=== PATIENT | male | born 1945 | race Caucasian/White ===

== ENCOUNTER → 2017-10-28 08:41 | Outpatient (CLI) | payer MEDICARE, SELFPAY ==
--- NOTE | 2017-10-28 08:45 | AAVD_ITS ---
Reason For Study: Pre ECP therapy Aorta Measurements Aorta Doppler Measurements Proximal aorta measures1.6 x 1.5cm. in cross- Peak systolic flow velocities within the proximal sectional axis. aorta measure 85.7 cm/sec. Proximal aorta measures1.6cm. in longitudinal Peak systolic flow velocities within the mid axis. aorta measure 77.5 cm/sec. Mid aorta measures1.6 x 1.5cm. in cross-sectionalPeak systolic flow velocities within the distal axis. aorta measure 85.7 cm/sec. Mid aorta measures1.5cm. in longitudinal axis. Distal aorta measures1.4 x 1.4cm. in cross- sectional axis. Distal aorta measures1.4cm. in longitudinal axis. Left Iliac Artery Left iliac artery measures .91 cm. in the longitudinal axis. Left iliac artery measures .93 x .89 cm. in the cross-sectional axis. Peak systolic velocity in the left iliac artery measures 102.0 cm/sec. Right Iliac Artery Right iliac artery measures .88 cm. in the longitudinal axis. Right iliac artery measures .86 x .85 cm. in the cross-sectional axis. Peak systolic velocity in the right iliac artery measures 102.0 cm/sec. Procedure Aorta IVC Iliac vasculature or bypass grafts 23956. Exam performed in department. Interpretation Summary No evidence for aortic aneurysm with maximal diameter of 1.6 x 1.5cm and normal flow. Normal iliac dimensions as noted. Ordering Physician: Marybeth Garcia Referring Physician: Kandi Obrien M.D. Performed By: Verenice Amador RVT
== END ==
PROVIDERS: Family Provider Internal Medicine; PCP Internal Medicine; Visit Provider Physician Assistant Medical
DX: I10 Essential (primary) hypertension (principal)
CPT/HCPCS: 93978

== ENCOUNTER → 2017-10-31 10:48 | Outpatient (CLI) | payer MEDICARE, SELFPAY | PROVIDERS: Family Provider Internal Medicine; PCP Internal Medicine; Visit Provider Internal Medicine Cardiovascular Disease | DX: I25.728 Atherosclerosis of autologous artery coronary artery bypass graft(s) with other forms of angina pectoris (principal) ==

== ENCOUNTER 2017-11-29 11:00 | Outpatient (RCR) | payer MEDICARE, SELFPAY | END 2017-11-30 23:59 | LOC: CR 11:00 | PROVIDERS: Family Provider Internal Medicine; PCP Internal Medicine; Visit Provider Internal Medicine Cardiovascular Disease | DX: I25.728 Atherosclerosis of autologous artery coronary artery bypass graft(s) with other forms of angina pectoris (principal) | CPT/HCPCS: 92971; G0166 ==

== ENCOUNTER 2017-12-23 11:00 | Outpatient (RCR) | payer MEDICARE, SELFPAY | END 2017-12-24 11:15 | disposition home or self-care (01) | LOC: CR 11:00 | PROVIDERS: Family Provider Internal Medicine; PCP Internal Medicine; Visit Provider Internal Medicine Cardiovascular Disease | DX: I25.728 Atherosclerosis of autologous artery coronary artery bypass graft(s) with other forms of angina pectoris (principal) | CPT/HCPCS: 92971; G0166 ==

== ENCOUNTER → 2018-03-10 12:12 | Outpatient (CLI) | payer MEDICARE, SELFPAY ==
--- NOTE | 2018-03-10 12:16 | RAD_ITS ---
STUDY: X-RAY - RIGHT KNEE REASON FOR EXAM: Male, 72 years old. Knee pain TECHNIQUE: 3 view(s) of the knee. COMPARISON: None. FINDINGS: The femur, tibia, fibula and patella are intact. There are linear bony densities adjacent to the medial femoral condyle which could be old injury related to medial collateral ligament. There is NO soft tissue swelling or joint effusion. There are vascular calcifications. RAD/Knee 3 Views IMPRESSION: There is NO acute bony or soft tissue abnormality. There is possible evidence of old medial collateral ligament injury. Electronically Signed: Faraz Paula MD at 6:59 EDT , Service support ,
== END ==
PROVIDERS: Family Provider Internal Medicine; PCP Internal Medicine; Visit Provider Internal Medicine
DX: M25.561 Pain in right knee (principal)
CPT/HCPCS: 73562; 73564

== ENCOUNTER 2018-12-05 18:09 | Inpatient (IN) | payer MEDICARE, SELFPAY ==
[2018-10-22 09:30] VITALS: BMI 31.4
[2018-12-05] VITALS (8 sets, daily range): BP systolic 125–161; BP diastolic 65–76; PULSE 73–89; RESP 18; TEMP 36.6–36.8; O2SAT 97–99; BMI 29.3; BMI 28.9
--- NOTE | 2018-12-05 18:10 | RAD_ITS ---
STUDY: X-RAY CHEST REASON FOR EXAM: Male, 73 years old. Chest pain TECHNIQUE: Frontal view of the chest COMPARISON: 10/24/2016 FINDINGS: The lungs are clear. There are no pleural effusions. There is no pneumothorax. The heart is stable in size. Again noted are sternotomy wires. The visualized osseous structures are within normal limits. RAD/Chest 1 View (Portable) IMPRESSION: No acute thoracic pathology. Electronically Signed: Remberto Garza, at 18:39 EDT Tel , Service support ,
--- NOTE | 2018-12-05 18:10 | EKG12_ITS ---
Test Reason : CP Blood Pressure : / mmHG Vent. Rate : 086 BPM Atrial Rate : 086 BPM P-R Int : 188 ms QRS Dur : 116 ms QT Int : 388 ms P-R-T Axes : 024 -85 096 degrees QTc Int : 464 ms Normal sinus rhythm Left axis deviation Marked ST abnormality, possible lateral subendocardial injury Abnormal ECG Confirmed by VICKIE DOLL, SABRA ([id number]), editor dictionary DENISSE FRANK ([id number]) on 12/08/2018 10:56:10 AM Referred By: DEEPALI Confirmed By:SABRA JOHNSTON MD
--- NOTE | 2018-12-05 18:14 | ED.DCSUM_ITS ---
- ER Visit Summary Date of Service: 12/05/18 Chief Complaint: Chest pain History of Present Illness: The patient is a 73 M presents to the emergency department chest pain. The patient has a history of 5 vessel bypass in 2002. He follows with Dr. Jacobs. He did have cardiac catheterization in 2017 that showed multiple small vessel disease areas. It has not been amenable to stenting or angioplasty. He was placed on maximal medical therapy. Patient states he has been doing well. He states he will have some anginal symptoms only twice a year. He states is normally resolved with the nitro. 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 He states he got a substernal left-sided chest heaviness with mild shortness of breath. He did take 2 nitro which improved the pain, but it never fully went away. He states up until today, he is been in his normal state of health. He is been compliant with all of his medications. Physical Examination: Vital signs reviewed General: Well-nourished, well-developed Head: Normocephalic, atraumatic Eyes: Pupils equal and reactive, extraocular muscles intact Neck, supple, no lymphadenopathy Heart: Regular rate and rhythm Respiratory: No distress, clear bilaterally Abdomen: Soft, nontender, nondistended, no peritoneal signs Back: Nontender Extremities: Nontender, no edema, no cords Skin: Normal color no rash Neuro: Alert and oriented, no focal or lateralizing deficits Test Results: [] Emergency Department Course and Treatment: The patient presents with classic anginal symptoms. He does have significant history of coronary vascular disease . Initial EKG on arrival shows ST depression in the anterior leads. Patient was given 2 nitro. His pain had totally resolved. His EKG was repeated and his ST segments have almost totally normalized. His initial cardiac enzymes were negative. However, given his significant history of coronary vascular disease, classic chest pain, and dynamic EKG changes I do feel the patient is going to require admission. I discussed the patient with Dr. Peña, on-call for Dr. Jacobs. He did recommend Lovenox. This was ordered. Patient was discussed with the hospitalist and will be admitted. Treatment Plan: [] Disposition: Admission Impression: 1. Chest pain-angina 2. EKG changes This note was generated with [employer] Interactive[employer] software. It may contain incorrect words, spelling, and punctuation that were not noted in review of the chart prior to signing ED Disposition - Plan for ED Patient: Referrals: Kandi Obrien DO [Primary Care Provider] -
[2018-12-05] MEDS: Aspirin 81 MG TAB.CHEW 324 MG PO (18:22)
[2018-12-05 18:31] LABS: Absolute Lymphocyte Count 1.61 X10^3/ul (0.83-4.51); Absolute Neutrophil Count 4.7 X10^3/uL (2.0-7.7); Basophil# 0.04 X10^3/uL; Basophil% 0.5 % (0-1); Eosinophil# 0.38 X10^3/uL; Eosinophils% 5.2 % (0-5); Hematocrit 34.2 % (40-54); Hemoglobin 11.1 g/dl (13.0-16.5); Lymphocyte # 1.61 X10^3/ul (4.0); Lymphocyte % 21.8 % (19-41); Mean Corp Hgb Conc 32.5 g/gl (32-36); Mean Corpuscular Hgb 31.4 pg (27.0-32.0); Mean Corpuscular Volume 96.9 fL (80-94); Mean Platelet Vol. 10.5 fl (6.2-12.0); Monocyte# 0.64 X10^3/uL; Monocyte% 8.7 % (0-10); Neutrophil # 4.69 X10^3/uL (2.7-7.7); Neutrophil % 63.7 % (47-70); Platelet Count 252 K/mm3 (150-450); RBC Distribution Width CV 13.6 % (11.6-14.6); RBC Distribution Width SD 47.5 fl (35.1-43.9); Red Blood Count 3.53 M/mm3 (4.6-6.2); White Blood Count 7.4 K/mm3 (4.4-11.0)
[2018-12-05 18:32] LABS: POSITIVE COUNT NO; POSITIVE DIFFERENTIAL NO; POSITIVE MORPHOLOGY NO
--- NOTE | 2018-12-05 18:33 | EKG12_ITS ---
Test Reason : REPEAT Blood Pressure : / mmHG Vent. Rate : 083 BPM Atrial Rate : 083 BPM P-R Int : 156 ms QRS Dur : 098 ms QT Int : 400 ms P-R-T Axes : 020 -72 092 degrees QTc Int : 470 ms Normal sinus rhythm Left anterior fascicular block Nonspecific ST and T wave abnormality Abnormal ECG Confirmed by VICKIE DOLL, SABRA ([id number]), editor at large DENISSE FRANK ([id number]) on 12/08/2018 10:56:30 AM Referred By: DEEPALI Confirmed By:SABRA JOHNSTON MD
--- NOTE | 2018-12-05 18:36 | ED.RN ---
CALLED FOR REPEAT EKG PER DR GARZA
[2018-12-05 18:45] LABS: Anion Gap 6 (5-15); BUN 36 mg/dL (7-18); BUN/Creat Ratio 16.6 RATIO (10-20); Calcium,Total 8.4 mg/dL (8.5-10.1); Chloride 111 mmol/L (98-107); Creatinine, Serum 2.17 mg/dL (0.70-1.30); EST Glomerular Filtration Rate 32 mL/min (>60); Est Glom Filt Rate - Afr Amer 38 mL/min (>60); Estimated Creatinine Clearance 26.95 ml/min; Glucose 168 mg/dL (74-106); Potassium 5.4 mmol/L (3.5-5.1); Sodium Level 139 mmol/L (136-145)
--- NOTE | 2018-12-05 19:14 | PCM.HP.STD ---
Problem List (1) NSTEMI (non-ST elevated myocardial infarction) Status: Acute History of Present Illness Date of Admission: 12/06/18 Chief Complaint: CHEST PAIN The patient is a 73 year old M with a significant history of CAD status post CABG and coronary stent; diabetes mellitus who presented to the emergency department with persistent substernal chest pain that started on the same day of presentation while working on his car. He describes chest pain as 'tightness and noticeable. He denies any aggravating or ameliorating factor. He denies any nausea, vomiting, diaphoresis or shortness of breath. At the emergency department EKG showed ST depression in anterior leads that was not present in EKG in 2006. With repeat EKG while at the emergency department his ST segment depression improved. While at home he took some nitroglycerin that did not really help his pain at the ED his pain was relieved with nitro SL. Emergency department doctor reported discussing the case with cardiology who recommended therapeutic dose of Lovenox x1 and will follow patient in a.m. While patient was admitted to the [facility] nurse reported that patient troponin juliana to the critical range. 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) I11.9 Atherosclerotic heart disease of [place] coronary artery without angina pectoris (Chronic) I25.10 Abnormal electrocardiogram (Chronic) R94.31 Diabetes (Chronic) E11.9 W/OTH manifests type II/Uns type Uncontrolled Shortness of breath (Chronic) R06.02 Carotid bruit (Chronic) R09.89 Other care home (current) drug therapy (Chronic) Z79.899 Abnormal nuclear stress test (Chronic) R94.39 Angina pectoris (Chronic) I20.9 Allergies Iodinated Contrast- Oral and IV Dye [Iodinated Contrast Media - Oral and] Allergy (Verified 12/05/18 18:15) Unknown Home Medications: Ambulatory Orders Medication Instructions Recorded Ascorbic Acid [Vitamin C] 500 mg PO DAILY@0800 11/06/16 Aspirin 325 mg PO DAILY@0800 11/06/16 Cholecalciferol (Vitamin D3) 1,000 unit PO DAILY 11/06/16 [Vitamin D3] Ferrous Sulfate 325 mg PO DAILY@0800 11/06/16 Garlic 400 mg PO DAILY 11/06/16 Metformin HCl [Glucophage] 850 mg PO TIDCM 11/06/16 Multivitamins,Therapeutic 1 tab PO DAILY 11/06/16 [Multivitamin] glimepiride 4 mg tablet 4 mg PO BIDCM tab 10/14/17 lisinopril 5 mg tablet 5 mg PO DAILY #30 tab 05/12/18 nitroglycerin 0.4 mg sublingual 0.4 mg SUBLINGUAL Q5M PRN #25 tab 10/22/18 tablet clopidogrel 75 mg tablet 75 mg PO DAILY #30 tab 11/13/18 Atorvastatin Calcium [Lipitor] 40 mg PO QDAY 12/05/18 Isosorbide Mononitrate [Imdur] 30 mg PO DAILY 12/05/18 Liraglutide [Victoza] 1.8 mg SQ DAILY 12/05/18 Metoprolol Succinate [Toprol Xl] 50 mg PO DAILY 12/05/18 Ranolazine [Ranexa] 1,000 mg PO Q12H 12/05/18 Surgical History: Surgical History (Last Reviewed 12/06/18 @ 00:32 by Asher Jones MD) Aortocoronary bypass status (Chronic) Z95.1 CABG X 5 with BUCKNER in sequence to DX & LAD, & sequential graft using SVSG to CX X 2, as well as individual SVG to CX 08/31/[address] Mendez History of percutaneous transluminal coronary angioplasty (Chronic) Z98.61 PTCA & Stenting of SVG to RCA, PTCA & stenting of SVG to 3rd OM 02/07/11, Restenting of mid SVG of RCA 08/13 Lives: Alone Smoking Status: Never smoker - *Family History Maternal Family History: Family History (Last Reviewed 12/06/18 @ 00:35 by Asher Jones MD) Father Diabetes Cancer Sister Diabetes History Items: Heart Disease - FATHER Review of Systems Constitutional: Denies: Chills, Fever, Weight Change HEENT: Denies: Head Aches, Sinus Congestion, Sinus Drainage Cardiovascular: Denies: Chest Pain, Palpitations Respiratory: Denies: Cough, Shortness of breath at rest, Sputum production Gastrointestinal: Denies: Abdominal Pain, Nausea, Vomiting Genitourinary: Denies: Dysuria Musculoskeletal: Denies: Joint Pain, Joint Tenderness Skin: Denies: Rash, Wounds Neurological: Denies: Numbness, Tingling, Focal weakness Psychiatric: Denies: Anxiety, Depression, Homicidal Ideations, Suicidal Ideations Hematologic/ Lymphatic: Denies: Easy Bruising, Easy Bleeding VTE Information - Inpt Only VTE Present on Admission: No VTE Mechan Device Prophylaxis: None VTE Pharm Prophylaxis ordered?: No Reason prophylaxis not ordered:: Treatment Not Indicated - Not indicated since patient received therapeutic dose of Lovenox for non-ST elevation MO Patient Problems: Active and Suspected Problems (Last Reviewed 12/06/18 @ 03:51 by Asher Jones MD) NSTEMI (non-ST elevated myocardial infarction) (Acute) - Physical Exam General: Alert, Oriented x3, Cooperative HEENT: Atraumatic, PERRLA, EOMI, Normocephalic Neck: Supple, No JVD, Negative Carotid Bruits Lungs: Clear to auscultation, Normal air movement Cardiovascular: Regular rate, No murmurs Abdomen: Bowel Sounds Present, Soft, Non Tender Extremities: No edema, Capillary Refill Less than 3 Seconds Skin: No rashes, No breakdown Musculoskeletal: No Tenderness to Palpation of Joints or Extremities Neurological: Cranial nerves II-XII grossly intact Psych/Mental Status: Normal Affect, Appropriate Vital Signs Temp Pulse Resp BP Pulse Ox 98 F 79 18 125/76 H 99 04/05/19 18:11 12/05/18 19:10 12/05/18 19:10 12/05/18 19:10 12/05/18 19:10 Oxygen Flow Rate (L/min) 2 Oxygen Delivery Method Nasal Cannula Weight: 82.4 kg Body Mass Index (BMI) 29.3 Laboratory Tests Past 24 Hrs 12/05/18 12/05/18 12/05/18 18:16 18:16 18:16 WBC 7.4 RBC 3.53 L Hgb 11.1 L Hct 34.2 L MCV 96.9 H MCH 31.4 MCHC 32.5 RDW 13.6 RDW Differential 47.5 H Plt Count 252 MPV 10.5 Immature Gran % (Auto) 0.100 Neut % (Auto) 63.7 Lymph % (Auto) 21.8 [place] % (Auto) 8.7 Eos % (Auto) 5.2 H Baso % (Auto) 0.5 Absolute Neuts (auto) 4.7 Absolute Lymphs (auto) 1.61 Total Counted Not Reportable Sodium 139 Potassium 5.4 H Chloride 111 H Carbon Dioxide 22.0 Anion Gap 6 BUN 36 H Creatinine 2.17 H Estim Creat Clear Calc 26.95 Est GFR (MDRD) Af Amer 38 L Est GFR (MDRD) Non-Af 32 L BUN/Creatinine Ratio 16.6 Glucose 168 H Calcium 8.4 L Troponin I < 0.015 B-Natriuretic Peptide Pending Assessment/Plan All Active Problems (Last Reviewed 12/06/18 @ 03:51 by Asher Jones MD) NSTEMI (non-ST elevated myocardial infarction) (Acute) The patient is a 73 year old M with a significant history of CAD status post CABG and coronary stent; diabetes mellitus who presented to the emergency department with persistent substernal chest pain that started on the same day of presentation while working on his car; and had an ST depression in anterior leads which improved on subsequent EKG but noticed to have an increase in his troponin consistent with non-ST elevation MO. Non-ST elevation MO Admit to a monitored bed on PCU CXR independently reviewed confirms no acute cardiopulmonary process. EKG independently reviewed confirms ST depression in anterior leads which improved with repeat EKG. Old records reviewed showed EKG that did not have ST depressions. Therapeutic dose of Lovenox was given at the emergency department. Received aspirin 325 mg at emergency department. Home aspirin 81 mg daily continued. Plavix continued. Imdur continued. Lisinopril continued SL NTG 0.4 mg prn as needed for chest pain We will check lipid panel. High intensity statin continued Serial cardiac enzymes Stat EKG as needed for chest pain We will keep patient n.p.o Ranolazine continued. PT/INR ordered. Metoprolol continued Cardiology consulted. ABUNDIO on CKD On presentation his creatinine was 2.17. Review of old records shows that his creatinine on 12/18/2016 was 1.45. His baseline creatinine is approximately 1.60 BUN over creatinine is 16.6. Gentle IV hydration for prerenal etiology. Can not rule out intrinsic renal as BUN/creatinine is 16.6. Avoid nephrotoxic's. Hold lisinopril Trend BMP Diabetes mellitus On presentation his blood glucose low, and below hospital goal. His blood glucose actually decreased from 92 to 52 for which reason patient received hypoglycemic protocol with orange juice. Discussed with nurse to give patient crackers and peanut butter cream; and keep patient n.p.o. after that.. Will start patient on D5W with half-normal saline at 100 mL's per hour especially as patient will be n.p.o. for test. Home metformin, Victoza and glyburide held. Hyperkalemia: His potassium was 5.4 on admission. Likely secondary to AK I on CKD IV hydration Trend BMP. Hypertension On presentation his blood pressure was slightly outside goal in regards to his age. Metoprolol and Imdur continued Trend blood pressure and adjust blood pressure medication. DVTprophylaxis Not indicated since patient was given therapeutic dose of Lovenox for non-ST elevation MO. Code Visit Inpatient E&M: 26691 Init Hosp L3
[2018-12-05] MEDS: Enoxaparin 80 MG/0.8 ML Syringe SC (19:38)
--- NOTE | 2018-12-05 20:09 | EKG12_ITS ---
Test Reason : Blood Pressure : / mmHG Vent. Rate : 066 BPM Atrial Rate : 066 BPM P-R Int : 144 ms QRS Dur : 096 ms QT Int : 440 ms P-R-T Axes : 017 -62 093 degrees QTc Int : 461 ms Normal sinus rhythm with sinus arrhythmia Left anterior fascicular block ST & T wave abnormality, consider anterior ischemia Prolonged QT Abnormal ECG When compared with ECG of 07-DEC-2018 08:46, MANUAL COMPARISON REQUIRED, DATA IS UNCONFIRMED Confirmed by VICKIE DOLL, SABRA ([id number]), make up editor DENISSE FRANK ([id number]) on 12/09/2018 8:05:51 AM Referred By: Confirmed By:SABRA JOHNSTON MD
[2018-12-05 20:10] LABS: BNP,B-Type NATRIURETIC PEPTIDE 123.3 pg/mL (0-100)
[2018-12-05] MEDS: Atorvastatin Calcium 40 MG Tablet PO (22:08)
[2018-12-05] MEDS: Ranolazine 500 MG Tablet 1000 MG PO (22:08)
[2018-12-05 22:15] LABS: Bedside Glucose 92 mg/dL (70-110)
[2018-12-06] VITALS (13 sets, daily range): BP systolic 117–146; BP diastolic 51–64; PULSE 58–71; RESP 18; TEMP 36.6–36.9; O2SAT 96–99
[2018-12-06 00:26] LABS: Bedside Glucose 52 mg/dL (70-110)
[2018-12-06] MEDS: Dext 5%-0.45% NS 1,000 ML 100 ML IV (00:56)
[2018-12-06] MEDS: 0.9% NaCl Peripheral Flush Adult/Peds IV (00:58)
[2018-12-06 01:31] LABS: Magnesium 1.9 mg/dL (1.6-2.6)
[2018-12-06 01:56] LABS: Bedside Glucose 64 mg/dL (70-110)
[2018-12-06 01:56] LABS: Bedside Glucose 121 mg/dL (70-110)
[2018-12-06 02:45] LABS: Bacteria 0 SEEN /hpf (None Seen); Mucous, Urine 0 SEEN /hpf (<or=2+); Red Blood Cells-Urine 0 SEEN /hpf (0-5); White Blood Cells 0 SEEN /hpf (0-5)
[2018-12-06 02:47] LABS: Color, Urine Yellow (Yellow); Glucose, Dipstick Normal (Normal); Ketone-Dipstick Negative (Negative); Leukocyte Esterase-Dipstick Negative /ul (Negative); Nitrite-Dipstick Negative (Negative); Occult Blood-Urine Negative /ul (Negative); Protein-Dipstick Negative (Negative); Specific Gravity, Urine 1.015 (1.002-1.030); Urine Bilirubin Dipstick Negative (Negative); Urine Clarity Sl. Cloudy (Clear); Urine Urobilinogen Normal (Normal)
[2018-12-06 04:14] LABS: Squamous Epithelial Cells - UA 0-5 SEEN /hpf (0-5)
[2018-12-06 04:21] LABS: Bedside Glucose 170 mg/dL (70-110)
--- NOTE | 2018-12-06 05:55 | EKG12_ITS ---
Test Reason : AM EKG Blood Pressure : / mmHG Vent. Rate : 065 BPM Atrial Rate : 065 BPM P-R Int : 154 ms QRS Dur : 106 ms QT Int : 420 ms P-R-T Axes : 003 -56 140 degrees QTc Int : 436 ms Sinus rhythm with Premature atrial complexes Left anterior fascicular block ST & T wave abnormality, consider anterolateral ischemia Abnormal ECG When compared with ECG of 05-DEC-2018 23:06, MANUAL COMPARISON REQUIRED, DATA IS UNCONFIRMED Confirmed by VICKIE DOLL, SABRA ([id number]), online editor DENISSE FRANK ([id number]) on 12/09/2018 8:10:30 AM Referred By: DR JHAVERI Confirmed By:SABRA JOHNSTON MD
[2018-12-06 06:46] LABS: Prothrombin Time (Protime)PT. 13.1 SECONDS (11.7-14.9)
[2018-12-06 06:47] LABS: Partial Thromboplast Time 32.8 Seconds (24.1-36.2)
[2018-12-06 07:01] LABS: Absolute Neutrophil Count 3.3 X10^3/uL (2.0-7.7); Basophil# 0.03 X10^3/uL; Basophil% 0.5 % (0-1); Eosinophil# 0.37 X10^3/uL; Eosinophils% 6.4 % (0-5); Hematocrit 32.8 % (40-54); Hemoglobin 10.4 g/dl (13.0-16.5); Mean Corp Hgb Conc 31.7 g/gl (32-36); Mean Corpuscular Hgb 30.7 pg (27.0-32.0); Mean Corpuscular Volume 96.8 fL (80-94); Mean Platelet Vol. 10.4 fl (6.2-12.0); Monocyte# 0.57 X10^3/uL; Monocyte% 9.9 % (0-10); Neutrophil # 3.29 X10^3/uL (2.7-7.7); Neutrophil % 56.9 % (47-70); Platelet Count 219 K/mm3 (150-450); RBC Distribution Width CV 13.3 % (11.6-14.6); RBC Distribution Width SD 46.2 fl (35.1-43.9); Red Blood Count 3.39 M/mm3 (4.6-6.2); White Blood Count 5.8 K/mm3 (4.4-11.0)
[2018-12-06 07:05] LABS: Anion Gap 6 (5-15); BUN 30 mg/dL (7-18); Chloride 112 mmol/L (98-107); Cholesterol 114 mg/dL (200); Creatinine, Serum 1.58 mg/dL (0.70-1.30); EST Glomerular Filtration Rate 46 mL/min (>60); Est Glom Filt Rate - Afr Amer 55 mL/min (>60); Estimated Creatinine Clearance 37.01 ml/min; Glucose 166 mg/dL (74-106); High Density Lipoprotein 34 mg/dL; Potassium 4.7 mmol/L (3.5-5.1); Sodium Level 141 mmol/L (136-145); Triglycerides 272 mg/dL; Very Low Density Lipoprotein 54 mg/dL (5-40)
[2018-12-06 07:09] LABS: POSITIVE COUNT NO; POSITIVE DIFFERENTIAL NO; POSITIVE MORPHOLOGY NO
[2018-12-06] MEDS: Clopidogrel Bisulfate 75 MG Tablet PO (08:08)
[2018-12-06] MEDS: Aspirin 325 MG Tablet PO (08:08)
[2018-12-06] MEDS: Multivitamins,Therapeutic Tablet 1 TABLET PO (08:08)
--- NOTE | 2018-12-06 09:12 | ECHOCS_ITS ---
Reason For Study: CHEST PAIN Procedure This was a 2D Doppler, Color Flow transthoracic echocardiogram. Contrast injection was performed. Exam performed portable in patient room. Left Ventricle Normal LV size. Left ventricular systolic function is normal. The estimated ejection fraction is 65 %. Stage 1 diastolic dysfunction. No regional wall motion abnormalities noted. Right Ventricle Normal RV size. Normal systolic function. Atria Normal left atrium. Normal right atrium. Mitral Valve Normal mitral valve. Mild (1+) eccentric mitral valve insufficiency. Tricuspid Valve Normal tricuspid valve. Mild to moderate (1-2+) tricuspid valve insufficiency. Pulmonary artery systolic pressure is 52 mmHg. Mild pulmonary hypertension. Aortic Valve Trisinus/trileaflet aortic valve. Mild focal aortic valve calcification. Mild (1+) aortic valve insufficiency. Pulmonic Valve Normal pulmonic valve. Great Vessels Normal aortic root. The pulmonary artery is normal size. Normal inferior vena cava. Pericardium/Pleural No pericardial effusion. Medication Diluted definity 2ml given slow IV push to enhance endocardial definition. MMode/2D Measurements & Calculations LVIDd: 5.1 cm IVSd: 1.0 cm Ao root diam: 3.6 cm LVIDs: 3.6 cm LVPWd: 1.0 cm RVDd: 3.6 cm FS: 28.9 % LAV(MOD-bp): 66.6 ml LA A4 area: 22.1 cm2 LA dimension(2D): 5.4 cm LAV(MOD-bp) Indexed: 35.2 ml/m2 LAV(MOD-sp2): 69.9 ml LAV(MOD-sp4): 61.4 ml RA A4 area: 16.4 cm2 Time Measurements MV dec time: 0.19 sec Doppler Measurements & Calculations MV E max jeff: 101.5 cm/sec Lat Peak E' Jeff: 8.5 cm/sec Med Peak E' Jeff: 8.0 cm/sec MV A max jeff: 106.6 cm/sec E/E' lat: 12.0 E/E' med: 12.7 MV E/A: 0.95 Ao V2 max: 201.5 cm/sec AI max jeff: 431.6 cm/sec LV V1 max: 114.6 cm/sec Ao max P.3 mmHg AI max P.6 mmHg LV V1 max P.3 mmHg Ao V2 mean: 131.5 cm/sec AI dec slope: 297.3 cm/sec2 LV V1 mean P.9 mmHg Ao mean P.7 mmHg AI P1/2t: 425.2 msec LV V1 mean: 81.5 cm/sec Ao V2 VTI: 43.6 cm LV V1 VTI: 28.3 cm PA V2 max: 112.0 cm/sec TR max jeff: 341.5 cm/sec TR max P.7 mmHg Interpretation Summary Normal LV size. Left ventricular systolic function is normal. The estimated ejection fraction is 65 %. Stage 1 diastolic dysfunction. Mild (1+) eccentric mitral valve insufficiency. Pulmonary artery systolic pressure is 52 mmHg. Mild pulmonary hypertension. Contrast injection was performed. Ordering Physician: Boris Peña Referring Physician: KRISTAL NOYOLA Performed By: Melida Campos, WANDA, RVT
[2018-12-06 09:50] LABS: Bedside Glucose 164 mg/dL (70-110)
--- NOTE | 2018-12-06 10:08 | PCM.CONS.C ---
Reason for Consult Date of Consultation: 12/06/18 Reason for Consultation: Chest pain History of Present Illness: The patient is a 73 year old M who presented to the hospital yesterday because of chest discomfort which he described as a heaviness. He apparently has been having some of this chest discomfort over the last 2 weeks or so. 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 He was seen in the emergency room and an EKG was done which had some concerning changes. He was given further sublingual nitroglycerin with some improvement in his symptoms. He was admitted to the telemetry care unit with mildly abnormal cardiac enzymes. He also appeared to have had significant renal dysfunction which appears to be improving with hydration. He has a history of coronary artery disease with bypass surgery in 2002. He had a BUCKNER to the LAD / DX (sequential graft), SVG to the LCX x 2 (sequential graft), and SVG to RCA . He had a drug-eluting stent in 2010 to SVG to LCX and the SVG to the RCA and then SVG to the RCA PCI in 2011. He does also have a history of hypertension and hyperlipidemia. He underwent a cardiac catheterization in 2017 and it demonstrated residual small vessel disease not amenable to angioplasty. Currently he is doing well without any chest discomfort. Past Medical History Allergies/Adverse Reactions: Allergies Iodinated Contrast- Oral and IV Dye [Iodinated Contrast Media - Oral and] Allergy (Verified 12/05/18 19:40) made me hot and they never used it again Home Medications: Ambulatory Orders Medication Instructions Recorded Ascorbic Acid [Vitamin C] 500 mg PO DAILY@0811/06/16 Aspirin 325 mg PO DAILY@79911/06/16 Cholecalciferol (Vitamin D3) 1,000 unit PO DAILY 11/06/16 [Vitamin D3] Ferrous Sulfate 325 mg PO DAILY@79911/06/16 Garlic 400 mg PO DAILY 11/06/16 Metformin HCl [Glucophage] 850 mg PO TIDCM 11/06/16 Multivitamins,Therapeutic 1 tab PO DAILY 11/06/16 [Multivitamin] glimepiride 4 mg tablet 4 mg PO BIDCM tab 10/14/17 lisinopril 5 mg tablet 5 mg PO DAILY #30 tab 05/12/18 nitroglycerin 0.4 mg sublingual 0.4 mg SUBLINGUAL Q5M PRN #25 tab 10/22/18 tablet clopidogrel 75 mg tablet 75 mg PO DAILY #30 tab 11/13/18 Atorvastatin Calcium [Lipitor] 40 mg PO QDAY 12/05/18 Isosorbide Mononitrate [Imdur] 30 mg PO DAILY 12/05/18 Liraglutide [Victoza] 1.8 mg SQ DAILY 12/05/18 Metoprolol Succinate [Toprol Xl] 50 mg PO DAILY 12/05/18 Ranolazine [Ranexa] 1,000 mg PO Q12H 12/05/18 Past Medical History (Chronic Problems): Chronic Problems (Last Reviewed 12/06/18 @ 03:51 by Asher Jones MD) Hyperlipidemia (Chronic) Hypertension (Chronic) 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 Denies: Orthopnea, PND, Peripheral Edema, Palpitations, Lightheadedness, Dizziness, Near Syncope, Syncope Respiratory: Denies: Cough, Sputum Production, Hemoptysis Gastrointestinal: Denies: Hematemesis, Hematochezia, Melena Genitourinary: Denies: Dysuria, Hematuria Skin: Denies: Rash Neurological: Denies: Dizziness Psychiatric: Denies: Anxiety Endocrine: Denies: Unexplained Weight Loss Hematologic/ Lymphatic: Denies: Anemia Subjectve: Pleasant gentleman in no apparent distress Objective: Vital Signs Temp Pulse Resp BP Pulse Ox 98.2 F 64 18 132/64 H 98 12/06/18 08:05 12/06/18 09:04 12/06/18 08:05 12/06/18 08:05 12/06/18 08:05 Oxygen Flow Rate (L/min) 2 Oxygen Delivery Method Room Air Weight: 179 lb 14.355 oz Body Mass Index (BMI) 28.9 Intake and Output for Last 24 Hours 12/04/18 12/05/18 12/06/18 23:59 23:59 23:59 Intake Total 800 / 800 Output Total 300 / 300 Balance 500 / 500 General: Awake, Alert, Oriented x 3 HEENT: PERRL, EOMI, Sclera Non Icteric Neck: Supple, Good ROM, No Lymph Node Enlargement Lungs: Clear to auscultation Cardiovascular: Regular Rhythm, Normal S1, Normal S2, No Murmurs, No Rubs, No Gallops Vascular: No Carotid Bruits, Normal Femoral Pulses, Normal Radial Pulses, Normal Dorsalis Pedal Pulse, Normal Posterior Tibial Pulses Abdomen: Bowel Sounds Present, Soft, Non Tender, No HSM, No Organomegaly Extremities: No Cyanosis, No Clubbing, No edema Musculoskeletal: No Erythema Skin: No Rashes Lymphatic: No Lymph Node Enlargement Neurological: No Focal Motor or Sensory Deficit Psych/Mental Status: Appropriate 12/05/18 18:16: WBC 7.4, RBC 3.53 L, Hgb 11.1 L, Hct 34.2 L, MCV 96.9 H, MCH 31.4, MCHC 32.5, RDW 13.6, RDW Differential 47.5 H, Plt Count 252, MPV 10.5, Immature Gran % (Auto) 0.100, Neut % (Auto) 63.7, Lymph % (Auto) 21.8, [place] % (Auto) 8.7, Eos % (Auto) 5.2 H, Baso % (Auto) 0.5, Absolute Neuts (auto) 4.7, Total Counted Not Reportable 12/05/18 18:16: Sodium 139, Potassium 5.4 H, Chloride 111 H, Carbon Dioxide 22.0, Anion Gap 6, BUN 36 H, Creatinine 2.17 H, Est GFR (MDRD) Af Amer 38 L, Est GFR (MDRD) Non-Af 32 L, BUN/Creatinine Ratio 16.6, Glucose 168 H, Calcium 8.4 L, Troponin I < 0.015 12/05/18 18:16: B-Natriuretic Peptide 123.3 H 12/05/18 21:45: Troponin I 0.747 H* 12/06/18 00:27: Troponin I 2.020 H* 12/06/18 00:27: Magnesium 1.9 12/06/18 02:32: Urine Color Yellow, Urine Clarity Sl. Cloudy, Urine pH 6.0, Ur Specific [place] 1.015, Urine Protein Negative, Urine Glucose (UA) Normal, Urine Ketones Negative, Urine Occult Blood Negative, Urine Nitrite Negative, Urine Bilirubin Negative, Urine Urobilinogen Normal, Ur Leukocyte Esterase Negative, Urine RBC 0 SEEN, Urine WBC 0 SEEN 12/06/18 06:10: PT 13.1, INR 1.0, APTT 32.8 12/06/18 06:10: Sodium 141, Potassium 4.7, Chloride 112 H, Carbon Dioxide 23.0, Anion Gap 6, BUN 30 H, Creatinine 1.58 H, Est GFR (MDRD) Af Amer 55 L, Est GFR (MDRD) Non-Af 46 L, BUN/Creatinine Ratio 19.0, Glucose 166 H, Calcium 8.0 L, Triglycerides 272 H, Cholesterol 114, LDL Cholesterol 26, VLDL Cholesterol 54 H, HDL Cholesterol 34 L 12/06/18 06:10: WBC 5.8, RBC 3.39 L, Hgb 10.4 L, Hct 32.8 L, MCV 96.8 H, MCH 30.7, MCHC 31.7 L, RDW 13.3, RDW Differential 46.2 H, Plt Count 219, MPV 10.4, Immature Gran % (Auto) 0.300, Neut % (Auto) 56.9, Lymph % (Auto) 26.0, [place] % (Auto) 9.9, Eos % (Auto) 6.4 H, Baso % (Auto) 0.5, Absolute Neuts (auto) 3.3, Total Counted Not Reportable Rhythm: EKG: Normal sinus rhythm with lateral ST depression noted with a rate of 65 bpm 1. Elevated left ventricular end-diastolic pressure 2. Left ventricle: A. Not performed 3. Left main coronary artery: A. Severe calcification B. Distal 95% eccentric appearing stenosis 4. Left anterior descending coronary artery: A. Proximal severe calcification. B. Following the septal inweaver system the LAD appears to be occluded C. The remainder of the LAD fills from the BUCKNER graft with no angiographically significant disease distal to the graft attachment 5. Diagonal branch 1: A. Fills from the BUCKNER graft sequencing to the LAD B. The diagonal branch appears to be patent with no angiographically significant appearing disease distal to the graft attachment 6. Left circumflex coronary artery: A. Moderate calcification B. Proximal 85% hazy eccentric appearing stenosis followed by minimal luminal irregularities followed by an obtuse marginal branch which appears to demonstrate a bifurcating branch with 1 of the bifurcating branches appearing to be occluded C. The OM vessel appears to fill from an SVG graft and demonstrates severe diffuse disease throughout its segment pre-graft attachment and post graft attachment. 7. Right coronary artery: A. Large dominant vessel B. Proximal 100% occlusion C. The RV marginal branch and the right PDA appear to fill from the SVG graft with demonstration of no angiographically significant appearing disease distal to the graft attachment 8. BUCKNER to the LAD: Sequencing to the LAD and diagonal branch: A. No angiographically significant appearing disease 9. SVG to the OM system: A. Proximal to mid stent with 10-25% eccentric in-stent appearing stenosis 10. SVG to the RCA system: Sequencing to the RV marginal branch in the right PDA: A. Proximal stent: Patent with minimal luminal irregularities Assessment/Plan 1. Non-ST elevation myocardial infarction Patient appears to have sustained a non-ST elevation myocardial infarction. His cardiac catheterization films from 2017 demonstrated that he was adequately revascularized. Based on his current presentation my recommendation will be to continue his aspirin and beta-arlene and statins and schedule him for repeat cardiac catheterization to see whether there is been any change in his coronary anatomy. The risk benefits and alternatives have been explained and he understands and agrees to proceed. 2. Hypertension Good control continue current medical therapy 3. Risk factor modification We will continue aggressive risk factor modification. Thank you for allowing me to participate in the care of your patient. Please don't hesitate to call if any issues arise
--- NOTE | 2018-12-06 10:12 | NURSING ---
Student nurse charting reviewed.
--- NOTE | 2018-12-06 10:13 | CON.PCM_ITS ---
Reason for Consult Date of Consultation: 12/06/18 Reason for Consultation: Chest pain History of Present Illness: The patient is a 73 year old M who presented to the hospital yesterday because of chest discomfort which he described as a heaviness. He apparently has been having some of this chest discomfort over the last 2 weeks or so. 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 He was seen in the emergency room and an EKG was done which had some concerning changes. He was given further sublingual nitroglycerin with some improvement in his symptoms. He was admitted to the telemetry care unit with mildly abnormal cardiac enzymes. He also appeared to have had significant renal dysfunction which appears to be improving with hydration. He has a history of coronary artery disease with bypass surgery in 2002. He had a BUCKNER to the LAD / DX (sequential graft), SVG to the LCX x 2 (sequential graft), and SVG to RCA . He had a drug-eluting stent in 2010 to SVG to LCX and the SVG to the RCA and then SVG to the RCA PCI in 2011. He does also have a history of hypertension and hyperlipidemia. He underwent a cardiac catheterization in 2017 and it demonstrated residual small vessel disease not amenable to angioplasty. Currently he is doing well without any chest discomfort. Past Medical History Allergies/Adverse Reactions: Allergies Iodinated Contrast- Oral and IV Dye [Iodinated Contrast Media - Oral and] Allergy (Verified 12/05/18 19:40) made me hot and they never used it again Home Medications: Ambulatory Orders Medication Instructions Recorded Ascorbic Acid [Vitamin C] 500 mg PO DAILY@0811/06/16 Aspirin 325 mg PO DAILY@79911/06/16 Cholecalciferol (Vitamin D3) 1,000 unit PO DAILY 11/06/16 [Vitamin D3] Ferrous Sulfate 325 mg PO DAILY@79911/06/16 Garlic 400 mg PO DAILY 11/06/16 Metformin HCl [Glucophage] 850 mg PO TIDCM 11/06/16 Multivitamins,Therapeutic 1 tab PO DAILY 11/06/16 [Multivitamin] glimepiride 4 mg tablet 4 mg PO BIDCM tab 10/14/17 lisinopril 5 mg tablet 5 mg PO DAILY #30 tab 05/12/18 nitroglycerin 0.4 mg sublingual 0.4 mg SUBLINGUAL Q5M PRN #25 tab 10/22/18 tablet clopidogrel 75 mg tablet 75 mg PO DAILY #30 tab 11/13/18 Atorvastatin Calcium [Lipitor] 40 mg PO QDAY 12/05/18 Isosorbide Mononitrate [Imdur] 30 mg PO DAILY 12/05/18 Liraglutide [Victoza] 1.8 mg SQ DAILY 12/05/18 Metoprolol Succinate [Toprol Xl] 50 mg PO DAILY 12/05/18 Ranolazine [Ranexa] 1,000 mg PO Q12H 12/05/18 Past Medical History (Chronic Problems): Chronic Problems (Last Reviewed 12/06/18 @ 03:51 by Asher Jones MD) Hyperlipidemia (Chronic) Hypertension (Chronic) 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 Denies: Orthopnea, PND, Periph eral Edema, Palpitations, Lightheadedness, Dizziness, Near Syncope, Syncope Respiratory: Denies: Cough, Sputum Production, Hemoptysis Gastrointestinal: Denies: Hematemesis, Hematochezia, Melena Genitourinary: Denies: Dysuria, Hematuria Skin: Denies: Rash Neurological: Denies: Dizziness Psychiatric: Denies: Anxiety Endocrine: Denies: Unexplained Weight Loss Hematologic/ Lymphatic: Denies: Anemia Subjectve: Pleasant gentleman in no apparent distress Objective: Vital Signs Temp Pulse Resp BP Pulse Ox 98.2 F 64 18 132/64 H 98 12/06/18 08:05 12/06/18 09:04 12/06/18 08:05 12/06/18 08:05 12/06/18 08:05 Oxygen Flow Rate (L/min) 2 Oxygen Delivery Method Room Air Weight: 179 lb 14.355 oz Body Mass Index (BMI) 28.9 Intake and Output for Last 24 Hours 12/04/18 12/05/18 12/06/18 23:59 23:59 23:59 Intake Total 800 / 800 Output Total 300 / 300 Balance 500 / 500 General: Awake, Alert, Oriented x 3 HEENT: PERRL, EOMI, Sclera Non Icteric Neck: Supple, Good ROM, No Lymph Node Enlargement Lungs: Clear to auscultation Cardiovascular: Regular Rhythm, Normal S1, Normal S2, No Murmurs, No Rubs, No Gallops Vascular: No Carotid Bruits, Normal Femoral Pulses, Normal Radial Pulses, Normal Dorsalis Pedal Pulse, Normal Posterior Tibial Pulses Abdomen: Bowel Sounds Present, Soft, Non Tender, No HSM, No Organomegaly Extremities: No Cyanosis, No Clubbing, No edema Musculoskeletal: No Erythema Skin: No Rashes Lymphatic: No Lymph Node Enlargement Neurological: No Focal Motor or Sensory Deficit Psych/Mental Status: Appropriate 12/05/18 18:16: WBC 7.4, RBC 3.53 L, Hgb 11.1 L, Hct 34.2 L, MCV 96.9 H, MCH 31.4, MCHC 32.5, RDW 13.6, RDW Differential 47.5 H, Plt Count 252, MPV 10.5, Immature Gran % (Auto) 0.100, Neut % (Auto) 63.7, Lymph % (Auto) 21.8, [place] % (Auto) 8.7, Eos % (Auto) 5.2 H, Baso % (Auto) 0.5, Absolute Neuts (auto) 4.7, Total Counted Not Reportable 12/05/18 18:16: Sodium 139, Potassium 5.4 H, Chloride 111 H, Carbon Dioxide 22.0, Anion Gap 6, BUN 36 H, Creatinine 2.17 H, Est GFR (MDRD) Af Amer 38 L, Est GFR (MDRD) Non-Af 32 L, BUN/Creatinine Ratio 16.6, Glucose 168 H, Calcium 8.4 L , Troponin I < 0.015 12/05/18 18:16: B-Natriuretic Peptide 123.3 H 12/05/18 21:45: Troponin I 0.747 H* 12/06/18 00:27: Troponin I 2.020 H* 12/06/18 00:27: Magnesium 1.9 12/06/18 02:32: Urine Color Yellow, Urine Clarity Sl. Cloudy, Urine pH 6.0, Ur Specific [place] 1.015, Urine Protein Negative, Urine Glucose (UA) Normal, Urine Ketones Negative, Urine Occult Blood Negative, Urine Nitrite Negative, Urine Bilirubin Negative, Urine Urobilinogen Normal, Ur Leukocyte Esterase Negative, Urine RBC 0 SEEN, Urine WBC 0 SEEN 12/06/18 06:10: PT 13.1, INR 1.0, APTT 32.8 12/06/18 06:10: Sodium 141, Potassium 4.7, Chloride 112 H, Carbon Dioxide 23.0, Anion Gap 6, BUN 30 H, Creatinine 1.58 H, Est GFR (MDRD) Af Amer 55 L, Est GFR (MDRD) Non-Af 46 L, BUN/Creatinine Ratio 19.0, Glucose 166 H, Calcium 8.0 L, Triglycerides 272 H, Cholesterol 114, LDL Cholesterol 26, VLDL Cholesterol 54 H, HDL Cholesterol 34 L 12/06/18 06:10: WBC 5.8, RBC 3.39 L, Hgb 10.4 L, Hct 32.8 L, MCV 96.8 H, MCH 30.7, MCHC 31.7 L, RDW 13.3, RDW Differential 46.2 H, Plt Count 219, MPV 10.4, Immature Gran % (Auto) 0.300, Neut % (Auto) 56.9, Lymph % (Auto) 26.0, [place] % (Auto) 9.9, Eos % (Auto) 6.4 H, Baso % (Auto) 0.5, Absolute Neuts (auto) 3.3, Total Counted Not Reportable Rhythm: EKG: Normal sinus rhythm with lateral ST depression noted with a rate of 65 bpm 1. Elevated left ventricular end-diastolic pressure 2. Left ventricle: A. Not performed 3. Left main coronary artery: A. Severe calcification B. Distal 95% eccentric appearing stenosis 4. Left anterior descending coronary artery: A. Proximal severe calcification. B. Following the septal senior account clerk system the LAD appears to be occluded C. The remainder of the LAD fills from the BUCKNER graft with no angiographically significant disease distal to the graft attachment 5. Diagonal branch 1: A. Fills from the BUCKNER graft sequencing to the LAD B. The diagonal branch appears to be patent with no angiographically significant appearing disease distal to the graft attachment 6. Left circumflex coronary artery: A. Moderate calcification B. Proximal 85% hazy eccentric appearing stenosis followed by minimal luminal irregularities followed by an obtuse marginal branch which appears to demonstrate a bifurcating branch with 1 of the bifurcating branches appearing to be occluded C. The OM vessel appears to fill from an SVG graft and demonstrates severe diffuse disease throughout its segment pre-graft attachment and post graft attachment. 7. Right coronary artery: A. Large dominant vessel B. Proximal 100% occlusion C. The RV marginal branch and the right PDA appear to fill from the SVG graft with demonstration of no angiographically significant appearing disease distal to the graft attachment 8. BUCKNER to the LAD: Sequencing to the LAD and diagonal branch: A. No angiographically significant appearing disease 9. SVG to the OM system: A. Proximal to mid stent with 10-25% eccentric in-stent appearing stenosis 10. SVG to the RCA system: Sequencing to the RV marginal branch in the right PDA: A. Proximal stent: Patent with minimal luminal irregularities Assessment/Plan 1. Non-ST elevation myocardial infarction * Patient appears to have sustained a non-ST elevation myocardial infarction. H is cardiac catheterization films from 2017 demonstrated that he was adequately revascularized. Based on his current presentation my recommendation will be to continue his aspirin and beta-arlene and statins and schedule him for repeat cardiac catheterization to see whether there is been any change in his coronary anatomy. The risk benefits and alternatives have been explained and he understands and agrees to proceed. * 2. Hypertension * Good control continue current medical therapy * 3. Risk factor modification * We will continue aggressive risk factor modification. * * Thank you for allowing me to participate in the care of your patient. Please don't hesitate to call if any issues arise
[2018-12-06] MEDS: Ferrous Sulfate 325 MG Tablet PO (10:14)
[2018-12-06] MEDS: Ranolazine 500 MG Tablet 1000 MG PO ×2 (10:14→21:06)
[2018-12-06] MEDS: Ascorbic Acid 500 MG Tablet PO (10:15)
[2018-12-06] MEDS: Metoprolol(XL)Succ 50 MG Tablet PO (10:15)
[2018-12-06] MEDS: Isosorbide Mononitrate 30 MG Tablet PO (10:15)
[2018-12-06 11:51] LABS: Bedside Glucose 149 mg/dL (70-110)
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
[2018-12-06] MEDS: Insulin Lispro 100 UNIT/ML INSULN.PEN SC ×2 (16:15→21:06)
[2018-12-06] MEDS: Enoxaparin 80 MG/0.8 ML Syringe SC (18:48)
[2018-12-06 21:06] LABS: Bedside Glucose 184 mg/dL (70-110)
[2018-12-06] MEDS: Atorvastatin Calcium 40 MG Tablet PO (21:06)
[2018-12-06 21:40] LABS: Bedside Glucose 164 mg/dL (70-110)
[2018-12-07] VITALS (11 sets, daily range): BP systolic 120–144; BP diastolic 44–67; PULSE 59–73; RESP 18; TEMP 36.4–37.1; O2SAT 96–99
[2018-12-07] MEDS: 0.9% NaCl Peripheral Flush Adult/Peds IV ×2 (06:17→10:05)
[2018-12-07 07:01] LABS: Bedside Glucose 158 mg/dL (70-110)
[2018-12-07] MEDS: Insulin Lispro 100 UNIT/ML INSULN.PEN SC ×3 (07:31→16:57)
[2018-12-07] MEDS: Aspirin 325 MG Tablet PO (07:32)
[2018-12-07] MEDS: Ascorbic Acid 500 MG Tablet PO (07:32)
[2018-12-07] MEDS: Ferrous Sulfate 325 MG Tablet PO (07:32)
[2018-12-07] MEDS: Multivitamins,Therapeutic Tablet 1 TABLET PO (07:32)
--- NOTE | 2018-12-07 08:33 | EKG12_ITS ---
Test Reason : CP Blood Pressure : / mmHG Vent. Rate : 060 BPM Atrial Rate : 060 BPM P-R Int : 150 ms QRS Dur : 102 ms QT Int : 432 ms P-R-T Axes : 035 -59 109 degrees QTc Int : 432 ms Normal sinus rhythm Left anterior fascicular block ST & T wave abnormality, consider anterolateral ischemia Abnormal ECG When compared with ECG of 06-DEC-2018 05:51, MANUAL COMPARISON REQUIRED, DATA IS UNCONFIRMED Confirmed by VICKIE DOLL, SABRA ([id number]), purchasing expeditor DENISSE FRANK ([id number]) on 12/09/2018 8:08:44 AM Referred By: NIELS Confirmed By:SABRA JOHNSTON MD
[2018-12-07] MEDS: Isosorbide Mononitrate 30 MG Tablet PO (08:38)
[2018-12-07] MEDS: Metoprolol(XL)Succ 50 MG Tablet PO (08:38)
[2018-12-07] MEDS: Ranolazine 500 MG Tablet 1000 MG PO ×2 (08:38→21:19)
[2018-12-07] MEDS: Clopidogrel Bisulfate 75 MG Tablet PO (08:39)
--- NOTE | 2018-12-07 09:09 | PN.CARD_ITS ---
Subjectve: Patient seen and evaluated. Appears to be doing well. No further chest pain. Objective: Vital Signs Temp Pulse Resp BP Pulse Ox 97.9 F 64 18 144/57 H 98 12/07/18 08:34 12/07/18 08:38 12/07/18 08:34 12/07/18 08:38 12/07/18 08:34 Oxygen Flow Rate (L/min) 2 Oxygen Delivery Method Room Air Weight: 179 lb 14.355 oz Body Mass Index (BMI) 28.9 Intake and Output for Last 24 Hours 12/05/18 12/06/18 12/07/18 23:59 23:59 23:59 Intake Total 2365 / 2365 Output Total 300 / 300 Balance 2064 / 2064 General: Awake, Alert, Oriented x 3 HEENT: PERRL, EOMI, Sclera Non Icteric Neck: Supple, Good ROM, No Lymph Node Enlargement Lungs: Clear to auscultation Cardiovascular: Regular Rhythm, Normal S1, Normal S2, No Murmurs, No Rubs, No Gallops Vascular: No Carotid Bruits, Normal Femoral Pulses, Normal Radial Pulses, Normal Dorsalis Pedal Pulse, Normal Posterior Tibial Pulses Abdomen: Bowel Sounds Present, Soft, Non Tender, No HSM, No Organomegaly Extremities: No Cyanosis, No Clubbing, No edema Musculoskeletal: No Erythema Skin: No Rashes Lymphatic: No Lymph Node Enlargement Neurological: No Focal Motor or Sensory Deficit Rhythm: EKG: ECHO: Stress Test: Cardiac Cath: PCI: CT Surgery: Holter monitor: EPS: PPM: CXR: Chest CT Scan: Medical Necessity - Tobacco Use Smoking Status: Never smoker Assessment/Plan 1. Non-ST elevation myocardial infarction * Patient appears to have sustained a non-ST elevation myocardial infarction. His cardiac catheterization films from 2017 demonstrated that he was adequately revascularized. We will continue with cautious IV hydration. Demonstrated normal sinus rhythm with T wave inversions noted in V2 through V4. Based on his current presentation my recommendation will be to continue his aspirin and beta-arlene and statins and schedule him for repeat cardiac catheterization to see whether there is been any change in his coronary anatomy. The risk benefits and alternatives have been explained and he understands and agrees to proceed. * 2. Hypertension * Good control continue current medical therapy * 3. Risk factor modification * We will continue aggressive risk factor modification. * * Thank you for allowing me to participate in the care of your patient. Please don't hesitate to call if any issues arise
[2018-12-07] MEDS: Enoxaparin 80 MG/0.8 ML Syringe SC (09:57)
[2018-12-07] MEDS: 0.9% Normal Saline 1,000 ML 60 ML IV ×2 (10:05→21:29)
[2018-12-07 11:30] LABS: Bedside Glucose 178 mg/dL (70-110)
--- NOTE | 2018-12-07 12:16 | PN_ITS ---
<Genaro Shultz - Last Filed: 12/07/18 12:12> Patient Problems: Active and Suspected Problems (Last Reviewed 12/06/18 @ 03:51 by Asher Jones MD) NSTEMI (non-ST elevated myocardial infarction) (Acute) Subjective: No CP, tightness, heaviness, pressure, SOB, palp. States that he has had no symptoms since about an hour after arriving in the ED. He is agreeable to cath. - Physical Exam General: Alert, Oriented x3, Cooperative HEENT: Atraumatic, PERRLA, EOMI, Normocephalic Neck: Supple, No JVD, Negative Carotid Bruits Lungs: Clear to auscultation, Normal air movement Cardiovascular: Regular rate, No murmurs Abdomen: Bowel Sounds Present, Soft, Non Tender Extremities: No edema, Capillary Refill Less than 3 Seconds Skin: No rashes, No breakdown Musculoskeletal: No Tenderness to Palpation of Joints or Extremities Neurological: Cranial nerves II-XII grossly intact Psych/Mental Status: Normal Affect, Appropriate, Alert and oriented to time, place, person, mood and affect Vital Signs Temp Pulse Resp BP Pulse Ox 97.9 F 64 18 144/57 H 98 12/07/18 08:34 12/07/18 08:38 12/07/18 08:34 12/07/18 08:38 12/07/18 08:34 Oxygen Flow Rate (L/min) 2 Oxygen Delivery Method Room Air Weight: 179 lb 14.355 oz Body Mass Index (BMI) 28.9 Intake and Output for Last 24 Hours 12/05/18 12/06/18 12/07/18 23:59 23:59 23:59 Intake Total 2365 / 2365 Output Total 300 / 300 Balance 2065 / 2065 POC Glucose 12/07/18 12/07/18 12/06/18 10:57 06:54 21:04 POC Glucose 178 H 158 H 164 H 12/06/18 16:12 POC Glucose 184 H Medical Necessity - Tobacco Use Smoking Status: Never smoker Assessment/Plan All Active Problems (Last Reviewed 12/06/18 @ 03:51 by Ashre Jones MD) NSTEMI (non-ST elevated myocardial infarction) (Acute) 1. NSTEMI - per cardiology. currently asymptomatic. Prior CABG/Stents. Cath in AM. -aspirin, imdur, ranexa, statin, plavix, toprol, ibrahima held for ABUNDIO -trop reached 2.020 2. ABUNDIO - improved, check BMP prior to cath in AM. 3. HLD - on statin. Triglycerides high (272) likely 2/2 diabetes. LDL 26, HDL 34. 4. HTN - stable 5. DMt2 - on victoza at home, glimepiride at home, SSI now. DVT ppx: SCD DC planning: Cath in AM This patient was seen by Genaro Shultz PA-C under the supervision of Dr. Rose <Israel Rose - Last Filed: 12/07/18 14:59> Subjective: Patient is chest pain-free. No shortness of breath. Waiting for cardiac cath tomorrow morning. - Physical Exam General: Alert, Oriented x3, Cooperative HEENT: Atraumatic, PERRLA, EOMI, Normocephalic Neck: Supple, No JVD, Negative Carotid Bruits Lungs: Clear to auscultation, Normal air movement Cardiovascular: Regular rate, Regular Rhythm, Normal S1, Normal S2, No murmurs Abdomen: Bowel Sounds Present, Soft, Non Tender, Non-Distended Extremities: No edema, Capillary Refill Less than 3 Seconds Skin: No rashes, No breakdown Musculoskeletal: No Tenderness to Palpation of Joints or Extremities, Arthritic Changes Neurological: Cranial nerves II-XII grossly intact, Deep Tendon Reflexes 2+/4 and Symmetrical, Neuro grossly intact, Motor Exam 5/5 strength throughout Psych/Mental Status: Normal Affect, Appropriate Vital Signs Temp Pulse Resp BP Pulse Ox 97.9 F 69 18 144/57 H 98 12/07/18 08:34 12/07/18 10:59 12/07/18 08:34 12/07/18 08:38 12/07/18 08:34 Oxygen Flow Rate (L/min) 2 Oxygen Delivery Method Room Air Weight: 179 lb 14.355 oz Body Mass Index (BMI) 28.9 Intake and Output for Last 24 Hours 12/05/18 12/06/18 12/07/18 23:59 23:59 23:59 Intake Total 2365 / 2365 325 / 325 Output Total 300 / 300 Balance 2065 / 2065 325 / 325 POC Glucose 12/07/18 12/07/18 12/06/18 10:57 06:54 21:04 POC Glucose 178 H 158 H 164 H 12/06/18 16:12 POC Glucose 184 H Assessment/Plan This patient was seen in conjunction with Genaro CORNEJO. I have independently interviewed and examined the patient and reviewed pertinent history, examination findings, laboratory and plan of management. I have reviewed the note and agree with the documented findings with the few additional points. In brief, patient is admitted for chest pain for prolonged duration, elevated troponin consistent with non-STEMI. Patient has history of CABG and stents in the past. Seen by [facility] former and currently on cardiac medications. Plan for cardiac cath on Saturday. Currently on medical management. I have discussed my assessment with Genaro CORNEJO and orders have been reviewed. Signout: Cardiac cath on Saturday
[2018-12-07 21:11] LABS: Bedside Glucose 165 mg/dL (70-110)
[2018-12-07] MEDS: Atorvastatin Calcium 40 MG Tablet PO (21:19)
[2018-12-07 21:55] LABS: Bedside Glucose 147 mg/dL (70-110)
[2018-12-08] VITALS (14 sets, daily range): BP systolic 131–158; BP diastolic 56–69; PULSE 59–75; RESP 16–18; TEMP 36.6–36.8; O2SAT 96–98
[2018-12-08 03:57] LABS: Absolute Neutrophil Count 3.7 X10^3/uL (2.0-7.7); Basophil# 0.03 X10^3/uL; Basophil% 0.5 % (0-1); Eosinophil# 0.46 X10^3/uL; Hematocrit 34.5 % (40-54); Hemoglobin 11.3 g/dl (13.0-16.5); Lymphocyte % 25.9 % (19-41); Mean Corp Hgb Conc 32.8 g/gl (32-36); Mean Corpuscular Volume 94.8 fL (80-94); Mean Platelet Vol. 10.4 fl (6.2-12.0); Monocyte# 0.64 X10^3/uL; Monocyte% 9.7 % (0-10); Neutrophil # 3.72 X10^3/uL (2.7-7.7); Neutrophil % 56.6 % (47-70); Platelet Count 221 K/mm3 (150-450); RBC Distribution Width CV 12.8 % (11.6-14.6); RBC Distribution Width SD 43.1 fl (35.1-43.9); Red Blood Count 3.64 M/mm3 (4.6-6.2); White Blood Count 6.6 K/mm3 (4.4-11.0)
[2018-12-08 03:59] LABS: Prothrombin Time (Protime)PT. 13.3 SECONDS (11.7-14.9)
[2018-12-08 04:00] LABS: POSITIVE COUNT NO; POSITIVE DIFFERENTIAL NO; POSITIVE MORPHOLOGY NO; Partial Thromboplast Time 29.7 Seconds (24.1-36.2)
--- NOTE | 2018-12-08 04:00 | EKG12_ITS ---
Test Reason : CP ADMIT Blood Pressure : / mmHG Vent. Rate : 079 BPM Atrial Rate : 079 BPM P-R Int : 160 ms QRS Dur : 106 ms QT Int : 400 ms P-R-T Axes : 022 -61 105 degrees QTc Int : 458 ms Sinus rhythm with occasional Premature ventricular complexes Left anterior fascicular block ST & T wave abnormality, consider lateral ischemia Abnormal ECG When compared with ECG of 05-DEC-2018 18:07, MANUAL COMPARISON REQUIRED, DATA IS UNCONFIRMED Confirmed by VICKIE DOLL, SABRA ([id number]), material expeditor DENISSE FRANK ([id number]) on 12/09/2018 8:11:43 AM Referred By: DR JHAVERI Confirmed By:SABRA JOHNSTON MD
[2018-12-08 04:09] LABS: Anion Gap 6 (5-15); BUN 23 mg/dL (7-18); Calcium,Total 8.3 mg/dL (8.5-10.1); Chloride 114 mmol/L (98-107); Creatinine, Serum 1.44 mg/dL (0.70-1.30); EST Glomerular Filtration Rate 51 mL/min (>60); Est Glom Filt Rate - Afr Amer 62 mL/min (>60); Estimated Creatinine Clearance 40.61 ml/min; Glucose 147 mg/dL (74-106); Potassium 4.5 mmol/L (3.5-5.1); Sodium Level 143 mmol/L (136-145)
[2018-12-08] MEDS: Clopidogrel Bisulfate 75 MG Tablet PO (05:52)
[2018-12-08] MEDS: Ranolazine 500 MG Tablet 1000 MG PO (05:52)
[2018-12-08] MEDS: Metoprolol(XL)Succ 50 MG Tablet PO (05:52)
[2018-12-08] MEDS: Isosorbide Mononitrate 30 MG Tablet PO (05:52)
[2018-12-08] MEDS: Aspirin 325 MG Tablet PO (05:52)
[2018-12-08 06:06] LABS: Bedside Glucose 173 mg/dL (70-110)
--- NOTE | 2018-12-08 06:49 | NURSING ---
REPORT CALLED TO DEMOLITIONIST
--- NOTE | 2018-12-08 08:49 | CASEMGMT ---
According the [facility] website, the following are in-network tertiary facilities: [facility], [facility], [place], [facility], [facility], [place], [facility], and . Dae LYNCH CM
--- NOTE | 2018-12-08 08:53 | CL.D_ITS ---
Patient Name: PEGGY EASTON Study Date: 12/08/2018 Performing: Zeke Jacobs MD Ht: 66 inches 168 cm : 1945 Wt: 181 lbs 82 kg Age: 73 Gender: male BSA: 1.92 PROCEDURE(S) PERFORMED [id number] CLINICAL PROFILE AND INDICATIONS Indications: Worsening Angina Heart Failure: None Stress/Imaging Stress/Image Study Performed: No Angina Classification Anginal Classification w/in 2 Weeks: CCS III CAD Presentations: Non-STEMI. CONCLUSIONS Elevated Left Ventricular End Diastolic Pressure [place] Multivessel CAD BUCKNER to DX1 sequencing to the LAD: patent SVG to LCX/OM1: patent SVG to RPDA sequencing to RPL: patent RECOMMENDATIONS Risk factor modification Medical therapy DESCRIPTION OF PROCEDURE The patient arrived to the procedure lab. The risks and benefits of the procedure as well as a full d escription of our services here and current unavailability of surgical backup were fully explained to the patient and/or their significant other prior to the catheterization. The Timeout was completed, verifying the correct patient and procedure. The patient's procedural site was prepped and draped in the usual fashion. Local anesthetic was given subcutaneously to right groin region with Lidocaine 2%. Using a modified Seldinger technique, arterial access was obtained via the right femoral artery, a 4 Fr sheath was inserted Left Coronary Artery selective angiography was performed in multiple views us ing a 4 Fr. JL5 catheter. Right Coronary Artery selective angiography was then performed in multiple views using a 4 Fr. 3DRC catheter. Saphenous Vein graft to the Circumflex selective angiography was p erformed in multiple views using a 4 Fr. 3DRC catheter. Saphenous Vein graft to the RCA selective angiography was performed in multiple views using a 4 Fr. JR4 catheter. Left internal mamma ry artery graft to the LAD selective angiography was performed in multiple views using a 4 Fr. IM cat heter. LV to AO pullback pressures were then recorded.The arterial sheath was pulled and manual compr ession applied until hemostasis is achieved. CORONARY ANGIOGRAPHY DOMINANCE: Right Dominant LEFT HEART ASSESSMENT Left Ventricular Ejection Fraction: Not assessed Elevated Left Ventricular End Diastolic Pressure LVEDP: 27 mmHg LEFT MAIN: Severe calcification, Distal: 95 % Stenosis LEFT ANTERIOR DECENDING ARTERY: PROX LAD: Severe calcification MID LAD: is occluded, filling from the BUCKNER graft with no angiographically significant disease distal to the graft attachment DIAGONAL 1: Proximal - small caliber vessel filling from the BUCKNER graft CIRCUMFLEX ARTERY: Moderate calcification PROX CIRC: Eccentric: Hazy: 75 % Stenosis OM 1: Proximal - superior bifurcating branch occluded and subsequently filling from the SVG graft wit h the distal portion s/p the graft attachment appearing occluded RIGHT CORONARY ARTERY: PROX RCA: is occluded DISTAL RCA: with the RPDA and the RPL branch filling from the SVG graft with no angiographically sign ificant appearing disease distal to the graft attachment GRAFTS: BUCKNER graft to the 1st Diagonal is patent and subsequently sequencing to the LAD with no angiographic ally significant appearing disease distal to the graft attachments Saphenous Vein graft to the 1st OM previously placed stent is patent with eccentric 10 -25% in stent restenosis Saphenous Vein graft to the RPDA previously placed stent is patent with mild luminal irregularities w ith a sequencing appearing segment to the RPL being patent COMPLICATIONS No Complications PROCEDURE MEDICATIONS Versed 1 mg IV Oxygen: 2 L/min via nasal cannula Benadryl 50 mg IV @ 12/08/2018 07:32:07 Pepcid 20 mg IV 12/08/2018 07:34:18 Solu-medrol 125 mg IV 12/08/2018 07:31:51 SUMMARY OF HEMODYNAMIC DATA Time AIR REST ECG 07:28:38 AO 145/92 (119) SA 07:47:20 LV 165/2, 32 08:07:08 LV 154/2, 27 08:07:14 LVp 150/13, 33 08:07:26 AOp 165/70 (107) 08:07:31 Signed By Zeke Jacobs MD On 12/08/2018 08:52:43 Zeke Jacobs MD
[2018-12-08] MEDS: Insulin Lispro 100 UNIT/ML INSULN.PEN SC (09:32)
[2018-12-08] MEDS: Multivitamins,Therapeutic Tablet 1 TABLET PO (09:34)
[2018-12-08] MEDS: Ferrous Sulfate 325 MG Tablet PO (09:34)
[2018-12-08] MEDS: Ascorbic Acid 500 MG Tablet PO (09:34)
[2018-12-08] MEDS: Famotidine 20mg IV Push Syringe Q24 300 MG IV (09:34)
[2018-12-08] MEDS: Isosorbide Mononitrate 60 MG Tablet PO (09:35)
--- NOTE | 2018-12-08 09:44 | PCM.PN.CARD ---
Subjectve: The patient presented earlier this day for further evaluation and care of his chest discomfort and abnormal cardiac enzymes concerning for an acute non-ST segment elevation CO with diagnostic cardiac catheterization. He had no new acute complaints at the time of his procedure. Objective: Vital Signs Temp Pulse Resp BP Pulse Ox 98.3 F 62 18 132/59 H 97 12/08/18 08:30 12/08/18 09:15 12/08/18 09:15 12/08/18 09:15 12/08/18 09:15 Oxygen Flow Rate (L/min) 2 Oxygen Delivery Method Room Air Weight: 179 lb 14.355 oz Body Mass Index (BMI) 28.9 Intake and Output for Last 24 Hours 12/06/18 12/07/18 12/08/18 23:59 23:59 23:59 Intake Total 2365 / 2365 1181 / 1181 364 / 364 Output Total 300 / 300 Balance 2064 / 206 1181 / 1181 364 / 364 General: Awake, Alert, Oriented x 3, Cooperative, No Acute Distress HEENT: Atraumatic, Normocephalic, PERRL, EOMI, Sclera Non Icteric Oral: Moist Mucosa Neck: Supple, Good ROM, No JVD Lungs: Clear to auscultation Cardiovascular: Regular Rhythm, Normal S1, Normal S2 Vascular: No Carotid Bruits Abdomen: Bowel Sounds Present, Soft, Non Tender Extremities: No Cyanosis, No Clubbing, No edema Psych/Mental Status: Appropriate 12/08/18 03:46: Sodium 143, Potassium 4.5, Chloride 114 H, Carbon Dioxide 23.0, Anion Gap 6, BUN 23 H, Creatinine 1.44 H, Est GFR (MDRD) Af Amer 62, Est GFR (MDRD) Non-Af 51 L, BUN/Creatinine Ratio 16.0, Glucose 147 H, Calcium 8.3 L 12/08/18 03:46: WBC 6.6, RBC 3.64 L, Hgb 11.3 L, Hct 34.5 L, MCV 94.8 H, MCH 31.0, MCHC 32.8, RDW 12.8, RDW Differential 43.1, Plt Count 221, MPV 10.4, Immature Gran % (Auto) 0.300, Neut % (Auto) 56.6, Lymph % (Auto) 25.9, [place] % (Auto) 9.7, Eos % (Auto) 7.0 H, Baso % (Auto) 0.5, Absolute Neuts (auto) 3.7, Total Counted Not Reportable 12/08/18 03:46: PT 13.3, INR 1.0, APTT 29.7 Rhythm: Sinus rhythm Cardiac Cath: CONCLUSIONS Elevated Left Ventricular End Diastolic Pressure [place] Multivessel CAD BUCKNER to DX1 sequencing to the LAD: patent SVG to LCX/OM1: patent SVG to RPDA sequencing to RPL: patent RECOMMENDATIONS Risk factor modification Medical therapy CORONARY ANGIOGRAPHY DOMINANCE: Right Dominant LEFT HEART ASSESSMENT Left Ventricular Ejection Fraction: Not assessed Elevated Left Ventricular End Diastolic Pressure LVEDP: 27 mmHg LEFT MAIN: Severe calcification, Distal: 95 % Stenosis LEFT ANTERIOR DECENDING ARTERY: PROX LAD: Severe calcification MID LAD: is occluded, filling from the BUCKNER graft with no angiographically significant disease distal to the graft attachment DIAGONAL 1: Proximal - small caliber vessel filling from the BUCKNER graft CIRCUMFLEX ARTERY: Moderate calcification PROX CIRC: Eccentric: Hazy: 75 % Stenosis OM 1: Proximal - superior bifurcating branch occluded and subsequently filling from the SVG graft with the distal portion s/p the graft attachment appearing occluded RIGHT CORONARY ARTERY: PROX RCA: is occluded DISTAL RCA: with the RPDA and the RPL branch filling from the SVG graft with no angiographically significant appearing disease distal to the graft attachment GRAFTS: BUCKNER graft to the 1st Diagonal is patent and subsequently sequencing to the LAD with no angiographically significant appearing disease distal to the graft attachments Saphenous Vein graft to the 1st OM previously placed stent is patent with eccentric 10 -25% in stent restenosis Saphenous Vein graft to the RPDA previously placed stent is patent with mild luminal irregularities with a sequencing appearing segment to the RPL being patent Medical Necessity - Tobacco Use Smoking Status: Never smoker Assessment/Plan 1. CAD status post CABG and PCI: Remote The patient has a history of underlying CAD. He is undergone both CABG and PCI in the past. He presented back with concerning chest discomfort and abnormal cardiac enzymes concerning for an acute non-ST segment elevation CO. He has been treated medically. He is now status post diagnostic cardiac catheterization. He has angiography did not demonstrate findings amenable to additional catheter-based revascularization therapy. He will continue medical management. 2. Non-ST segment elevation CO Again the patient presented with findings compatible with a non-ST segment elevation CO. He will continue medical management. He was not found to have underlying [place] vessel or graft vessel disease requiring or amenable to additional catheter-based revascularization therapy. 3. Hyperlipidemia He will continue risk factor evaluation care. 4. Hypertension The patient's blood pressure will be followed. His medications will be adjusted as needed. Comment: The above was discussed and reviewed with the patient and his family members present. This note was generated using a voice recognition system and there may be incorrect words, spelling or punctuation that were not noted when reviewing the office note prior to saving.
--- NOTE | 2018-12-08 09:49 | PN.CARD_ITS ---
Subjectve: The patient presented earlier this day for further evaluation and care of his chest discomfort and abnormal cardiac enzymes concerning for an acute non-ST segment elevation SC with diagnostic cardiac catheterization. He had no new acute complaints at the time of his procedure. Objective: Vital Signs Temp Pulse Resp BP Pulse Ox 98.3 F 62 18 132/59 H 97 12/08/18 08:30 12/08/18 09:15 12/08/18 09:15 12/08/18 09:15 12/08/18 09:15 Oxygen Flow Rate (L/min) 2 Oxygen Delivery Method Room Air Weight: 179 lb 14.355 oz Body Mass Index (BMI) 28.9 Intake and Output for Last 24 Hours 12/06/18 12/07/18 12/08/18 23:59 23:59 23:59 Intake Total 2365 / 2365 1181 / 1181 364 / 364 Output Total 300 / 300 Balance 2064 / 206 1181 / 1181 364 / 364 General: Awake, Alert, Oriented x 3, Cooperative, No Acute Distress HEENT: Atraumatic, Normocephalic, PERRL, EOMI, Sclera Non Icteric Oral: Moist Mucosa Neck: Supple, Good ROM, No JVD Lungs: Clear to auscultation Cardiovascular: Regular Rhythm, Normal S1, Normal S2 Vascular: No Carotid Bruits Abdomen: Bowel Sounds Present, Soft, Non Tender Extremities: No Cyanosis, No Clubbing, No edema Psych/Mental Status: Appropriate 12/08/18 03:46: Sodium 143, Potassium 4.5, Chloride 114 H, Carbon Dioxide 23.0, Anion Gap 6, BUN 23 H, Creatinine 1.44 H, Est GFR (MDRD) Af Amer 62, Est GFR (MDRD) Non-Af 51 L, BUN/Creatinine Ratio 16.0, Glucose 147 H, Calcium 8.3 L 12/08/18 03:46: WBC 6.6, RBC 3.64 L, Hgb 11.3 L, Hct 34.5 L, MCV 94.8 H, MCH 31.0, MCHC 32.8, RDW 12.8, RDW Differential 43.1, Plt Count 221, MPV 10.4, Immature Gran % (Auto) 0.300, Neut % (Auto) 56.6, Lymph % (Auto) 25.9, [place] % (Auto) 9.7, Eos % (Auto) 7.0 H, Baso % (Auto) 0.5, Absolute Neuts (auto) 3.7, Total Counted Not Reportable 12/08/18 03:46: PT 13.3, INR 1.0, APTT 29.7 Rhythm: Sinus rhythm Cardiac Cath: CONCLUSIONS Elevated Left Ventricular End Diastolic Pressure [place] Multivessel CAD BUCKNER to DX1 sequencing to the LAD: patent SVG to LCX/OM1: patent SVG to RPDA sequencing to RPL: patent RECOMMENDATIONS Risk factor modification Medical therapy CORONARY ANGIOGRAPHY DOMINANCE: Right Dominant LEFT HEART ASSESSMENT Left Ventricular Ejection Fraction: Not assessed Elevated Left Ventricular End Diastolic Pressure LVEDP: 27 mmHg LEFT MAIN: Severe calcification, Distal: 95 % Stenosis LEFT ANTERIOR DECENDING ARTERY: PROX LAD: Severe calcification MID LAD: is occluded, filling from the BUCKNER graft with no angiographically significant disease distal to the graft attachment DIAGONAL 1: Proximal - small caliber vessel filling from the BUCKNER graft CIRCUMFLEX ARTERY: Moderate calcification PROX CIRC: Eccentric: Hazy: 75 % Stenosis OM 1: Proximal - superior bifurcating branch occluded and subsequently filling from the SVG graft with the distal portion s/p the graft attachment appearing occluded RIGHT CORONARY ARTERY: PROX RCA: is occluded DISTAL RCA: with the RPDA and the RPL branch filling from the SVG graft with no angiographically significant appearing disease distal to the graft attachment GRAFTS: BUCKNER graft to the 1st Diagonal is patent and subsequently sequencing to the LAD with no angiographically significant appearing disease distal to the graft attachments Saphenous Vein graft to the 1st OM previously placed stent is patent with eccentric 10 -25% in stent restenosis Saphenous Vein graft to the RPDA previously placed stent is patent with mild luminal irregularities with a sequencing appearing segment to the RPL being patent Medical Necessity - Tobacco Use Smoking Status: Never smoker Assessment/Plan 1. CAD status post CABG and PCI: Remote The patient has a history of underlying CAD. He is undergone both CABG and PCI in the past. He presented back with concerning chest discomfort and abnormal cardiac enzymes concerning for an acute non-ST segment elevation SC. He has been treated medically. He is now status post diagnostic cardiac catheterization. He has angiography did not demonstrate findings amenable to additional catheter-based revascularization therapy. He will continue medical management. 2. Non-ST segment elevation SC Again the patient presented with findings compatible with a non-ST segment elevation SC. He will continue medical management. He was not found to have underlying [place] vessel or graft vessel disease requiring or amenable to additional catheter-based revascularization therapy. 3. Hyperlipidemia He will continue risk factor evaluation care. 4. Hypertension The patient's blood pressure will be followed. His medications will be adjusted as needed. Comment: The above was discussed and reviewed with the patient and his family members present. This note was generated using a voice recognition system and there may be incorrect words, spelling or punctuation that were not noted when reviewing the office note prior to saving.
--- NOTE | 2018-12-08 10:37 | CASEMGMT ---
CRIS ROSALES assessment: Face to Face with patient for initial transition planning/care coordination assessment. CRIS ROSALES introduced self and role at [facility], pt voices understanding and consents to assessment at this time. Pt is sitting up in bed in no distress at this time. Pt is A/Ox4 at this time and answers all questions appropriately at this time. Pt has friends/family at bedside during assessment. Care providers, pharmacy, and demographics verified at this time. PCP: Camille Specialists: Arlene, cardio [facility] Insurance: [employer] [facility] Living Will/HPOA: Pt states has LW/HPOA and is aware that they are not on file at [facility] at this time. Pt is unsure of who his HPOA is at this time but states will try and find paperwork at home. Pt states 'My took care of all that and I don't know where anything is.' LNOK: Eliana Lomax, friend/neighbor Living Arrangements: Pt states lives alone in 2 story home with a flight of stairs to 2nd floor and states no concerns at home at this time. Pt states in independent with ADL's. Transportation: Pt states drives self and states no transportation concerns at this time. DME/HHC: Pt states has grab bars in shower and states no need for any further DME at this time. Pt states no hx of HHC or SNF in the past. Pt states no concerns with going home at time of discharge. Pt is retired. Pt states does not smoke or drink ETOH. Pt states no further concerns/needs at this time. CM to follow for any further discharge planning/needs. Advised pt to ask for CM if any further questions/concerns/needs arise, voices understanding. Pt Goal: Home Plan[place] CRIS ROSALES
--- NOTE | 2018-12-08 11:18 | DCINST_ITS ---
- Discharge Diagnoses Current Active Problems: Current Active and Chronic Problems (Last Reviewed 12/06/18 @ 03:51 by Asher Jones MD) NSTEMI (non-ST elevated myocardial infarction) (Acute) You will use the following diet at home:: Calorie/Carbohydrate Controlled (specify 1200, 1400, etc) - 1800 sage / day, Cardiac Your food should be the consistency of: Regular Your liquids should be the consistency of: Regular/Thin Discharge Activity: Return to Normal Activity, - - limitations as directed by cardiology Allergies/Adverse Reactions: Allergies Iodinated Contrast- Oral and IV Dye [Iodinated Contrast Media - Oral and] Allergy (Verified 12/05/18 19:40) made me hot and they never used it again Medications to take at Discharge Ascorbic Acid [Vitamin C] 500 mg PO DAILY@0800 11/06/16 Aspirin 325 mg PO DAILY@0800 11/06/16 Cholecalciferol (Vitamin D3) [Vitamin D3] 1,000 unit PO DAILY 11/06/16 Ferrous Sulfate 325 mg PO DAILY@0800 11/06/16 Garlic 400 mg PO DAILY 11/06/16 Multivitamins,Therapeutic [Multivitamin] 1 tab PO DAILY 11/06/16 glimepiride 4 mg tablet 4 mg PO BIDCM tab 10/14/17 lisinopril 5 mg tablet 5 mg PO DAILY #30 tab 05/12/18 nitroglycerin 0.4 mg sublingual tablet 0.4 mg SUBLINGUAL Q5M PRN #25 tab 10/22/18 clopidogrel 75 mg tablet 75 mg PO DAILY #30 tab 11/13/18 Atorvastatin Calcium [Lipitor] 40 mg PO QDAY 12/05/18 Liraglutide [Victoza] 1.8 mg SQ DAILY 12/05/18 Metoprolol Succinate [Toprol Xl] 50 mg PO DAILY 12/05/18 Ranolazine [Ranexa] 1,000 mg PO Q12H 12/05/18 Ranitidine [Zantac] 150 mg PO 12/06/18 Isosorbide Mononitrate [Imdur] 60 mg PO DAILY #30 tablet 12/08/18 Metformin HCl [Glucophage] 850 mg PO BID #0 12/08/18 The following prescriptions were given: Isosorbide Mononitrate [Imdur] 60 mg PO DAILY #30 tablet Primary Care Physician: Kandi Obrien DO [Primary Care Provider] - Please follow up with your Primary Care Physician in: 1-2 weeks Test Results: Test results from this visit will be discussed in further detail at your follow- up appointment, if applicable. Please Follow Up With: Zeke Jacobs MD When: as directed Proposed Discharge Date: 12/08/18
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
--- NOTE | 2018-12-08 12:30 | NURSING ---
ambulated pt in hallway following bedrest post heart cath. no complications noted. site remains soft. Dsg C/D/I
== END 2018-12-08 13:02 | disposition home or self-care (01) | DRG 281 ==
LOC: ED 18:40 → PCU 19:38
PROVIDERS: Internal Medicine; Physician Assistant; Admitting Provider Hospitalist; Emergency Provider Emergency Medicine; Family Provider Internal Medicine; PCP Internal Medicine; Visit Provider Student in an Organized Health Care Education/Training Program
DX: I21.4 Non-ST elevation (NSTEMI) myocardial infarction (principal); N17.9 Acute kidney failure, unspecified; N18.4 Chronic kidney disease, stage 4 (severe); E11.649 Type 2 diabetes mellitus with hypoglycemia without coma; E87.5 Hyperkalemia; I27.20 Pulmonary hypertension, unspecified; E78.5 Hyperlipidemia, unspecified; I12.9 Hypertensive chronic kidney disease with stage 1 through stage 4 chronic kidney disease, or unspecified chronic kidney disease; E11.22 Type 2 diabetes mellitus with diabetic chronic kidney disease; Z95.5 Presence of coronary angioplasty implant and graft; Z95.1 Presence of aortocoronary bypass graft; Z79.84 Long term (current) use of oral hypoglycemic drugs; I25.119 Atherosclerotic heart disease of native coronary artery with unspecified angina pectoris
CPT/HCPCS: 36415; 71045; 80048; 80061; 81001; 82962; 83735; 83880; 84484; 85025; 85610; 85730; 93005; 93306; 93455; 97802; 99152; 99153; 99283; J7030; Q9957; A4216; C1769; C1894; C8929; J3490; J7799; Q9967

== ENCOUNTER 2019-03-20 18:12 | Emergency (ER) | payer MEDICARE, SELFPAY ==
[2018-12-05 20:11] VITALS: BMI 28.9
[2019-03-20 18:13] VITALS: BP 159/59; PULSE 63; RESP 16; TEMP 36.6; O2SAT 99; BMI 29.0
[2019-03-20 18:26] LABS: Bedside Glucose 62 mg/dL (70-110)
[2019-03-20 19:02] LABS: Absolute Lymphocyte Count 1.33 X10^3/uL (0.83-4.51); Absolute Neutrophil Count 4.4 X10^3/uL (2.0-7.7); Basophil# 0.02 X10^3/uL; Basophil% 0.3 % (0-1); Eosinophil# 0.15 X10^3/uL; Eosinophils% 2.3 % (0-5); Hematocrit 32.8 % (40-54); Hemoglobin 10.6 g/dL (13.0-16.5); Lymphocyte # 1.33 X10^3/ul (4.0); Lymphocyte % 20.7 % (19-41); Mean Corp Hgb Conc 32.3 g/dL (32-36); Mean Corpuscular Hgb 31.8 pg (27.0-32.0); Mean Corpuscular Volume 98.5 fL (80-94); Mean Platelet Vol. 9.8 fl (6.2-12.0); Monocyte# 0.52 X10^3/uL; Monocyte% 8.1 % (0-10); NRBC Flagged by Analyzer 0 % (0-5); Neutrophil # 4.36 X10^3/uL (2.7-7.7); Neutrophil % 68.1 % (47-70); Platelet Count 209 K/mm3 (150-450); RBC Distribution Width CV 13.1 % (11.6-14.6); RBC Distribution Width SD 46.7 fl (35.1-43.9); Red Blood Count 3.33 M/mm3 (4.6-6.2); White Blood Count 6.4 K/mm3 (4.4-11.0)
[2019-03-20 19:19] LABS: Anion Gap 5 (5-15); BUN 28 mg/dL (7-18); BUN/Creat Ratio 16.2 RATIO (10-20); Calcium,Total 8.8 mg/dL (8.5-10.1); Chloride 111 mmol/L (98-107); Creatinine, Serum 1.73 mg/dL (0.70-1.30); EST Glomerular Filtration Rate 41 mL/min (>60); Est Glom Filt Rate - Afr Amer 50 mL/min (>60); Estimated Creatinine Clearance 33.81 ml/min; Glucose 64 mg/dL (74-106); Sodium Level 139 mmol/L (136-145)
[2019-03-20 20:06] LABS: Bedside Glucose 104 mg/dL (70-110)
[2019-03-20 20:45] VITALS: BP 151/51; PULSE 69; RESP 18; O2SAT 98
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
--- NOTE | 2019-03-20 21:00 | ED.DEP ---
ED Disposition - Plan for ED Patient: Instructions: HYPOGLYCEMIA, Oral Diabetic Medicine Referrals: Kandi Obrien DO [Primary Care Provider] -
[2019-03-20 21:13] VITALS: BP 164/67; PULSE 60; RESP 17; O2SAT 98
--- NOTE | 2019-03-20 21:13 | ED.RN ---
PT GIVEN WRITTEN AND VERBAL DISCHARGE INSTRUCTIONS. PT IS TO STOP GLIMEPIRIDE AND VICTOZA, AND TO CHECK HIS BLOOD GLUCOSE PRIOR TO TAKING METFORMIN. PT FAMILY EDUCATED WELL. IV D/C AND COVERED WITH 2X2 GAUZE AND PAPER TAPE. PT AMBULATES OUT OF DEPT WITH NEPHEW.
--- NOTE | 2019-03-20 21:28 | ED.RN ---
Addendum entered by Harriett Milner 03/20/19 21:28: PT ENCOURAGED TO FOLLOW UP WITH PCP SATURDAY Original Note: PER DR REESE, WHEN CHECKING BLOOD SUGAR MAKE SURE IT IS AT LEAST 100 BEFORE TAKING METFORMIN
== END 2019-03-20 21:15 | disposition home or self-care (01) ==
PROVIDERS: Emergency Provider Emergency Medicine; Family Provider Internal Medicine; PCP Internal Medicine
DX: E11.649 Type 2 diabetes mellitus with hypoglycemia without coma (principal); I25.10 Atherosclerotic heart disease of native coronary artery without angina pectoris; K21.9 Gastro-esophageal reflux disease without esophagitis; E78.00 Pure hypercholesterolemia, unspecified; Z79.84 Long term (current) use of oral hypoglycemic drugs; Z79.82 Long term (current) use of aspirin; Z79.899 Other long term (current) drug therapy
CPT/HCPCS: 80048; 82962; 85025; 99285

== ENCOUNTER → 2019-10-08 | Outpatient (CLI) | payer MEDICARE, SELFPAY ==
[2019-04-27 09:11] VITALS: BMI 28.5
[2019-10-08 10:46] LABS: Potassium 4.9 mmol/L (3.5-5.1)
== END | disposition home or self-care (01) ==
LOC: LAB 10:17
PROVIDERS: PCP Internal Medicine; Referring Provider Internal Medicine; Visit Provider Internal Medicine
DX: E87.5 Hyperkalemia (principal)
CPT/HCPCS: 36415; 84132

== ENCOUNTER → 2020-04-13 | Outpatient (CLI) | payer MEDICARE, SELFPAY ==
[2019-10-29 09:47] VITALS: BMI 29.5
== END | disposition home or self-care (01) ==
LOC: LAB 10:35
PROVIDERS: PCP Internal Medicine; Visit Provider Internal Medicine
DX: E87.5 Hyperkalemia (principal)
CPT/HCPCS: 36415; 84132

== ENCOUNTER 2020-11-17 11:37 | Inpatient (IN) | payer MEDICARE, SELFPAY ==
[2020-10-26 08:48] VITALS: BMI 28.2
[2020-11-17] VITALS (18 sets, daily range): BP systolic 104–132; BP diastolic 61–93; PULSE 62–133; RESP 18–27; TEMP 36.2–36.7; O2SAT 72–99; BMI 28.2
--- NOTE | 2020-11-17 11:52 | EKG12_ITS ---
Test Reason : REPEAT Blood Pressure : / mmHG Vent. Rate : 083 BPM Atrial Rate : 250 BPM P-R Int : 000 ms QRS Dur : 108 ms QT Int : 352 ms P-R-T Axes : 000 -64 138 degrees QTc Int : 413 ms Atrial flutter with variable A-V block Left anterior fascicular block ST & T wave abnormality, consider anterolateral ischemia Abnormal ECG Confirmed by VICKIE DOLL, SABRA ([id number]), editor city DENISSE FRANK ([id number]) on 11/21/2020 10:23:59 AM Referred By: MORRIS Confirmed By:SABRA JOHNSTON MD
--- NOTE | 2020-11-17 11:53 | ED.DCSUM_ITS ---
History of Present Illness Chief Complaint: Shortness of Breath Informant: Patient Narrative: 75-year-old male presenting with history of chest pain and now new onset shortness of breath. Patient states that a couple of weeks ago he was having intermittent chest pains and was taking nitroglycerin for this. Patient states he had to take up to 5 in 24 hours. He states he followed up with Dr. Jacobs. He saw nurse practitioner. He states that his medication was adjusted and his pains have not come back. Patient states that now he has dyspnea on exertion and he can only walk several feet. This is new for him. He states he does not have a history of heart failure only heart attack. He does admit to cardiac stent. He is not had fever or chills. No change in taste or smell. No viral symptoms. - Past Medical History (1) Essential (primary) hypertension Status: Chronic (2) NSTEMI (non-ST elevated myocardial infarction) Status: Chronic Comment: 12/06/18 (3) Pure hypercholesterolemia Status: Chronic Past Medical History - Allergies and Home Meds Allergies/Adverse Reactions: Allergies Iodinated Contrast Media [Iodinated Contrast Media - Oral and] Allergy (Verified 11/17/20 11:40) made me hot and they never used it again Primary Care Physician: Kandi Obrien DO [Primary Care Provider] - Past Medical History: - - Diabetes, hypertension, hyperlipidemia, CAD, [place], ca rdiac stent Surgical History: coronary bypass surgery Lives: Alone Smoking Status: Never smoker Alcohol: None Drugs: None - Family History Maternal Family History: Family History (Last Reviewed 10/26/20 @ 09:02 by Gladys Wadsworth) Father Diabetes Cancer Sister Diabetes Family History: Reports: Heart Disease - FATHER Review of Systems General: Denies: Chills, Fever, Sweats Eyes: Denies: Visual changes - bilaterally, Diplopia ENT: Denies: Rhinorrhea, Sore throat Cardiovascular: Reports: Chest pain, Heart racing Respiratory: Reports: Dyspnea, Dyspnea on exertion. Denies: Cough, Sputum Gastrointestinal: Denies: Abdominal pain, Nausea, Vomiting, Diarrhea, Melena, Hematochezia Genitourinary: Denies: Dysuria, Hematuria, Frequency Musculoskeletal: Denies: Back pain, Extremity Pain Skin: Denies: Rash, Wounds Neurological: Denies: Headache, Weakness, Numbness Psych: Denies: Depression, Anxiety, Suicidal thoughts, Suicidal ideations, -, - Endocrine: Denies: Polyuria, Polydipsia, Heat intolerance, Cold intolerance, -, - Physical Exam Vital Signs/Narrative: Vital Signs Temp Pulse Resp BP Pulse Ox 11/17/20 11:38 98.0 F 62 26 H 131/87 H 72 Inital Vital Signs reviewed: Yes General: Well nourished Head: Normocephalic, Atraumatic Eyes: Perrl, EOMI ENT: Moist mucous membranes, No rhinorrhea Cardiovascular: Irregular, Tachycardia Respiratory: No distress, CTA bilaterally Abdomen: Soft, Nontender, Nondistended Extremities: Nontender, No edema Skin: Normal color, No rash. Negative for: Cyanosis, Diaphoresis Neurological: Alert, Oriented x3, Cranial nerves II-XII grossly intact Psychological: Normal affect, Normal Mood Diagnostic/Tx/Re-eval - Medical Decision Making 75-year-old male with history of CAD and CABG presenting with previous chest pain which was resolved. Now he is having shortness of breath. EKG performed on arrival shows atrial fibrillation with RVR at 134 bpm as interpreted by myself. Patient states he has no history of this. Patient is not on anticoagulation. He is on Plavix. Patient given 20 of Cardizem and his heart rate is now in the 80s. He feels improved. Chest x-ray one-view portable as interpreted by myself shows mild CHF. Radiology does agree. Repeat EKG shows a flutter at 83 bpm with some lateral T wave inversions in V3 through V6 as well as 1 and aVL. CBC shows white blood cell count 6.6, hemoglobin 1.1, hematocrit 45.3, platelets 228. BMP shows sodium 142, potassium 5.8, BUN 26, creatinine 1.5, GFR 38, troponin is negative, BNP is 502. Patient has evidence of CHF. He states he has no history of this. He is given 40 of Lasix. He has ordered Kayexalate for his hyperkalemia. Patient hemodynamically stable at this time. He will be admitted for further treatment. Impression: 1. New onset CHF 2. New onset atrial fibrillation 3. Hyperkalemia ED Disposition - Plan for ED Patient: Referrals: Kandi Obrien DO [Primary Care Provider] -
[2020-11-17 12:28] LABS: Absolute Lymphocyte Count 1.23 X10^3/uL (0.83-4.51); Absolute Neutrophil Count 4.6 X10^3/uL (2.0-7.7); Basophil# 0.02 X10^3/uL; Basophil% 0.3 % (0-1); Eosinophil# 0.14 X10^3/uL; Eosinophils% 2.1 % (0-5); Hematocrit 35.3 % (40-54); Hemoglobin 11.1 g/dL (13.0-16.5); Lymphocyte # 1.23 X10^3/ul (4.0); Lymphocyte % 18.5 % (19-41); Mean Corp Hgb Conc 31.4 g/dL (32-36); Mean Corpuscular Volume 98.6 fL (80-94); Mean Platelet Vol. 9.8 fl (6.2-12.0); Monocyte# 0.62 X10^3/uL; Monocyte% 9.3 % (0-10); NRBC Flagged by Analyzer 0 % (0-5); Neutrophil # 4.61 X10^3/uL (2.7-7.7); Neutrophil % 69.5 % (47-70); Platelet Count 228 K/mm3 (150-450); RBC Distribution Width SD 46.3 fl (35.1-43.9); Red Blood Count 3.58 M/mm3 (4.6-6.2); White Blood Count 6.6 K/mm3 (4.4-11.0)
--- NOTE | 2020-11-17 12:30 | RAD_ITS ---
STUDY: X-RAY CHEST REASON FOR EXAM: Male, 75 years old. Chest pain TECHNIQUE: Single AP portable view of the chest. COMPARISON: Comparison is made with prior study dated 12/05/2018. FINDINGS: EKG electrodes are seen. Mild degree of vascular congestion and CHF. Increased markings at the lung bases suggestive of atelectasis. Blunting of the right costo phrenic angle. Sternal cerclage wires and vascular clips are present from a prior sternotomy and coronary artery bypass graft procedure (CABG). Mild cardiomegaly. Normal mediastinum and jose. Normal visualized pulmonary arteries. Normal visualized aortic arch and descending thoracic aorta. There are diffuse degenerative changes of the visualized thoracic spine. Normal visualized ribs, clavicles, and shoulders. There is no demonstrated abnormality of the visualized soft tissue structures of the upper abdomen. RAD/Chest 1 View (Portable) IMPRESSION: Mild degree of CHF with bibasilar atelectasis and blunting of the right costophrenic angle. Electronically Signed: Rajesh Lopez MD at 12:58 EDT , Service support ,
[2020-11-17 12:49] LABS: Anion Gap 6 (5-15); BUN 26 mg/dL (7-18); BUN/Creat Ratio 14.1 RATIO (10-20); Calcium,Total 9.3 mg/dL (8.5-10.1); Chloride 110 mmol/L (98-107); Creatinine, Serum 1.85 mg/dL (0.70-1.30); EST Glomerular Filtration Rate 38 mL/min (>60); Est Glom Filt Rate - Afr Amer 46 mL/min (>60); Estimated Creatinine Clearance 30.65 ml/min; Glucose 122 mg/dL (74-106); Potassium 5.8 mmol/L (3.5-5.1); Sodium Level 142 mmol/L (136-145)
[2020-11-17] MEDS: Aspirin 81 MG TAB.CHEW 324 MG PO (13:01)
[2020-11-17] MEDS: dilTIAZem 25 MG/5 ML Vial 20 MG IV BOLUS (13:03)
[2020-11-17 13:34] LABS: BNP,B-Type NATRIURETIC PEPTIDE 502.2 pg/mL (0-100)
--- NOTE | 2020-11-17 14:07 | PCM.HP.STD ---
Problem List (1) Atrial fibrillation with RVR Status: Acute (2) Type 2 diabetes mellitus Status: Chronic Qualifiers: Diabetes mellitus complication status: with other specified complication (3) Presence of stent in coronary artery Status: Chronic Comment: PTCA & Stenting of SVG to RCA, PTCA & stenting of SVG to 3rd OM 02/07/11, Restenting of mid SVG of RCA 08/13 (4) H/O coronary artery bypass surgery Status: Resolved Comment: CABG X 5 with BUCKNER in sequence to DX & LAD, & sequential graft using SVSG to CX X 2, as well as individual SVG to CX 08/31/[address] Mendez (5) Essential (primary) hypertension Status: Chronic History of Present Illness Date of Admission: 11/17/20 Chief Complaint: Shortness of breath - 3 days The patient is a 75 year old M with past medical history of CAD status post CABG, status post 3 stents, pretension, type II DM comes in with complaints of shortness of breath ongoing for about 3 days. Patient admits to shortness of breath with exertion at rest. Denied any chest pain or dizziness or palpitations. He denied any leg swelling. He denied any orthopnea but admits to PND. Denied any fever or any sick contacts or cough. And also in the ED was stable with temperature 98.2 F, heart rate 60, blood pressure 131/87, respiratory), SPO2 was 72% on room air, improved later on to 99% on room air. Admitting blood work showed a BC count of 6.6, hemoglobin 11.1, platelet count 228. Sodium is 142, potassium 5.8, chloride 110, bicarbonate 26, BUN 26, creatinine 1.85. Troponin is 0.025, BNPep 502.2. 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) Atherosclerotic heart disease of [place] coronary artery without angina pectoris (Chronic) Shortness of breath (Chronic) Carotid bruit (Chronic) Other half-way (current) drug therapy (Chronic) Angina pectoris (Chronic) Medical History: Medical History (Last Reviewed 10/26/20 @ 09:02 by Gladys Wadsworth) Type 2 diabetes mellitus (Chronic) E11.9 Pure hypercholesterolemia (Chronic) E78.00 Presence of stent in coronary artery (Chronic) Onset Date: ~08/20/12 Z95.5 PTCA & Stenting of SVG to RCA, PTCA & stenting of SVG to 3rd OM 02/07/11, Restenting of mid SVG of RCA 08/13 Secondary pulmonary arterial hypertension (Chronic) I27.21 Essential (primary) hypertension (Chronic) I10 NSTEMI (non-ST elevated myocardial infarction) (Chronic) Onset Date: ~12/06/18 I21.4 12/06/18 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) I11.9 Atherosclerotic heart disease of [place] coronary artery without angina pectoris (Chronic) I25.10 Shortness of breath (Chronic) R06.02 Carotid bruit (Chronic) R09.89 Other half-way (current) drug therapy (Chronic) Z79.899 Angina pectoris (Chronic) I20.9 Abnormal electrocardiogram (Inactive) R94.31 Abnormal nuclear stress test (Inactive) R94.39 Allergies Iodinated Contrast Media [Iodinated Contrast Media - Oral and] Allergy (Verified 11/17/20 11:40) made me hot and they never used it again Home Medications: Ambulatory Orders Medication Instructions Recorded Ascorbic Acid [Vitamin C] 500 mg PO DAILY@79911/06/16 Aspirin 325 mg PO DAILY@79911/06/16 Ferrous Sulfate 325 mg PO DAILY@79911/06/16 Multivitamins,Therapeutic 1 tab PO DAILY 11/06/16 [Multivitamin] nitroglycerin 0.4 mg sublingual 0.4 mg SUBLINGUAL Q5M PRN #25 tab 10/22/18 tablet Liraglutide [Victoza] 1.8 mg SQ DAILY 12/05/18 metFORMIN HCl [Glucophage] 850 mg PO BID #0 12/08/18 ranolazine 1,000 mg 1,000 mg PO BID tab 08/01/20 tablet,extended release,12 hr atorvastatin 40 mg tablet 40 mg PO QDAY #90 tab 08/18/20 ranitidine HCl 150 mg tablet 150 mg PO DAILY 10/26/20 clopidogrel 75 mg tablet 75 mg PO DAILY #30 tab 11/15/20 isosorbide mononitrate 60 mg 60 mg PO DAILY #90 tab 11/15/20 tablet,extended release 24 hr metoprolol succinate 50 mg 50 mg PO DAILY #30 tab 11/15/20 tablet,extended release 24 hr Cholecalciferol (Vitamin D3) 4,000 unit PO DAILY 11/17/20 [D3-2000] Lisinopril 5 mg PO DAILY 11/17/20 Surgical History: Surgical History (Last Reviewed 10/26/20 @ 09:02 by Gladys Wadsworth) H/O coronary artery bypass surgery (Resolved) Onset Date: ~08/31/03 Z95.1 CABG X 5 with BUCKNER in sequence to DX & LAD, & sequential graft using SVSG to CX X 2, as well as individual SVG to CX 08/31/[address] Mendez Presence of coronary angioplasty implant and graft Onset Date: ~08/20/12 Z95.5 PTCA & Stenting of SVG to RCA, PTCA & stenting of SVG to 3rd OM 02/07/11, Restenting of mid SVG of RCA 08/13 Status post left heart catheterization (LHC) Onset Date: ~12/08/18 Z98.890 BUCKNER to DX1 sequencing to LAd: patent; SVG to LCX/OM1: patent; SVG to RPDA sequencing to RPL: patent 12/08/18 Surgical History: coronary bypass surgery, - - Status post 3 stents Psychiatric History: No pertinent psych hx Lives: Alone Smoking Status: Never smoker Alcohol: None Drugs: None - *Family History Maternal Family History: Family History (Last Reviewed 10/26/20 @ 09:02 by Gladys Wadsworth) Father Diabetes Cancer Sister Diabetes History Items: Cancer, Heart Disease - FATHER Paternal Family History: Family History (Last Reviewed 10/26/20 @ 09:02 by Gladys Wadsworth) Father Diabetes Cancer Sister Diabetes History Items: Cancer, Diabetes Review of Systems Constitutional: Reports: Fatigue. Denies: Anorexia, Chills, Fever, Night Sweats, Malaise, Weakness, Weight Change Eyes: Denies: Blurred vision, Cataracts, Conjunctivae Inflammation, Pain, Redness, Vision Change HEENT: Denies: Difficulty Hearing, Difficulty Swallowing, Head Aches, Hearing Changes, Nasal bleeding, Sinus Congestion, Sinus Drainage Cardiovascular: Reports: Paroxysmal Noc. Dyspnea. Denies: Chest Pain, Claudication, Chest Pressure, Edema, Light Headedness, Orthopnea, Palpitations, Syncope Respiratory: Reports: Shortness of Breath, Shortness of breath at rest, Shortness of breath upon exertion. Denies: Cough, Hemoptysis, Sputum production, Wheezing Gastrointestinal: Denies: Abdominal Pain, Hematemesis, Hematochezia, Nausea, Vomiting Genitourinary: Denies: Dysuria, Frequency Musculoskeletal: Denies: Joint Pain, Joint stiffness, Joint swelling, Joint Tenderness Skin: Denies: Rash, Wounds Neurological: Denies: Difficulty swallowing, Focal weakness, Numbness, Tingling Psychiatric: Denies: Anxiety, Depression, Homicidal Ideations, Suicidal Ideations Hematologic/ Lymphatic: Denies: Easy Bruising, Easy Bleeding VTE Information - Inpt Only VTE Present on Admission: No VTE Pharm Prophylaxis ordered?: Yes - Physical Exam Vitals/I&O's: Vital Signs Temp Pulse Resp BP Pulse Ox 98.0 F 79 20 H 109/72 99 11/17/20 11:38 11/17/20 13:26 11/17/20 13:26 11/17/20 13:26 11/17/20 13:26 Oxygen Delivery Method Room Air Weight: 79.379 kg Body Mass Index (BMI) 28.2 Finger Stick Blood Glucose 104 General: Alert, Oriented x3, Cooperative, No apparent distress HEENT: Atraumatic, PERRLA, EOMI, Normocephalic Oral: Moist Mucosa Neck: Supple Lungs: Clear to auscultation, Diminished Cardiovascular: Regular rate, Regular Rhythm, Normal S1, Normal S2, No murmurs Abdomen: Bowel Sounds Present, Soft, Non Tender, Non-Distended, No Hepato-splenomegaly Extremities: No edema Skin: No rashes Musculoskeletal: No Tenderness to Palpation of Joints or Extremities Lymphatic: No Cervical, Supraclavicular, or Inguinal Adenopathy Neurological: Cranial nerves II-XII grossly intact, Neuro grossly intact Psych/Mental Status: Normal Affect, Appropriate Laboratory Results 11/17/20 12:20: WBC 6.6, RBC 3.58 L, Hgb 11.1 L, Hct 35.3 L, MCV 98.6 H, MCH 31.0, MCHC 31.4 L, RDW Std Deviation 46.3 H, RDW Coeff of Nicole 13.0, Plt Count 228, MPV 9.8, Immature Gran % (Auto) 0.300, Neut % (Auto) 69.5, Lymph % (Auto) 18.5 L, Early % (Auto) 9.3, Eos % (Auto) 2.1, Baso % (Auto) 0.3, Absolute Neuts (auto) 4.6, Absolute Lymphs (auto) 1.23, Nucleated RBC % 0 11/17/20 12:20: Sodium 142, Potassium 5.8 H, Chloride 110 H, Carbon Dioxide 26.0, Anion Gap 6, BUN 26 H, Creatinine 1.85 H, Estim Creat Clear Calc 30.65, Est GFR (MDRD) Af Amer 46 L, Est GFR (MDRD) Non-Af 38 L, BUN/Creatinine Ratio 14.1, Glucose 122 H, Calcium 9.3, Troponin I 0.019 11/17/20 12:20: B-Natriuretic Peptide 502.2 H Assessment/Plan All Active Problems (Last Reviewed 10/26/20 @ 09:02 by Gladys Wadsworth) Atrial fibrillation with RVR (Acute) H/O coronary artery bypass surgery (Resolved ~08/31/03) 1. Acute on chronic diastolic CHF, EF 65% Admitting BNPep is 502, chest x-ray shows CHF with bibasilar atelectasis and blunting of the right costophrenic angle. Admit to PCU, IV lasix, strict I & Os, daily weight, fluid restriction, EMIGDIO-wraps to legs Repeat 2D echo 2. A. fib/a flutter with RVR, newly diagnosed, [id number] score is 6. Tolerating metoprolol 50 mg p.o. twice daily, will increase metoprolol 200 mg p.o. twice daily, Start Lovenox therapeutic dose 3. CAD status post CABG, status post stents, Continue on aspirin, statin, Plavix, metoprolol 4. Type II DM, on Metformin and Victoza, will hold these, Continue with blood glucose checks, insulin sliding scale 5. Hypertension, controlled, continue on metoprolol and lisinopril 6. DVT PPx-Lovenox therapeutic dosing 7. CODE STATUS?DNR CCA I discussed and explained in details the various types of CODE STATUS-full code, DNR CCA, DNR CC. Patient chose DNR-CCA. He does not want to be resuscitated in the event of a cardiopulmonary arrest. He stated that he has a living will. Time spent discussing CODE STATUS 16 minutes Inpatient E&M: 86280 Init Hosp L3 Procedures: 05233 Advncd Care Plan 30 Min
[2020-11-17] MEDS: Sodium Polystyrene Sulfonate 15 GM/60 ML UDC 30 GM PO (14:20)
[2020-11-17] MEDS: Furosemide 40 MG/4 ML Vial IV ×2 (14:22→17:00)
--- NOTE | 2020-11-17 15:09 | ECHOCS_ITS ---
Version 2 Reason For Study: ARRHYTHMIA Procedure This was a 2D Doppler, Color Flow transthoracic echocardiogram. Contrast injection was performed. The study was technically difficult. Exam performed portable in patient room. Left Ventricle Normal LV size. The estimated ejection fraction is 45 %. Unable to assess diastolic dysfunction due to arrhythmia. There are regional wall motion abnormalities as specified. Mid-Posterior: Severely Hypokinetic. Mid-Inferior: Hypokinetic. Infero-Basal: Hypokinetic. Right Ventricle Normal RV size. Normal systolic function. Atria The left atrium is mildly enlarged. Normal right atrium. Mitral Valve Normal mitral valve. Tricuspid Valve Normal tricuspid valve. Moderate (2+) tricuspid valve insufficiency. Pulmonary artery systolic pressure is 64 mmHg. Moderate pulmonary hypertension. Aortic Valve The aortic valve is not well visualized. Mild (1+) eccentric aortic valve insufficiency. Pulmonic Valve The pulmonic valve is not well visualized. Great Vessels Normal aortic root. The pulmonary artery is normal size. The inferior vena cava is dilated. Pericardium/Pleural No pericardial effusion. Medication Diluted definity 3.5ml given slow IV push to enhance endocardial definition. MMode/2D Measurements & Calculations LVIDd: 4.7 cm IVSd: 1.1 cm Ao root diam: 3.7 cm LVIDs: 3.7 cm LVPWd: 1.1 cm RVDd: 3.3 cm FS: 20.1 % LAV(MOD-bp): 69.0 ml LA A4 area: 23.2 cm2 LA dimension(2D): 5.8 cm LAV(MOD-bp) Indexed: 36.5 ml/m2 LAV(MOD-sp2): 63.2 ml LAV(MOD-sp4): 71.0 ml RA A4 area: 15.8 cm2 Doppler Measurements & Calculations Ao V2 max: 149.5 cm/sec AI max liza: 440.9 cm/sec LV V1 max: 88.9 cm/sec Ao max P.9 mmHg AI max P.8 mmHg LV V1 max P.2 mmHg AI dec slope: 580.6 cm/sec2 AI P1/2t: 222.4 msec TR max liza: 381.7 cm/sec TR max P.3 mmHg Interpretation Summary Normal LV size. The estimated ejection fraction is 45 %. Unable to assess diastolic dysfunction due to arrhythmia. Pulmonary artery systolic pressure is 64 mmHg. Moderate pulmonary hypertension. Mild global hypokinesis present Contrast injection was performed. Compared to previous study, the left ventricular systolic function has worsened.. Ordering Physician: Saira Lam Referring Physician: KRISTAL NOYOLA Performed By: Melida Campos, WANDA, RVT
[2020-11-17] MEDS: Heparin Injection (Vial) 5,000 UNIT/ML VIAL 5000 UNIT SC (15:17)
[2020-11-17] MEDS: 0.9% Saline Lock 10 ML Syringe IV (17:00)
[2020-11-17] MEDS: Metoprolol Tartrate 25 MG Tablet PO (17:00)
[2020-11-17] MEDS: Metoprolol Tartrate 25 MG Tablet 75 MG PO (17:22)
[2020-11-17 18:05] LABS: Bedside Glucose 95 mg/dL (70-110)
[2020-11-17 18:29] LABS: AST(SGOT) 17 U/L (15-37); Alanine Aminotransfer ALT/SGPT 39 U/L (16-61); Albumin, Serum 3.7 g/dL (3.2-5.0); Alkaline Phosphatase 112 U/L (45-117); Anion Gap 7 (5-15); BUN 26 mg/dL (7-18); BUN/Creat Ratio 12.3 RATIO (10-20); Bilirubin, Direct 0.23 mg/dL (0.00-0.30); Calcium,Total 9.4 mg/dL (8.5-10.1); Chloride 110 mmol/L (98-107); Creatinine, Serum 2.12 mg/dL (0.70-1.30); EST Glomerular Filtration Rate 32 mL/min (>60); Est Glom Filt Rate - Afr Amer 39 mL/min (>60); Estimated Creatinine Clearance 26.75 ml/min; Globulin 3.8 g/dL (2.2-4.2); Glucose 140 mg/dL (74-106); Potassium 4.7 mmol/L (3.5-5.1); Protein, Total 7.5 g/dL (6.4-8.2); Sodium Level 142 mmol/L (136-145)
[2020-11-17 19:06] LABS: Absolute Lymphocyte Count 1.37 X10^3/uL (0.83-4.51); Absolute Neutrophil Count 4.6 X10^3/uL (2.0-7.7); Basophil# 0.02 X10^3/uL; Basophil% 0.3 % (0-1); Eosinophil# 0.15 X10^3/uL; Eosinophils% 2.2 % (0-5); Hematocrit 37.4 % (40-54); Hemoglobin 11.9 g/dL (13.0-16.5); Lymphocyte # 1.37 X10^3/ul (4.0); Lymphocyte % 20.3 % (19-41); Mean Corp Hgb Conc 31.8 g/dL (32-36); Mean Corpuscular Hgb 31.1 pg (27.0-32.0); Mean Corpuscular Volume 97.7 fL (80-94); Mean Platelet Vol. 10.5 fl (6.2-12.0); Monocyte# 0.62 X10^3/uL; Monocyte% 9.2 % (0-10); NRBC Flagged by Analyzer 0 % (0-5); Neutrophil # 4.55 X10^3/uL (2.7-7.7); Neutrophil % 67.6 % (47-70); Platelet Count 256 K/mm3 (150-450); RBC Distribution Width CV 13.1 % (11.6-14.6); RBC Distribution Width SD 46.1 fl (35.1-43.9); Red Blood Count 3.83 M/mm3 (4.6-6.2); White Blood Count 6.7 K/mm3 (4.4-11.0)
[2020-11-17 19:15] LABS: International Normalized Ratio 1.1; Prothrombin Time (Protime)PT. 13.3 SECONDS (11.7-14.9)
[2020-11-17] MEDS: Amiodarone 360 MG in Dextrose 5% Viaflo Bag 192.8 ML 33.3 MG CONT INF (20:32)
[2020-11-17] MEDS: HEPARIN/D5w 25,000 UNITS 25,000 UNITS/250 ML IV.SOLN. 11 UNITS IV (20:43)
[2020-11-17] MEDS: Heparin Injection (Vial) 5,000 UNIT/ML VIAL 5000 UNIT IV (20:47)
--- NOTE | 2020-11-17 21:00 | EKG12_ITS ---
Test Reason : SOB Blood Pressure : / mmHG Vent. Rate : 134 BPM Atrial Rate : 134 BPM P-R Int : 000 ms QRS Dur : 112 ms QT Int : 332 ms P-R-T Axes : 000 -70 114 degrees QTc Int : 495 ms Atrial fibrillation with rapid ventricular response Left axis deviation ST & T wave abnormality, consider lateral ischemia Abnormal ECG Confirmed by VICKIE DOLL, SABRA ([id number]), graphics editor DENISSE FRANK ([id number]) on 11/21/2020 10:23:44 AM Referred By: MORRIS Confirmed By:SABRA JOHNSTON MD
[2020-11-17] MEDS: Ranolazine 500 MG Tablet 1000 MG PO (21:28)
[2020-11-17] MEDS: Atorvastatin Calcium 40 MG Tablet PO (21:29)
[2020-11-17] MEDS: Insulin Lispro 100 UNIT/ML INSULN.PEN SC (21:29)
[2020-11-17 21:56] LABS: Bedside Glucose 162 mg/dL (70-110)
[2020-11-17] MEDS: Ondansetron 4 MG/2 ML Vial IV (22:00)
[2020-11-18] VITALS (28 sets, daily range): BP systolic 80–121; BP diastolic 43–94; PULSE 85–125; RESP 15–27; TEMP 36.4–37; O2SAT 93–99
[2020-11-18] MEDS: Amiodarone 360 MG in Dextrose 5% Viaflo Bag 192.8 ML 16.7 MG CONT INF ×2 (03:00→15:15)
[2020-11-18 03:05] LABS: Absolute Lymphocyte Count 1.42 X10^3/uL (0.83-4.51); Absolute Neutrophil Count 4.6 X10^3/uL (2.0-7.7); Basophil# 0.03 X10^3/uL; Basophil% 0.4 % (0-1); Eosinophil# 0.12 X10^3/uL; Eosinophils% 1.8 % (0-5); Hematocrit 36.1 % (40-54); Hemoglobin 11.7 g/dL (13.0-16.5); Lymphocyte # 1.42 X10^3/ul (4.0); Lymphocyte % 20.8 % (19-41); Mean Corp Hgb Conc 32.4 g/dL (32-36); Mean Corpuscular Hgb 31.2 pg (27.0-32.0); Mean Corpuscular Volume 96.3 fL (80-94); Mean Platelet Vol. 10.5 fl (6.2-12.0); Monocyte# 0.62 X10^3/uL; Monocyte% 9.1 % (0-10); NRBC Flagged by Analyzer 0 % (0-5); Neutrophil # 4.62 X10^3/uL (2.7-7.7); Neutrophil % 67.5 % (47-70); Platelet Count 233 K/mm3 (150-450); RBC Distribution Width CV 12.9 % (11.6-14.6); RBC Distribution Width SD 45.9 fl (35.1-43.9); Red Blood Count 3.75 M/mm3 (4.6-6.2); White Blood Count 6.8 K/mm3 (4.4-11.0)
[2020-11-18 03:27] LABS: ALB/GLOB Ratio 0.9 RATIO (0.9-2.4); AST(SGOT) 17 U/L (15-37); Alanine Aminotransfer ALT/SGPT 36 U/L (16-61); Albumin, Serum 3.3 g/dL (3.2-5.0); Alkaline Phosphatase 102 U/L (45-117); Anion Gap 9 (5-15); BUN 32 mg/dL (7-18); BUN/Creat Ratio 14.7 RATIO (10-20); Chloride 107 mmol/L (98-107); Creatinine, Serum 2.17 mg/dL (0.70-1.30); EST Glomerular Filtration Rate 32 mL/min (>60); Est Glom Filt Rate - Afr Amer 38 mL/min (>60); Estimated Creatinine Clearance 26.13 ml/min; Globulin 3.6 g/dL (2.2-4.2); Glucose 135 mg/dL (74-106); Potassium 4.7 mmol/L (3.5-5.1); Protein, Total 6.9 g/dL (6.4-8.2); Sodium Level 140 mmol/L (136-145)
[2020-11-18 03:35] LABS: Partial Thromboplast Time 111.2 Seconds (24.1-36.2)
[2020-11-18 06:35] LABS: Bedside Glucose 116 mg/dL (70-110)
--- NOTE | 2020-11-18 08:29 | PN_ITS ---
Patient Problems: Active and Suspected Problems (Last Reviewed 10/26/20 @ 09:02 by Gladys Wadsworth) Atrial fibrillation with RVR (Acute) Subjective: Chief complaint: Follow-up after admission for acute on chronic CHF, new onset A. fib with RVR. Patient seen and examined. No acute events overnight. This morning, he is feeling better, shortness of breath improved. He denied palpitation, dizziness or lightheadedness. He denied chest pain. He remained in A. fib with RVR, he is on IV amiodarone drip. He is afebrile, blood pressure maintained, pulse ox is 96% on room air. - Physical Exam Vitals/I&O's: Vital Signs Temp Pulse Resp BP Pulse Ox 98.6 F 122 H 20 H 111/90 H 96 11/18/20 06:00 11/18/20 07:00 11/18/20 07:00 11/18/20 07:00 11/18/20 07:00 Oxygen Delivery Method Room Air Weight: 167 lb 5.294 oz Body Mass Index (BMI) 28.2 Finger Stick Blood Glucose 104 Intake and Output for Last 24 Hours 11/16/20 11/17/20 11/18/20 23:59 23:59 23:59 Intake Total 765.15 / 798.45 260.55 / 260.55 Output Total 300 / 300 250 / 250 Balance 465.15 / 498.45 10.55 / 10.55 General: Alert, Oriented x3, Cooperative, No apparent distress HEENT: Atraumatic, PERRLA, EOMI, Normocephalic Oral: Moist Mucosa, No Gingival or Mucosal Lesions/ Ulcerations Neck: Supple, No JVD, Negative Carotid Bruits, Trachea Midline, Thyroid Normal Size and Texture Lungs: Clear to auscultation, No rhonchi, No wheeze, No rales, Diminished Cardiovascular: Normal S1, Normal S2, PMI Normal, Irregular Rate, Tachycardic Abdomen: Bowel Sounds Present, Soft, Non Tender, Non-Distended, No Hepato- splenomegaly Extremities: No clubbing, No cyanosis, No edema Skin: No rashes, No breakdown Lymphatic: No Cervical, Supraclavicular, or Inguinal Adenopathy Neurological: Cranial nerves II-XII grossly intact, Motor Exam 5/5 strength throughout Psych/Mental Status: Normal Affect, Appropriate, Alert and oriented to time, place, person, mood and affect Laboratory Results 11/17/20 12:20: WBC 6.6, RBC 3.58 L, Hgb 11.1 L, Hct 35.3 L, MCV 98.6 H, MCH 31.0, MCHC 31.4 L, RDW Std Deviation 46.3 H, RDW Coeff of Nicole 13.0, Plt Count 228, MPV 9.8, Immature Gran % (Auto) 0.300, Neut % (Auto) 69.5, Lymph % (Auto) 18.5 L, [place] % (Auto) 9.3, Eos % (Auto) 2.1, Baso % (Auto) 0.3, Absolute Neuts (auto) 4.6, Absolute Lymphs (auto) 1.23, Nucleated RBC % 0 11/17/20 12:20: Sodium 142, Potassium 5.8 H, Chloride 110 H, Carbon Dioxide 26.0, Anion Gap 6, BUN 26 H, Creatinine 1.85 H, Estim Creat Clear Calc 30.65, Est GFR (MDRD) Af Amer 46 L, Est GFR (MDRD) Non-Af 38 L, BUN/Creatinine Ratio 14.1, Glucose 122 H, Calcium 9.3, Troponin I 0.019 11/17/20 12:20: B-Natriuretic Peptide 502.2 H 11/17/20 15:24: Troponin I 0.025 11/17/20 17:02: POC Glucose 95 11/17/20 17:53: Sodium 142, Potassium 4.7, Chloride 110 H, Carbon Dioxide 25.0, Anion Gap 7, BUN 26 H, Creatinine 2.12 H, Estim Creat Clear Calc 26.75, Est GFR (MDRD) Af Amer 39 L, Est GFR (MDRD) Non-Af 32 L, BUN/Creatinine Ratio 12.3, Glucose 140 H, Calcium 9.4, Magnesium 2.0, Total Bilirubin 0.60, Direct Bilirubin 0.23, AST 17, ALT 39, Alkaline Phosphatase 112, Troponin I 0.031, Total Protein 7.5, Albumin 3.7, Globulin 3.8 11/17/20 18:53: PT 13.3, INR 1.1, APTT 30.0 11/17/20 18:53: WBC 6.7, RBC 3.83 L, Hgb 11.9 L, Hct 37.4 L, MCV 97.7 H, MCH 31.1, MCHC 31.8 L, RDW Std Deviation 46.1 H, RDW Coeff of Nicole 13.1, Plt Count 256, MPV 10.5, Immature Gran % (Auto) 0.400, Neut % (Auto) 67.6, Lymph % (Auto) 20.3, [place] % (Auto) 9.2, Eos % (Auto) 2.2, Baso % (Auto) 0.3, Absolute Neuts (auto) 4.6, Absolute Lymphs (auto) 1.37, Nucleated RBC % 0 11/17/20 21:23: POC Glucose 162 H 11/18/20 02:50: WBC 6.8, RBC 3.75 L, Hgb 11.7 L, Hct 36.1 L, MCV 96.3 H, MCH 31.2, MCHC 32.4, RDW Std Deviation 45.9 H, RDW Coeff of Nicole 12.9, Plt Count 233, MPV 10.5, Immature Gran % (Auto) 0.400, Neut % (Auto) 67.5, Lymph % (Auto) 20.8, [place] % (Auto) 9.1, Eos % (Auto) 1.8, Baso % (Auto) 0.4, Absolute Neuts (auto) 4.6, Absolute Lymphs (auto) 1.42, Nucleated RBC % 0 11/18/20 02:50: Sodium 140, Potassium 4.7, Chloride 107, Carbon Dioxide 24.0, Anion Gap 9, BUN 32 H, Creatinine 2.17 H, Estim Creat Clear Calc 26.13, Est GFR (MDRD) Af Amer 38 L, Est GFR (MDRD) Non-Af 32 L, BUN/Creatinine Ratio 14.7, Glucose 135 H, Calcium 9.0, Total Bilirubin 0.60, AST 17, ALT 36, Alkaline Phosphatase 102, Total Protein 6.9, Albumin 3.3, Globulin 3.6, Albumin/Globulin Ratio 0.9 11/18/20 02:50: APTT 111.2 H* 11/18/20 06:29: POC Glucose 116 H Clinical Impression(s) from Imaging Studies Chest X-Ray 11/17/20 12:30 IMPRESSION: Mild degree of CHF with bibasilar atelectasis and blunting of the right costophrenic angle. Electronically Signed: Rajesh Lopez MD at 12:58 EDT , Service support , Current Medications Acetaminophen (Acetaminophen 325 Mg Tablet) 650 mg PO Q6H PRN PRN PRN Reason: Pain Score 1-10/Temp > 100.7 F Al Hydroxide/Mg Hydroxide (Mag Hydrox/Al Hydrox/Simeth 30 Ml Udc) 30 ml PO Q6H PRN PRN PRN Reason: Gastric Burning Ascorbic Acid (Ascorbic Acid 500 Mg Tablet) 500 mg PO DAILY@0800 [facility] Atorvastatin Calcium (Atorvastatin Calcium 40 Mg Tablet) 40 mg PO QHS [facility] Last Admin: 11/17/20 21:29 Dose: 40 mg Documented by: Cholecalciferol (Cholecalciferol (Vit D3) 1,000 Unit (25mcg)) 4,000 unit PO DAILY [facility] Clopidogrel Bisulfate (Clopidogrel Bisulfate 75 Mg Tablet) 75 mg PO DAILY [facility] Dextrose (Dextrose 50%-Water 25 Gm/50 Ml Disp.Syrin) 0 gm IV X1 PRN; Protocol PRN Reason: Hypoglycemia Famotidine (Famotidine 20 Mg Tablet) 20 mg PO DAILY [facility] Ferrous Sulfate (Ferrous Sulfate 325 Mg Tablet) 325 mg PO DAILY@0800 [facility] Furosemide (Furosemide 40 Mg/4 Ml Vial) 40 mg IV BID@1000,1800 [facility] Last Admin: 11/17/20 17:00 Dose: 40 mg Documented by: Glucagon (Glucagon 1 Mg/Ml Syringe) 1 mg IM .X1 PRN PRN Reason: Hypoglycemia Heparin Sodium (Porcine) (Heparin Injection (Vial) 5,000 Unit/Ml Vial) 0 unit IV UD PRN; Protocol PRN Reason: dose adjustment Amiodarone HCl 360 mg/ (Dextrose) 200 mls @ 16.667 mls/hr CONT INF .Q12H [facility] Stop: 11/18/20 18:59 Last Infusion: 11/18/20 07:00 Dose: 0.5 mg/min, 16.7 mls/hr Documented by: Heparin Sodium/Dextrose () 25,000 units in 250 mls @ 11 mls/hr IV .[id number] [facility]; Protocol Last Titration: 11/18/20 05:37 Dose: 800 units/hr, 8 mls/hr Documented by: Insulin Human Lispro (Insulin Lispro 100 Unit/Ml Insuln.Pen) 0 unit SC [facility]; Protocol Last Admin: 11/18/20 06:32 Dose: Not Given Documented by: Isosorbide Mononitrate (Isosorbide Mononitrate 60 Mg Tablet) 60 mg PO DAILY [facility] Lisinopril (Lisinopril 5 Mg Tablet) 5 mg PO DAILY [facility] Metoprolol Tartrate (Metoprolol Tartrate 100 Mg Tablet) 100 mg PO BID [facility] Multivitamins ([facility]ivitamins,Therapeutic Tablet) [facility] Nitroglycerin (Nitroglycerin (Inpatient Use) 0.4 Mg Tab.Subl) 0.4 mg SL Q5M PRN PRN Reason: CARDIAC/CHEST PAIN Ondansetron HCl (Ondansetron 4 Mg/2 Ml Vial) 4 mg IV Q6H PRN PRN PRN Reason: NAUSEA/VOMITING Last Admin: 11/17/20 22:00 Dose: 4 mg Documented by: Ranolazine (Ranolazine 500 Mg Tablet) 1,000 mg PO BID [facility] Last Admin: 11/17/20 21:28 Dose: 1,000 mg Documented by: Senna/Docusate Sodium (Senna/Docusate Sodium 1 Tablet) 2 tablet PO BID PRN PRN PRN Reason: Constipation Sodium Chloride (0.9% Saline Lock 10 Ml Syringe) 10 - 40 ml IV UD PRN PRN Reason: SALINE FLUSH Last Admin: 11/17/20 17:00 Dose: 10 ml Documented by: Medical Necessity - Tobacco Use Smoking Status: Never smoker Tobacco Use: Non-smoker Assessment/Plan All Active Problems (Last Reviewed 10/26/20 @ 09:02 by Gladys Wadsworth) Atrial fibrillation with RVR (Acute) This is a 75 years old male patient presented to the emergency room because of shortness of breath, found to have new onset A. 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 #1 acute on chronic probably combined systolic and diastolic CHF: He is on IV Lasix, on lisinopril, metoprolol and isosorbide mononitrate. Breathing is improved today. He is on room air. 2D echocardiogram revealed ejection fraction of 45%, RVSP of 64, moderate pulmonary hypertension. He remained in A. fib with RVR, blood pressure stable, pulse ox is 96% on room air. Kidney function started to go up. Cardiology on the case. Plan: DC IV Lasix, start p.o. Lasix, continue beta-blockers and EMIGDIO inhibitor's, repeat CBC and BMP tomorrow morning. #2 new onset A. fib with RVR: He remained in A. fib with RVR. He is on IV amiodarone drip and p.o. metoprolol for rate control. IV heparin drip was continued, currently on p.o. Eliquis. 2D echocardiogram reviewed as above. Serum electrolytes including potassium, calcium and magnesium were normal. Plan to continue same treatment. #3 CAD status post CABG and stents: EKG reviewed, revealed A. fib with RVR, no acute ischemic changes. Troponin was negative. Continue statins, Eliquis, nitrates, lisinopril and metoprolol. #4 type 2 diabetes mellitus: Blood sugar stable, continue Accu-Cheks and sliding scale. Metformin and Victoza on hold. #5 hypertension: Blood pressure stable, continue nitrate, lisinopril and metoprolol. #6 stage IIIb chronic kidney disease: Baseline creatinine has been around 1.4 to 2 mg/dL. Today's creatinine is 2.17, close to baseline. IV Lasix discontinued, patient is on p.o. Lasix. #7 DVT prophylaxis: Currently, he is on Eliquis. This note was generated with [employer] dictation software. It may contain incorrect words, spelling, and punctuation that were not noted in checking the note before signing. Inpatient E&M: 48030 Subs Hosp L2
[2020-11-18] MEDS: Ferrous Sulfate 325 MG Tablet PO (09:24)
[2020-11-18] MEDS: Famotidine 20 MG Tablet PO (09:24)
[2020-11-18] MEDS: Ascorbic Acid 500 MG Tablet PO (09:24)
[2020-11-18] MEDS: Multivitamins,Therapeutic Tablet 1 TABLET PO (09:24)
--- NOTE | 2020-11-18 09:53 | EKG12_ITS ---
Test Reason : CONVERSION TO NS Blood Pressure : / mmHG Vent. Rate : 127 BPM Atrial Rate : 254 BPM P-R Int : 000 ms QRS Dur : 110 ms QT Int : 210 ms P-R-T Axes : -86 -70 129 degrees QTc Int : 305 ms Atrial flutter Left axis deviation Nonspecific ST and T wave abnormality Abnormal ECG When compared with ECG of 17-NOV-2020 13:17, MANUAL COMPARISON REQUIRED, DATA IS UNCONFIRMED Confirmed by VICKIE DOLL, SABRA ([id number]), business editor DENISSE FRANK ([id number]) on 11/21/2020 10:59:24 AM Referred By: JESSE Confirmed By:SABRA JOHNSTON MD
[2020-11-18] MEDS: APIXABAN 2.5 MG TABLET PO ×2 (10:16→21:01)
[2020-11-18] MEDS: Metoprolol Tartrate 50 MG Tablet PO ×2 (10:16→21:02)
[2020-11-18] MEDS: 0.9% Saline Lock 10 ML Syringe IV (10:16)
[2020-11-18] MEDS: Isosorbide Mononitrate 60 MG Tablet PO (10:17)
[2020-11-18] MEDS: Furosemide 40 MG Tablet PO ×2 (10:17→17:09)
[2020-11-18] MEDS: Ranolazine 500 MG Tablet 1000 MG PO ×2 (10:17→21:04)
[2020-11-18] MEDS: Lisinopril 5 MG Tablet PO (10:17)
[2020-11-18] MEDS: Clopidogrel Bisulfate 75 MG Tablet PO (10:17)
--- NOTE | 2020-11-18 10:25 | CON.PCM_ITS ---
Reason for Consult Date of Consultation: 11/18/20 History of Present Illness: The patient is a 75 year old M [] Past Medical History Allergies/Adverse Reactions: Allergies Iodinated Contrast Media [Iodinated Contrast Media - Oral and] Allergy (Verified 11/17/20 11:40) made me hot and they never used it again Home Medications: Ambulatory Orders Medication Instructions Recorded Ascorbic Acid [Vitamin C] 500 mg PO DAILY@79911/06/16 Aspirin 325 mg PO DAILY@79911/06/16 Ferrous Sulfate 325 mg PO DAILY@79911/06/16 Multivitamins,Therapeutic 1 tab PO DAILY 11/06/16 [Multivitamin] nitroglycerin 0.4 mg sublingual 0.4 mg SUBLINGUAL Q5M PRN #25 tab 10/22/18 tablet Liraglutide [Victoza] 1.8 mg SQ DAILY 12/05/18 metFORMIN HCl [Glucophage] 850 mg PO BID #0 12/08/18 ranolazine 1,000 mg 1,000 mg PO BID tab 08/01/20 tablet,extended release,12 hr atorvastatin 40 mg tablet 40 mg PO QDAY #90 tab 08/18/20 ranitidine HCl 150 mg tablet 150 mg PO DAILY 10/26/20 clopidogrel 75 mg tablet 75 mg PO DAILY #30 tab 11/15/20 isosorbide mononitrate 60 mg 60 mg PO DAILY #90 tab 11/15/20 tablet,extended release 24 hr metoprolol succinate 50 mg 50 mg PO DAILY #30 tab 11/15/20 tablet,extended release 24 hr Cholecalciferol (Vitamin D3) 4,000 unit PO DAILY 11/17/20 [D3-2000] Lisinopril 5 mg PO DAILY 11/17/20 Past Medical History (Chronic Problems): Chronic Problems (Last Updated 11/18/20 @ 10:[address] Rosa Hsieh MD) Type 2 diabetes mellitus (Chronic) Pure hypercholesterolemia (Chronic) Presence of stent in coronary artery (Chronic ~08/20/12) PTCA & Stenting of SVG to RCA, PTCA & stenting of SVG to 3rd OM 02/07/11, Restenting of mid SVG of RCA 08/13 H/O coronary artery bypass surgery (Chronic ~08/31/03) CABG X 5 with BUCKNER in sequence to DX & LAD, & sequential graft using SVSG to CX X 2, as well as individual SVG to CX 08/31/[address] 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) Angina pectoris (Chronic) Surgical History: coronary bypass surgery, - - Status post 3 stents Psychiatric History: No pertinent psych hx - *Family History Maternal Family History: Family History (Last Reviewed 10/26/20 @ 09:02 by Gladys Wadsworth) Father Diabetes Cancer Sister Diabetes History Items: Cancer, Heart Disease - FATHER Paternal Family History: Family History (Last Reviewed 10/26/20 @ 09:02 by Gladys Wadsworth) Father Diabetes Cancer Sister Diabetes History Items: Cancer, Diabetes Lives: Alone Smoking Status: Never smoker Tobacco Use: Non-smoker Alcohol: None Drugs: None Objective: Vital Signs Temp Pulse Resp BP Pulse Ox 98.6 F 122 H 20 H 110/89 H 96 11/18/20 06:00 11/18/20 10:16 11/18/20 07:00 11/18/20 10:16 11/18/20 07:00 Oxygen Delivery Method Room Air Weight: 167 lb 5.294 oz Body Mass Index (BMI) 28.2 Finger Stick Blood Glucose 104 Intake and Output for Last 24 Hours 11/16/20 11/17/20 11/18/20 23:59 23:59 23:59 Intake Total 765.15 / 798.45 260.55 / 260.55 Output Total 300 / 300 250 / 250 Balance 465.15 / 498.45 10.55 / 10.55 General: Awake, Alert, Oriented x 3 HEENT: PERRL, EOMI, Sclera Non Icteric Neck: Supple, Good ROM, No Lymph Node Enlargement Lungs: Clear to auscultation Cardiovascular: Regular Rhythm, Irregular Rhythm, Normal S1, Normal S2, No Murmurs, No Rubs, No Gallops Abdomen: Bowel Sounds Present, Soft, Non Tender, No HSM, No Organomegaly Extremities: No Cyanosis, No Clubbing, No edema Neurological: No Focal Motor or Sensory Deficit 11/17/20 12:20: WBC 6.6, RBC 3.58 L, Hgb 11.1 L, Hct 35.3 L, MCV 98.6 H, MCH 31.0, MCHC 31.4 L, Plt Count 228, MPV 9.8, Immature Gran % (Auto) 0.300, Neut % (Auto) 69.5, Lymph % (Auto) 18.5 L, [place] % (Auto) 9.3, Eos % (Auto) 2.1, Baso % (Auto) 0.3, Absolute Neuts (auto) 4.6, Nucleated RBC % 0 11/17/20 12:20: Sodium 142, Potassium 5.8 H, Chloride 110 H, Carbon Dioxide 26.0, Anion Gap 6, BUN 26 H, Creatinine 1.85 H, Est GFR (MDRD) Af Amer 46 L, Est GFR (MDRD) Non-Af 38 L, BUN/Creatinine Ratio 14.1, Glucose 122 H, Calcium 9.3, Troponin I 0.019 11/17/20 12:20: B-Natriuretic Peptide 502.2 H 11/17/20 15:24: Troponin I 0.025 11/17/20 17:53: Sodium 142, Potassium 4.7, Chloride 110 H, Carbon Dioxide 25.0, Anion Gap 7, BUN 26 H, Creatinine 2.12 H, Est GFR (MDRD) Af Amer 39 L, Est GFR (MDRD) Non-Af 32 L, BUN/Creatinine Ratio 12.3, Glucose 140 H, Calcium 9.4, Magnesium 2.0, Total Bilirubin 0.60, Direct Bilirubin 0.23, Troponin I 0.031 11/17/20 18:53: PT 13.3, INR 1.1, APTT 30.0 11/17/20 18:53: WBC 6.7, RBC 3.83 L, Hgb 11.9 L, Hct 37.4 L, MCV 97.7 H, MCH 31.1, MCHC 31.8 L, Plt Count 256, MPV 10.5, Immature Gran % (Auto) 0.400, Neut % (Auto) 67.6, Lymph % (Auto) 20.3, [place] % (Auto) 9.2, Eos % (Auto) 2.2, Baso % (Auto) 0.3, Absolute Neuts (auto) 4.6, Nucleated RBC % 0 11/18/20 02:50: WBC 6.8, RBC 3.75 L, Hgb 11.7 L, Hct 36.1 L, MCV 96.3 H, MCH 31.2, MCHC 32.4, Plt Count 233, MPV 10.5, Immature Gran % (Auto) 0.400, Neut % (Auto) 67.5, Lymph % (Auto) 20.8, [place] % (Auto) 9.1, Eos % (Auto) 1.8, Baso % (Auto) 0.4, Absolute Neuts (auto) 4.6, Nucleated RBC % 0 11/18/20 02:50: Sodium 140, Potassium 4.7, Chloride 107, Carbon Dioxide 24.0, Anion Gap 9, BUN 32 H, Creatinine 2.17 H, Est GFR (MDRD) Af Amer 38 L, Est GFR (MDRD) Non-Af 32 L, BUN/Creatinine Ratio 14.7, Glucose 135 H, Calcium 9.0, Total Bilirubin 0.60 11/18/20 02:50: APTT 111.2 H* Rhythm: Underlying rhythm is A. fib with RVR. EKG: A. fib with RVR poor R wave progression across the chest leads with nonspecific ST and T wave abnormality ECHO: EF 45%, pulmonary artery systolic pressure 64 mmHg consistent with moderate pulmonary hypertension Mild global hypokinesia. Assessment/Plan 75-year-old patient seen and evaluated today at bedside along with the nursing staff. Patient had extensive cardiac history prior myocardial infarction with history of CABG subsequently underwent PCI of the SVG graft to RCA and SVG graft to the OM 3 that was in 2010. By Patient regularly follows his primary moid middle school teacher Dr. Jacobs and actually seen recently in his office. This presentation with symptoms of shortness of breath he does not have any symptoms of chest pain, no palpitation no lower extremity edema no dizziness. Noted he had underlying atrial fibrillation on the EKG with rapid ventricular rate and also had a low ejection fraction on the echocardiogram ejection fraction around 45 Started on medical therapy with anticoagulation using Eliquis renal dose 2.5 mg twice daily and also started on IV amiodarone, reduce the dose of beta-arlene Patient has other multiple medical comorbidities Diabetes mellitus type 2, hypertension, hyperlipidemia, CAD as explained Assessment and plan;. 1. We will continue on IV amiodarone 2. We will continue on beta-arlene with amiodarone IV 3. We will discuss further plan based on his clinical progression Patient had CKD with elevated creatinine and the dosage of IV Lasix has been switched to p.o. Lasix and patient will continue to monitor on telemetry.
--- NOTE | 2020-11-18 10:29 | EKG12_ITS ---
Test Reason : Blood Pressure : / mmHG Vent. Rate : 124 BPM Atrial Rate : 124 BPM P-R Int : 144 ms QRS Dur : 108 ms QT Int : 366 ms P-R-T Axes : 000 -70 109 degrees QTc Int : 525 ms Sinus tachycardia Left axis deviation Nonspecific ST and T wave abnormality Abnormal ECG When compared with ECG of 17-NOV-2020 21:50, MANUAL COMPARISON REQUIRED, DATA IS UNCONFIRMED Confirmed by VICKIE DOLL, SABRA ([id number]), editor sound DENISSE FRANK ([id number]) on 11/22/2020 9:15:52 AM Referred By: JESSE Confirmed By:SABRA JOHNSTON MD
--- NOTE | 2020-11-18 10:50 | CASEMGMT ---
CRIS ROSALES assessment: Face to Face with patient for initial transition planning/care coordination assessment. CRIS ROSALES introduced self and role at [facility], pt voioces understanding and consents to assessment. Pt is sitting up in bed in no distres. Pt is A/Ox4 and answers all questions appropriately. Pt is currently on room air but is on amio and heparin gtt's at this time. Care providers, pharmacy, and demographics verified. Presentation: Pt came from Dr. Obrien's office for abn EKG, having SOB x3 days, denies CP-pt had 5vessel CABG in 2002 Admitting dx: Acute CHF, Afib RVR PCP: Camille Specialists: Arlene, cardio Preferred Pharmacy: [facility] Insurance: [facility] Prescription Benefit: [facility] Living Will/HPOA: Pt states has LW/HPOA and is aware that it's not on file at [facility]. Pt states, Patrice Christine-nephew, is HPOA. LNOK: Patrice Christine, nephew/HPOA; Eliana Lomax, friend/neighbor Living Arrangements: Pt states lives alone in 2 story home with bedroom on 2nd floor and states does get SOB while going upstairs but normally recovers quickly. Pt states independent with ADL's. Transportation: Pt states drives self and states no transportation concerns. DME/HHC: Pt states has grab bars and states no need for any further DME. Pt states no hx of HHC or SNF in the past. Pt states no concerns with going home at time of discharge. Pt is retired. Pt states does not smoke cigarettes or drink ETOH. Pt states no further concerns/needs. CM to follow for any further discharge planning/needs. Advised pt to ask for CM if any further questions/concerns/needs arise, voices understanding. Pt Goal: Home Plan[place] CRIS ROSALES
[2020-11-18] MEDS: Insulin Lispro 100 UNIT/ML INSULN.PEN SC ×3 (10:59→21:02)
[2020-11-18 11:10] LABS: Bedside Glucose 176 mg/dL (70-110)
[2020-11-18 16:26] LABS: Bedside Glucose 151 mg/dL (70-110)
[2020-11-18] MEDS: Atorvastatin Calcium 40 MG Tablet PO (21:02)
[2020-11-18 21:26] LABS: Bedside Glucose 175 mg/dL (70-110)
--- NOTE | 2020-11-18 23:45 | EKG12_ITS ---
Test Reason : Blood Pressure : / mmHG Vent. Rate : 103 BPM Atrial Rate : 103 BPM P-R Int : 194 ms QRS Dur : 122 ms QT Int : 222 ms P-R-T Axes : 000 -78 130 degrees QTc Int : 290 ms Sinus tachycardia Left axis deviation Nonspecific ST and T wave abnormality Abnormal ECG When compared with ECG of 19-NOV-2020 10:54, MANUAL COMPARISON REQUIRED, DATA IS UNCONFIRMED Confirmed by VICKIE DOLL, SABRA ([id number]), dictionary editor DENISSE FRANK ([id number]) on 11/22/2020 9:07:58 AM Referred By: VICKIE Confirmed By:SABRA JOHNSTON MD
[2020-11-19] VITALS (24 sets, daily range): BP systolic 71–110; BP diastolic 53–76; PULSE 103–119; RESP 14–23; TEMP 36.1–36.5; O2SAT 93–100
[2020-11-19] MEDS: Amiodarone 360 MG in Dextrose 5% Viaflo Bag 192.8 ML 16.7 MG CONT INF (03:17)
--- NOTE | 2020-11-19 05:00 | EKG12_ITS ---
Test Reason : RHYTHM Blood Pressure : / mmHG Vent. Rate : 107 BPM Atrial Rate : 214 BPM P-R Int : 000 ms QRS Dur : 114 ms QT Int : 400 ms P-R-T Axes : 260 -73 107 degrees QTc Int : 534 ms Atrial flutter with 2:1 block Left axis deviation ST depression, consider subendocardial injury Prolonged QT Abnormal ECG When compared with ECG of 19-NOV-2020 05:11, MANUAL COMPARISON REQUIRED, DATA IS UNCONFIRMED Confirmed by VICKIE DOLL, SABRA ([id number]), development editor DENISSE FRANK ([id number]) on 11/22/2020 9:10:39 AM Referred By: JOVANNI Confirmed By:SABRA JOHNSTON MD
[2020-11-19 06:35] LABS: Bedside Glucose 164 mg/dL (70-110)
[2020-11-19 07:22] LABS: Absolute Lymphocyte Count 1.06 X10^3/uL (0.83-4.51); Absolute Neutrophil Count 4.1 X10^3/uL (2.0-7.7); Basophil# 0.02 X10^3/uL; Basophil% 0.3 % (0-1); Eosinophil# 0.17 X10^3/uL; Eosinophils% 2.9 % (0-5); Hematocrit 35.8 % (40-54); Hemoglobin 11.4 g/dL (13.0-16.5); Lymphocyte # 1.06 X10^3/ul (4.0); Mean Corp Hgb Conc 31.8 g/dL (32-36); Mean Corpuscular Hgb 30.3 pg (27.0-32.0); Mean Corpuscular Volume 95.2 fL (80-94); Mean Platelet Vol. 10.8 fl (6.2-12.0); Monocyte# 0.56 X10^3/uL; Monocyte% 9.5 % (0-10); NRBC Flagged by Analyzer 0 % (0-5); Neutrophil # 4.06 X10^3/uL (2.7-7.7); Platelet Count 251 K/mm3 (150-450); RBC Distribution Width CV 12.8 % (11.6-14.6); RBC Distribution Width SD 44.7 fl (35.1-43.9); Red Blood Count 3.76 M/mm3 (4.6-6.2); White Blood Count 5.9 K/mm3 (4.4-11.0)
[2020-11-19 08:04] LABS: Anion Gap 8 (5-15); BUN 43 mg/dL (7-18); BUN/Creat Ratio 19.1 RATIO (10-20); Calcium,Total 8.8 mg/dL (8.5-10.1); Chloride 105 mmol/L (98-107); Creatinine, Serum 2.25 mg/dL (0.70-1.30); EST Glomerular Filtration Rate 30 mL/min (>60); Est Glom Filt Rate - Afr Amer 37 mL/min (>60); Glucose 165 mg/dL (74-106); Potassium 4.2 mmol/L (3.5-5.1); Sodium Level 137 mmol/L (136-145)
--- NOTE | 2020-11-19 08:16 | PN_ITS ---
Patient Problems: Active and Suspected Problems (Last Updated 11/18/20 @ 10:[address] Rosa Hsieh MD) Atrial fibrillation with RVR (Acute) Subjective: Chief complaint: Follow-up after admission for acute on chronic CHF, new onset A. fib with RVR. Patient seen and examined. No acute events overnight. He had no significant complaints apart from minimal shortness of breath upon ambulation. Denied chest pain, dizziness or lightheadedness. Denied palpitations. He remained in A. fib with RVR, remained on IV amiodarone drip. He is afebrile, heart rate has been around 115, blood pressure stable, pulse ox is 97% on room air. - Physical Exam Vitals/I&O's: Vital Signs Temp Pulse Resp BP Pulse Ox 97.7 F L 115 H 23 H 92/73 97 11/19/20 06:00 11/19/20 07:52 11/19/20 07:00 11/19/20 07:00 11/19/20 07:00 Oxygen Delivery Method Room Air Weight: 166 lb 10.711 oz Body Mass Index (BMI) 28.2 Finger Stick Blood Glucose 104 Intake and Output for Last 24 Hours 11/17/20 11/18/20 11/19/20 23:59 23:59 23:59 Intake Total 765.15 / 798.45 1878.25 / 1894.95 132.64 / 132.64 Output Total 300 / 300 1650 / 1650 Balance 465.15 / 498.45 228.25 / 244.95 132.64 / 132.64 General: Alert, Oriented x3, Cooperative, No apparent distress HEENT: Atraumatic, PERRLA, EOMI, Normocephalic Oral: Moist Mucosa, No Gingival or Mucosal Lesions/ Ulcerations Neck: Supple, No JVD, Negative Carotid Bruits, Trachea Midline, Thyroid Normal Size and Texture Lungs: Clear to auscultation, No rhonchi, No wheeze, No rales, Diminished Cardiovascular: Normal S1, Normal S2, PMI Normal, Irregular Rate, Tachycardic Abdomen: Bowel Sounds Present, Soft, Non Tender, Non-Distended, No Hepato-spl enomegaly Extremities: No clubbing, No cyanosis, No edema Skin: No rashes, No breakdown Lymphatic: No Cervical, Supraclavicular, or Inguinal Adenopathy Neurological: Cranial nerves II-XII grossly intact, Neuro grossly intact Psych/Mental Status: Normal Affect, Appropriate Laboratory Results 11/18/20 10:58: POC Glucose 176 H 11/18/20 16:11: POC Glucose 151 H 11/18/20 20:57: POC Glucose 175 H 11/19/20 06:15: Sodium 137, Potassium 4.2, Chloride 105, Carbon Dioxide 24.0, Anion Gap 8, BUN 43 H, Creatinine 2.25 H, Estim Creat Clear Calc 25.20, Est GFR (MDRD) Af Amer 37 L, Est GFR (MDRD) Non-Af 30 L, BUN/Creatinine Ratio 19.1, Glucose 165 H, Calcium 8.8 11/19/20 06:15: WBC 5.9, RBC 3.76 L, Hgb 11.4 L, Hct 35.8 L, MCV 95.2 H, MCH 30.3, MCHC 31.8 L, RDW Std Deviation 44.7 H, RDW Coeff of Nicole 12.8, Plt Count 251, MPV 10.8, Immature Gran % (Auto) 0.300, Neut % (Auto) 69.0, Lymph % (Auto) 18.0 L, [place] % (Auto) 9.5, Eos % (Auto) 2.9, Baso % (Auto) 0.3, Absolute Neuts (auto) 4.1, Absolute Lymphs (auto) 1.06, Nucleated RBC % 0 11/19/20 06:30: POC Glucose 164 H Current Medications Acetaminophen (Acetaminophen 325 Mg Tablet) 650 mg PO Q6H PRN PRN PRN Reason: Pain Score 1-10/Temp > 100.7 F Al Hydroxide/Mg Hydroxide (Mag Hydrox/Al Hydrox/Simeth 30 Ml Udc) 30 ml PO Q6H PRN PRN PRN Reason: Gastric Burning Apixaban (Apixaban 2.5 Mg Tablet) 2.5 mg PO BID [facility] Last Admin: 11/18/20 21:01 Dose: 2.5 mg Documented by: Ascorbic Acid (Ascorbic Acid 500 Mg Tablet) 500 mg PO DAILY@0800 [facility] Last Admin: 11/18/20 09:24 Dose: 500 mg Documented by: Atorvastatin Calcium (Atorvastatin Calcium 40 Mg Tablet) 40 mg PO QHS [facility] Last Admin: 11/18/20 21:02 Dose: 40 mg Documented by: Cholecalciferol (Cholecalciferol (Vit D3) 1,000 Unit (25mcg)) 4,000 unit PO DAILY [facility] Last Admin: 11/18/20 09:24 Dose: 4,000 unit Documented by: Clopidogrel Bisulfate (Clopidogrel Bisulfate 75 Mg Tablet) 75 mg PO DAILY [facility] Last Admin: 11/18/20 10:17 Dose: 75 mg Documented by: Dextrose (Dextrose 50%-Water 25 Gm/50 Ml Disp.Syrin) 0 gm IV X1 PRN; Protocol PRN Reason: Hypoglycemia Famotidine (Famotidine 20 Mg Tablet) 20 mg PO DAILY [facility] Last Admin: 11/18/20 09:24 Dose: 20 mg Documented by: Ferrous Sulfate (Ferrous Sulfate 325 Mg Tablet) 325 mg PO DAILY@0800 [facility] Last Admin: 11/18/20 09:24 Dose: 325 mg Documented by: Furosemide (Furosemide 40 Mg Tablet) 40 mg PO BID@1000,1800 [facility] Last Admin: 11/18/20 17:09 Dose: 40 mg Documented by: Glucagon (Glucagon 1 Mg/Ml Syringe) 1 mg IM .X1 PRN PRN Reason: Hypoglycemia Amiodarone HCl 360 mg/ (Dextrose) 200 mls @ 16.667 mls/hr CONT INF .Q12H [facility] Last Infusion: 11/19/20 07:00 Dose: 0.5 mg/min, 16.7 mls/hr Documented by: Insulin Human Lispro (Insulin Lispro 100 Unit/Ml Insuln.Pen) 0 unit SC ACHS [facility]; Protocol Last Admin: 11/19/20 07:03 Dose: Not Given Documented by: Isosorbide Mononitrate (Isosorbide Mononitrate 60 Mg Tablet) 60 mg PO DAILY [facility] Last Admin: 11/18/20 10:17 Dose: 60 mg Documented by: Lisinopril (Lisinopril 5 Mg Tablet) 5 mg PO DAILY [facility] Last Admin: 11/18/20 10:17 Dose: 5 mg Documented by: Metoprolol Tartrate (Metoprolol Tartrate 50 Mg Tablet) 50 mg PO BID [facility] Last Admin: 11/18/20 21:02 Dose: 50 mg Documented by: Multivitamins ([facility]it[facility],Therapeutic Tablet) [facility] Last Admin: 11/18/20 09:24 Dose: 1 tablet Documented by: Nitroglycerin (Nitroglycerin (Inpatient Use) 0.4 Mg Tab.Subl) 0.4 mg SL Q5M PRN PRN Reason: CARDIAC/CHEST PAIN Ondansetron HCl (Ondansetron 4 Mg/2 Ml Vial) 4 mg IV Q6H PRN PRN PRN Reason: NAUSEA/VOMITING Last Admin: 11/17/20 22:00 Dose: 4 mg Documented by: Ranolazine (Ranolazine 500 Mg Tablet) 1,000 mg PO BID [facility] Last Admin: 11/18/20 21:04 Dose: 1,000 mg Documented by: Senna/Docusate Sodium (Senna/Docusate Sodium 1 Tablet) 2 tablet PO BID PRN PRN PRN Reason: Constipation Sodium Chloride (0.9% Saline Lock 10 Ml Syringe) 10 - 40 ml IV UD PRN PRN Reason: SALINE FLUSH Last Admin: 11/18/20 10:16 Dose: 20 ml Documented by: Medical Necessity - Tobacco Use Smoking Status: Never smoker Tobacco Use: Non-smoker Assessment/Plan All Active Problems (Last Updated 11/18/20 @ 10:[address] Rosa Hsieh MD) Atrial fibrillation with RVR (Acute) This is a 75 years old male patient presented to the emergency room because of shortness of breath, found to have new onset A. 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 Lasix, lisinopril, metoprolol and isosorbide mononitrate. Denies any more shortness of breath except minimal upon activity. 2D echocardiogram revealed ejection fraction of 45%, RVSP of 64, moderate pulmonary hypertension. He remained in A. fib with RVR, blood pressure stable, pulse ox is 96% on room air. Cardiology on the case. Plan: Continue same treatment, repeat BMP tomorrow morning #2 new onset A. fib with RVR: Remained on IV amiodarone drip and p.o. metoprolol for rate control. He remained in A. fib with RVR, heart rate has been around 110. Currently, he is on p.o. Eliquis. 2D echocardiogram reviewed as above. Serum electrolytes including potassium, calcium and magnesium were normal. Cardiology on the case. Plan to continue same treatment. #3 CAD status post CABG and stents: EKG reviewed, revealed A. fib with RVR, no acute ischemic changes. Troponin was negative. Continue statins, Eliquis, nitrates, lisinopril and metoprolol. #4 type 2 diabetes mellitus: Blood sugar stable, continue Accu-Cheks and sliding scale. Metformin and Victoza on hold. #5 hypertension: Blood pressure stable, continue nitrate, lisinopril and metoprolol. #6 stage IIIb chronic kidney disease: Baseline creatinine has been around 1.4 to 2 mg/dL. Today's creatinine is 2.25, and has been trending up. Patient is of IV Lasix. Plan to repeat BMP tomorrow morning. #7 DVT prophylaxis: Currently, he is on Eliquis. This note was generated with Tile dictation software. It may contain incorrect words, spelling, and punctuation that were not noted in checking the note before signing. Inpatient E&M: 79139 Subs Hosp L2
[2020-11-19] MEDS: APIXABAN 2.5 MG TABLET PO ×2 (09:54→20:54)
[2020-11-19] MEDS: Clopidogrel Bisulfate 75 MG Tablet PO (09:54)
[2020-11-19] MEDS: Metoprolol Tartrate 50 MG Tablet PO ×2 (09:58→20:53)
--- NOTE | 2020-11-19 10:34 | EKG12_ITS ---
Test Reason : AM EKG Blood Pressure : / mmHG Vent. Rate : 112 BPM Atrial Rate : 224 BPM P-R Int : 000 ms QRS Dur : 112 ms QT Int : 400 ms P-R-T Axes : 000 -72 104 degrees QTc Int : 546 ms Atrial flutter with 2:1 block Left axis deviation Nonspecific ST and T wave abnormality Abnormal ECG When compared with ECG of 18-NOV-2020 23:53, MANUAL COMPARISON REQUIRED, DATA IS UNCONFIRMED Confirmed by VICKIE DOLL, SABRA ([id number]), website/blog editor DENISSE FRANK ([id number]) on 11/22/2020 9:11:35 AM Referred By: JESSE Confirmed By:SABRA JOHNSTON MD
[2020-11-19 11:46] LABS: Bedside Glucose 139 mg/dL (70-110)
[2020-11-19] MEDS: Amiodarone 200 MG Tablet 400 MG PO ×2 (12:46→20:54)
--- NOTE | 2020-11-19 13:20 | PCM.PN.CARD ---
Objective: Vital Signs Temp Pulse Resp BP Pulse Ox 97 F L 103 H 19 H 110/73 100 11/19/20 12:00 11/19/20 12:00 11/19/20 12:00 11/19/20 12:49 11/19/20 12:00 Oxygen Delivery Method Room Air Weight: 166 lb 10.711 oz Body Mass Index (BMI) 28.2 Finger Stick Blood Glucose 104 Intake and Output for Last 24 Hours 11/17/20 11/18/20 11/19/20 23:59 23:59 23:59 Intake Total 765.15 / 798.45 1878.25 / 1894.95 199.44 / 199.44 Output Total 300 / 300 1650 / 1650 Balance 465.15 / 498.45 228.25 / 244.95 199.44 / 199.44 General: Awake, Alert, Oriented x 3 HEENT: PERRL, EOMI, Sclera Non Icteric Neck: Supple, Good ROM, No Lymph Node Enlargement Lungs: Clear to auscultation Cardiovascular: Regular Rhythm, Irregular Rhythm, Normal S1, Normal S2, No Murmurs, No Rubs, No Gallops Abdomen: Bowel Sounds Present, Soft, Non Tender, No HSM, No Organomegaly Extremities: No Cyanosis, No Clubbing, No edema Neurological: No Focal Motor or Sensory Deficit Psych/Mental Status: Appropriate 11/19/20 06:15: Sodium 137, Potassium 4.2, Chloride 105, Carbon Dioxide 24.0, Anion Gap 8, BUN 43 H, Creatinine 2.25 H, Est GFR (MDRD) Af Amer 37 L, Est GFR (MDRD) Non-Af 30 L, BUN/Creatinine Ratio 19.1, Glucose 165 H, Calcium 8.8 11/19/20 06:15: WBC 5.9, RBC 3.76 L, Hgb 11.4 L, Hct 35.8 L, MCV 95.2 H, MCH 30.3, MCHC 31.8 L, Plt Count 251, MPV 10.8, Immature Gran % (Auto) 0.300, Neut % (Auto) 69.0, Lymph % (Auto) 18.0 L, [place] % (Auto) 9.5, Eos % (Auto) 2.9, Baso % (Auto) 0.3, Absolute Neuts (auto) 4.1, Nucleated RBC % 0 Rhythm: Patient had A. fib with RVR converted to normal sinus rhythm with sinus tachycardia. EKG: Medical Necessity - Tobacco Use Smoking Status: Never smoker Tobacco Use: Non-smoker Assessment/Plan 75-year-old patient seen and evaluated today at bedside Patient had new onset A. fib with RVR started on IV amiodarone and anticoagulation with Eliquis Converted to normal sinus and been remained stable clinically no any problems noted over the night Patient had mild shortness of breath on ambulation, denied any dizziness no palpitation no symptoms of chest pain reported today Assessment and plan;. 1. Patient with extensive cardiac history with history of CAD, CABG, prior PCI and stent 2. Had a new onset of A. fib with RVR converted to normal sinus rhythm on IV amiodarone 3. Added anticoagulation due to the risk of stroke with Eliquis renal dose 2.5 twice daily as he had a history of CKD with a baseline creatinine of 1.4. From cardiac standpoint he can follow-up with his primary development system efficiency manager Dr. Jacobs
[2020-11-19] MEDS: Ranolazine 500 MG Tablet 1000 MG PO ×2 (13:28→20:53)
[2020-11-19] MEDS: Ascorbic Acid 500 MG Tablet PO (13:29)
[2020-11-19] MEDS: Isosorbide Mononitrate 60 MG Tablet PO (13:29)
[2020-11-19] MEDS: Multivitamins,Therapeutic Tablet 1 TABLET PO (13:29)
[2020-11-19] MEDS: Furosemide 40 MG Tablet PO (13:29)
[2020-11-19] MEDS: Ferrous Sulfate 325 MG Tablet PO (13:29)
[2020-11-19] MEDS: Famotidine 20 MG Tablet PO (13:29)
[2020-11-19] MEDS: Insulin Lispro 100 UNIT/ML INSULN.PEN SC (16:23)
[2020-11-19 16:51] LABS: Bedside Glucose 161 mg/dL (70-110)
[2020-11-19] MEDS: Atorvastatin Calcium 40 MG Tablet PO (20:53)
[2020-11-19 21:56] LABS: Bedside Glucose 193 mg/dL (70-110)
[2020-11-20] VITALS (10 sets, daily range): BP systolic 91–115; BP diastolic 53–64; PULSE 65–118; RESP 16–18; TEMP 36.1–36.8; O2SAT 96–100
[2020-11-20] MEDS: Acetaminophen 325 MG Tablet 650 MG PO ×3 (00:16→14:36)
[2020-11-20] MEDS: Insulin Lispro 100 UNIT/ML INSULN.PEN SC ×2 (06:49→11:46)
[2020-11-20 06:59] LABS: Anion Gap 8 (5-15); BUN 50 mg/dL (7-18); BUN/Creat Ratio 20.9 RATIO (10-20); Calcium,Total 8.7 mg/dL (8.5-10.1); Chloride 104 mmol/L (98-107); Creatinine, Serum 2.39 mg/dL (0.70-1.30); EST Glomerular Filtration Rate 28 mL/min (>60); Est Glom Filt Rate - Afr Amer 34 mL/min (>60); Estimated Creatinine Clearance 23.73 ml/min; Glucose 212 mg/dL (74-106); Potassium 4.4 mmol/L (3.5-5.1); Sodium Level 136 mmol/L (136-145)
[2020-11-20 07:06] LABS: Bedside Glucose 214 mg/dL (70-110)
[2020-11-20] MEDS: Ascorbic Acid 500 MG Tablet PO (08:16)
[2020-11-20] MEDS: Multivitamins,Therapeutic Tablet 1 TABLET PO (08:16)
[2020-11-20] MEDS: Ferrous Sulfate 325 MG Tablet PO (08:16)
[2020-11-20] MEDS: Metoprolol Tartrate 50 MG Tablet PO ×2 (11:24→20:46)
[2020-11-20] MEDS: Ranolazine 500 MG Tablet 1000 MG PO ×2 (11:24→20:46)
[2020-11-20] MEDS: Amiodarone 200 MG Tablet 400 MG PO ×2 (11:24→20:45)
[2020-11-20] MEDS: Lisinopril 5 MG Tablet PO (11:24)
[2020-11-20] MEDS: Isosorbide Mononitrate 60 MG Tablet PO (11:24)
[2020-11-20] MEDS: Furosemide 40 MG Tablet PO (11:24)
[2020-11-20] MEDS: Clopidogrel Bisulfate 75 MG Tablet PO (11:24)
[2020-11-20] MEDS: APIXABAN 2.5 MG TABLET PO ×2 (11:25→20:46)
[2020-11-20] MEDS: Famotidine 20 MG Tablet PO (11:25)
--- NOTE | 2020-11-20 11:33 | PCM.PN.CARD ---
Objective: Vital Signs Temp Pulse Resp BP Pulse Ox 97.7 F L 112 H 17 115/64 97 11/20/20 08:50 11/20/20 11:24 11/20/20 08:50 11/20/20 11:24 11/20/20 08:50 Oxygen Delivery Method Room Air Weight: 164 lb 0.383 oz Body Mass Index (BMI) 28.2 Finger Stick Blood Glucose 104 Intake and Output for Last 24 Hours 11/18/20 11/19/20 11/20/20 23:59 23:59 23:59 Intake Total 1878.25 / 1894.95 699.80 / 699.80 220 / 220 Output Total 1650 / 1650 525 / 525 300 / 300 Balance 228.25 / 244.95 174.80 / 174.80 -80 / -80 General: Awake, Alert, Oriented x 3 Neck: Supple, Good ROM, No Lymph Node Enlargement Lungs: Clear to auscultation Cardiovascular: Regular Rhythm, Normal S1, Normal S2, No Murmurs, No Rubs, No Gallops Abdomen: Bowel Sounds Present Extremities: No Cyanosis, No Clubbing, No edema 11/20/20 05:15: Sodium 136, Potassium 4.4, Chloride 104, Carbon Dioxide 24.0, Anion Gap 8, BUN 50 H, Creatinine 2.39 H, Est GFR (MDRD) Af Amer 34 L, Est GFR (MDRD) Non-Af 28 L, BUN/Creatinine Ratio 20.9 H, Glucose 212 H, Calcium 8.7 Rhythm: EKG: ECHO: Stress Test: Cardiac Cath: PCI: CT Surgery: Holter monitor: EPS: PPM: CXR: Chest CT Scan: Medical Necessity - Tobacco Use Smoking Status: Never smoker Tobacco Use: Non-smoker Assessment/Plan 75-year-old patient seen and evaluated today at bedside Having symptoms of back pain This patient had history of CAD with CABG and history of PCI and stent at the admission with a new onset A. fib converted to normal sinus on amiodarone Assessment and plan;. 1. From cardiac standpoint we will recommend to continue the current treatment which include anticoagulation due to the risk of stroke 2. Patient will be discharged on amiodarone, metoprolol and apixaban Also to follow-up with his primary meter technician.
--- NOTE | 2020-11-20 11:50 | PCM.PROGNOTE ---
Patient Problems: Active and Suspected Problems (Last Updated 11/18/20 @ 10:[address] Rosa Hsieh MD) Atrial fibrillation with RVR (Acute) Subjective: Chief complaint: Follow-up after admission for acute on chronic CHF, new onset A. fib with RVR. Patient seen and examined. No acute events overnight. This morning, he complained of left buttock pain. It looks like muscle spasm, attributed to the uncomfortable bed. Patient was able to ambulate and he thinks the pain is getting better compared to last night. He denied chest pain or shortness of breath. Denied palpitation, dizziness or lightheadedness. He remained in sinus tachycardia, heart rate has been around 100-112, blood pressure stable. Pulse ox is 97% on room air. - Physical Exam Vitals/I&O's: Vital Signs Temp Pulse Resp BP Pulse Ox 97.7 F L 112 H 17 115/64 97 11/20/20 08:50 11/20/20 11:24 11/20/20 08:50 11/20/20 11:24 11/20/20 08:50 Oxygen Delivery Method Room Air Weight: 164 lb 0.383 oz Body Mass Index (BMI) 28.2 Finger Stick Blood Glucose 104 Intake and Output for Last 24 Hours 11/18/20 11/19/20 11/20/20 23:59 23:59 23:59 Intake Total 1878.25 / 1894.95 699.80 / 699.80 220 / 220 Output Total 1650 / 1650 525 / 525 300 / 300 Balance 228.25 / 244.95 174.80 / 174.80 -80 / -80 General: Alert, Oriented x3, Cooperative, No apparent distress HEENT: Atraumatic, PERRLA, EOMI, Normocephalic Oral: Moist Mucosa, No Gingival or Mucosal Lesions/ Ulcerations Neck: Supple, No JVD, Negative Carotid Bruits, Trachea Midline, Thyroid Normal Size and Texture Lungs: Clear to auscultation, No rhonchi, No wheeze, No rales, Diminished Cardiovascular: Regular rate, Regular Rhythm, Normal S1, Normal S2, PMI Normal, Tachycardic Abdomen: Bowel Sounds Present, Soft, Non Tender, Non-Distended, No Hepato-splenomegaly Extremities: No clubbing, No cyanosis, No edema Skin: No rashes, No breakdown Lymphatic: No Cervical, Supraclavicular, or Inguinal Adenopathy Neurological: Cranial nerves II-XII grossly intact, Neuro grossly intact Psych/Mental Status: Normal Affect, Appropriate, Alert and oriented to time, place, person, mood and affect Laboratory Results 11/19/20 16:22: POC Glucose 161 H 11/19/20 20:52: POC Glucose 193 H 11/20/20 05:15: Sodium 136, Potassium 4.4, Chloride 104, Carbon Dioxide 24.0, Anion Gap 8, BUN 50 H, Creatinine 2.39 H, Estim Creat Clear Calc 23.73, Est GFR (MDRD) Af Amer 34 L, Est GFR (MDRD) Non-Af 28 L, BUN/Creatinine Ratio 20.9 H, Glucose 212 H, Calcium 8.7 11/20/20 06:46: POC Glucose 214 H Current Medications Acetaminophen (Acetaminophen 325 Mg Tablet) 650 mg PO Q6H PRN PRN PRN Reason: Pain Score 1-10/Temp > 100.7 F Last Admin: 11/20/20 08:16 Dose: 650 mg Documented by: Al Hydroxide/Mg Hydroxide (Mag Hydrox/Al Hydrox/Simeth 30 Ml Udc) 30 ml PO Q6H PRN PRN PRN Reason: Gastric Burning Amiodarone HCl (Amiodarone 200 Mg Tablet) 400 mg PO BID [facility] Last Admin: 11/20/20 11:24 Dose: 400 mg Documented by: Apixaban (Apixaban 2.5 Mg Tablet) 2.5 mg PO BID [facility] Last Admin: 11/20/20 11:25 Dose: 2.5 mg Documented by: Ascorbic Acid (Ascorbic Acid 500 Mg Tablet) 500 mg PO DAILY@0800 [facility] Last Admin: 11/20/20 08:16 Dose: 500 mg Documented by: Atorvastatin Calcium (Atorvastatin Calcium 40 Mg Tablet) 40 mg PO QHS [facility] Last Admin: 11/19/20 20:53 Dose: 40 mg Documented by: Cholecalciferol (Cholecalciferol (Vit D3) 1,000 Unit (25mcg)) 4,000 unit PO DAILY [facility] Last Admin: 11/20/20 11:24 Dose: 4,000 unit Documented by: Clopidogrel Bisulfate (Clopidogrel Bisulfate 75 Mg Tablet) 75 mg PO DAILY [facility] Last Admin: 03/21/21 11:24 Dose: 75 mg Documented by: Dextrose (Dextrose 50%-Water 25 Gm/50 Ml Disp.Syrin) 0 gm IV X1 PRN; Protocol PRN Reason: Hypoglycemia Famotidine (Famotidine 20 Mg Tablet) 20 mg PO DAILY [facility] Last Admin: 11/20/20 11:25 Dose: 20 mg Documented by: Ferrous Sulfate (Ferrous Sulfate 325 Mg Tablet) 325 mg PO DAILY@0800 [facility] Last Admin: 11/20/20 08:16 Dose: 325 mg Documented by: Furosemide (Furosemide 40 Mg Tablet) 40 mg PO DAILY [facility] Last Admin: 11/20/20 11:24 Dose: 40 mg Documented by: Glucagon (Glucagon 1 Mg/Ml Syringe) 1 mg IM .X1 PRN PRN Reason: Hypoglycemia Insulin Human Lispro (Insulin Lispro 100 Unit/Ml Insuln.Pen) 0 unit SC ACHS [facility]; Protocol Last Admin: 11/20/20 11:46 Dose: 1 units Documented by: Isosorbide Mononitrate (Isosorbide Mononitrate 60 Mg Tablet) 60 mg PO DAILY [facility] Last Admin: 11/20/20 11:24 Dose: 60 mg Documented by: Lisinopril (Lisinopril 5 Mg Tablet) 5 mg PO DAILY [facility] Last Admin: 11/20/20 11:24 Dose: 5 mg Documented by: Metoprolol Tartrate (Metoprolol Tartrate 50 Mg Tablet) 50 mg PO BID [facility] Last Admin: 11/20/20 11:24 Dose: 50 mg Documented by: Multivitamins (Multivitamins,Therapeutic Tablet) [facility] Last Admin: 11/20/20 08:16 Dose: 1 tablet Documented by: Nitroglycerin (Nitroglycerin (Inpatient Use) 0.4 Mg Tab.Subl) 0.4 mg SL Q5M PRN PRN Reason: CARDIAC/CHEST PAIN Ondansetron HCl (Ondansetron 4 Mg/2 Ml Vial) 4 mg IV Q6H PRN PRN PRN Reason: NAUSEA/VOMITING Last Admin: 11/17/20 22:00 Dose: 4 mg Documented by: Ranolazine (Ranolazine 500 Mg Tablet) 1,000 mg PO BID [facility] Last Admin: 11/20/20 11:24 Dose: 1,000 mg Documented by: Senna/Docusate Sodium (Senna/Docusate Sodium 1 Tablet) 2 tablet PO BID PRN PRN PRN Reason: Constipation Sodium Chloride (0.9% Saline Lock 10 Ml Syringe) 10 - 40 ml IV UD PRN PRN Reason: SALINE FLUSH Last Admin: 11/18/20 10:16 Dose: 20 ml Documented by: Medical Necessity - Tobacco Use Smoking Status: Never smoker Tobacco Use: Non-smoker Assessment/Plan All Active Problems (Last Updated 11/18/20 @ 10:[address] Rosa Hsieh MD) Atrial fibrillation with RVR (Acute) This is a 75 years old male patient presented to the emergency room because of shortness of breath, found to have new onset A. 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 Lasix, lisinopril, metoprolol and isosorbide mononitrate. Denies any more shortness of breath except minimal upon activity. 2D echocardiogram revealed ejection fraction of 45%, RVSP of 64, moderate pulmonary hypertension. His creatinine kept going up. Lasix adjusted yesterday down to 40 mg p.o. daily. This morning, patient complained of back pain seemed to be due to muscle spasm. He denied trauma or mechanical fall. He thinks the pain is getting better compared to last night. He requested that he stay 1 more night because of this pain. Plan: PT OT, repeat BMP tomorrow morning, DC home tomorrow. #2 new onset A. fib with RVR: Converted back to sinus rhythm. He is on p.o. amiodarone and metoprolol as well as Eliquis. Heart rate has been around 100 210, blood pressure stable. He is asymptomatic. Eliquis. 2D echocardiogram reviewed as above. Serum electrolytes including potassium, calcium and magnesium were normal. Cardiology on the case. Plan to discharge patient tomorrow on amiodarone 400 mg p.o. twice daily for 1 week and then go down to 200 mg p.o. twice daily, metoprolol 50 mg p.o. twice daily and Eliquis 2.5 mg p.o. twice daily, follow-up with cardiology as outpatient. #3 CAD status post CABG and stents: EKG reviewed, revealed A. fib with RVR, no acute ischemic changes. Troponin was negative. Continue statins, Eliquis, nitrates, lisinopril and metoprolol. #4 type 2 diabetes mellitus: Blood sugar stable, continue Accu-Cheks and sliding scale. Metformin and Victoza on hold. #5 hypertension: Blood pressure stable, continue nitrate, lisinopril and metoprolol. #6 stage IIIb chronic kidney disease: Baseline creatinine has been around 1.4 to 2 mg/dL. Today's creatinine is 2.39, it keeps trending up slightly. Patient was on IV Lasix which was discontinued. Lasix was decreased down to 40 mg p.o. daily. Plan to repeat BMP tomorrow morning before discharge. #7 DVT prophylaxis: Currently, he is on Eliquis. This note was generated with [employer] dictation software. It may contain incorrect words, spelling, and punctuation that were not noted in checking the note before signing. Inpatient E&M: 37940 Subs Hosp L2
[2020-11-20 11:51] LABS: Bedside Glucose 184 mg/dL (70-110)
[2020-11-20 16:56] LABS: Bedside Glucose 159 mg/dL (70-110)
[2020-11-20] MEDS: Atorvastatin Calcium 40 MG Tablet PO (20:45)
[2020-11-20 22:06] LABS: Bedside Glucose 165 mg/dL (70-110)
[2020-11-21 02:50] VITALS: BP 93/50; PULSE 105; RESP 18; TEMP 36.6; O2SAT 98
[2020-11-21 02:57] VITALS: PULSE 106
[2020-11-21 06:40] LABS: Bedside Glucose 187 mg/dL (70-110)
[2020-11-21 07:00] VITALS: PULSE 105
[2020-11-21 07:11] LABS: Anion Gap 7 (5-15); BUN 57 mg/dL (7-18); BUN/Creat Ratio 23.3 RATIO (10-20); Calcium,Total 8.8 mg/dL (8.5-10.1); Chloride 105 mmol/L (98-107); Creatinine, Serum 2.45 mg/dL (0.70-1.30); EST Glomerular Filtration Rate 27 mL/min (>60); Est Glom Filt Rate - Afr Amer 33 mL/min (>60); Estimated Creatinine Clearance 23.15 ml/min; Glucose 190 mg/dL (74-106); Potassium 4.2 mmol/L (3.5-5.1); Sodium Level 136 mmol/L (136-145)
--- NOTE | 2020-11-21 08:00 | EKG12_ITS ---
Test Reason : CONVERSION TO NS Blood Pressure : / mmHG Vent. Rate : 120 BPM Atrial Rate : 240 BPM P-R Int : 000 ms QRS Dur : 110 ms QT Int : 198 ms P-R-T Axes : 268 -74 131 degrees QTc Int : 279 ms Atrial flutter Left axis deviation Nonspecific ST and T wave abnormality Abnormal ECG When compared with ECG of 18-NOV-2020 10:29, MANUAL COMPARISON REQUIRED, DATA IS UNCONFIRMED Confirmed by VICKIE DOLL, SABRA ([id number]), video effects editor DEINSSE FRANK ([id number]) on 11/22/2020 9:11:52 AM Referred By: JESSE Confirmed By:SABRA JOHNSTON MD
[2020-11-21 08:33] VITALS: BP 104/59; PULSE 105; RESP 16; TEMP 36.5; O2SAT 99
[2020-11-21] MEDS: Amiodarone 200 MG Tablet 400 MG PO (08:41)
[2020-11-21] MEDS: Ranolazine 500 MG Tablet 1000 MG PO (08:42)
[2020-11-21] MEDS: Isosorbide Mononitrate 60 MG Tablet PO (08:42)
[2020-11-21] MEDS: Ascorbic Acid 500 MG Tablet PO (08:42)
[2020-11-21] MEDS: Ferrous Sulfate 325 MG Tablet PO (08:42)
[2020-11-21] MEDS: Furosemide 40 MG Tablet PO (08:42)
[2020-11-21] MEDS: Lisinopril 5 MG Tablet PO (08:42)
[2020-11-21 08:43] VITALS: PULSE 105
[2020-11-21] MEDS: Clopidogrel Bisulfate 75 MG Tablet PO (08:43)
[2020-11-21] MEDS: APIXABAN 2.5 MG TABLET PO (08:43)
[2020-11-21] MEDS: Multivitamins,Therapeutic Tablet 1 TABLET PO (08:43)
[2020-11-21] MEDS: Famotidine 20 MG Tablet PO (08:43)
[2020-11-21] MEDS: Metoprolol Tartrate 50 MG Tablet PO (08:43)
--- NOTE | 2020-11-21 11:11 | CASEMGMT ---
[facility] CM Note: 30 day Eliquis saving card given to patient to take to his pharmacy. Riky MENENDEZ RN ACM
--- NOTE | 2020-11-21 11:22 | PCM.DC ---
- Discharge Diagnoses Current Active Problems: Current Active and Chronic Problems (Last Updated 11/18/20 @ 10:[address] Rosa Hsieh MD) Atrial fibrillation with RVR (Acute) Type 2 diabetes mellitus (Chronic) Pure hypercholesterolemia (Chronic) Presence of stent in coronary artery (Chronic ~08/20/12) PTCA & Stenting of SVG to RCA, PTCA & stenting of SVG to 3rd OM 02/07/11, Restenting of mid SVG of RCA 08/13 H/O coronary artery bypass surgery (Chronic ~08/31/03) CABG X 5 with BUCKNER in sequence to DX & LAD, & sequential graft using SVSG to CX X 2, as well as individual SVG to CX 08/31/[address] Mendez Essential (primary) hypertension (Chronic) NSTEMI (non-ST elevated myocardial infarction) (Chronic ~12/06/18) 12/06/18 You will use the following diet at home:: Calorie/Carbohydrate Controlled (specify 1200, 1400, etc) - 1800 sage Your food should be the consistency of: Regular Your liquids should be the consistency of: Regular/Thin Discharge Activity: Return to Normal Activity Weight Bearing Status: Full weight bearing Allergies/Adverse Reactions: Allergies Iodinated Contrast Media [Iodinated Contrast Media - Oral and] Allergy (Verified 11/17/20 11:40) made me hot and they never used it again Medications to take at Discharge Ascorbic Acid [Vitamin C] 500 mg PO DAILY@0800 11/06/16 Ferrous Sulfate 325 mg PO DAILY@0800 11/06/16 Multivitamins,Therapeutic [Multivitamin] 1 tab PO DAILY 11/06/16 nitroglycerin 0.4 mg sublingual tablet 0.4 mg SUBLINGUAL Q5M PRN #25 tab 10/22/18 Liraglutide [Victoza] 1.8 mg SQ DAILY 12/05/18 ranolazine 1,000 mg tablet,extended release,12 hr 1,000 mg PO BID tab 08/01/20 atorvastatin 40 mg tablet 40 mg PO QDAY #90 tab 08/18/20 ranitidine HCl 150 mg tablet 150 mg PO DAILY 10/26/20 clopidogrel 75 mg tablet 75 mg PO DAILY #30 tab 11/15/20 isosorbide mononitrate 60 mg tablet,extended release 24 hr 60 mg PO DAILY #90 tab 11/15/20 Cholecalciferol (Vitamin D3) [D3-2000] 4,000 unit PO DAILY 11/17/20 Lisinopril 5 mg PO DAILY 11/17/20 Amiodarone HCl [Cordarone] 200 mg PO BID #60 tablet 11/21/20 Apixaban [Eliquis] 5 mg PO BID #60 tablet 11/21/20 Furosemide [Lasix] 40 mg PO DAILY #30 tablet 11/21/20 Metoprolol Tartrate [Lopressor (beta arlene)] 50 mg PO BID #60 tablet 11/21/20 The following prescriptions were given: Amiodarone HCl [Cordarone] 200 mg PO BID #60 tablet Transmission Status: Pending to [facility]/pharmacy #[id number] Apixaban [Eliquis] 5 mg PO BID #60 tablet Transmission Status: Pending to [facility]/pharmacy #[id number] Furosemide [Lasix] 40 mg PO DAILY #30 tablet Transmission Status: Pending to [facility]/pharmacy #[id number] Metoprolol Tartrate [Lopressor (beta arlene)] 50 mg PO BID #60 tablet Transmission Status: Pending to [facility]/pharmacy #[id number] Primary Care Physician: Kandi Obrien DO [Primary Care Provider] - Please follow up with your Primary Care Physician in: this week-get your BMP redone Test Results: Test results from this visit will be discussed in further detail at your follow-up appointment, if applicable. Please Follow Up With: Zeke Jacobs MD When: in two weeks-call for appointment
--- NOTE | 2020-11-21 11:38 | CASEMGMT ---
[facility] CM Note: Eliquis saving card called to [facility] pharmacy and pt will have no copay for 30 day free trial. Riky MENENDEZ RN ACM
[2020-11-21 11:46] LABS: Bedside Glucose 167 mg/dL (70-110)
--- NOTE | 2020-11-21 12:01 | PHA.DC.MC ---
Pharmacy Service has performed discharge medication reconciliation and counseling for this patient. 1. AMIODARONE 200MG PO BID 2. APIXABAN 5MG PO BID 3. FUROSEMIDE 40MG PO DAILY 4. METOPROLOL TARTRATE 50MG PO BID The patient's discharge medication list was reviewed for discrepancies and discrepancies were resolved. Home Medications Ascorbic Acid [Vitamin C] 500 mg PO DAILY@0800 11/06/16 Ferrous Sulfate 325 mg PO DAILY@0800 11/06/16 Multivitamins,Therapeutic [Multivitamin] 1 tab PO DAILY 11/06/16 nitroglycerin 0.4 mg sublingual tablet 0.4 mg SUBLINGUAL Q5M PRN #25 tab 10/22/18 Liraglutide [Victoza] 1.8 mg SQ DAILY 12/05/18 ranolazine 1,000 mg tablet,extended release,12 hr 1,000 mg PO BID tab 08/01/20 atorvastatin 40 mg tablet 40 mg PO QDAY #90 tab 08/18/20 ranitidine HCl 150 mg tablet 150 mg PO DAILY 10/26/20 clopidogrel 75 mg tablet 75 mg PO DAILY #30 tab 11/15/20 isosorbide mononitrate 60 mg tablet,extended release 24 hr 60 mg PO DAILY #90 tab 11/15/20 Cholecalciferol (Vitamin D3) [D3-2000] 4,000 unit PO DAILY 11/17/20 Lisinopril 5 mg PO DAILY 11/17/20 Amiodarone HCl [Cordarone] 200 mg PO BID #60 tablet 11/21/20 Apixaban [Eliquis] 5 mg PO BID #60 tablet 11/21/20 Aspirin 81 mg PO DAILY #1 tab.chew 11/21/20 Furosemide [Lasix] 40 mg PO DAILY #30 tablet 11/21/20 Metoprolol Tartrate [Lopressor (beta arlene)] 50 mg PO BID #60 tablet 11/21/20 The patient was counseled on the following discharge medications and changes in medications for homegoing were reviewed. The Reason for Use, instructions for use, and potential side effects were reviewed for all new medications. The patient's questions regarding all of their medications were answered. The patient was able to verbally demonstrate an understanding of their discharge medications.
--- NOTE | 2020-11-22 14:01 | CASEMGMT ---
RN CM Discharge Follow-up Phone Call: ROSARIO: 12 Strata: 3 Call Date: 11/22/20 Discharge Date: 11/21/20 Time of Call: 1400 Duration: 1 min Admitting Diagnosis: Acute CHF RN CM attempted to complete follow-up phone call after recent hospitalization. No answer, voice message left with return contact information.
--- NOTE | 2020-11-22 18:40 | PCM.DC.SUM ---
Discharge Date and Diagnosis - Problem List Patient Problems: Active and Suspected Problems (Last Updated 11/18/20 @ 10:[address] Rosa Hsieh MD) Atrial fibrillation with RVR (Acute) Date of Admission: 11/17/20 Date of Discharge: 11/21/20 - Primary Discharge Diagnosis Acute Problems: Active Problems (Last Updated 11/18/20 @ 10:[address] Rosa Hsieh MD) #1 acute on chronic combined systolic and diastolic congestive heart failure #2 new onset atrial fibrillation with RVR #3 coronary artery disease #4 type 2 diabetes #5 essential hypertension #6 stage IIIb chronic kidney disease secondary to type 2 diabetes #7 moderate pulmonary hypertension - Secondary Discharge Diagnosis Chronic Problems: Chronic Problems (Last Updated 11/18/20 @ 10:[address] Rosa Hsieh MD) Type 2 diabetes mellitus (Chronic) Pure hypercholesterolemia (Chronic) Presence of stent in coronary artery (Chronic ~08/20/12) PTCA & Stenting of SVG to RCA, PTCA & stenting of SVG to 3rd OM 02/07/11, Restenting of mid SVG of RCA 08/13 H/O coronary artery bypass surgery (Chronic ~08/31/03) CABG X 5 with BUCKNER in sequence to DX & LAD, & sequential graft using SVSG to CX X 2, as well as individual SVG to CX 08/31/[address] 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 Patient has a known history of coronary artery disease and follows up with a aboriginal liaison officer on a chronic basis. Work-up in the emergency room included an EKG which showed atrial fibrillation with an RVR at 134 bpm, patient denied any history of previous atrial fibrillation. Patient was given 20 mg of Cardizem to slow his heart rate down. Chest x-ray obtained showed mild CHF, CBC revealed a white blood cell count at 6.6, hemoglobin was 11.1, creatinine was 1.85, and the patient's beta natruretic peptide was 502. Patient was admitted to PCU, he was seen in consultation by cardiology, an echocardiogram was performed which showed an EF of 45% with moderate pulmonary hypertension. Patient was given IV Lasix, his creatinine worsened during his hospitalization and his Lasix was decreased. Patient was placed on anticoagulation with Eliquis and rate limiting medications were used to control patient's heart rate. On 11/21/2020, patient was seen and examined: On examination he appeared in good health and spirits. Vital signs as documented. Skin warm and dry and without overt rashes. Neck without JVD, neck was supple, trachea midline, thyroid was normal. Lungs clear bilaterally, normal air movement was noted. Heart exam notable for regular rhythm, normal sounds and absence of murmurs, rubs or gallops. Abdomen unremarkable and without evidence of organomegaly, masses, or abdominal aortic enlargement. Bowel sounds are present, abdomen is not distended. Extremities nonedematous, no cyanosis was noted, no clubbing was noted. Neuro: Cranial nerves II through XII are grossly intact, no focal motor deficits were noted, sensation to light touch and pinprick intact, motor exam 5/5 throughout. Psych: Patient is alert and oriented x3, he does not appear anxious or depressed, he does not appear agitated. Patient appears stable for discharge home on 11/21/2020. Patient Problems: Active and Suspected Problems (Last Updated 11/18/20 @ 10:[address] Rosa Hsieh MD) Atrial fibrillation with RVR (Acute) - Physical Exam Vitals/I&O's: Vital Signs Temp Pulse Resp BP Pulse Ox 97.7 F L 105 H 16 104/59 L 99 11/21/20 08:33 11/21/20 08:43 11/21/20 08:33 11/21/20 08:33 11/21/20 08:33 Oxygen Delivery Method Room Air Weight: 74.6 kg Body Mass Index (BMI) 28.2 Finger Stick Blood Glucose 104 Intake and Output for Last 24 Hours 11/20/20 11/21/20 11/22/20 23:59 23:59 23:59 Intake Total 1570 / 1570 50 / 50 Output Total 1175 / 1175 450 / 450 Balance 395 / 395 -400 / -400 Discharge Activity: Return to Normal Activity Weight Bearing Status: Full weight bearing Home Medications: Medications to take at Discharge Ascorbic Acid [Vitamin C] 500 mg PO DAILY@0800 11/06/16 Ferrous Sulfate 325 mg PO DAILY@0800 11/06/16 Multivitamins,Therapeutic [Multivitamin] 1 tab PO DAILY 11/06/16 nitroglycerin 0.4 mg sublingual tablet 0.4 mg SUBLINGUAL Q5M PRN #25 tab 10/22/18 Liraglutide [Victoza] 1.8 mg SQ DAILY 12/05/18 ranolazine 1,000 mg tablet,extended release,12 hr 1,000 mg PO BID tab 08/01/20 atorvastatin 40 mg tablet 40 mg PO QDAY #90 tab 08/18/20 ranitidine HCl 150 mg tablet 150 mg PO DAILY 10/26/20 clopidogrel 75 mg tablet 75 mg PO DAILY #30 tab 11/15/20 isosorbide mononitrate 60 mg tablet,extended release 24 hr 60 mg PO DAILY #90 tab 11/15/20 Cholecalciferol (Vitamin D3) [D3-2000] 4,000 unit PO DAILY 11/17/20 Lisinopril 5 mg PO DAILY 11/17/20 Amiodarone HCl [Cordarone] 200 mg PO BID #60 tablet 11/21/20 Apixaban [Eliquis] 5 mg PO BID #60 tablet 11/21/20 Aspirin 81 mg PO DAILY #1 tab.chew 11/21/20 Furosemide [Lasix] 40 mg PO DAILY #30 tablet 11/21/20 Metoprolol Tartrate [Lopressor (beta arlene)] 50 mg PO BID #60 tablet 11/21/20 Following Prescriptions Were Given to Patient: Aspirin 81 mg PO DAILY #1 tab.chew Amiodarone HCl [Cordarone] 200 mg PO BID #60 tablet Transmission Status: Received by [facility]/pharmacy [facility][id number] Apixaban [Eliquis] 5 mg PO BID #60 tablet Transmission Status: Received by [facility]/pharmacy #[id number] Furosemide [Lasix] 40 mg PO DAILY #30 tablet Transmission Status: Received by [facility]/pharmacy #[id number] Metoprolol Tartrate [Lopressor (beta arlene)] 50 mg PO BID #60 tablet Transmission Status: Received by [facility]/pharmacy #[id number] Primary Care Physician: Kandi Obrien DO [Primary Care Provider] - Please follow up with your Primary Care Physician in: this week-get your BMP redone Please Follow Up With: Zeke Jacobs MD When: in two weeks-call for appointment Disposition: Home Minutes spent on discharge:: 32 Patient Condition:: Stable Medical Necessity - Tobacco Use Smoking Status: Never smoker Tobacco Use: Non-smoker Meaningful Use Info Meaningful Use Diagnoses (Choose all that apply): CHF - CHF EMIGDIO/ARB ordered at discharge?: Yes Documented LVEF (%): 45 Inpatient E&M: 90323 Disch Hosp
== END 2020-11-21 13:05 | disposition home or self-care (01) | DRG 291 ==
LOC: ED 12:37 → PCU 14:08
PROVIDERS: Hospitalist; Internal Medicine Interventional Cardiology; Admitting Provider Internal Medicine; Emergency Provider Student in an Organized Health Care Education/Training Program; PCP Internal Medicine; Visit Provider Internal Medicine
DX: I13.0 Hypertensive heart and chronic kidney disease with heart failure and stage 1 through stage 4 chronic kidney disease, or unspecified chronic kidney disease (principal); I50.43 Acute on chronic combined systolic (congestive) and diastolic (congestive) heart failure; E11.22 Type 2 diabetes mellitus with diabetic chronic kidney disease; N18.32 Chronic kidney disease, stage 3b; I48.91 Unspecified atrial fibrillation; I25.10 Atherosclerotic heart disease of native coronary artery without angina pectoris; I27.21 Secondary pulmonary arterial hypertension; E87.5 Hyperkalemia; Z95.1 Presence of aortocoronary bypass graft; Z79.84 Long term (current) use of oral hypoglycemic drugs; Z79.899 Other long term (current) drug therapy; Z66 Do not resuscitate; Z95.5 Presence of coronary angioplasty implant and graft
CPT/HCPCS: 36415; 71045; 80048; 80053; 80076; 82962; 83735; 83880; 84484; 85025; 85610; 85730; 93005; 93306; 97116; 97162; 97802; 99251; 99285; Q9957; A4216; C8929; G0463; J1940; J2405

== ENCOUNTER 2020-12-02 13:44 | Outpatient (RCR) | payer MEDICARE, SELFPAY ==
[2020-12-05 09:03] VITALS: BMI 27.2
== END 2021-02-07 23:59 ==
LOC: IMMUN 13:44
PROVIDERS: PCP Internal Medicine; Visit Provider Family Medicine
DX: Z23 Encounter for immunization (principal)
CPT/HCPCS: 0001A; 0002A; 91300

== ENCOUNTER → 2020-12-27 10:01 | Day surgery (SDC) | payer MEDICARE, SELFPAY ==
[2020-12-05 09:03] VITALS: BMI 27.2
[2020-12-08 11:47] LABS: Anion Gap 5 (5-15); BUN 46 mg/dL (7-18); BUN/Creat Ratio 18.6 RATIO (10-20); Calcium,Total 9.2 mg/dL (8.5-10.1); Chloride 104 mmol/L (98-107); Creatinine, Serum 2.47 mg/dL (0.70-1.30); EST Glomerular Filtration Rate 27 mL/min (>60); Est Glom Filt Rate - Afr Amer 33 mL/min (>60); Glucose 198 mg/dL (74-106); Sodium Level 137 mmol/L (136-145)
[2020-12-26 07:14] VITALS: BMI 27.2
--- NOTE | 2020-12-27 07:00 | HP_ITS ---
HPI HPI History of Present Illness Surgical H&P: Yes Details: This is a 75-year-old gentleman that presents here today for a hospital follow-up. Patient was hospitalized November 17, 2020 for acute on chronic combined systolic/diastolic heart failure, new onset of atrial fibrillation with RVR. 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 He did have an echocardiogram done which demonstrated an EF of 40% with moderate pulmonary hypertension. He was given IV Lasix. His creatinine did worsen during his hospital stay. Lasix was decreased. He was discharged home on Eliquis and rate limiting medications. He does have a history of coronary artery disease with bypass surgery in 2002. He had a BUCKNER to the LAD / DX (sequential graft), SVG to the LCX x 2 (sequential graft), and SVG to RCA . He had a drug-eluting stent in 2010 to SVG to LCX and the SVG to the RCA and then SVG to the RCA PCI in 2011. He has completed ECP therapy He also has a history of hypertension and hyperlipidemia. EKG today demonstrates atrial fibrillation. Overall patient is feeling somewhat better since he was in the hospital. His heart rate is better controlled. He is shortness of breath is better. He does not have any chest pain. Intake Vital Signs 12/05/20 Height 5 ft 6 in 12/05/20 Weight: 169 lb 12/05/20 BMI 27.2 12/05/20 BP 124/64 H 12/05/20 Blood Pressure Location Lt brachial 12/05/20 Position Sitting 12/05/20 Respiration 18 12/05/20 Pulse 92 12/05/20 Pulse Source Monitor 12/05/20 Pulse Oximetry (%) 97 Intake Visit Reasons: 2 WEEK POST HOSP FU [employer] Required: No Is patient in pain?: No Allergies Iodinated Contrast Media [Iodinated Contrast Media - Oral and] Allergy (Verified 12/05/20 09:01) made me hot and they never used it again Medications Ascorbic Acid [Vitamin C] 500 mg PO DAILY@0800 11/06/16 [History Confirmed 12/05/20] Ferrous Sulfate 325 mg PO DAILY@0800 11/06/16 [History Confirmed 12/05/20] Multivitamins,Therapeutic [Multivitamin] 1 tab PO DAILY 11/06/16 [History Confirmed 12/05/20] nitroglycerin 0.4 mg sublingual tablet 0.4 mg SL Q5M PRN #25 tab 10/22/18 [Rx Confirmed 12/05/20] Liraglutide [Victoza] 1.8 mg SQ DAILY 12/05/18 [History Confirmed 12/05/20] ranolazine 1,000 mg tablet,extended release,12 hr 1,000 mg PO BID tab 08/01/20 [History Confirmed 12/05/20] atorvastatin 40 mg tablet 40 mg PO QDAY #90 tab 08/18/20 [Rx Confirmed 12/05/20] ranitidine HCl 150 mg tablet 150 mg PO DAILY 10/26/20 [History Confirmed 12/05/20] isosorbide mononitrate 60 mg tablet,extended release 24 hr 60 mg PO DAILY #90 tab 11/15/20 [Rx Confirmed 12/05/20] Cholecalciferol (Vitamin D3) [D3-2000] 4,000 unit PO DAILY 11/17/20 [History Confirmed 12/05/20] Lisinopril 5 mg PO DAILY 11/17/20 [History Confirmed 12/05/20] Apixaban [Eliquis] 5 mg PO BID #60 tablet 11/21/20 [Rx Confirmed 12/05/20] Aspirin 81 mg PO DAILY #1 tab.chew 11/21/20 [Rx Confirmed 12/05/20] Furosemide [Lasix] 40 mg PO DAILY #30 tablet 11/21/20 [Rx Confirmed 12/05/20] amiodarone 200 mg tablet 200 mg PO DAILY #90 tablet 12/05/20 [Rx Confirmed 12/05/20] metoprolol tartrate 50 mg tablet 50 mg PO BID #180 tablet 12/05/20 [Rx Confirmed 12/05/20] [facility] Medical History Type 2 diabetes mellitus (Chronic) Pure hypercholesterolemia (Chronic) Presence of stent in coronary artery (Chronic ~08/20/12) Secondary pulmonary arterial hypertension (Chronic) Essential (primary) hypertension (Chronic) NSTEMI (non-ST elevated myocardial infarction) (Chronic ~12/06/18) 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) Atherosclerotic heart disease of [place] coronary artery without angina pectoris (Chronic) Angina pectoris (Chronic) Abnormal electrocardiogram (Inactive) Abnormal nuclear stress test (Inactive) Carotid bruit (Inactive) Surgical History H/O coronary artery bypass surgery (Chronic ~08/31/03) Presence of coronary angioplasty implant and graft (Chronic ~08/20/12) Status post left heart catheterization (LHC) (Resolved ~12/08/18) Family History Father Diabetes Cancer leukemia Sister Diabetes Social History (Updated 12/07/20 @ 10:02 by Marybeth CORNEJO, PA) Smoking Status: Never smoker alcohol intake: never substance use type: does not use caffeine: Yes what type of physical activity do you participate in: none ROS Const Const: Positive for fatigue; negative for weakness, fever(s) or headache(s) Eyes Eyes: Negative for blind spots, loss of peripheral vision or transient loss of vision ENT ENT: Negative for headache(s), dizziness, tinnitus or Nosebleed/epistaxis Cardio Chest Pain: No Palpitations: No Edema: None Muscle aches with walking: None Resp Respiratory: Positive for SOB with activity; negative for SOB at rest, SOB orthopnea\SOB lying down or Cough GI GI: Negative nausea, vomiting, heartburn or vomiting blood/hematemesis : Negative for hematuria Musc Musc: Negative for muscle aches/ myalgia Neuro Neuro: Negative for dizziness, lightheadedness, near syncope, syncope, orthostatic symptoms, headache(s) or weakness Boy Hematologic/Lymphatic: Negative for easy bleeding Endo Endo: Positive for fatigue Cardiology Exam Const Appearance: cooperative, no acute distress and well developed Orientation: alert, awake and oriented x3 Head Head: normocephalic and atraumatic Mouth: moist mucous membranes Eyes General: appearance normal, both eyes and all related structures Conjunctivae: conjunctivae normal Pupils: PERRL EOM: EOM intact bilaterally Neck Neck: normal visual inspection, no lymphadenopathy and no JVD Carotids: Negative bruit Neck Mass: Negative Neck mass Chest Chest inspection: normal inspection of the chest, symmetric chest movement and midline sternotomy incision Auscultation: Bilateral: Clear to Auscultation Cardio Palpation: normal PMI Rate: regular rate Rhythm: irregularly irregular Heart sounds: S1 normal and S2 normal; negative rub, gallop or murmur GI GI: normal to inspection, soft, no hepatosplenomegaly and bowel sounds present; negative tender Neuro General: alert, awake, oriented x3, CN's II-XI intact bilaterally and moves all extremities Extremities Pulses: Normal: Right Posterior Tibial Pulse, Left Posterior Tibial Pulse, Right Radial Pulse, Left Radial Pulse Lower Extremity Edema: None: Bilateral Psych Psychological: normal affect Assessment & Plan 1. Atrial fibrillation with RVR I48.91 Plan Patient is still in atrial fibrillation. We will have him decrease his amiodarone to once a day. His metoprolol at 50 mg twice a day. We will plan for a cardioversion in the near future. Do not feel that patient needs triple antiplatelet/anticoagulant therapy. We will have him stop his Plavix. He will continue with his aspirin and his Eliquis. Did discuss with son that if Eliquis is too expensive you can consider switching over to Coumadin however would like to do this after his cardioversion. Patient Instructions Restart your metoprolol at 50 mg twice a day Decrease your amiodarone to once a day Stop your plavix (clopidogrel) Continue with eliquis - let me know if it is expensive- we can switch to coumadin I will call you with a date and time of your cardioversion Instructions for cardioversion: Nothing to eat or drink after midnight in the morning with a small sip of water you will need to take: Eliquis, amiodarone, metoprolol, ASA, Ranexa, ranitidine, isosorbide, lisinopril You will need a hyster driver that day Orders Orders: 12 Lead EKG performed by [facility] 12/05/20 2. Atherosclerosis of [place] coronary artery of [place] heart without angina pectoris I25.10 Plan Stable, from a cardiac standpoint patient does not have any symptoms of angina. We recommend that they continue with current aggressive medical management and risk factor modification. 3. Essential hypertension I10 Plan Blood pressure is well controlled on current medications, we do not recommend any changes at this time. 4. Pure hypercholesterolemia E78.00 Plan Patient will continue with moderate intensity and statin. This is being managed by his primary care doctor. Plan Detail Other Medications Changed: From: amiodarone 200 mg PO BID 60 tabs 0RF To: amiodarone 200 mg PO DAILY 90 tabs 3RF Refilled: metoprolol tartrate 50 mg PO BID 180 tabs 3RF Discontinued: clopidogrel Discontinued Reason: Order Completed 75 mg PO DAILY 30 tabs 11RF Follow Up 12/05/20 (keep as is) Coding Level of Care Code Off vis,est,level 3 Diagnoses Atrial fibrillation with RVR I48.91 Atherosclerosis of [place] coronary artery of [place] heart without angina pectoris I25.10 ??Pala vs. transplanted heart: [place] heart Essential hypertension I10 Pure hypercholesterolemia E78.00 Coding Level of Care Code Off vis,est,level 3 Diagnoses Atrial fibrillation with RVR I48.91 Atherosclerosis of [place] coronary artery of [place] heart without angina pectoris I25.10 ??Pala vs. transplanted heart: [place] heart Essential hypertension I10 Pure hypercholesterolemia E78.00 Supplemental Info Supplemental Information Echocardiogram 12/2018: Normal LV size. Left ventricular systolic function is normal. The estimated ejection fraction is 65 %. Stage 1 diastolic dysfunction. Mild (1+) eccentric mitral valve insufficiency. Pulmonary artery systolic pressure is 52 mmHg. Mild pulmonary hypertension. Contrast injection was performed. Echocardiogram from 08/08/12: Segmental dysfunction with preserved ejection fraction (see wall motion). The estimate ejection fraction is 60%. The left atrium is mildly enlarged. There is mild mitral annular calcification. Of the mitral valve insufficiency. Trivial tricuspid valve insufficiency. Aortic sclerosis, no stenosis. Trivial aortic valve insufficiency. Right ventricular systolic pressures estimated to be 32 mmHg. Nuclear stress test from 10/18/16: 1. Technically adequate (percent predicted maximum heart rate greater than 85%), exercise tolerance test. 2. Peak exercise ECG with somatic/motion artifact with approximately 0.5-1.[address]-segment depression in leads I, II, aVF and V4 through V6 with recovery ECG demonstrated approximately [address]-segment depression in leads I, II, V2 through V6 with associated T-wave abnormality with gradual resolution towards baseline in recovery. 3. Rare PVC during recovery. 4. Nuclear images pending. IMPRESSION: 1. Rest and stress SPECT Cardiolite nuclear imaging demonstrate myocardial perfusion changes appearing compatible with an area of stress-induced myocardial ischemia in the mid to distal inferolateral segments. 2. The gated Cardiolite study reports an LVEF of 61%. Abdominal U/S: 10/28/2017 Procedure Aorta IVC Iliac vasculature or bypass grafts [id number]. Exam performed in department. Interpretation Summary No evidence for aortic aneurysm with maximal diameter of 1.6 x 1.5cm and normal flow. Normal iliac dimensions as noted. Diagnostic cardiac cath in October of 2018 Demonstrated significant multivessel disease. His grafts were patent. He did not require any additional catheter based intervention at the time. CORONARY ANGIOGRAPHY DOMINANCE: Right Dominant LEFT HEART ASSESSMENT Left Ventricular Ejection Fraction: Not assessed Elevated Left Ventricular End Diastolic Pressure LVEDP: 27 mmHg LEFT MAIN: Severe calcification, Distal: 95 % Stenosis LEFT ANTERIOR DECENDING ARTERY: PROX LAD: Severe calcification MID LAD: is occluded, filling from the BUCKNER graft with no angiographically significant disease distal to the graft attachment DIAGONAL 1: Proximal - small caliber vessel filling from the BUCKNER graft CIRCUMFLEX ARTERY: Moderate calcification PROX CIRC: Eccentric: Hazy: 75 % Stenosis OM 1: Proximal - superior bifurcating branch occluded and subsequently filling from the SVG graft with the distal portion s/p the graft attachment appearing occluded RIGHT CORONARY ARTERY: PROX RCA: is occluded DISTAL RCA: with the RPDA and the RPL branch filling from the SVG graft with no angiographically significant appearing disease distal to the graft attachment GRAFTS: BUCKNER graft to the 1st Diagonal is patent and subsequently sequencing to the LAD with no angiographically significant appearing disease distal to the graft attachments Saphenous Vein graft to the 1st OM previously placed stent is patent with eccentric 10 -25% in stent restenosis Saphenous Vein graft to the RPDA previously placed stent is patent with mild luminal irregularities with a sequencing appearing segment to the RPL being patent Echocardiogram 10/2020: Normal LV size. The estimated ejection fraction is 45 %. Unable to assess diastolic dysfunction due to arrhythmia. Pulmonary artery systolic pressure is 64 mmHg. Moderate pulmonary hypertension. Mild global hypokinesis present Contrast injection was performed. Compared to previous study, the left ventricular systolic function has worsened.. Diagnostics Electrocardiogram 12/05/20 Echocardiogram 11/17/20 Chest X-Ray 11/17/20 COVID (Procedure Consent) Procedure Criteria Procedure Criteria: Yes Elective The surgeon/proceduralist and patient have discussed in detail the risk of exposure to and/or potential harm posed by the COVID-19 virus with having a surgery/procedure at this time versus the risk of? delaying the surgery/procedure. It is not possible to know either the risk of delaying the surgery or procedure or chance of getting an infection with perfect accuracy, but a joint decision was made between the patient and the surgeon/proceduralist ?to proceed at this time with the scheduled surgery/procedure as indicated on the consent form.
--- NOTE | 2020-12-27 13:06 | PCM.HP.BLA ---
History and Physical [facility] Medical Records Department [address] [place] [address] History and Physical 12/27/20 0700 MR#:? [id number] Acct: [id number] Name: PEGGY EASTON Rep #: [id number] :? 1945 75 From:? Zeke Jacobs MD PCP: Dr. Kandi Obrien, DO ? Status: REG [facility] Location: ?? [facility] ? HPI HPI History of Present Illness Surgical H&P: Yes Details: This is a 75-year-old gentleman that presents here today for a hospital follow-up. Patient was hospitalized November 17, 2020 for acute on chronic combined systolic/diastolic heart failure, new onset of atrial fibrillation with RVR.? B PUTTIER was elevated.? He did have an echocardiogram done which demonstrated an EF of 40% with moderate pulmonary hypertension.? He was given IV Lasix.? His creatinine did worsen during his hospital stay.? Lasix was decreased.? He was discharged home on Eliquis and rate limiting medications. He does have a history of coronary artery disease with bypass surgery in 2002. He had a BUCKNER to the LAD / DX (sequential graft), SVG to the LCX x 2 (sequential graft), and? SVG to RCA . He had a drug-eluting stent in 2010 to SVG to LCX and the SVG to the RCA and then SVG to the RCA PCI in 2011.? He has completed ECP therapy ?He also has a history of hypertension and hyperlipidemia. EKG today demonstrates atrial fibrillation. Overall patient is feeling somewhat better since he was in the hospital.? His heart rate is better controlled.? He is shortness of breath is better.? He does not have any chest pain. Intake Vital Signs 12/05/20 Height 5 ft 6 in 12/05/20 Weight: 169 lb 12/05/20 BMI 27.2 12/05/20 BP 124/64 H 12/05/20 Blood Pressure Location Lt brachial 12/05/20 Position Sitting 12/05/20 Respiration 18 12/05/20 Pulse 92 12/05/20 Pulse Source Monitor 12/05/20 Pulse Oximetry (%) 97 Intake Visit Reasons: 2 WEEK POST HOSP FU Fire Alarm Inspector Required: No Is patient in pain?: No Allergies Iodinated Contrast Media [Iodinated Contrast Media - Oral and] Allergy (Verified 12/05/20 09:01) made me hot and they never used it again Medications Ascorbic Acid [Vitamin C] 500 mg PO DAILY@0800 11/06/16 [History Confirmed 12/05/20] Ferrous Sulfate 325 mg PO DAILY@0800 11/06/16 [History Confirmed 12/05/20] Multivitamins,Therapeutic [Multivitamin] 1 tab PO DAILY 11/06/16 [History Confirmed 12/05/20] nitroglycerin 0.4 mg sublingual tablet 0.4 mg SL Q5M PRN #25 tab 10/22/18 [Rx Confirmed 12/05/20] Liraglutide [Victoza] 1.8 mg SQ DAILY 12/05/18 [History Confirmed 12/05/20] ranolazine 1,000 mg tablet,extended release,12 hr 1,000 mg PO BID? tab 08/01/20 [History Confirmed 12/05/20] atorvastatin 40 mg tablet 40 mg PO QDAY #90 tab 08/18/20 [Rx Confirmed 12/05/20] ranitidine HCl 150 mg tablet 150 mg PO DAILY 10/26/20 [History Confirmed 12/05/20] isosorbide mononitrate 60 mg tablet,extended release 24 hr 60 mg PO DAILY #90 tab 11/15/20 [Rx Confirmed 12/05/20] Cholecalciferol (Vitamin D3) [D3-2000] 4,000 unit PO DAILY 11/17/20 [History Confirmed 12/05/20] Lisinopril 5 mg PO DAILY 11/17/20 [History Confirmed 12/05/20] Apixaban [Eliquis] 5 mg PO BID #60 tablet 11/21/20 [Rx Confirmed 12/05/20] Aspirin 81 mg PO DAILY #1 tab.chew 11/21/20 [Rx Confirmed 12/05/20] Furosemide [Lasix] 40 mg PO DAILY #30 tablet 11/21/20 [Rx Confirmed 12/05/20] amiodarone 200 mg tablet 200 mg PO DAILY #90 tablet 12/05/20 [Rx Confirmed 12/05/20] metoprolol tartrate 50 mg tablet 50 mg PO BID #180 tablet 12/05/20 [Rx Confirmed 12/05/20] PFSH Medical History? 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 H/O coronary artery bypass surgery (Chronic ~08/31/03) Presence of coronary angioplasty implant and graft (Chronic ~08/20/12) Status post left heart catheterization (LHC) (Resolved ~12/08/18) Family History? Father?? Diabetes Cancer ?? ? leukemiaSister Diabetes Social History? (Updated 12/07/20 @ 10:02 by Marybeth CORNEJO, PA) Smoking Status:? Never smoker alcohol intake:? never substance use type:? does not use caffeine:? Yes what type of physical activity do you participate in:? none ROS Const Const: Positive for fatigue; negative for weakness, fever(s) or headache(s) Eyes Eyes: Negative for blind spots, loss of peripheral vision or transient loss of vision ENT ENT: Negative for headache(s), dizziness, tinnitus or Nosebleed/epistaxis Cardio Chest Pain: No Palpitations: No Edema: None Muscle aches with walking: None Resp Respiratory: Positive for SOB with activity; negative for SOB at rest, SOB orthopnea\SOB lying down or Cough GI GI: Negative nausea, vomiting, heartburn or vomiting blood/hematemesis : Negative for hematuria Musc Musc: Negative for muscle aches/ myalgia Neuro Neuro: Negative for dizziness, lightheadedness, near syncope, syncope, orthostatic symptoms, headache(s) or weakness Boy Hematologic/Lymphatic: Negative for easy bleeding Endo Endo: Positive for fatigue Cardiology Exam Const Appearance: cooperative, no acute distress and well developed Orientation: alert, awake and oriented x3 Head Head: normocephalic and atraumatic Mouth: moist mucous membranes Eyes General: appearance normal, both eyes and all related structures Conjunctivae: conjunctivae normal Pupils: PERRL EOM: EOM intact bilaterally Neck Neck: normal visual inspection, no lymphadenopathy and no JVD Carotids: Negative bruit Neck Mass: Negative Neck mass Chest Chest inspection: normal inspection of the chest, symmetric chest movement and midline sternotomy incision Auscultation:?Bilateral:?Clear to Auscultation Cardio Palpation: normal PMI Rate: regular rate Rhythm: irregularly irregular Heart sounds: S1 normal and S2 normal; negative rub, gallop or murmur GI GI: normal to inspection, soft, no hepatosplenomegaly and bowel sounds present; negative tender Neuro General: alert, awake, oriented x3, CN's II-XI intact bilaterally and moves all extremities Extremities Pulses:?Normal:?Right Posterior Tibial Pulse, Left Posterior Tibial Pulse, Right Radial Pulse, Left Radial Pulse Lower Extremity Edema:?None:?Bilateral Psych Psychological: normal affect Assessment & Plan 1. Atrial fibrillation with RVR? I48.91 Plan Patient is still in atrial fibrillation.? We will have him decrease his amiodarone to once a day.? His metoprolol at 50 mg twice a day.? We will plan for a cardioversion in the near future.? Do not feel that patient needs triple antiplatelet/anticoagulant therapy.? We will have him stop his Plavix.? He will continue with his aspirin and his Eliquis. Did discuss with son that if Eliquis is too expensive you can consider switching over to Coumadin however would like to do this after his cardioversion. Patient Instructions Restart your metoprolol at 50? mg twice a day Decrease your amiodarone to once a day Stop your plavix (clopidogrel) Continue with eliquis - let me know if it is expensive- we can switch to coumadin I will call you with a date and time of your cardioversion Instructions for cardioversion: Nothing to eat or drink after midnight in the morning with a small sip of water you will need to take: Eliquis, amiodarone, metoprolol, ASA, Ranexa, ranitidine, isosorbide, lisinopril You will need a waste collection driver that day ?? Orders ?Orders: ? 12 Lead EKG performed by VLADIMIR 12/05/20 ? ? 2. Atherosclerosis of [place] coronary artery of [place] heart without angina pectoris? I25.10 Plan Stable, from a cardiac standpoint patient does not have any symptoms of angina.? We recommend that they continue with current aggressive medical management and risk factor modification. 3. Essential hypertension? I10 Plan Blood pressure is well controlled on current medications, we do not recommend any changes at this time. 4. Pure hypercholesterolemia? E78.00 Plan Patient will continue with moderate intensity and statin.? This is being managed by his primary care doctor. Plan Detail ? Other Medications ?Changed: ? From: amiodarone 200 mg? PO BID 60 tabs 0RF ? ? ? To: amiodarone 200 mg PO DAILY 90 tabs 3RF ?Refilled: ? metoprolol tartrate 50 mg PO BID 180 tabs 3RF ?Discontinued: ? clopidogrel ?? Discontinued Reason:? Order Completed 75 mg? PO DAILY 30 tabs 11RF ? Follow Up ? ? ? 12/05/20?(keep as is) Coding Level of Care Code Off vis,est,level 3 Diagnoses Atrial fibrillation with RVR? I48.91 Atherosclerosis of [place] coronary artery of [place] heart without angina pectoris? I25.10 ??[place] vs. transplanted heart: [place] heart Essential hypertension? I10 Pure hypercholesterolemia? E78.00 Coding Level of Care Code Off vis,est,level 3 Diagnoses Atrial fibrillation with RVR? I48.91 Atherosclerosis of [place] coronary artery of [place] heart without angina pectoris? I25.10 ??[place] vs. transplanted heart: [place] heart Essential hypertension? I10 Pure hypercholesterolemia? E78.00 Supplemental Info Supplemental Information Echocardiogram 12/2018: Normal LV size. Left ventricular systolic function is normal. The estimated ejection fraction is 65 %. Stage 1 diastolic dysfunction. Mild (1+) eccentric mitral valve insufficiency. Pulmonary artery systolic pressure is 52 mmHg. Mild pulmonary hypertension. Contrast injection was performed. Echocardiogram from 08/08/12: Segmental dysfunction with preserved ejection fraction (see wall motion). The estimate ejection fraction is 60%. The left atrium is mildly enlarged. There is mild mitral annular calcification. Of the mitral valve insufficiency. Trivial tricuspid valve insufficiency. Aortic sclerosis, no stenosis. Trivial aortic valve insufficiency. Right ventricular systolic pressures estimated to be 32 mmHg. Nuclear stress test from 10/18/16: 1.? Technically adequate (percent predicted maximum heart rate greater than 85%), exercise tolerance test. 2.? Peak exercise ECG with somatic/motion artifact with approximately 0.5-1.[address]-segment depression in leads I, II, aVF and V4 through V6 with recovery ECG demonstrated approximately [address]-segment depression in leads I, II, V2 through V6 with associated T-wave abnormality with gradual resolution towards baseline in recovery. 3.? Rare PVC during recovery. 4.? Nuclear images pending. IMPRESSION: 1.? Rest and stress SPECT Cardiolite nuclear imaging demonstrate myocardial perfusion changes appearing compatible with an area of stress-induced myocardial ischemia in the mid to distal inferolateral segments. 2.? The gated Cardiolite study reports an LVEF of 61%. Abdominal U/S: 10/28/2017 Procedure Aorta IVC Iliac vasculature or bypass grafts 29440. Exam performed in department. Interpretation Summary No evidence for aortic aneurysm with maximal diameter of 1.6 x 1.5cm and normal flow. Normal iliac dimensions as noted. Diagnostic cardiac cath in October of 2018 Demonstrated significant multivessel disease. His grafts were patent. He did not require any additional catheter based intervention at the time. CORONARY ANGIOGRAPHY DOMINANCE:? Right Dominant LEFT HEART ASSESSMENT Left Ventricular Ejection Fraction: Not assessed Elevated Left Ventricular End Diastolic Pressure LVEDP: 27 mmHg LEFT MAIN: Severe calcification, Distal: 95 % Stenosis LEFT ANTERIOR DECENDING ARTERY: PROX LAD: Severe calcification MID LAD: is occluded, filling from the BUCKNER graft with no angiographically significant disease distal to the graft attachment DIAGONAL 1: Proximal - small caliber vessel filling from the BUCKNER graft CIRCUMFLEX ARTERY: Moderate calcification PROX CIRC: Eccentric: Hazy: 75 % Stenosis OM 1: Proximal - superior bifurcating branch occluded and subsequently filling from the SVG graft with the distal portion s/p the graft attachment appearing occluded RIGHT CORONARY ARTERY: PROX RCA: is occluded DISTAL RCA: with the RPDA and the RPL branch filling from the SVG graft with no angiographically significant appearing disease distal to the graft attachment GRAFTS: ?BUCKNER graft to the 1st Diagonal is patent and subsequently sequencing to the LAD with no angiographically significant appearing disease distal to the graft attachments Saphenous Vein graft to the 1st OM previously placed stent is patent with eccentric 10 -25% in stent restenosis Saphenous Vein graft to the RPDA previously placed stent is patent with mild luminal irregularities with a sequencing appearing segment to the RPL being patent Echocardiogram 10/2020: Normal LV size. The estimated ejection fraction is 45 %. Unable to assess diastolic dysfunction due to arrhythmia. Pulmonary artery systolic pressure is 64 mmHg. Moderate pulmonary hypertension. Mild global hypokinesis present Contrast injection was performed. Compared to previous study, the left ventricular systolic function has worsened.. Diagnostics ???Electrocardiogram? ? ? 12/05/20 ???Echocardiogram? ? ? 11/17/20 ???Chest X-Ray? ? ? 11/17/20 COVID (Procedure Consent) Procedure Criteria Procedure Criteria: Yes Elective??The surgeon/proceduralist and patient have discussed in detail the risk of exposure to and/or potential harm posed by the COVID-19 virus with having a surgery/procedure at this time versus the risk of? delaying the surgery/procedure. It is not possible to know either the risk of delaying the surgery or procedure or chance of getting an infection with perfect accuracy, but a joint decision was made between the patient and the surgeon/proceduralist ?to proceed at this time with the scheduled surgery/procedure as indicated on the consent form. 12/27/20 ? 1256 <Electronically signed by Zeke Jacobs MD> ?? ? Date: Time: ? ? Zeke Jacobs MD CC:? Dr. Kandi Obrien, DO; Dr. Zeke Jacobs MD ~ Date Dictated: 12/27/20 0700 Date Transcribed:? 12/26/20 1001 Supercalender Operator Helper: Signed I have examined the patient the following changes are noted: The patient presented for outpatient synchronized biphasic DC cardioversion. He was found to be in sinus bradycardia. Thus, the synchronized biphasic DC cardioversion procedure was canceled. The patient's case was reviewed. His medications were adjusted. He was asked to continue with outpatient ECG follow-up and outpatient cardiovascular follow-up. The above was discussed and reviewed with the patient with his family member present. This note was generated using a voice recognition system and there may be incorrect words, spelling or punctuation that were not noted when reviewing the office note prior to saving.
== END ==
PROVIDERS: Physician Assistant Medical; PCP Internal Medicine; Referring Provider Internal Medicine Cardiovascular Disease; Visit Provider Internal Medicine Cardiovascular Disease
DX: I48.91 Unspecified atrial fibrillation (principal); I25.10 Atherosclerotic heart disease of native coronary artery without angina pectoris; I10 Essential (primary) hypertension; E78.00 Pure hypercholesterolemia, unspecified; E11.9 Type 2 diabetes mellitus without complications; Z79.02 Long term (current) use of antithrombotics/antiplatelets; Z95.5 Presence of coronary angioplasty implant and graft; Z95.1 Presence of aortocoronary bypass graft
CPT/HCPCS: 36415; 80048; 93005

== ENCOUNTER → 2021-01-12 | Outpatient (CLI) | payer MEDICARE, SELFPAY ==
[2020-12-26 07:14] VITALS: BMI 27.2
[2021-01-12 11:37] LABS: Potassium 4.5 mmol/L (3.5-5.1)
== END | disposition home or self-care (01) ==
LOC: LABSPEC 10:59
PROVIDERS: PCP Internal Medicine; Referring Provider Internal Medicine; Visit Provider Internal Medicine
DX: E87.5 Hyperkalemia (principal)
CPT/HCPCS: 84132

== ENCOUNTER → 2021-05-02 09:48 | Outpatient (CLI) | payer MEDICARE, SELFPAY ==
[2021-05-02 10:17] LABS: Potassium 4.9 mmol/L (3.5-5.1)
== END ==
PROVIDERS: PCP Internal Medicine; Visit Provider Internal Medicine
DX: E87.5 Hyperkalemia (principal)
CPT/HCPCS: 36415; 84132

== ENCOUNTER → 2021-05-11 10:29 | Outpatient (CLI) | payer MEDICARE, SELFPAY ==
--- NOTE | 2021-05-11 10:38 | US_ITS ---
STUDY: RENAL ULTRASOUND - COMPLETE REASON FOR EXAM: Male, 76 years old. CKD TECHNIQUE: Ultrasound evaluation of the kidneys was performed with real-time and static galeano-scale imaging. COMPARISON: None. FINDINGS: RIGHT KIDNEY: Normal location of the right kidney, which is normal in size. The right kidney measures 11 cm x 5.1 cm x 5.2 cm. There is a normal cortex of the right kidney. The renal cortex measures 1.2 cm. 3 cm x 2.2 cm x 1.8 cm ovarian cyst. 2 mm x 2 mm nonobstructive intrarenal calculus. There is no right hydronephrosis. DISTAL RIGHT URETER: There is non-visualization of the distal right ureter. There is no demonstrated right ureterovesical junction calculus. There is a visualized right ureteral jet. LEFT KIDNEY: Normal location of the left kidney, which is normal in size. The left kidney measures 10.3 cm x 4.8 cm x 3.8 cm. There is a normal cortex of the left kidney. The renal cortex measures 0.9 cm. There is a 1.1 cm x 0.6 cm x 0.5 cm cyst. There is a 4 mm x 3 mm nonobstructive intrarenal calculus. There is no left hydronephrosis. DISTAL LEFT URETER: There is non-visualization of the distal left ureter. There is no demonstrated left ureterovesical junction calculus. There is a visualized left ureteral jet. BLADDER: The distended urinary bladder has a volume of 128 ml. There is a normal wall thickness of the distended urinary bladder. There is no demonstrated mass within the urinary bladder. There are no demonstrated bladder calculi. US/Kidney and Bladder IMPRESSION: Small bilateral renal cysts. Small bilateral nonobstructive intrarenal calculi. Electronically Signed: Rajesh Lopez MD at 15:29 EDT , Service support ,
== END ==
PROVIDERS: PCP Internal Medicine; Referring Provider Internal Medicine; Visit Provider Internal Medicine
DX: I48.91 Unspecified atrial fibrillation (principal); N18.4 Chronic kidney disease, stage 4 (severe); R68.89 Other general symptoms and signs
CPT/HCPCS: 76770; 93225; 93226

== ENCOUNTER → 2021-05-22 06:48 | Outpatient (CLI) | payer MEDICARE, SELFPAY ==
--- NOTE | 2021-05-22 06:57 | ECHOD_ITS ---
Reason For Study: SOB Procedure This was a 2D Doppler, Color Flow transthoracic echocardiogram. Exam performed in department. Left Ventricle Normal LV size. Left ventricular systolic function is normal. The estimated ejection fraction is 54 %. Stage 1 diastolic dysfunction. No regional wall motion abnormalities noted. Right Ventricle Normal RV size. Normal systolic function. Atria The left atrium is mildly enlarged. Normal right atrium. Mitral Valve Normal mitral valve. Tricuspid Valve Normal tricuspid valve. Mild (1+) tricuspid valve insufficiency. Pulmonary artery systolic pressure is 38 mmHg. Aortic Valve Peak aortic valve gradient 15 mmHg. Mean aortic valve gradient 10 mmHg. Mild (1+) aortic valve insufficiency. Great Vessels Normal aortic root. The pulmonary artery is normal size. Normal inferior vena cava. Pericardium/Pleural No pericardial effusion. MMode/2D Measurements & Calculations LVIDd: 5.3 cm IVSd: 0.71 cm LVOT diam: 2.0 cm LVIDs: 3.2 cm LVPWd: 0.88 cm LVOT area: 3.2 cm2 RVDd: 3.4 cm FS: 40.0 % Ao root diam: 3.5 cm LAV(MOD-bp): 67.8 ml LA A4 area: 23.0 cm2 LAV(MOD-bp) Indexed: 36.0 ml/m2 LAV(MOD-sp2): 64.0 ml LAV(MOD-sp4): 66.4 ml LA dimension(2D): 4.4 cm RA A4 area: 15.8 cm2 Time Measurements MV dec time: 0.23 sec Doppler Measurements & Calculations MV E max jeff: 76.7 cm/sec Lat Peak E' Jeff: 10.9 cm/sec Med Peak E' Jeff: 7.5 cm/sec MV A max jeff: 110.2 cm/sec E/E' lat: 7.1 E/E' med: 10.2 MV E/A: 0.70 Ao V2 max: 195.8 cm/sec AI max jeff: 387.6 cm/sec LV V1 max: 116.8 cm/sec Ao max P.5 mmHg AI max P.2 mmHg LV V1 max P.5 mmHg Ao V2 mean: 147.1 cm/sec AI dec slope: 191.8 cm/sec2 LV V1 mean P.7 mmHg Ao mean P.4 mmHg AI P1/2t: 592.0 msec LV V1 mean: 92.7 cm/sec Ao V2 VTI: 52.0 cm LV V1 VTI: 30.2 cm TRISTAN(I,D): 1.9 cm2 TRISTAN(V,D): 1.9 cm2 SV(LVOT): 96.3 ml PA V2 max: 150.8 cm/sec TR max jeff: 286.9 cm/sec TR max P.9 mmHg ECHO/Echo Complete Interpretation Summary Normal LV size. Left ventricular systolic function is normal. The estimated ejection fraction is 54 %. Stage 1 diastolic dysfunction. Pulmonary artery systolic pressure is 38 mmHg. Mild (1+) aortic valve insufficiency. Ordering Physician: Kandi Obrien Referring Physician: Kandi Obrien Performed By: Cristine Holloway, WANDA, RVT
--- NOTE | 2021-05-22 19:48 | STRESSREP ---
Stress Test Report Pharmacologic myocardial perfusion stress test. 76-year-old man with a history of shortness of breath and fatigue, coronary bypass surgery, atrial fibrillation. Medications amiodarone, apixaban, atorvastatin, isosorbide. Stress protocol: Resting EKG demonstrates sinus bradycardia with a rate of 59 bpm normal intervals are noted resting blood pressure is 156/72 mmHg. 0.4 mg of regadenoson was infused per usual protocol followed by rapid intravenous saline flush injection continuous EKG monitoring was performed. The maximum heart rate attained was 68 bpm which was 47% of max infected heart rate the maximum workload was 1 metabolic equivalent. Patient maintained atrial rhythm throughout the recording. There were nonspecific ST changes noted with did not meet the criteria for ischemia. Occasional premature ventricular complexes were noted. Myocardial perfusion protocol. 11.4 mCi of technetium 99m sestamibi was injected at rest. 0.4 mg of regadenoson was infused per usual protocol. At peak infusion 33.3 mCi of technetium 99m sestamibi was injected stress images were obtained stress and rest images were reconstructed and compared in the short axis vertical long and horizontal long axis. Gated images were also obtained. Perfusion SPECT analysis: Review of the stress images demonstrate normal uptake of tracer noted in the septum anterior wall and inferior wall. There is a small portion of the inferolateral wall with mildly reduced perfusion on the stress images. The resting images demonstrate improvement in this area in the inferolateral wall with normal perfusion noted in the other griffin. The above is suggestive of a mild amount of inferolateral ischemia noted. Gated SPECT analysis: The gated ejection fraction is 65%. Conclusion: Mildly abnormal pharmacologic myocardial perfusion stress test with inferolateral ischemia. Preserved ejection fraction.
== END ==
PROVIDERS: PCP Internal Medicine; Referring Provider Internal Medicine; Visit Provider Internal Medicine
DX: I50.30 Unspecified diastolic (congestive) heart failure (principal); I48.91 Unspecified atrial fibrillation; N18.4 Chronic kidney disease, stage 4 (severe); R68.89 Other general symptoms and signs
CPT/HCPCS: 78452; 93017; 93306; A9500; A4216; J2785

== ENCOUNTER → 2021-06-08 10:18 | Outpatient (CLI) | payer MEDICARE, SELFPAY ==
--- NOTE | 2021-06-11 07:46 | PFT ---
INTRODUCTION: The patient is a 76-year-old male that presents for pulmonary function studies secondary to a diagnosis of chronic amiodarone therapy. Respiratory therapy reported good patient effort. Bronchodilators were used during testing. INTERPRETATION: Forced expiration spirometry demonstrates no evidence of a large airways obstructive ventilatory defect. There was no significant response to aerosolized bronchodilators. Spirograms are of good quality and plateau normally. Body plethysmography was performed and reveals lung volumes to be within normal limits. Diffusing capacity by single breath CO is likewise within normal limits. IMPRESSION: Grossly normal pulmonary function studies.
== END ==
PROVIDERS: PCP Internal Medicine; Referring Provider Internal Medicine Cardiovascular Disease; Visit Provider Internal Medicine Cardiovascular Disease
DX: Z79.899 Other long term (current) drug therapy (principal)
CPT/HCPCS: 94060; 94726; 94729

== ENCOUNTER → 2021-07-20 15:50 | Outpatient (CLI) | payer MEDICARE, SELFPAY ==
[2021-07-20 17:28] LABS: Hematocrit 36.4 % (40-54); Hemoglobin 11.9 g/dL (13.0-16.5); Mean Corp Hgb Conc 32.7 g/dL (32-36); Mean Corpuscular Hgb 32.6 pg (27.0-32.0); Mean Corpuscular Volume 99.7 fL (80-94); Mean Platelet Vol. 11.4 fl (6.2-12.0); Platelet Count 225 K/mm3 (150-450); RBC Distribution Width CV 12.6 % (11.6-14.6); RBC Distribution Width SD 46.1 fl (35.1-43.9); Red Blood Count 3.65 M/mm3 (4.6-6.2); White Blood Count 5.9 K/mm3 (4.4-11.0)
[2021-07-20 18:19] LABS: Albumin, Serum 3.5 g/dL (3.2-5.0); BUN 53 mg/dL (7-18); BUN/Creat Ratio 18.7 RATIO (10-20); Calcium,Total 9.2 mg/dL (8.5-10.1); Chloride 102 mmol/L (98-107); Creatinine, Serum 2.83 mg/dL (0.70-1.30); EST Glomerular Filtration Rate 23 mL/min (>60); Est Glom Filt Rate - Afr Amer 28 mL/min (>60); Ferritin 69 ng/mL (26-388); Glucose 122 mg/dL (74-106); Iron 98 ug/dL (65-175); Iron Binding Capacity,Total 338 ug/dL (250-450); Phosphorus 3.8 mg/dL (2.5-4.9); Potassium 5.1 mmol/L (3.5-5.1); Sodium Level 137 mmol/L (136-145)
[2021-07-20 18:22] LABS: Vitamin D,25 Hydroxy 39.2 ng/mL
[2021-07-20 18:56] LABS: Protein, Urine (Random) 6.6 mg/dL (<11.9); Protein:Creat Ratio 273 mg/g CRE (0-200)
== END ==
PROVIDERS: PCP Internal Medicine; Visit Provider Internal Medicine Nephrology
DX: N18.4 Chronic kidney disease, stage 4 (severe) (principal); D50.9 Iron deficiency anemia, unspecified; E55.9 Vitamin D deficiency, unspecified
CPT/HCPCS: 36415; 80069; 82306; 82570; 82728; 83540; 83550; 84156; 85027

== ENCOUNTER 2021-08-21 09:46 | Emergency (ER) | payer MEDICARE, SELFPAY ==
[2021-08-21 09:48] VITALS: BP 173/58; PULSE 60; RESP 18; TEMP 36.6; O2SAT 100; BMI 28.2
[2021-08-21] MEDS: Lidocaine 1% (20 ml mdv) 20 ML Vial INFILT (10:19)
--- NOTE | 2021-08-21 10:28 | EX.ED.GENINJ ---
HPI History of Present Illness Chief Complaint: Laceration Narrative Narrative: Patient presenting for evaluation secondary to a laceration. Patient reports that he suffered a skin avulsion yesterday at about 3 PM reaching into a garbage can on his left small digit. Reports that he cleaned it put a dressing on it but has had difficulty getting it to stop bleeding secondary to the fact that he takes anticoagulation for A. fib. He reports a moderate amount of pain worse with palpation and movement. He states that his tetanus status is unknown. Review of systems otherwise negative 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 Home Medications ascorbic acid (vitamin C) 500 mg PO DAILY@0800 11/06/16 [History Last Taken 11/17/20] ferrous sulfate 325 mg PO DAILY@0800 11/06/16 [History Last Taken 11/16/20] multivitamin with folic acid 1 tab PO DAILY 11/06/16 [History Last Taken 11/17/20] nitroglycerin 0.4 mg sublingual tablet 0.4 mg SL Q5M PRN #25 tab 10/22/18 [Rx Last Taken 2 Weeks Ago ~11/03/20] liraglutide 1.8 mg SQ DAILY 12/05/18 [History Last Taken 11/17/20] atorvastatin 40 mg tablet 40 mg PO QDAY #90 tab 08/18/20 [Rx Last Taken 11/16/20] ranitidine HCl 150 mg tablet 150 mg PO DAILY 10/26/20 [History Last Taken 11/17/20] isosorbide mononitrate 60 mg tablet,extended release 24 hr 60 mg PO DAILY #90 tab 11/15/20 [Rx Last Taken 11/17/20] cholecalciferol (vitamin D3) 4,000 unit PO DAILY 11/17/20 [History Last Taken 11/17/20] aspirin 81 mg PO DAILY #1 tab.chew 11/21/20 [Rx Last Taken Unknown] ranolazine 1,000 mg tablet,extended release,12 hr 1,000 mg PO BID #180 tablet 12/16/20 [Rx Last Taken Unknown] apixaban 5 mg tablet 5 mg PO BID #60 tablet 12/21/20 [Rx Last Taken 12/27/20] furosemide 40 mg tablet 40 mg PO DAILY #30 tablet 12/21/20 [Rx Last Taken Unknown] amiodarone 200 mg tablet 100 mg PO DAILY #90 tab 12/27/20 [Rx Last Taken Unknown] lisinopril 5 mg tablet 5 mg PO DAILY #90 tab 08/21/21 [Rx Last Taken Unknown] Allergy/AdvReac Type Severity Reaction Status Date / Time Iodinated Contrast Media Allergy made me Verified 08/21/21 09:50 [Iodinated Contrast Media - hot and Oral and] they never used it again Family History Father Diabetes Cancer leukemia Sister Diabetes Surgical History H/O coronary artery bypass surgery (~08/31/03) Presence of coronary angioplasty implant and graft (~08/20/12) Status post left heart catheterization (LHC) (~12/08/18) Social History Smoking Status: Never smoker alcohol intake: never substance use type: does not use caffeine: Yes what type of physical activity do you participate in: none ROS ROS ED Constitutional Constitutional ED: Denies fever(s) Respiratory/Chest Respiratory/Chest: Denies cough or dyspnea Integumentary Reports Abrasions Hematologic/Lymphatic Hematologic/Lymphatic: Reports easy bleeding and easy bruising EXAM Physical Exam Const Vital Signs: 08/21/21 09:48 Temperature 97.9 F Temperature Source Temporal Pulse Rate 60 Respiratory Rate 18 Blood Pressure 173/58 H Blood Pressure Mean 96 Pulse Ox 100 Oxygen Delivery Method Room Air Positive well nourished and well developed General Appearance ED: well developed and NAD HEENT atraumatic Eyes EOMs intact bilaterally Neck full ROM Resp normal respiratory effort Cardio Rate: regular rate Extremity Extremity Narrative: Examination the patient's left small digit shows a skin avulsion measuring about a centimeter squared going from just proximal to the fingernail over the ulnar side of the finger going up to the level of the distal interphalangeal joint. No exposed bone. Normal flexion extension of the finger. There is active capillary bleeding noted. Neuro oriented x3 Sensorium / Orientation: alert Psych mental status grossly normal Skin no rashes or lesions noted PROC Procedures Other Procedures Procedure(s): Patient's finger was anesthetized using 4 cc 1% lidocaine and a digital block. A finger tourniquet was placed. Wound was copiously irrigated and explored there was no evidence of foreign material. There is no tissue that would lend well to suture repair as this is mainly a skin avulsion, so tissue adhesive was poured over top of the open areas, was allowed to dry, the finger tourniquet was taken down and there was good hemostasis. Dry dressing and AlumaFoam splint will be placed by nursing. MDM MDM MDM Narrative Medical decision making narrative: Patient presented with a skin avulsion. It was addressed as noted in the procedure note. Tetanus status was updated. Discharge Plan Triage Chief Complaint: Laceration ED Provider: Ken Jean Baptiste Dx/Rx/DC Orders Clinical Impression: Avulsion of skin of finger Instructions: ED Skin Avulsion Prescriptions: No Action nitroglycerin 0.4 mg tablet, sublingual 0.4 mg SL Q5M PRN (Reason: Chest Pain) Qty: 25 RF: 3 ranitidine HCl 150 mg tablet 150 mg PO DAILY RF: 0 ascorbic acid (vitamin C) 500 MG tablet 500 mg PO DAILY@0800 RF: 0 ferrous sulfate 325 MG tablet 325 mg PO DAILY@0800 RF: 0 multivitamin with folic acid 1 TABLET tablet 1 tab PO DAILY RF: 0 liraglutide 0.6 MG/0.1 ML pen injector 1.8 mg SQ DAILY RF: 0 cholecalciferol (vitamin D3) 50 MCG capsule 4,000 unit PO DAILY RF: 0 aspirin 81 MG tablet,chewable 81 mg PO DAILY Qty: 1 RF: 0 atorvastatin 40 mg tablet 40 mg PO QDAY Qty: 90 RF: 3 isosorbide mononitrate 60 mg tablet extended release 24 hr 60 mg PO DAILY Qty: 90 RF: 3 ranolazine 1,000 mg tablet extended release 12 hr 1,000 mg PO BID Qty: 180 RF: 3 apixaban 5 mg tablet 5 mg PO BID Qty: 60 RF: 12 furosemide 40 mg tablet 40 mg PO DAILY Qty: 30 RF: 11 amiodarone 200 mg tablet 100 mg PO DAILY Qty: 90 RF: 3 lisinopril 5 mg tablet 5 mg PO DAILY Qty: 90 RF: 3 Primary Care Provider: Kandi Obrien Referrals: Kandi Obrien DO [Primary Care Provider] - 3-5 Days Disposition Disposition: Home, Self Care
[2021-08-21] MEDS: Diphth,Pertuss(Acell),Tet Vac 0.5 ML Vial IM (10:59)
== END 2021-08-21 11:06 | disposition home or self-care (01) ==
LOC: ED 11:06
PROVIDERS: Emergency Provider Emergency Medicine; PCP Internal Medicine
DX: S61.307A Unspecified open wound of left little finger with damage to nail, initial encounter (principal); W45.8XXA Other foreign body or object entering through skin, initial encounter; Z23 Encounter for immunization; I25.10 Atherosclerotic heart disease of native coronary artery without angina pectoris; I48.91 Unspecified atrial fibrillation; E11.9 Type 2 diabetes mellitus without complications; E78.00 Pure hypercholesterolemia, unspecified; I25.2 Old myocardial infarction; Z79.01 Long term (current) use of anticoagulants; I27.21 Secondary pulmonary arterial hypertension; I10 Essential (primary) hypertension; Z95.5 Presence of coronary angioplasty implant and graft; Z79.82 Long term (current) use of aspirin
CPT/HCPCS: 90471; 90715; 99284; A4216

== ENCOUNTER 2021-09-22 09:48 | Outpatient (CLI) | payer MEDICARE, SELFPAY ==
[2021-09-22 11:18] LABS: Albumin, Serum 3.5 g/dL (3.2-5.0); BUN 48 mg/dL (7-18); BUN/Creat Ratio 18.9 RATIO (10-20); Calcium,Total 8.9 mg/dL (8.5-10.1); Chloride 109 mmol/L (98-107); Creatinine, Serum 2.54 mg/dL (0.70-1.30); EST Glomerular Filtration Rate 26 mL/min (>60); Est Glom Filt Rate - Afr Amer 32 mL/min (>60); Glucose 145 mg/dL (74-106); Phosphorus 3.8 mg/dL (2.5-4.9); Potassium 4.7 mmol/L (3.5-5.1); Sodium Level 139 mmol/L (136-145)
[2021-09-22 11:21] LABS: Vitamin D,25 Hydroxy 43.5 ng/mL
== END 2021-09-22 23:59 | disposition short-term general hospital (02) ==
LOC: LAB 09:50
PROVIDERS: PCP Internal Medicine; Referring Provider Internal Medicine Nephrology; Visit Provider Internal Medicine Nephrology
DX: N18.4 Chronic kidney disease, stage 4 (severe) (principal); E55.9 Vitamin D deficiency, unspecified
CPT/HCPCS: 36415; 80069; 82306

== ENCOUNTER 2021-11-15 09:23 | Outpatient (CLI) | payer MEDICARE, SELFPAY ==
[2021-11-15 10:21] LABS: Absolute Lymphocyte Count 1.14 X10^3/uL (0.83-4.51); Absolute Neutrophil Count 3.2 X10^3/uL (2.0-7.7); Basophil# 0.02 X10^3/uL; Basophil% 0.4 % (0-1); Eosinophil# 0.07 X10^3/uL; Eosinophils% 1.4 % (0-5); Hemoglobin 10.9 g/dL (13.0-16.5); Lymphocyte # 1.14 X10^3/ul (0.83-4.51); Lymphocyte % 23.1 % (19-41); Mean Corp Hgb Conc 32.1 g/dL (32-36); Mean Corpuscular Hgb 32.7 pg (27.0-32.0); Mean Corpuscular Volume 102.1 fL (80-94); Mean Platelet Vol. 11.1 fl (6.2-12.0); Monocyte# 0.48 X10^3/uL; Monocyte% 9.7 % (0-10); NRBC Flagged by Analyzer 0 % (0-5); Neutrophil # 3.21 X10^3/uL (2.7-7.7); Neutrophil % 65.2 % (47-70); Platelet Count 199 K/mm3 (150-450); RBC Distribution Width CV 12.7 % (11.6-14.6); RBC Distribution Width SD 47.6 fl (35.1-43.9); Red Blood Count 3.33 M/mm3 (4.6-6.2); White Blood Count 4.9 K/mm3 (4.4-11.0)
[2021-11-15 10:45] LABS: Microalbumin,Random Urine 24.3 mg/L (NO RANGE EST.); Microalbumin:Creatinine Ratio 19.1 mg/g CRE (<30 mg/g CRE)
[2021-11-15 10:48] LABS: PTHIN 52.1 pg/mL (18.4-80.1)
[2021-11-15 10:50] LABS: Hemoglobin A1c 6.3 % (3.8-5.6)
[2021-11-15 10:52] LABS: Vitamin B12 1076 pg/mL (211-911); Vitamin D,25 Hydroxy 53.5 ng/mL
[2021-11-15 10:59] LABS: AST(SGOT) 33 U/L (15-37); Alanine Aminotransfer ALT/SGPT 56 U/L (16-61); Albumin, Serum 3.4 g/dL (3.2-5.0); Alkaline Phosphatase 88 U/L (45-117); Anion Gap 3 (5-15); BUN 55 mg/dL (7-18); BUN/Creat Ratio 18.3 RATIO (10-20); Calcium,Total 8.8 mg/dL (8.5-10.1); Chloride 110 mmol/L (98-107); Cholesterol 139 mg/dL (200); EST Glomerular Filtration Rate 22 mL/min (>60); Est Glom Filt Rate - Afr Amer 26 mL/min (>60); Globulin 3.3 g/dL (2.2-4.2); Glucose 155 mg/dL (74-106); High Density Lipoprotein 50 mg/dL; Phosphorus 3.9 mg/dL (2.5-4.9); Potassium 6.2 mmol/L (3.5-5.1); Protein, Total 6.7 g/dL (6.4-8.2); Sodium Level 139 mmol/L (136-145); T4 Free Direct 1.06 ng/dL (0.76-1.46); Thyroid Stim Hormone (TSH) 1.74 uIU/mL (0.358-3.74); Triglycerides 129 mg/dL; Very Low Density Lipoprotein 26 mg/dL (5-40)
[2021-11-15 13:32] LABS: Potassium 5.8 mmol/L (3.5-5.1)
== END 2021-11-15 23:59 | disposition home or self-care (01) ==
LOC: LAB 09:25
PROVIDERS: Nurse Practitioner Family; PCP Internal Medicine; Visit Provider Internal Medicine Nephrology
DX: E87.5 Hyperkalemia (principal); E11.9 Type 2 diabetes mellitus without complications; D51.9 Vitamin B12 deficiency anemia, unspecified; E55.9 Vitamin D deficiency, unspecified
CPT/HCPCS: 36415; 80053; 80061; 82043; 82306; 82570; 82607; 83036; 83970; 84100; 84132; 84439; 84443; 85025

== ENCOUNTER 2021-11-16 08:54 | Outpatient (CLI) | payer MEDICARE, SELFPAY | END 2021-11-16 23:59 | disposition home or self-care (01) | LOC: LAB.FUTURE 08:55 | PROVIDERS: PCP Internal Medicine; Visit Provider Internal Medicine Nephrology | DX: E87.5 Hyperkalemia (principal) ==

== ENCOUNTER 2021-11-17 09:27 | Outpatient (CLI) | payer MEDICARE, SELFPAY ==
[2021-11-17 10:02] LABS: Potassium 5.1 mmol/L (3.5-5.1)
== END 2021-11-17 23:59 | disposition home or self-care (01) ==
LOC: POLAB3 09:28
PROVIDERS: PCP Internal Medicine; Visit Provider Internal Medicine Nephrology
DX: E87.5 Hyperkalemia (principal)
CPT/HCPCS: 36415; 84132

== ENCOUNTER 2021-11-22 11:57 | Outpatient (CLI) | payer MEDICARE, SELFPAY ==
[2021-11-22 13:09] LABS: Anion Gap 6 (5-15); BUN 32 mg/dL (7-18); Calcium,Total 9.7 mg/dL (8.5-10.1); Chloride 106 mmol/L (98-107); Creatinine, Serum 2.13 mg/dL (0.70-1.30); EST Glomerular Filtration Rate 32 mL/min (>60); Est Glom Filt Rate - Afr Amer 39 mL/min (>60); Glucose 113 mg/dL (74-106); Potassium 4.7 mmol/L (3.5-5.1); Sodium Level 139 mmol/L (136-145)
== END 2021-11-22 23:59 | disposition home or self-care (01) ==
LOC: POLAB3 11:57
PROVIDERS: PCP Internal Medicine; Visit Provider Internal Medicine Nephrology
DX: E87.5 Hyperkalemia (principal)
CPT/HCPCS: 36415; 80048

== ENCOUNTER 2021-11-30 07:08 | Outpatient (CLI) | payer MEDICARE, SELFPAY ==
--- NOTE | 2021-11-30 07:13 | VDUE_ITS ---
Reason For Study: Pre op testing, CKD 4 Right Arm Left Arm Right Cephalic Vein at the wrist measures Left Cephalic Vein at the wrist measures 0.22 x 0.23 cm. 0.15 x 0.15 cm. Right Cephalic Vein in the forearm measures Left Cephalic Vein in the forearm measures 0.19 x 0.19 cm. 0.14 x 0.15 cm. Right Cephalic Vein below antecub measures Left Cephalic Vein below antecub measures 0.12 x 0.12 cm. 0.13 x 0.14 cm. Right Cephalic Vein above antecub measures Left Cephalic Vein above antecub measures 0.14 x 0.15 cm. 0.18 x 0.19 cm. Right Cephalic Vein mid bicep measures 0.13 Left Cephalic Vein at mid bicep measures x 0.14 cm. 0.16 x 0.16 cm. Right Cephalic Vein at the shoulder measures Left Cephalic Vein at the shoulder measures 0.17 x 0.17 cm. 0.16 x 0.16 cm. Right Basilic Vein at the origin measures Basilic vein at origin measures 0.33 x 0.35 0.36 x 0.40 cm. cm. Right Basilic Vein mid bicep measures 0.38 x Basilic vein at bicep measures 0.23 x 0.24 0.39 cm. cm. Right Basilic Vein above antecub measures Basilic vein above antecub measures 0.29 x 0.27 x 0.29 cm. 0.29 cm. Right Brachial artery measures 0.48 x 0.51 Left Brachial artery measures 0.44 x 0.46 cm cm with a velocity of 94.7 cm/sec. with a velocity of 105.2 cm/sec. Right Radial artery measures 0.24 x 0.24 cm Left Radial artery measures 0.26 x 0.27 cm with a velocity of 72.5 cm/sec. with a velocity of 79.5 cm/sec. VL/Saphenous Vein Mapping, Bilat Interpretation Summary Small bilateral cephalic veins Adequate bilateral upper arm basilic veins Normal bilateral radial and brachial artery diameter and flow Ordering Physician: Abel Naqvi Referring Physician: Kandi Obrien M.D. Performed By: Altagracia Cabral RVT ?
== END 2021-11-30 23:59 | disposition home or self-care (01) ==
LOC: CVS 07:09
PROVIDERS: PCP Internal Medicine; Referring Provider Surgery; Visit Provider Surgery
DX: Z01.818 Encounter for other preprocedural examination (principal); N18.4 Chronic kidney disease, stage 4 (severe); Z01.810 Encounter for preprocedural cardiovascular examination
CPT/HCPCS: 93970; 93985

== ENCOUNTER 2021-12-25 09:25 | Outpatient (CLI) | payer MEDICARE, SELFPAY ==
[2021-12-25 11:47] LABS: 24HR. UA Prot. Total Volume 1425 mL
[2021-12-25 11:59] LABS: Albumin, Serum 2.9 g/dL (3.2-5.0); BUN 22 mg/dL (7-18); BUN/Creat Ratio 12.5 RATIO (10-20); Calcium,Total 8.3 mg/dL (8.5-10.1); Chloride 108 mmol/L (98-107); Creatinine, Serum 1.76 mg/dL (0.70-1.30); EST Glomerular Filtration Rate 40 mL/min (>60); Est Glom Filt Rate - Afr Amer 48 mL/min (>60); Glucose 157 mg/dL (74-106); Phosphorus 3.1 mg/dL (2.5-4.9); Potassium 4.4 mmol/L (3.5-5.1); Sodium Level 140 mmol/L (136-145)
[2021-12-25 12:04] LABS: 24 Hour Urine Protein 359.1 mg/24HR (<150 MG/24HR); Urine Protein (24 Hour) 25.2 mg/dL (<11.9)
[2021-12-25 12:19] LABS: PTHIN 46.4 pg/mL (18.4-80.1)
[2021-12-25 12:34] LABS: Creat.Clear Total Volume 1425 mL; Creatinine Clearance 65 ml/min (100-200); Creatinine Serum Creat 1.8 mg/dL (0.8-1.3); EST Glomerular Filtration Rate 40 mL/min (>60); Est Glom Filt Rate - Afr Amer 48 mL/min (>60)
== END 2021-12-25 23:59 | disposition home or self-care (01) ==
LOC: POLAB3 09:25
PROVIDERS: PCP Internal Medicine; Visit Provider Internal Medicine Nephrology
DX: N18.4 Chronic kidney disease, stage 4 (severe) (principal)
CPT/HCPCS: 36415; 80069; 81050; 82575; 83970; 84156

== ENCOUNTER 2022-03-31 14:37 | Inpatient (IN) | payer MEDICARE, SELFPAY ==
[2022-03-31] VITALS (9 sets, daily range): BP systolic 151–195; BP diastolic 49–98; PULSE 55–75; RESP 16–24; TEMP 35.9–36.8; O2SAT 95–100; BMI 26.2
--- NOTE | 2022-03-31 15:09 | EKG12_ITS ---
Test Reason : CHEST PAIN Blood Pressure : / mmHG Vent. Rate : 049 BPM Atrial Rate : 049 BPM P-R Int : 156 ms QRS Dur : 118 ms QT Int : 522 ms P-R-T Axes : -02 -55 091 degrees QTc Int : 471 ms Sinus bradycardia with Premature supraventricular complexes Left anterior fascicular block Nonspecific ST and T wave abnormality Abnormal ECG Confirmed by VICKIE DOLL, SABRA ([id number]), editor in chief newspaper DENISSE FRANK ([id number]) on 04/03/2022 1:00:39 PM Referred By: AMBAR Confirmed By:SABRA JOHNSTON MD
--- NOTE | 2022-03-31 15:16 | EDS_ITS ---
HPI HPI - GI History of Present Illness Chief Complaint: Abd Pain Informant: patient Narrative Narrative: Presents epigastric pain and nausea 3 hours prior to arrival. No vomiting. Normal bowel movement either yesterday or early this morning. States prior to arrival pain into his chest. Denies cough. History of 5 vessel CABG in 2002. History of chronic atrial fibrillation. Denies any abdominal surgeries in the past. Denies urinary symptoms. 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 Home Medications ascorbic acid (vitamin C) 500 mg tablet 500 mg PO DAILY@0800 supplement 11/06/16 [History Last Taken 11/17/20] ferrous sulfate 325 mg (65 mg iron) tablet 325 mg PO DAILY@0800 supplement 11/06/16 [History Last Taken 11/16/20] multivitamin with folic acid 400 mcg tablet 1 tab PO DAILY supplement 11/06/16 [History Last Taken 11/17/20] nitroglycerin 0.4 mg sublingual tablet 0.4 mg sublingual Q5M PRN Chest Pain #25 tabs 10/22/18 [Rx Last Taken 2 Weeks Ago ~11/03/20] liraglutide 0.6 mg/0.1 mL (18 mg/3 mL) subcutaneous pen injector 1.8 mg SQ DAILY diabetes 12/05/18 [History Last Taken 11/17/20] ranitidine HCl 150 mg tablet 150 mg PO DAILY GERD 10/26/20 [History Last Taken 11/17/20] aspirin 81 mg chewable tablet 81 mg PO DAILY ##1 11/21/20 [Rx Last Taken Unknown] atorvastatin 40 mg tablet 40 mg PO QDAY cholesterol #90 tabs 09/21/21 [Rx Last Taken Unknown] cholecalciferol (vitamin D3) 50 mcg (2,000 unit) capsule 2,000 unit PO BID SUPPLEMENT 10/02/21 [History Last Taken Unknown] isosorbide mononitrate 60 mg tablet,extended release 24 hr 60 mg PO DAILY #90 tabs 11/07/21 [Rx Last Taken Unknown] furosemide 40 mg tablet 40 mg PO DAILY #30 tabs 11/20/21 [Rx Last Taken Unknown] amiodarone 200 mg tablet 100 mg PO DAILY #90 tabs 12/28/21 [Rx Last Taken Unknown] apixaban 5 mg tablet 5 mg PO BID #60 tabs 12/29/21 [Rx Last Taken Unknown] ranolazine 1,000 mg tablet,extended release,12 hr 1,000 mg PO BID #180 tabs 01/30/22 [Rx Last Taken Unknown] vitamin B complex-vitamin C-folic acid 0.8 mg tablet (Nephro-Redd) 1 tab PO DAILY supplement 03/28/22 [History Last Taken Unknown] vitamin B complex-vitamin C-folic acid 0.8 mg tablet (Nephro-Redd) 1 tab PO DAILY 03/31/22 [History Last Taken Unknown] Allergy/AdvReac Type Severity Reaction Status Date / Time Iodinated Contrast Media Allergy made me Verified 03/31/22 14:38 [Iodinated Contrast Media - hot and Oral and] they never used it again Family History (Updated 03/31/22 @ 19:[address] Destini Nicole MD) Father Diabetes Cancer leukemia Sister Diabetes Mother Cancer Uterine cancer that metastasized including to brain. Surgical History H/O coronary artery bypass surgery (~08/31/03) Presence of coronary angioplasty implant and graft (~08/20/12) Status post left heart catheterization (LHC) (~12/08/18) Social History (Updated 03/31/22 @ 19:[address] Destini Nicole MD) household members: none Smoking Status: Never smoker alcohol intake: never substance use type: does not use caffeine: Yes what type of physical activity do you participate in: none ROS ROS ED Constitutional Constitutional ED: Denies chills, fever(s) or sweats Eyes Eyes: Denies change in vision ENT ENT ED: Denies dysphagia or sore throat Cardiovascular Cardiovascular: Reports chest pain; Denies leg edema, palpitations or racing heartbeat Respiratory/Chest Respiratory/Chest: Denies cough, dyspnea or dyspnea on exertion Gastrointestinal Gastrointestinal: Reports abdominal pain and nausea; Denies diarrhea or vomiting Genitourinary Genitourinary ED: Denies dysuria, hematuria or urinary frequency Musculoskeletal Musculoskeletal: Denies back pain, extremity pain or neck pain Integumentary Denies rash or wounds Neurologic Neurologic: Denies headache(s), paresthesias or weakness EXAM Physical Exam Const Vital Signs: 03/31/22 14:39 03/31/22 16:00 03/31/22 16:45 Temperature 96.7 F L Temperature Source Temporal Pulse Rate 55 L 58 L 66 Respiratory Rate 18 20 H 19 H Blood Pressure 195/59 H 175/87 H 178/49 H Blood Pressure Mean 104 116 92 Pulse Ox 100 99 100 Oxygen Delivery Method Room Air Room Air Room Air 03/31/22 17:30 03/31/22 18:45 Temperature 98.3 F Temperature Source Temporal Pulse Rate 60 62 Respiratory Rate 16 24 H Blood Pressure 176/60 H 162/59 H Blood Pressure Mean 98 93 Pulse Ox 99 97 Oxygen Delivery Method Room Air Room Air Positive well nourished and well developed General Appearance ED: well developed and NAD HEENT Reports moist mucous membranes normocephalic and atraumatic Eyes PERRL, EOMs intact bilaterally and conjunctivae normal General Eye ED: Yes normal appearance of both eyes Neck no lymphadenopathy and supple General: Negative for tenderness Chest Wall Chest: Negative for tenderness Resp normal respiratory effort and normal air movement Effort and Inspection: symmetric chest movement; Negative for respiratory distress Cardio regular rate, regular rhythm and no murmurs Peripheral Pulses: pulses 2+ throughout GI normal to inspection, nondistended, normoactive bowel sounds GI Narrative: Epigastric tenderness without guarding or rebound. Negative Gimenez's McBurney's tenderness. Palpation: Negative for guarding or rebound tenderness present Back/Spine no CVA tenderness and no thoracic nor lumbar tenderness Extremity normal to inspection General Extremety ED: Negative for edema or tenderness General Extremity: Negative for edema Neuro oriented x3 and no sensory deficits noted Sensorium / Orientation: awake and alert Skin no rashes or lesions noted and no wounds MDM MDM MDM Narrative Medical decision making narrative: Patient with epigastric tenderness pain into his chest. Cardiac work-up along with abdominal labs were ordered. Given Zofran and Pepcid required morphine x2. Chest x-ray 1 view reviewed by myself and read by radiology shows no acute process. EKG appears to have new T wave changes. Initial troponin returned at 142 2-hour recheck was 120. Symptoms in his chest improved after second dose of morphine. Nausea is improved however with palpation epigastric region he would have pain. Abdominal labs White count 8 hemoglobin 11.6 lipase returned at 943. Liver enzymes were normal. He denies any alcohol history. Creatinine 1.96 stable from previous lab with history of CKD. I did obtain a CT abdomen pelvis due to abdominal pain requiring multiple doses of pain medicines. Noted cholelithiasis without cholecystitis, right renal cyst noted. Patient extensive cardiac history reviewing records from cardiology note 3 days ago CABG in 2002 subsequent cath with stenting last time 2011. He had a cath in 2019 with patent stents and bypass. He had an echo reported EF of 45%. I did speak with on-call business banking representative due to elevated troponin with his heart history. He is currently on Eliquis confirmed from cardiology notes from 3 days ago. No additional anticoagulation secondary to this. Recommended echocardiogram as an inpatient. Therefore spoke with hospitalist Dr. Nicole who evaluated the patient for admission. Lab Data Attestation: I reviewed the patient's lab results. Labs: Laboratory Results - last 24 hr 03/31/22 03/31/22 03/31/22 15:10 15:10 17:34 WBC 8.0 RBC 3.34 L Hgb 11.6 L Hct 33.0 L MCV 98.8 H MCH 34.7 H MCHC 35.2 RDW Std Deviation 47.0 H RDW Coeff of Nicole 13.2 Plt Count 198 MPV 11.5 Immature Gran % (Auto) 0.200 Neut % (Auto) 77.9 H Lymph % (Auto) 12.0 L [place] % (Auto) 8.6 Eos % (Auto) 0.9 Baso % (Auto) 0.4 Absolute Neuts (auto) 6.2 Absolute Lymphs (auto) 0.96 Nucleated RBC % 0 Sodium 140 Potassium 4.5 Chloride 110 H Carbon Dioxide 24.0 Anion Gap 6 BUN 35 H Creatinine 1.96 H Estim Creat Clear Calc 27.02 Est GFR (MDRD) Af Amer 43 L Est GFR (MDRD) Non-Af 35 L BUN/Creatinine Ratio 17.9 Glucose 158 H Calcium 8.9 Magnesium Total Bilirubin 0.60 Direct Bilirubin 0.17 AST 24 ALT 37 Alkaline Phosphatase 89 Troponin I High Sens 142 H* 120 H Total Protein 6.9 Albumin 3.4 Globulin 3.5 Lipase 943 H 03/31/22 17:34 WBC RBC Hgb Hct MCV MCH MCHC RDW Std Deviation RDW Coeff of Nicole Plt Count MPV Immature Gran % (Auto) Neut % (Auto) Lymph % (Auto) [place] % (Auto) Eos % (Auto) Baso % (Auto) Absolute Neuts (auto) Absolute Lymphs (auto) Nucleated RBC % Sodium Potassium Chloride Carbon Dioxide Anion Gap BUN Creatinine Estim Creat Clear Calc Est GFR (MDRD) Af Amer Est GFR (MDRD) Non-Af BUN/Creatinine Ratio Glucose Calcium Magnesium 1.8 Total Bilirubin Direct Bilirubin AST ALT Alkaline Phosphatase Troponin I High Sens Total Protein Albumin Globulin Lipase Radiography Diagnostic Testing: Clinical Impression(s) from Imaging Studies Chest X-Ray 03/31/22 15:45 IMPRESSION: Nonacute portable x-ray examination of the chest. Electronically Signed: Robert Castro MD ([place]oks) at 16:07 EDT Reading Location ID and State: [facility] / [place] , Service support , Abdomen/Pelvis CT 03/31/22 16:28 IMPRESSION: 1. Nondistended stomach. The possibility of gastritis cannot be ruled out. 2. Right renal cyst. There is no other evidence of renal, ureteral or urinary bladder abnormality. 3. Gallstones without secondary evidence of acute cholecystitis. 4. Scattered colonic diverticulosis. 5. Scoliosis and degenerative changes of the lumbar spine. Electronically Signed: Cory Talbert DO at 17:47 EDT Reading Location ID and State: [facility] / [place] Tel [phone], Service support , EKG Initial EKG: Attestation: I personally reviewed and interpreted this EKG as follows: Comments: Rate controlled atrial fibrillation, 49, no ST changes. T wave version V1 V2. This was new compared to October 2020. Discharge Plan Dx/Rx/DC Orders Clinical Impression: Acute pancreatitis, Cholelithiasis, Epigastric pain, Chest pain, Elevated troponin, Chronic a-fib, Cyst of right kidney Disposition Disposition: Acute Care Hospital [facility] Discharge Date/Time: 03/31/22 20:01
[2022-03-31] MEDS: Ondansetron 4 MG/2 ML Vial IV ×2 (15:24→20:57)
[2022-03-31] MEDS: Morphine 4 MG/ML Syringe IV ×3 (15:25→20:31)
[2022-03-31] MEDS: Famotidine 200 MG/20 ML MDV 20 MG in 0.9% Normal Saline (Pres. free 8 ML 300 MG IV (15:27)
--- NOTE | 2022-03-31 15:45 | RAD_ITS ---
STUDY: X-RAY CHEST REASON FOR EXAM: Male, 77 years old. chest pain TECHNIQUE: AP COMPARISON: 11/17/2020 FINDINGS: EKG leads project over the chest. Fibrotic scarring in the lung bases. No airspace consolidation. There is no demonstrated pleural abnormality. There is mild cardiac enlargement. Sternal wires and mediastinal surgical clips compatible with prior CABG. Normal visualized pulmonary arteries. Normal visualized aortic arch and descending thoracic aorta. No acute bony process. There is no demonstrated abnormality of the visualized soft tissue structures of the upper abdomen. RAD/Chest 1 View (Portable) IMPRESSION: Nonacute portable x-ray examination of the chest. Electronically Signed: Robert Castro MD ([place]) at 16:07 EDT ,
[2022-03-31 15:50] LABS: Absolute Lymphocyte Count 0.96 X10^3/uL (0.83-4.51); Absolute Neutrophil Count 6.2 X10^3/uL (2.0-7.7); Basophil# 0.03 X10^3/uL; Basophil% 0.4 % (0-1); Eosinophil# 0.07 X10^3/uL; Eosinophils% 0.9 % (0-5); Hemoglobin 11.6 g/dL (13.0-16.5); Lymphocyte # 0.96 X10^3/ul (0.83-4.51); Mean Corp Hgb Conc 35.2 g/dL (32-36); Mean Corpuscular Hgb 34.7 pg (27.0-32.0); Mean Corpuscular Volume 98.8 fL (80-94); Mean Platelet Vol. 11.5 fl (6.2-12.0); Monocyte# 0.69 X10^3/uL; Monocyte% 8.6 % (0-10); NRBC Flagged by Analyzer 0 % (0-5); Neutrophil # 6.24 X10^3/uL (2.7-7.7); Neutrophil % 77.9 % (47-70); Platelet Count 198 K/mm3 (150-450); RBC Distribution Width CV 13.2 % (11.6-14.6); Red Blood Count 3.34 M/mm3 (4.6-6.2)
--- NOTE | 2022-03-31 16:28 | CT_ITS ---
STUDY: CT ABDOMEN AND PELVIS WITHOUT CONTRAST REASON FOR EXAM: Male, 77 years old. Epigastric pain. Nausea for 3 hours prior to arrival. RADIATION DOSAGE (If Supplied By Facility): CTDIvol = ( 7.82 ) mGy, DLP = ( 390.81 ) mGycm TECHNIQUE: Transaxial images were obtained from the dome of the diaphragm to the symphysis pubis without oral contrast, and without intravenous contrast. Sagittal and coronal images were reconstructed. Individualized dose optimization techniques were used for this CT. COMPARISON: None. FINDINGS: The visualized lung bases are unremarkable. The visualized portions of the heart are within normal limits. Coronary artery calcifications. Evidence of median sternotomy. Normal liver. There are multiple gallstones dependently within the otherwise normal gallbladder. No biliary ductal dilatation or choledocholithiasis. Normal spleen. Normal pancreas. Normal bilateral adrenal glands. There is an exophytic 2 cm cyst off the lower pole of an otherwise normal right kidney. Normal left kidney. Normal ureters. Stomach is poorly distended but grossly normal. Normal small intestine. Colonic diverticulosis without acute inflammatory change. There is no mass or obstruction. There is non-visualization of the appendix. There is diffuse atherosclerotic calcification of the abdominal aorta, without a demonstrated aneurysm. Normal inferior vena cava. Normal retroperitoneum. Normal urinary bladder. Normal prostate. There are phleboliths in the pelvis without lymphadenopathy. No free air or free fluid is seen within the peritoneal cavity. Small bilateral inguinal hernias with omental fat. Abdominal wall is otherwise unremarkable. There are diffuse degenerative changes of the visualized lumbar spine. There is levoscoliosis. Degenerative changes of bilateral hips. CT/Abdomen/Pelvis without Cont IMPRESSION: 1. Nondistended stomach. The possibility of gastritis cannot be ruled out. 2. Right renal cyst. There is no other evidence of renal, ureteral or urinary bladder abnormality. 3. Gallstones without secondary evidence of acute cholecystitis. 4. Scattered colonic diverticulosis. 5. Scoliosis and degenerative changes of the lumbar spine. Electronically Signed: Cory Talbert DO at 17:47 EDT Reading Location ID and State: [address] [place] [address] Tel [phone], Service support ,
[2022-03-31 16:30] LABS: AST(SGOT) 24 U/L (15-37); Alanine Aminotransfer ALT/SGPT 37 U/L (16-61); Albumin, Serum 3.4 g/dL (3.2-5.0); Alkaline Phosphatase 89 U/L (45-117); Anion Gap 6 (5-15); BUN 35 mg/dL (7-18); BUN/Creat Ratio 17.9 RATIO (10-20); Bilirubin, Direct 0.17 mg/dL (0.00-0.30); Calcium,Total 8.9 mg/dL (8.5-10.1); Chloride 110 mmol/L (98-107); Creatinine, Serum 1.96 mg/dL (0.70-1.30); EST Glomerular Filtration Rate 35 mL/min (>60); Est Glom Filt Rate - Afr Amer 43 mL/min (>60); Estimated Creatinine Clearance 27.02 ml/min; Globulin 3.5 g/dL (2.2-4.2); Glucose 158 mg/dL (74-106); Lipase 943 U/L (73-393); Potassium 4.5 mmol/L (3.5-5.1); Protein, Total 6.9 g/dL (6.4-8.2); Sodium Level 140 mmol/L (136-145)
[2022-03-31 16:37] LABS: Troponin-I HS (w/2H Reflex) 142 pg/mL (3.0-78.0)
[2022-03-31 17:28] LABS: Reflex Troponin-HS? (from REC) Y
[2022-03-31 18:31] LABS: Troponin-I HS 120 pg/mL (3.0-78.0)
--- NOTE | 2022-03-31 18:52 | HP.PCM.HOS_ITS ---
HPI - General General Date of Admission: 03/31/22 Date of Service: 03/31/22 Chief Complaint: Abdominal pain HPI Narrative The patient is a 77 y/o M w/ PMHx: CKD stage G4/A3, Chronic anemia/Fe deficiency anemia, CAD w/ Hx NSTEMI s/p CABG x 5 2002 and PCI, HTN, HLD, Diabetes mellitus type II, Chronic AF who presents to the [facility] ED on 03/31/22 with history of onset epigastric discomfort descibred as a dull constant 10/10 aching onset at ~ 1 pm while working [place] with associated nausea without emesis with reportedly no bowel movement on day of presentation or day prior with discomfort radiating into his chest in the midsternal region more of a ache with mild diaphoresis without dyspnea prompting eventual ED evaluation. He notes pain decreased to 5/10 following morphine administration in the ED to specifically his abdomen. He denies any ongoing chest pain. He states he has had issues over the years with anginal pain and does have NG which he did take but has not had to prior to this episoe for quite some time. Work-up in the ED included T98.3, heart 62, BP 160/59, respiratory rate 24, 97% on room air, CBC with WC 8.0, hemoglobin 11.6, MCV 98.8, platelet 198 without marked shift, CMP with chloride 110, BUN/creat 35/1.96, glucose 158 otherwise hepatic profile not marked appearing, lipase 943, troponin initial 142 with delta repeat 120, EKG with rate controlled atrial fibrillation with T wave inversions V1 to 2 with no acute evidence of ischemia, chest x-ray with no acute cardiopulmonary findings, CT abdomen and pelvis without contrast with a nondistended stomach, possibility of gastritis cannot be ruled out, right renal cyst, gallstones without secondary evidence of acute cholecystitis, scattered colonic diverticulosis and scoliosis as well as degenerative changes of the lumbar spine. In the ED patient administered Zofran 4 mg IV x1, morphine 4 mg IV x2 as well as initiated on famotidine IV regimen ED physician did discuss case with education reporter, Dr. Soto who recommended echocardiogram with planned evaluation with most recent Cardiac evaluation 03/28/2022. Following evaluation of patient given notable RUQ pain discussed case with Dr. Nielson, new vehicle sales consultant for general surgery. [facility] Medical History Abnormal electrocardiogram Abnormal nuclear stress test Angina pectoris Atherosclerotic heart disease of [place] coronary artery without angina pectoris Atrial fibrillation with RVR Carotid bruit Essential (primary) hypertension NSTEMI (non-ST elevated myocardial infarction) (~12/06/18) On amiodarone therapy Presence of stent in coronary artery (~08/20/12) Pure hypercholesterolemia Secondary pulmonary arterial hypertension Type 2 diabetes mellitus 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 Home Medications ascorbic acid (vitamin C) 500 mg tablet 500 mg PO DAILY@0800 supplement 11/06/16 [History Last Taken 11/17/20] ferrous sulfate 325 mg (65 mg iron) tablet 325 mg PO DAILY@0800 supplement 11/06/16 [History Last Taken 11/16/20] multivitamin with folic acid 400 mcg tablet 1 tab PO DAILY supplement 11/06/16 [History Last Taken 11/17/20] nitroglycerin 0.4 mg sublingual tablet 0.4 mg sublingual Q5M PRN Chest Pain #25 tabs 10/22/18 [Rx Last Taken 2 Weeks Ago ~11/03/20] liraglutide 0.6 mg/0.1 mL (18 mg/3 mL) subcutaneous pen injector 1.8 mg SQ DAILY diabetes 12/05/18 [History Last Taken 11/17/20] ranitidine HCl 150 mg tablet 150 mg PO DAILY GERD 10/26/20 [History Last Taken 11/17/20] aspirin 81 mg chewable tablet 81 mg PO DAILY ##1 11/21/20 [Rx Last Taken Unknown] atorvastatin 40 mg tablet 40 mg PO QDAY cholesterol #90 tabs 09/21/21 [Rx Last Taken Unknown] cholecalciferol (vitamin D3) 50 mcg (2,000 unit) capsule 2,000 unit PO BID SUPPLEMENT 10/02/21 [History Last Taken Unknown] isosorbide mononitrate 60 mg tablet,extended release 24 hr 60 mg PO DAILY #90 tabs 11/07/21 [Rx Last Taken Unknown] furosemide 40 mg tablet 40 mg PO DAILY #30 tabs 11/20/21 [Rx Last Taken Unknown] amiodarone 200 mg tablet 100 mg PO DAILY #90 tabs 12/28/21 [Rx Last Taken Unknown] apixaban 5 mg tablet 5 mg PO BID #60 tabs 04/29/22 [Rx Last Taken Unknown] ranolazine 1,000 mg tablet,extended release,12 hr 1,000 mg PO BID #180 tabs 01/30/22 [Rx Last Taken Unknown] vitamin B complex-vitamin C-folic acid 0.8 mg tablet (Nephro-Redd) 1 tab PO DAILY 03/28/22 [History Last Taken Unknown] vitamin B complex-vitamin C-folic acid 0.8 mg tablet (Nephro-Redd) 1 tab PO DAILY 03/31/22 [History Last Taken Unknown] Allergy/AdvReac Type Severity Reaction Status Date / Time Iodinated Contrast Media Allergy made me Verified 03/31/22 14:38 [Iodinated Contrast Media - hot and Oral and] they never used it again Family History (Updated 03/31/22 @ 19:[address] Destini Nicole MD) Father Diabetes Cancer leukemia Sister Diabetes Mother Cancer Uterine cancer that metastasized including to brain. Surgical History H/O coronary artery bypass surgery (~08/31/03) Presence of coronary angioplasty implant and graft (~08/20/12) Status post left heart catheterization (LHC) (~12/08/18) Social History (Updated 03/31/22 @ 19:[address] Destini Nicole MD) household members: none Smoking Status: Never smoker alcohol intake: never substance use type: does not use caffeine: Yes what type of physical activity do you participate in: none ROS ROS Narrative Admission Review of Systems: CONSTITUTIONAL: No weight loss, fever, chills, + weakness or fatigue. HEENT: Eyes: No visual loss, blurred vision, double vision or yellow sclerae. Ears, Nose, Throat: No hearing loss, sneezing, congestion, runny nose or sore throat. SKIN: No rash or itching, lesions, wounds. CARDIOVASCULAR: + chest pain, chest pressure or chest discomfort, No palpitations, edema, orthopnea, syncopal events. RESPIRATORY: No shortness of breath, cough or sputum, wheezing, hemoptysis. GASTROINTESTINAL: + anorexia, nausea without vomiting, abdominal pain, No diarrhea, melena, BRBPR. GENITOURINARY: No dysuria, frequency, urgency or retention. NEUROLOGICAL: No headache, dizziness, syncope, paralysis, ataxia, numbness or tingling in the extremities, focal weakness, change in bowel or bladder control, seizure. MUSCULOSKELETAL: + muscle, back pain, joint pain or stiffness. HEMATOLOGIC: + anemia, bleeding or bruising. LYMPHATICS: No enlarged nodes. No history of splenectomy. PSYCHIATRIC: No history of depression or anxiety. ENDOCRINOLOGIC: + reports of sweating. No polyuria or polydipsia. ALLERGIES: No history of asthma, hives, eczema or rhinitis. Vital Signs Vital Signs Vital Signs: 03/31/22 14:39 03/31/22 16:00 03/31/22 16:45 Temperature 96.7 F L Temperature Source Temporal Pulse Rate 55 L 58 L 66 Respiratory Rate 18 20 H 19 H Blood Pressure 195/59 H 175/87 H 178/49 H Blood Pressure Mean 104 116 92 Pulse Ox 100 99 100 Oxygen Delivery Method Room Air Room Air Room Air 03/31/22 17:30 03/31/22 18:45 Temperature 98.3 F Temperature Source Temporal Pulse Rate 60 62 Respiratory Rate 16 24 H Blood Pressure 176/60 H 162/59 H Blood Pressure Mean 98 93 Pulse Ox 99 97 Oxygen Delivery Method Room Air Room Air Weight Weight: 158 lb Body Mass Index (BMI) 26.2 Physical Exam Narrative Physical Examination: General: Awake, alert, oriented x 3 and cooperative, significantly hard of hearing, seated upright in the ED bed, fatigued, notes uncomfortable, grimacing with certain movements or palpation, rating pain in his abdomen 5 out of 10, chest discomfort resolved. Skin: Normal color, normal turgor, no icterus, no cyanosis. HEENT: AT/NC, EOMI, PERRLA, moderately dry MM, no carotid bruits or JVD noted. Lungs: Mildly diminished, greater bases, decreased effort, no rales, ronchi or wheezing. Heart: Bradycardic, regular; no gallop, rub audible. Abdomen: Soft, mild to moderate discomfort in the epigastric region however significant right upper quadrant pain with palpation with rebound, guarding, no obvious distention, mildly hyperactive bowel sounds, difficult to assess HSM given discomfort with evaluation. Extremities: No cyanosis, clubbing, or edema. Neurological: Patient awake, alert, oriented as noted, cognitive function appears baseline intact; pupils equally reactive to light and accommodation, cranial nerves II-XII grossly normal, moving all 4 extremities, no focal deficits, strength severely global decreased secondary to acute presentation. Psychiatric: Affect appears uncomfortable, fatigued, no acute evidence of depressive or anxiety feelings. Results Lab / Micro Data Result Diagrams: 03/31/22 15:10 03/31/22 15:10 Labs: Laboratory Results - last 24 hr 03/31/22 15:10: WBC 8.0, RBC 3.34 L, Hgb 11.6 L, Hct 33.0 L, MCV 98.8 H, MCH 34.7 H, MCHC 35.2, RDW Std Deviation 47.0 H, RDW Coeff of Nicole 13.2, Plt Count 198, MPV 11.5, Immature Gran % (Auto) 0.200, Neut % (Auto) 77.9 H, Lymph % (Auto) 12.0 L, [place] % (Auto) 8.6, Eos % (Auto) 0.9, Baso % (Auto) 0.4, Absolute Neuts (auto) 6.2, Absolute Lymphs (auto) 0.96, Nucleated RBC % 0 03/31/22 15:10: Sodium 140, Potassium 4.5, Chloride 110 H, Carbon Dioxide 24.0, Anion Gap 6, BUN 35 H, Creatinine 1.96 H, Estim Creat Clear Calc 27.02, Est GFR (MDRD) Af Amer 43 L, Est GFR (MDRD) Non-Af 35 L, BUN/Creatinine Ratio 17.9, Glucose 158 H, Calcium 8.9, Total Bilirubin 0.60, Direct Bilirubin 0.17, AST 24, ALT 37, Alkaline Phosphatase 89, Troponin I High Sens 142 H*, Total Protein 6.9, Albumin 3.4, Globulin 3.5, Lipase 943 H 03/31/22 17:34: Troponin I High Sens 120 H Radiology Impression Chest X-Ray 03/31/22 15:45 IMPRESSION: Nonacute portable x-ray examination of the chest. Electronically Signed: Robert Castro MD (Brooks) at 16:07 EDT , Abdomen/Pelvis CT 03/31/22 16:28 IMPRESSION: 1. Nondistended stomach. The possibility of gastritis cannot be ruled out. 2. Right renal cyst. There is no other evidence of renal, ureteral or urinary bladder abnormality. 3. Gallstones without secondary evidence of acute cholecystitis. 4. Scattered colonic diverticulosis. 5. Scoliosis and degenerative changes of the lumbar spine. Electronically Signed: Cory Talbert, at 17:47 EDT Reading Location ID and State: [facility] / [place] Tel [phone], Service support , Assessment & Plan Assessment/Plan (1) Acute pancreatitis: (2) Cholelithiasis: (3) Elevated troponin: (4) Chest pain: PLAN: Plan The patient is a 77 y/o M w/ PMHx: CKD stage G4/A3, Chronic anemia/Fe deficiency anemia, CAD w/ Hx NSTEMI s/p CABG x 2002 and PCI, HTN, HLD, Diabetes mellitus type II, Chronic AF who presents to the [facility] ED on 03/31/22 with history of onset epigastric discomfort descibred as a dull constant 10/10 aching onset at ~ 1 pm while working [place] the [place]) with associated nausea without emesis with reportedly no bowel movement on day of presentation or day prior with discomfort radiating into his chest in the midsternal region more of a ache with mild diaphoresis without dyspnea prompting eventual ED evaluation. #1. Acute pancreatitis w/ abdominal pain, nausea w/ concurrent RUQ pain with cholelithiasis evident: Will admit to PCU, maintain on judicious IVFs, NPO, IV PPI, IV/po pain control, trend lipase, CMP. Will obtain RUQ US, FLP, denies EtOH consumption risk as etiology for pancreatitis. Given notable RUQ pain on evaluation will request Surgery early involvement with case review/discussion with Dr. Nielson. #2. Indeterminate cardiac enzyme w/ Chest pain: EKG in ED with rate controlled atrial fibrillation with T wave inversions V1 to 2 with no acute evidence of ischemia, CXR w/ no acute cardiopulmonary finding, initial trop initially 142 with delta repeat 120. Will place on a monitored bed to assure no acute myocardial infarction with serial cardiac enzymes and EKGs. ECHO requested w/ last noted 05/22/21 with normal LV size, normal LV systolic function, EF 54%, stage I diastolic dysfunction, PASP 38 mmHg with mild AV insufficiency. ASA, NG, morphine. #3. CAD: Status post CABG x5 and PCI, will continue apixaban, aspirin, atorvastatin, not on beta-arlene therapy but noted to be on amiodarone for chronic A. fib, not on EMIGDIO inhibitor/ARB likely secondary to renal disease. #4. Diabetes mellitus type II: Hold oral home regimen, NPO given #1, q 6 hour while NPO accu checks w/ ISS. #5. Chronic atrial fibrillation: We will continue patient home apixaban as well as amiodarone regimen. #6. Hypertension: Continue home regimen including isosorbide with hold parameters as needed, temporarily hold lasix given need for hydration #1, add back once improving, PRN hydralazine. #7. Hyperlipidemia: Continue home statin regimen. AM FLP. #8. Chronic anemia, macrocytic/Fe deficiency anemia: Admission hemoglobin 11.6, baseline appears 10-11, stable, trend, continue iron supplementation. #9. Chronic Kidney Disease Stage G4/A3: Admission BUN/Cr 35/1.96, baseline renal function appears primarily 1.7-2.3 however has fluctuated but most recently 12/25/2021 creatinine 1.8, repeat BMP in AM. #10. GERD: We will maintain on IV PPI. #11. DVT prophylaxis: SCDs, continue patient home apixaban regimen. #12. CODE status: Patient FELIPE is his nephew Patrice and living will is currently in place. Discussed CODE status at length including difference between FULL code, DNR-CCA and DNR-CC status. Following discussions about the differences in these status, requested DNR-CCA, no intubation status. Advanced Care Planning Face to Face Time: 16 minutes. Charges/Coding Visit Charges Inpatient E&M: 44542 Init Hosp L3 Procedures Hospitalists Procedures: 50978 Advncd Care Plan 30 Min
[2022-03-31 19:45] LABS: Magnesium 1.8 mg/dL (1.6-2.6)
--- NOTE | 2022-03-31 20:01 | EKG12_ITS ---
Test Reason : CP ADMIT Blood Pressure : / mmHG Vent. Rate : 072 BPM Atrial Rate : 072 BPM P-R Int : 166 ms QRS Dur : 124 ms QT Int : 450 ms P-R-T Axes : -14 -68 092 degrees QTc Int : 492 ms Normal sinus rhythm Left axis deviation Non-specific intra-ventricular conduction delay Nonspecific ST and T wave abnormality Abnormal ECG No previous ECGs available Confirmed by VICKIE DOLL, SABRA ([id number]), science editor DENISSE FRANK ([id number]) on 04/03/2022 10:13:49 AM Referred By: Confirmed By:SABRA JOHNSTON MD
--- NOTE | 2022-03-31 20:01 | US_ITS ---
STUDY: ABDOMINAL ULTRASOUND - RIGHT UPPER QUADRANT REASON FOR VISIT: Male, 77 years old abnormal LFTs TECHNIQUE: Ultrasound evaluation of the right upper quadrant was performed with real-time and static cheema-scale imaging. TECHNICAL QUALITY: Limited. Examination limited by bowel gas. COMPARISON: CT scan from 03/31/2022 FINDINGS: Liver: The liver measures 15.2 cm. There is increased echogenicity consistent with fatty infiltration. The bile ducts are within normal limits. There is hepatic color flow. The direction of portal flow is hepatopetal. There is no demonstrated mass lesion. Gallbladder: Normal distended gallbladder. The gallbladder wall measures 2.9 mm. There is a positive sonographic Gimenez''s sign. There is no pericholecystic fluid. There are multiple echogenic structures within the gallbladder, consistent with multiple gallstones, and echogenic sludge. Common Bile Duct (C.B.D.): The common bile duct measures 4.2 mm. Pancreas: Visualized pancreas is sonographically normal Right Kidney: Normal size of the right kidney. The right kidney measures 11.1 x 4.5 x 5.9 cm. Normal renal cortex. The right cortex measures 1.3 cm. There is a simple 3.0 cm cyst. There is no right hydronephrosis. US/Gallbladder IMPRESSION: Gallbladder is borderline distended with multiple gallstones and echogenic sludge. There is no wall thickening or pericholecystic fluid, or biliary dilatation. Irrigator Head however notes a positive GIMENEZ sign. Findings are equivocal for cholecystitis, the recent CT of the abdomen did not show obvious signs of cholecystitis. A HIDA scan may be of benefit for further evaluation if the physical exam is also equivocal. Fatty liver Stable simple right renal cyst, no specific follow-up needed Electronically Signed: Shon Elias MD at 10:28 EDT ,
--- NOTE | 2022-03-31 20:01 | ECHOD_ITS ---
Reason For Study: ELEV. TROP Procedure This was a 2D Doppler, Color Flow transthoracic echocardiogram. Exam performed portable in patient room. Left Ventricle Normal LV size. Mild concentric left ventricular hypertrophy. Left ventricular systolic function is normal. The estimated ejection fraction is 55 %. No regional wall motion abnormalities noted. Right Ventricle Normal RV size. Normal systolic function. Atria Normal left atrium. Normal right atrium. Mitral Valve Normal mitral valve. Mild (1+) mitral valve insufficiency. Tricuspid Valve Normal tricuspid valve. Moderately severe (3+) tricuspid valve insufficiency. Pulmonary artery systolic pressure is 78 mmHg. Aortic Valve Trisinus/trileaflet aortic valve. Mild focal aortic valve thickening. Mild (1+) aortic valve insufficiency. Pulmonic Valve Normal pulmonic valve. Great Vessels Normal aortic root. The pulmonary artery is normal size. Normal inferior vena cava. Pericardium/Pleural No pericardial effusion. MMode/2D Measurements & Calculations LVIDd: 4.3 cm IVSd: 1.2 cm LAV(MOD-bp): 61.2 ml LVIDs: 2.9 cm LVPWd: 1.5 cm LAV(MOD-bp) Indexed: 34.2 ml/m2 RVDd: 2.9 cm FS: 32.2 % LAV(MOD-sp2): 56.0 ml LAV(MOD-sp4): 58.1 ml SV(MOD-sp4): 50.0 ml SV(sp4-el): 54.6 ml LVAd ap4: 28.4 cm2 LVLd ap4: 7.4 cm EDV(MOD-sp4): 87.4 ml EDV(sp4-el): 92.2 ml LVAs ap4: 16.7 cm2 LVLs ap4: 6.3 cm ESV(MOD-sp4): 37.3 ml ESV(sp4-el): 37.6 ml EF(MOD-sp4): 57.3 % EF(sp4-el): 59.2 % LA A4 area: 19.9 cm2 LA dimension(2D): 5.0 cm RA A4 area: 15.6 cm2 Time Measurements MV dec time: 0.18 sec Doppler Measurements & Calculations MV E max jeff: 108.9 cm/sec Lat Peak E' Jeff: 9.7 cm/sec Med Peak E' Jeff: 5.9 cm/sec MV A max jeff: 89.6 cm/sec E/E' lat: 11.2 E/E' med: 18.5 MV E/A: 1.2 MV V2 max: 111.2 cm/sec MV dec slope: 615.7 cm/sec2 Ao V2 max: 203.6 cm/sec MV max P.9 mmHg Ao max P.6 mmHg MV V2 mean: 67.7 cm/sec Ao V2 mean: 143.3 cm/sec MV mean P.1 mmHg Ao mean P.5 mmHg MV V2 VTI: 42.3 cm Ao V2 VTI: 44.1 cm AI max jeff: 382.7 cm/sec LV V1 max: 106.8 cm/sec PA V2 max: 129.6 cm/sec AI max P.6 mmHg LV V1 max P.6 mmHg PA V2 mean: 88.1 cm/sec LV V1 mean P.0 mmHg AI dec slope: 372.0 cm/sec2 LV V1 mean: 82.4 cm/sec AI P1/2t: 301.4 msec LV V1 VTI: 25.6 cm TR max jeff: 440.1 cm/sec TR max P.5 mmHg ECHO/Echo Complete Interpretation Summary Normal LV size. Left ventricular systolic function is normal. The estimated ejection fraction is 55 %. Mild concentric left ventricular hypertrophy. Mild (1+) mitral valve insufficiency. Moderately severe (3+) tricuspid valve insufficiency. Pulmonary artery systolic pressure is 78 mmHg. Compared to the previous the pulmonary pressures are significantly elevated. Ordering Physician: Destini Nicole Referring Physician: Kandi Obrien M.D. Performed By: Priscilla Mclean RCS
[2022-03-31] MEDS: 0.9% Normal Saline 1,000 ML 150 ML IV (20:17)
[2022-03-31] MEDS: Atorvastatin Calcium 40 MG Tablet PO (20:59)
[2022-03-31] MEDS: APIXABAN 5 MG TABLET PO (20:59)
[2022-03-31] MEDS: Ranolazine 500 MG Tablet 1000 MG PO (21:00)
--- NOTE | 2022-03-31 21:13 | HP.PCM.SX_ITS ---
HPI - General General Date of Admission: 03/31/22 Date of Service: 03/31/22 Chief Complaint: Abdominal pain HPI Narrative PEGGY EASTON, is a 77 M who presents with gallstone pancreatitis. He notes epigastric abdominal pain that radiates to both upper quadrants. 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 Home Medications ascorbic acid (vitamin C) 500 mg tablet 500 mg PO DAILY@0800 supplement 11/06/16 [History Last Taken 11/17/20] ferrous sulfate 325 mg (65 mg iron) tablet 325 mg PO DAILY@0800 supplement 11/06/16 [History Last Taken 11/16/20] multivitamin with folic acid 400 mcg tablet 1 tab PO DAILY supplement 11/06/16 [History Last Taken 11/17/20] nitroglycerin 0.4 mg sublingual tablet 0.4 mg sublingual Q5M PRN Chest Pain #25 tabs 10/22/18 [Rx Last Taken 2 Weeks Ago ~11/03/20] liraglutide 0.6 mg/0.1 mL (18 mg/3 mL) subcutaneous pen injector 1.8 mg SQ DAILY diabetes 12/05/18 [History Last Taken 11/17/20] ranitidine HCl 150 mg tablet 150 mg PO DAILY GERD 10/26/20 [History Last Taken 11/17/20] aspirin 81 mg chewable tablet 81 mg PO DAILY ##1 11/21/20 [Rx Last Taken Unknown] atorvastatin 40 mg tablet 40 mg PO QDAY cholesterol #90 tabs 09/21/21 [Rx Last Taken Unknown] cholecalciferol (vitamin D3) 50 mcg (2,000 unit) capsule 2,000 unit PO BID SUPPLEMENT 10/02/21 [History Last Taken Unknown] isosorbide mononitrate 60 mg tablet,extended release 24 hr 60 mg PO DAILY #90 tabs 11/07/21 [Rx Last Taken Unknown] furosemide 40 mg tablet 40 mg PO DAILY #30 tabs 11/20/21 [Rx Last Taken Unknown] amiodarone 200 mg tablet 100 mg PO DAILY #90 tabs 12/28/21 [Rx Last Taken Unknown] apixaban 5 mg tablet 5 mg PO BID #60 tabs 12/29/21 [Rx Last Taken Unknown] ranolazine 1,000 mg tablet,extended release,12 hr 1,000 mg PO BID #180 tabs 01/30/22 [Rx Last Taken Unknown] vitamin B complex-vitamin C-folic acid 0.8 mg tablet (Nephro-Redd) 1 tab PO DAILY supplement 03/28/22 [History Last Taken Unknown] vitamin B complex-vitamin C-folic acid 0.8 mg tablet (Nephro-Redd) 1 tab PO DAILY 03/31/22 [History Last Taken Unknown] Allergy/AdvReac Type Severity Reaction Status Date / Time Iodinated Contrast Media Allergy made me Verified 03/31/22 14:38 [Iodinated Contrast Media - hot and Oral and] they never used it again Family History (Updated 03/31/22 @ 19:[address] Destini Nicole MD) Father Diabetes Cancer leukemia Sister Diabetes Mother Cancer Uterine cancer that metastasized including to brain. Surgical History H/O coronary artery bypass surgery (~08/31/03) Presence of coronary angioplasty implant and graft (~08/20/12) Status post left heart catheterization (LHC) (~12/08/18) Social History (Updated 03/31/22 @ 19:[address] Destini Nicole MD) household members: none Smoking Status: Never smoker alcohol intake: never substance use type: does not use caffeine: Yes what type of physical activity do you participate in: none Vital Signs Vital Signs Vital Signs: 03/31/22 14:39 03/31/22 16:00 03/31/22 16:45 Temperature 96.7 F L Temperature Source Temporal Pulse Rate 55 L 58 L 66 Pulse Strength Respiratory Rate 18 20 H 19 H Blood Pressure 195/59 H 175/87 H 178/49 H Blood Pressure Mean 104 116 92 Blood Pressure Source Blood Pressure Position Blood Pressure Location Pulse Ox 100 99 100 Oxygen Delivery Method Room Air Room Air Room Air 03/31/22 17:30 07/30/22 18:45 03/31/22 19:55 Temperature 98.3 F 98.0 F Temperature Source Temporal Temporal Pulse Rate 60 62 63 Pulse Strength Respiratory Rate 16 24 H 18 Blood Pressure 176/60 H 162/59 H 151/98 H Blood Pressure Mean 98 93 115 Blood Pressure Source Blood Pressure Position Blood Pressure Location Pulse Ox 99 97 95 Oxygen Delivery Method Room Air Room Air Room Air 03/31/22 20:09 03/31/22 20:32 03/31/22 21:02 Temperature 97.7 F L 97.7 F L Temperature Source Oral Oral Pulse Rate 75 75 Pulse Strength Normal (2+) Respiratory Rate 18 16 Blood Pressure 191/76 H 160/67 H Blood Pressure Mean 114 98 Blood Pressure Source Monitor Monitor Blood Pressure Position Semi-Fowlers Semi-Fowlers Blood Pressure Location Right Arm Right Arm Pulse Ox 97 97 Oxygen Delivery Method Room Air Room Air Weight Weight: 71.4 kg Body Mass Index (BMI) 26.2 Results Lab / Micro Data Result Diagrams: 03/31/22 15:10 03/31/22 15:10 Labs: Laboratory Results - last 24 hr 03/31/22 15:10: WBC 8.0, RBC 3.34 L, Hgb 11.6 L, Hct 33.0 L, MCV 98.8 H, MCH 34.7 H, MCHC 35.2, RDW Std Deviation 47.0 H, RDW Coeff of Nicole 13.2, Plt Count 198, MPV 11.5, Immature Gran % (Auto) 0.200, Neut % (Auto) 77.9 H, Lymph % (Auto) 12.0 L, [place] % (Auto) 8.6, Eos % (Auto) 0.9, Baso % (Auto) 0.4, Absolute Neuts (auto) 6.2, Absolute Lymphs (auto) 0.96, Nucleated RBC % 0 03/31/22 15:10: Sodium 140, Potassium 4.5, Chloride 110 H, Carbon Dioxide 24.0, Anion Gap 6, BUN 35 H, Creatinine 1.96 H, Estim Creat Clear Calc 27.02, Est GFR (MDRD) Af Amer 43 L, Est GFR (MDRD) Non-Af 35 L, BUN/Creatinine Ratio 17.9, Glucose 158 H, Calcium 8.9, Total Bilirubin 0.60, Direct Bilirubin 0.17, AST 24, ALT 37, Alkaline Phosphatase 89, Troponin I High Sens 142 H*, Total Protein 6.9, Albumin 3.4, Globulin 3.5, Lipase 943 H 03/31/22 17:34: Troponin I High Sens 120 H 03/31/22 17:34: Magnesium 1.8 Radiology Impression Chest X-Ray 03/31/22 15:45 IMPRESSION: Nonacute portable x-ray examination of the chest. Electronically Signed: Robert Castro MD (Brooks) at 16:07 EDT , Abdomen/Pelvis CT 03/31/22 16:28 IMPRESSION: 1. Nondistended stomach. The possibility of gastritis cannot be ruled out. 2. Right renal cyst. There is no other evidence of renal, ureteral or urinary bladder abnormality. 3. Gallstones without secondary evidence of acute cholecystitis. 4. Scattered colonic diverticulosis. 5. Scoliosis and degenerative changes of the lumbar spine. Electronically Signed: Cory Talbert DO at 17:47 EDT , Assessment & Plan Assessment/Plan (1) Cholelithiasis: PLAN: consideration for laparoscopic cholecystectomy when medically optimized, presently undergoing cardiac evaluation/observation
--- NOTE | 2022-03-31 21:50 | EX.PCM.CON.S ---
Assessment & Plan Assessment/Plan (1) Cholelithiasis: PLAN: Patient is presently undergoing cardiac evaluation Will plan lap paige when patient is medically optimized Continue present therapy HPI Consult Data Date of Consult: 04/01/22 HPI Narrative HPI Narrative: PEGGY EASTON, is a 77 M who presents with gallstone pancreatitis. He notes pain for about a day, severe, and points to the epigastric area. It also radiated to bilateral upper quadrant. He also had nausea. He presented to [facility] ED, and workup revealed elevated lipase with CT scan findings of cholelithiasis. He was also noted to have cardiac abnormalities and is presently undergoing a cardiac workup. 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 Home Medications ascorbic acid (vitamin C) 500 mg tablet 500 mg PO DAILY@0800 supplement 11/06/16 [History Last Taken 11/17/20] ferrous sulfate 325 mg (65 mg iron) tablet 325 mg PO DAILY@0800 supplement 11/06/16 [History Last Taken 11/16/20] multivitamin with folic acid 400 mcg tablet 1 tab PO DAILY supplement 11/06/16 [History Last Taken 11/17/20] nitroglycerin 0.4 mg sublingual tablet 0.4 mg sublingual Q5M PRN Chest Pain #25 tabs 10/22/18 [Rx Last Taken 2 Weeks Ago ~11/03/20] liraglutide 0.6 mg/0.1 mL (18 mg/3 mL) subcutaneous pen injector 1.8 mg SQ DAILY diabetes 12/05/18 [History Last Taken 11/17/20] ranitidine HCl 150 mg tablet 150 mg PO DAILY GERD 10/26/20 [History Last Taken 11/17/20] aspirin 81 mg chewable tablet 81 mg PO DAILY ##1 11/21/20 [Rx Last Taken Unknown] atorvastatin 40 mg tablet 40 mg PO QDAY cholesterol #90 tabs 09/21/21 [Rx Last Taken Unknown] cholecalciferol (vitamin D3) 50 mcg (2,000 unit) capsule 2,000 unit PO BID SUPPLEMENT 10/02/21 [History Last Taken Unknown] isosorbide mononitrate 60 mg tablet,extended release 24 hr 60 mg PO DAILY #90 tabs 11/07/21 [Rx Last Taken Unknown] furosemide 40 mg tablet 40 mg PO DAILY #30 tabs 11/20/21 [Rx Last Taken Unknown] amiodarone 200 mg tablet 100 mg PO DAILY #90 tabs 12/28/21 [Rx Last Taken Unknown] apixaban 5 mg tablet 5 mg PO BID #60 tabs 12/29/21 [Rx Last Taken Unknown] ranolazine 1,000 mg tablet,extended release,12 hr 1,000 mg PO BID #180 tabs 01/30/22 [Rx Last Taken Unknown] vitamin B complex-vitamin C-folic acid 0.8 mg tablet (Nephro-Redd) 1 tab PO DAILY supplement 03/28/22 [History Last Taken Unknown] vitamin B complex-vitamin C-folic acid 0.8 mg tablet (Nephro-Redd) 1 tab PO DAILY 03/31/22 [History Last Taken Unknown] Allergy/AdvReac Type Severity Reaction Status Date / Time Iodinated Contrast Media Allergy made me Verified 03/31/22 14:38 [Iodinated Contrast Media - hot and Oral and] they never used it again Family History Father Diabetes Cancer leukemia Sister Diabetes Mother Cancer Uterine cancer that metastasized including to brain. Surgical History H/O coronary artery bypass surgery (~08/31/03) Presence of coronary angioplasty implant and graft (~08/20/12) Status post left heart catheterization (LHC) (~12/08/18) Social History household members: none Smoking Status: Never smoker alcohol intake: never substance use type: does not use caffeine: Yes what type of physical activity do you participate in: none ROS Constitutional Constitutional: Reports fatigue; Denies fever(s) Cardiovascular Cardiovascular: Reports systems reviewed and no addt'l complaints, except as documented Respiratory/Chest Respiratory/Chest: Reports systems reviewed and no addt'l complaints, except as documented Gastrointestinal Gastrointestinal: Reports abdominal pain Genitourinary Genitourinary: Reports systems reviewed and no addt'l complaints, except as documented Musculoskeletal Musculoskeletal: Denies abnormal gait Integumentary Integumentary: Denies jaundice Neurologic Neurologic: Denies focal weakness Physical Exam Const alert and oriented x3 General Appearance: cooperative HEENT normocephalic HEENT Narrative: neck supple Eyes Eyes Narrative: no icterus noted Neck supple Resp normal respiratory effort Effort and Inspection: able to speak in complete sentences GI GI Narrative: abdomen is soft but tender in the epigastrium, no peritoneal signs noted Extremity Extremity Narrative: no pitting edema noted Lab / Micro Data Attestation: I reviewed the patient's lab results. Result Diagrams: 04/01/22 06:35 04/01/22 06:35 Labs: Laboratory Results - last 24 hr 03/31/22 15:10: WBC 8.0, RBC 3.34 L, Hgb 11.6 L, Hct 33.0 L, MCV 98.8 H, MCH 34.7 H, MCHC 35.2, RDW Std Deviation 47.0 H, RDW Coeff of Nicole 13.2, Plt Count 198, MPV 11.5, Immature Gran % (Auto) 0.200, Neut % (Auto) 77.9 H, Lymph % (Auto) 12.0 L, [place] % (Auto) 8.6, Eos % (Auto) 0.9, Baso % (Auto) 0.4, Absolute Neuts (auto) 6.2, Absolute Lymphs (auto) 0.96, Nucleated RBC % 0 03/31/22 15:10: Sodium 140, Potassium 4.5, Chloride 110 H, Carbon Dioxide 24.0, Anion Gap 6, BUN 35 H, Creatinine 1.96 H, Estim Creat Clear Calc 27.02, Est GFR (MDRD) Af Amer 43 L, Est GFR (MDRD) Non-Af 35 L, BUN/Creatinine Ratio 17.9, Glucose 158 H, Calcium 8.9, Total Bilirubin 0.60, Direct Bilirubin 0.17, AST 24, ALT 37, Alkaline Phosphatase 89, Troponin I High Sens 142 H*, Total Protein 6.9, Albumin 3.4, Globulin 3.5, Lipase 943 H 03/31/22 17:34: Troponin I High Sens 120 H 03/31/22 17:34: Magnesium 1.8 Radiology Impression Chest X-Ray 03/31/22 15:45 IMPRESSION: Nonacute portable x-ray examination of the chest. Electronically Signed: Robert Castro MD (Brooks) at 16:07 EDT , Abdomen/Pelvis CT 03/31/22 16:28 IMPRESSION: 1. Nondistended stomach. The possibility of gastritis cannot be ruled out. 2. Right renal cyst. There is no other evidence of renal, ureteral or urinary bladder abnormality. 3. Gallstones without secondary evidence of acute cholecystitis. 4. Scattered colonic diverticulosis. 5. Scoliosis and degenerative changes of the lumbar spine. Electronically Signed: Cory Talbert DO at 17:47 EDT ,
[2022-03-31 21:56] LABS: Troponin-I HS 64 pg/mL (3.0-78.0)
[2022-03-31 22:00] LABS: Bedside Glucose 132 mg/dL (74-106)
[2022-04-01] VITALS (11 sets, daily range): BP systolic 107–135; BP diastolic 45–57; PULSE 51–82; RESP 16–20; TEMP 36.4–38.6; O2SAT 92–98
[2022-04-01 02:41] LABS: Bedside Glucose 146 mg/dL (74-106)
[2022-04-01] MEDS: 0.9% Normal Saline 1,000 ML 150 ML IV ×3 (03:17→17:06)
[2022-04-01 07:00] LABS: Bedside Glucose 156 mg/dL (74-106)
--- NOTE | 2022-04-01 07:17 | PCM.PN.HOSP ---
Objective Data Objective Data Vital Signs: Vital Signs Temp Pulse Resp BP Pulse Ox O2 Del Method 98.9 F 77 16 135/57 H 93 Room Air 04/01/22 03:18 04/01/22 03:18 04/01/22 03:18 04/01/22 03:18 04/01/22 03:18 04/01/22 03:18 Oxygen Delivery Method Room Air Weight: 158 lb 15.253 oz Body Mass Index (BMI) 26.2 Intake & Output: Intake and Output for Last 24 Hours 03/30/22 03/31/22 04/01/22 23:59 23:59 23:59 Intake Total 740 / 740 1000 / 1000 Balance 740 / 740 1000 / 1000 Lab / Micro Data Result Diagrams: 03/31/22 15:10 03/31/22 15:10 Labs: Laboratory Results - last 24 hr 03/31/22 15:10: WBC 8.0, RBC 3.34 L, Hgb 11.6 L, Hct 33.0 L, MCV 98.8 H, MCH 34.7 H, MCHC 35.2, RDW Std Deviation 47.0 H, RDW Coeff of Nicole 13.2, Plt Count 198, MPV 11.5, Immature Gran % (Auto) 0.200, Neut % (Auto) 77.9 H, Lymph % (Auto) 12.0 L, [place] % (Auto) 8.6, Eos % (Auto) 0.9, Baso % (Auto) 0.4, Absolute Neuts (auto) 6.2, Absolute Lymphs (auto) 0.96, Nucleated RBC % 0 03/31/22 15:10: Sodium 140, Potassium 4.5, Chloride 110 H, Carbon Dioxide 24.0, Anion Gap 6, BUN 35 H, Creatinine 1.96 H, Estim Creat Clear Calc 27.02, Est GFR (MDRD) Af Amer 43 L, Est GFR (MDRD) Non-Af 35 L, BUN/Creatinine Ratio 17.9, Glucose 158 H, Calcium 8.9, Total Bilirubin 0.60, Direct Bilirubin 0.17, AST 24, ALT 37, Alkaline Phosphatase 89, Troponin I High Sens 142 H*, Total Protein 6.9, Albumin 3.4, Globulin 3.5, Lipase 943 H 03/31/22 17:34: Troponin I High Sens 120 H 03/31/22 17:34: Magnesium 1.8 03/31/22 20:57: POC Glucose 132 H 03/31/22 21:32: Troponin I High Sens 64 04/01/22 02:15: POC Glucose 146 H 04/01/22 06:28: POC Glucose 156 H Radiography Diagnostic Testing: Radiology Impression Chest X-Ray 03/31/22 15:45 IMPRESSION: Nonacute portable x-ray examination of the chest. Electronically Signed: Robert Castro MD (Brooks) at 16:07 EDT , Abdomen/Pelvis CT 03/31/22 16:28 IMPRESSION: 1. Nondistended stomach. The possibility of gastritis cannot be ruled out. 2. Right renal cyst. There is no other evidence of renal, ureteral or urinary bladder abnormality. 3. Gallstones without secondary evidence of acute cholecystitis. 4. Scattered colonic diverticulosis. 5. Scoliosis and degenerative changes of the lumbar spine. Electronically Signed: Cory Talbert DO at 17:47 EDT , Assessment & Plan Assessment/Plan (1) Acute pancreatitis: (2) Cholelithiasis: PLAN: Plan The patient is a 77 y/o M is being admitted to PCU for persistent abdominal pain, severe 10/10 about 1 PM on 03/31 still with nausea without vomiting with discomfort radiating to chest and midsternal region. #1. Acute pancreatitis possible gallstone pancreatitis: CT abdomen was done which shows gallstones without evidence of acute cholecystitis. No evidence of renal ureteral or renal or bladder abnormality. Lipase Radha 43. General surgery, Dr. Nielson consulted #2. Indeterminate cardiac enzyme w/ Chest pain: Twelve-lead EKG shows A. fib with T wave inversion in V1 V2 with no evidence of ischemia. Chest x-ray no acute cardiopulmonary finding. High-sensitivity troponin 142, 120. ECHO ordered. Last echo 05/22/21 with normal LV size, normal LV systolic function, EF 54%, stage I diastolic dysfunction, PASP 38 mmHg with mild AV insufficiency. Patient is on ASA, NG, morphine. #3. CAD: Status post CABG x5 and PCI, continue apixaban, aspirin, atorvastatin, not on beta-arlene therapy but noted to be on amiodarone for chronic A. fib, not on EMIGDIO inhibitor/ARB likely secondary to renal disease. #4. Diabetes mellitus type II: Currently n.p.o. Accu-Cheks every 6 hours and cover with Humalog sliding scale. #5. Chronic atrial fibrillation: continue patient home apixaban as well as amiodarone regimen. #6. Hypertension: BP was high in ED triage 195/59, last 1 normal. Continue isosorbide mononitrate with hold parameters as needed. Hold Lasix. #7. Hyperlipidemia: Continue home statin regimen. AM FLP. #8. Chronic anemia, macrocytic/Fe deficiency anemia: Admission hemoglobin 11.6, baseline appears 10-11, stable, trend, continue iron supplementation. #9. Chronic Kidney Disease Stage G4/A3: Admission BUN/Cr 35/1.96, baseline renal function appears primarily 1.7-2.3 however has fluctuated but most recently 12/25/2021 creatinine 1.8, repeat BMP in AM. #10. GERD: We will maintain on IV PPI. #11. DVT prophylaxis: SCDs, continue patient home apixaban regimen. #12. CODE status: Patient FELIPE is his nephew Patrice and living will is currently in place. Discussed CODE status at length including difference between FULL code, DNR-CCA and DNR-CC status. Following discussions about the differences in these status, requested DNR-CCA, no intubation status.
[2022-04-01 07:20] LABS: Absolute Lymphocyte Count 0.54 X10^3/uL (0.83-4.51); Absolute Neutrophil Count 9.3 X10^3/uL (2.0-7.7); Basophil# 0.01 X10^3/uL; Basophil% 0.1 % (0-1); Eosinophil# 0.01 X10^3/uL; Eosinophils% 0.1 % (0-5); Hematocrit 30.8 % (40-54); Hemoglobin 9.8 g/dL (13.0-16.5); Lymphocyte # 0.54 X10^3/ul (0.83-4.51); Mean Corp Hgb Conc 31.8 g/dL (32-36); Mean Corpuscular Hgb 31.9 pg (27.0-32.0); Mean Corpuscular Volume 100.3 fL (80-94); Monocyte# 0.91 X10^3/uL; Monocyte% 8.4 % (0-10); NRBC Flagged by Analyzer 0 % (0-5); Neutrophil # 9.25 X10^3/uL (2.7-7.7); Neutrophil % 85.5 % (47-70); POSITIVE DIFFERENTIAL YES; Platelet Count 162 K/mm3 (150-450); RBC Distribution Width CV 13.2 % (11.6-14.6); RBC Distribution Width SD 48.4 fl (35.1-43.9); Red Blood Count 3.07 M/mm3 (4.6-6.2); White Blood Count 10.8 K/mm3 (4.4-11.0)
[2022-04-01 07:21] LABS: Differential Indicated SCAN CRITERIA MET
[2022-04-01 07:48] LABS: ALB/GLOB Ratio 0.8 RATIO (0.9-2.4); AST(SGOT) 25 U/L (15-37); Alanine Aminotransfer ALT/SGPT 29 U/L (16-61); Albumin, Serum 2.7 g/dL (3.2-5.0); Alkaline Phosphatase 72 U/L (45-117); Anion Gap 5 (5-15); BUN 27 mg/dL (7-18); BUN/Creat Ratio 15.8 RATIO (10-20); Calcium,Total 8.2 mg/dL (8.5-10.1); Chloride 113 mmol/L (98-107); Cholesterol 150 mg/dL (200); Creatinine, Serum 1.71 mg/dL (0.70-1.30); EST Glomerular Filtration Rate 41 mL/min (>60); Est Glom Filt Rate - Afr Amer 50 mL/min (>60); Estimated Creatinine Clearance 30.97 ml/min; Globulin 3.3 g/dL (2.2-4.2); Glucose 158 mg/dL (74-106); High Density Lipoprotein 62 mg/dL; Lipase 78 U/L (73-393); Potassium 4.2 mmol/L (3.5-5.1); Sodium Level 143 mmol/L (136-145); Triglycerides 77 mg/dL; Very Low Density Lipoprotein 15 mg/dL (5-40)
[2022-04-01 08:22] LABS: Differential Comment SCANNED
[2022-04-01] MEDS: Ferrous Sulfate 325 MG Tablet PO (08:34)
[2022-04-01] MEDS: Aspirin 81 MG TAB.CHEW PO (08:34)
[2022-04-01] MEDS: Isosorbide Mononitrate 60 MG Tablet PO (09:40)
[2022-04-01] MEDS: Ranolazine 500 MG Tablet 1000 MG PO ×2 (09:40→21:26)
[2022-04-01] MEDS: APIXABAN 5 MG TABLET PO (09:40)
--- NOTE | 2022-04-01 09:40 | PN.SURG_ITS ---
Subjective Subjective patient states that pain is under control with pain meds he would like sips of water Objective Data Objective Data Vital Signs: Vital Signs Temp Pulse Resp BP Pulse Ox O2 Del Method 98.8 F 68 17 130/55 H 97 Room Air 04/01/22 09:25 04/01/22 09:25 04/01/22 09:25 04/01/22 09:25 04/01/22 09:25 04/01/22 09:25 Oxygen Delivery Method Room Air Weight: 72.1 kg Body Mass Index (BMI) 26.2 Intake & Output: Intake and Output for Last 24 Hours 03/30/22 03/31/22 04/01/22 23:59 23:59 23:59 Intake Total 740 / 740 1000 / 1000 Balance 740 / 740 1000 / 1000 Lab / Micro Data Attestation: I reviewed the patient's lab results. Result Diagrams: 04/01/22 06:35 04/01/22 06:35 Labs: Laboratory Results - last 24 hr 03/31/22 15:10: WBC 8.0, RBC 3.34 L, Hgb 11.6 L, Hct 33.0 L, MCV 98.8 H, MCH 34.7 H, MCHC 35.2, RDW Std Deviation 47.0 H, RDW Coeff of Nicole 13.2, Plt Count 198, MPV 11.5, Immature Gran % (Auto) 0.200, Neut % (Auto) 77.9 H, Lymph % (Auto) 12.0 L, [place] % (Auto) 8.6, Eos % (Auto) 0.9, Baso % (Auto) 0.4, Absolute Neuts (auto) 6.2, Absolute Lymphs (auto) 0.96, Nucleated RBC % 0 03/31/22 15:10: Sodium 140, Potassium 4.5, Chloride 110 H, Carbon Dioxide 24.0, Anion Gap 6, BUN 35 H, Creatinine 1.96 H, Estim Creat Clear Calc 27.02, Est GFR (MDRD) Af Amer 43 L, Est GFR (MDRD) Non-Af 35 L, BUN/Creatinine Ratio 17.9, Glucose 158 H, Calcium 8.9, Total Bilirubin 0.60, Direct Bilirubin 0.17, AST 24, ALT 37, Alkaline Phosphatase 89, Troponin I High Sens 142 H*, Total Protein 6.9, Albumin 3.4, Globulin 3.5, Lipase 943 H 03/31/22 17:34: Troponin I High Sens 120 H 03/31/22 17:34: Magnesium 1.8 03/31/22 20:57: POC Glucose 132 H 03/31/22 21:32: Troponin I High Sens 64 04/01/22 02:15: POC Glucose 146 H 04/01/22 06:28: POC Glucose 156 H 04/01/22 06:35: WBC 10.8, RBC 3.07 L, Hgb 9.8 L, Hct 30.8 L, MCV 100.3 H, MCH 31.9, MCHC 31.8 L D, RDW Std Deviation 48.4 H, RDW Coeff of Nicole 13.2, Plt Count 162, MPV 11.0, Immature Gran % (Auto) 0.900, Neut % (Auto) 85.5 H, Lymph % (Auto) 5.0 L, [place] % (Auto) 8.4, Eos % (Auto) 0.1, Baso % (Auto) 0.1, Absolute Neuts (auto) 9.3 H, Absolute Lymphs (auto) 0.54 L, Nucleated RBC % 0, Differ ential Comment SCANNED 04/01/22 06:35: Sodium 143, Potassium 4.2, Chloride 113 H, Carbon Dioxide 25.0, Anion Gap 5, BUN 27 H, Creatinine 1.71 H, Estim Creat Clear Calc 30.97, Est GFR (MDRD) Af Amer 50 L, Est GFR (MDRD) Non-Af 41 L, BUN/Creatinine Ratio 15.8, Glucose 158 H, Calcium 8.2 L, Total Bilirubin 0.70, AST 25, ALT 29, Alkaline Phosphatase 72, Total Protein 6.0 L, Albumin 2.7 L, Globulin 3.3, Albumin/Globulin Ratio 0.8 L, Triglycerides 77, Cholesterol 150, LDL Cholesterol 73, VLDL Cholesterol 15, HDL Cholesterol 62, Lipase 78 Radiography Diagnostic Testing: Radiology Impression Chest X-Ray 03/31/22 15:45 IMPRESSION: Nonacute portable x-ray examination of the chest. Electronically Signed: Robert Castro MD (Brooks) at 16:07 EDT Reading Location ID and State: [facility] / [place] , Service support , Abdomen/Pelvis CT 03/31/22 16:28 IMPRESSION: 1. Nondistended stomach. The possibility of gastritis cannot be ruled out. 2. Right renal cyst. There is no other evidence of renal, ureteral or urinary bladder abnormality. 3. Gallstones without secondary evidence of acute cholecystitis. 4. Scattered colonic diverticulosis. 5. Scoliosis and degenerative changes of the lumbar spine. Electronically Signed: Cory Talbert DO at 17:47 EDT Reading Location ID and State: [address] [place] [address] Tel [phone], Service support , Physical Exam Const alert, oriented x3 and no apparent distress Neck supple Resp normal respiratory effort Effort and Inspection: able to speak in complete sentences GI GI Narrative: abdomen is soft but still slight tenderness in the epigastrium but much decreased Assessment & Plan Assessment/Plan (1) Cholelithiasis: PLAN: gallstone pancreatitis - pancreatitis has resolved - serum lipase levels have normalized patient still undergoing cardiac workup and I have explained to him that he will not be able to have surgery until this has been completed. Patient acknowledges this Continue present therapy
[2022-04-01] MEDS: Amiodarone 200 MG Tablet 100 MG PO (09:41)
--- NOTE | 2022-04-01 12:13 | PN.HOSP_ITS ---
Documented by User: Jaclyn Carvalho NP, APPLICATIONS PROGRAMMER-C 04/01/22 12:19 Subjective Subjective Patient seen and examined. Reports abdominal pain with deep breathing and movement. Denies chest pain. Denies shortness of breath. Denies fever, chills. Objective Data Objective Data Vital Signs: Vital Signs Temp Pulse Resp BP Pulse Ox O2 Del Method 98.8 F 68 17 130/55 H 97 Room Air 04/01/22 09:25 04/01/22 09:25 04/01/22 09:25 04/01/22 09:25 04/01/22 09:04/01/22 09:25 Oxygen Delivery Method Room Air Weight: 158 lb 15.253 oz Body Mass Index (BMI) 26.2 Intake & Output: Intake and Output for Last 24 Hours 03/30/22 03/31/22 04/01/22 23:59 23:59 23:59 Intake Total 740 / 740 0 / 2110 Balance 740 / 740 0 / 2109 Lab / Micro Data Result Diagrams: 04/01/22 06:35 04/01/22 06:35 Labs: Laboratory Results - last 24 hr 03/31/22 15:10: WBC 8.0, RBC 3.34 L, Hgb 11.6 L, Hct 33.0 L, MCV 98.8 H, MCH 34.7 H, MCHC 35.2, RDW Std Deviation 47.0 H, RDW Coeff of Nicole 13.2, Plt Count 198, MPV 11.5, Immature Gran % (Auto) 0.200, Neut % (Auto) 77.9 H, Lymph % (Auto) 12.0 L, [place] % (Auto) 8.6, Eos % (Auto) 0.9, Baso % (Auto) 0.4, Absolute Neuts (auto) 6.2, Absolute Lymphs (auto) 0.96, Nucleated RBC % 0 03/31/22 15:10: Sodium 140, Potassium 4.5, Chloride 110 H, Carbon Dioxide 24.0, Anion Gap 6, BUN 35 H, Creatinine 1.96 H, Estim Creat Clear Calc 27.02, Est GFR (MDRD) Af Amer 43 L, Est GFR (MDRD) Non-Af 35 L, BUN/Creatinine Ratio 17.9, Glucose 158 H, Calcium 8.9, Total Bilirubin 0.60, Direct Bilirubin 0.17, AST 24, ALT 37, Alkaline Phosphatase 89, Troponin I High Sens 142 H*, Total Protein 6.9, Albumin 3.4, Globulin 3.5, Lipase 943 H 03/31/22 17:34: Troponin I High Sens 120 H 03/31/22 17:34: Magnesium 1.8 03/31/22 20:57: POC Glucose 132 H 03/31/22 21:32: Troponin I High Sens 64 04/01/22 02:15: POC Glucose 146 H 04/01/22 06:28: POC Glucose 156 H 04/01/22 06:35: WBC 10.8, RBC 3.07 L, Hgb 9.8 L, Hct 30.8 L, MCV 100.3 H, MCH 31.9, MCHC 31.8 L D, RDW Std Deviation 48.4 H, RDW Coeff of Nicole 13.2, Plt Count 162, MPV 11.0, Immature Gran % (Auto) 0.900, Neut % (Auto) 85.5 H, Lymph % (Auto) 5.0 L, [place] % (Auto) 8.4, Eos % (Auto) 0.1, Baso % (Auto) 0.1, Absolute Neuts (auto) 9.3 H, Absolute Lymphs (auto) 0.54 L, Nucleated RBC % 0, Differential Comment SCANNED 04/01/22 06:35: Sodium 143, Potassium 4.2, Chloride 113 H, Carbon Dioxide 25.0, Anion Gap 5, BUN 27 H, Creatinine 1.71 H, Estim Creat Clear Calc 30.97, Est GFR (MDRD) Af Amer 50 L, Est GFR (MDRD) Non-Af 41 L, BUN/Creatinine Ratio 15.8, Gluc ose 158 H, Calcium 8.2 L, Total Bilirubin 0.70, AST 25, ALT 29, Alkaline Phosphatase 72, Total Protein 6.0 L, Albumin 2.7 L, Globulin 3.3, Albumin/Globulin Ratio 0.8 L, Triglycerides 77, Cholesterol 150, LDL Cholesterol 73, VLDL Cholesterol 15, HDL Cholesterol 62, Lipase 78 Radiography Diagnostic Testing: Radiology Impression Chest X-Ray 03/31/22 15:45 IMPRESSION: Nonacute portable x-ray examination of the chest. Electronically Signed: Robert Castro MD (Brooks) at 16:07 EDT , Abdomen/Pelvis CT 03/31/22 16:28 IMPRESSION: 1. Nondistended stomach. The possibility of gastritis cannot be ruled out. 2. Right renal cyst. There is no other evidence of renal, ureteral or urinary bladder abnormality. 3. Gallstones without secondary evidence of acute cholecystitis. 4. Scattered colonic diverticulosis. 5. Scoliosis and degenerative changes of the lumbar spine. Electronically Signed: Cory Talbert DO at 17:47 EDT , Physical Exam Const alert and oriented x3 HEENT normocephalic and moist oral mucous membranes Eyes PERRL, EOMs intact bilaterally and conjunctivae normal Neck no lymphadenopathy Resp normal respiratory effort and clear to auscultation bilaterally Cardio regular rate, regular rhythm and no murmurs Peripheral Pulses: pulses 2+ throughout GI normal to inspection, nondistended, normoactive bowel sounds and non-distended Palpation: tender Extremity normal to inspection Skin no rashes or lesions noted Lesions: no lesions Rashes: no rashes Trauma: no lacerations or abrasions Neuro CN's II-XII intact bilaterally, no focal motor deficits, no sensory deficits noted and deep tendon reflexes 2+ bilaterally Psych mental status grossly normal and affect normal Assessment & Plan Assessment/Plan (1) Acute pancreatitis: (2) Elevated troponin: PLAN: Plan 1. Acute gallstone pancreatitis-General surgery consulted. Plan for laparoscopic cholecystectomy pending cardiac evaluation. Clear liquid diet. As needed pain regimen. Hold Eliquis given plans for surgical intervention. 2. Indeterminate cardiac enzymes-cardiology consulted. Enzymes did not trend. EKG without evidence of ischemia. Echocardiogram ordered. Patient does not have any concerning cardiac symptoms. 3. CAD with history of CABG and PCI-continue aspirin, statin. 4. Chronic atrial fibrillation-on anticoagulation with Eliquis. Continue amiodarone. 5. Type 2 diabetes [id number] with sliding scale insulin. 6. Hypertension-stable, continue home regimen. 7. Hyperlipidemia-continue statin. 8. Chronic anemia, macrocytic-appears stable. 9. Chronic kidney disease stage IIIb- appears at baseline. 10. GERD-continue PPI. DVT prophylaxis-SCDs This patient was seen by AYDE Gage under the supervision of Dr. Rose. Time spent examining patient, reviewing data and subsequent management of care: 16 minutes Documented by User: Dr. Israel Rose MD 04/01/22 14:13 Subjective Subjective Patient seen and examined. Reports abdominal pain with deep breathing and movement. Denies chest pain. Denies shortness of breath. Denies fever, chills. . Follow-up for abdominal pain, chest pain with history of coronary artery status post CABG. Patient came with upper abdominal right upper quadrant pain, got little better but still has about 5-6/10 intensity. No prior history of cholecystitis, gallstone. No fever. Objective Data Lab / Micro Data Result Diagrams: 04/01/22 06:35 04/01/22 06:35 Labs: Laboratory Results - last 24 hr 03/31/22 15:10: WBC 8.0, RBC 3.34 L, Hgb 11.6 L, Hct 33.0 L, MCV 98.8 H, MCH 34. 7 H, MCHC 35.2, RDW Std Deviation 47.0 H, RDW Coeff of Nicole 13.2, Plt Count 198, MPV 11.5, Immature Gran % (Auto) 0.200, Neut % (Auto) 77.9 H, Lymph % (Auto) 12.0 L, [place] % (Auto) 8.6, Eos % (Auto) 0.9, Baso % (Auto) 0.4, Absolute Neuts (auto) 6.2, Absolute Lymphs (auto) 0.96, Nucleated RBC % 0 03/31/22 15:10: Sodium 140, Potassium 4.5, Chloride 110 H, Carbon Dioxide 24.0, Anion Gap 6, BUN 35 H, Creatinine 1.96 H, Estim Creat Clear Calc 27.02, Est GFR (MDRD) Af Amer 43 L, Est GFR (MDRD) Non-Af 35 L, BUN/Creatinine Ratio 17.9, Glucose 158 H, Calcium 8.9, Total Bilirubin 0.60, Direct Bilirubin 0.17, AST 24, ALT 37, Alkaline Phosphatase 89, Troponin I High Sens 142 H*, Total Protein 6.9, Albumin 3.4, Globulin 3.5, Lipase 943 H 03/31/22 17:34: Troponin I High Sens 120 H 03/31/22 17:34: Magnesium 1.8 03/31/22 20:57: POC Glucose 132 H 03/31/22 21:32: Troponin I High Sens 64 04/01/22 02:15: POC Glucose 146 H 04/01/22 06:28: POC Glucose 156 H 04/01/22 06:35: WBC 10.8, RBC 3.07 L, Hgb 9.8 L, Hct 30.8 L, MCV 100.3 H, MCH 31.9, MCHC 31.8 L D, RDW Std Deviation 48.4 H, RDW Coeff of Nicole 13.2, Plt Count 162, MPV 11.0, Immature Gran % (Auto) 0.900, Neut % (Auto) 85.5 H, Lymph % (Auto) 5.0 L, [place] % (Auto) 8.4, Eos % (Auto) 0.1, Baso % (Auto) 0.1, Absolute Neuts (auto) 9.3 H, Absolute Lymphs (auto) 0.54 L, Nucleated RBC % 0, Differential Comment SCANNED 04/01/22 06:35: Sodium 143, Potassium 4.2, Chloride 113 H, Carbon Dioxide 25.0, Anion Gap 5, BUN 27 H, Creatinine 1.71 H, Estim Creat Clear Calc 30.97, Est GFR (MDRD) Af Amer 50 L, Est GFR (MDRD) Non-Af 41 L, BUN/Creatinine Ratio 15.8, Glucose 158 H, Calcium 8.2 L, Total Bilirubin 0.70, AST 25, ALT 29, Alkaline Phosphatase 72, Total Protein 6.0 L, Albumin 2.7 L, Globulin 3.3, Albumin/Globulin Ratio 0.8 L, Triglycerides 77, Cholesterol 150, LDL Cholesterol 73, VLDL Cholesterol 15, HDL Cholesterol 62, Lipase 78 Radiography Diagnostic Testing: Radiology Impression Chest X-Ray 03/31/22 15:45 IMPRESSION: Nonacute portable x-ray examination of the chest. Abdomen/Pelvis CT 03/31/22 16:28 IMPRESSION: 1. Nondistended stomach. The possibility of gastritis cannot be ruled out. 2. Right renal cyst. There is no other evidence of renal, ureteral or urinary bladder abnormality. 3. Gallstones without secondary evidence of acute cholecystitis. 4. Scattered colonic diverticulosis. 5. Scoliosis and degenerative changes of the lumbar spine. Physical Exam Narrative Seen and examined. Physical exam General: Alert, Oriented x3, Cooperative HEENT: Atraumatic, PERRLA, EOMI, Normocephalic Oral: No Gingival or Mucosal Lesions/ Ulcerations Neck: Supple, No JVD, Negative Carotid Bruits Lungs: Air entry diminished in bilateral lung bases. No crepitation/rhonchi Cardiovascular: Mild tenderness over the xiphisternum/lower sternum. Status post CABG scar. Regular rate, Regular Rhythm, Normal S1, Normal S2, systolic murmur over cardiac apex and LLSB Abdomen: Soft, tenderness present over epigastrium and right upper quadrant. No palpable mass. Bowel Sounds Present, nondistended. : No renal angle tenderness. No suprapubic tenderness. Extremities: No edema, Capillary Refill Less than 3 Seconds Skin: No rashes, No breakdown Musculoskeletal: No Tenderness to Palpation of Joints or Extremities. Range of motion intact Neurological: Cranial nerves II-XII grossly intact, DTR 2+/4 and Symmetrical, Neuro grossly intact Psych/Mental Status: Normal Affect, Appropriate. Assessment & Plan Assessment/Plan (1) Acute pancreatitis: (2) Elevated troponin: PLAN: Plan 1. Acute gallstone pancreatitis-General surgery consulted. Plan for laparoscopic cholecystectomy pending cardiac evaluation. Clear liquid diet. As needed pain regimen. Hold Eliquis given plans for surgical intervention. 2. Indeterminate cardiac enzymes-cardiology consulted. Enzymes did not trend. EKG without evidence of ischemia. Echocardiogram ordered. Patient does not have any concerning cardiac symptoms. 3. CAD with history of CABG and PCI-continue aspirin, statin. 4. Chronic atrial fibrillation-on anticoagulation with Eliquis. Continue amiod arone. 5. Type 2 diabetes [id number] with sliding scale insulin. 6. Hypertension-stable, continue home regimen. 7. Hyperlipidemia-continue statin. 8. Chronic anemia, macrocytic-appears stable. 9. Chronic kidney disease stage IIIb- appears at baseline. 10. GERD-continue PPI. DVT prophylaxis-SCDs This patient was seen by AYDE Gage under the supervision of Dr. Rose. Time spent examining patient, reviewing data and subsequent management of care: 15 minutes This patient was seen in conjunction with Jaclyn GOLDMAN. I have independently interviewed and examined the patient and reviewed pertinent history, examination findings, laboratory and plan of management. I have reviewed the note and agree with the documented findings with the few additional points. In brief, The patient is a 77 y/o M is being admitted to PCU for persistent abdominal pain, severe 10/10 about 1 PM on 03/31 still with nausea without vomiting with discomfort radiating to chest and midsternal region. 1.?Acute pancreatitis possible gallstone pancreatitis: CT abdomen was done which shows gallstones without evidence of acute cholecystitis.? No evidence of renal ureteral or renal or bladder abnormality.? Lipase 943.? General surgery, Dr.? Nielson consulted and discussed. Needs his cardiac conditions optimized prior to surgery. Clinical Safety Specialist was consulted and requires clearance. NPO. On IV fluid 2. Atypical lower chest pain probably transmitted pain from acute pancreatitis/epigastrium: hs?troponins shows decreasing trends. Patient does not have typical angina pain or other associated symptoms like shortness of breath diaphoresis suggestive of ACS. Chest x-ray no acute cardiopulmonary finding. Twelve-lead EKG shows A. fib with T wave inversion V1 V2 with no acute evidence of ischemia. 2D echo is ordered. Clinical Safety Specialist consulted. 3. Cardiac distress 5 vessel CABG status post PCI: Continue aspirin and statin 4. Chronic A. fib on Eliquis: Hold Eliquis for surgery. Continue amiodarone 5. Multiple other comorbidities include type 2 diabetes mellitus, hypertension, dyslipidemia, chronic macrocytic anemia, CKD stage IIIb, GERD: Home medication reconciliation done. Total time of the visit including total time spent in counseling or coordination of care, (more than 50% of the total time, spent in obtaining medical information from nurses and other ancillary care providers,explaining to the patient about labs, imaging, diagnosis and management), , review of labs and imaging is 45 minutes. I spent 30 minutes and Jaclyn, and I spent 15 minutes I have discussed my assessment with APPLICATIONS PROGRAMMER, Jaclyn and orders have been reviewed. Charges/Coding Visit Charges Inpatient E&M: 70422 Subs Hosp L3
[2022-04-01 14:16] LABS: Bedside Glucose 165 mg/dL (74-106)
[2022-04-01] MEDS: Morphine 4 MG/ML Syringe IV (15:54)
--- NOTE | 2022-04-01 16:34 | PCM.CONS.C ---
Assessment & Plan Assessment/Plan (1) Preoperative cardiovascular examination: PLAN: Patient does not require any further preoperative cardiovascular testing prior to lap cholecystectomy. His borderline troponin elevation is likely due to a combination of underlying coronary artery disease and current acute medical illness. It does not appear to be due to a primary acute coronary syndrome. Okay to hold Eliquis for the procedure. Patient would be considered low risk for perioperative cardiac complications from this procedure. HPI Consult Data Date of Consult: 04/01/22 HPI Narrative Reason for Consultation: Preoperative cardiac evaluation HPI Narrative: PEGGY EASTON, is a 77 M who presents with epigastric discomfort. He has epigastric discomfort and elevated lipase and was diagnosed with gallstone pancreatitis. Lap cholecystectomy is being considered and cardiology consulted for preoperative cardiac evaluation. Patient has history of underlying CAD with CABG (2002: BUCKNER to the LAD/diagonal branch-sequential graft, SVG to the LCx x2-sequential graft, and SVG to the RCA), status post PCI/stent to the SVG to the LCx and the SVG to the RCA-2010, status post PCI/stent to the SVG to the RCA-2011, status post EECP therapy, atrial fibrillation, hyperlipidemia, and hypertension. He states that he had retrosternal pressure-like chest discomfort prior to CABG and PCI. The epigastric discomfort that he has now is different. He has not had anginal chest discomfort for over a year. He can easily walk half a mile without any problems. He had a 2D echo in May of last year which showed preserved EF. He had a stress test around that time also which was reviewed and revealed mild inferolateral ischemia. He has been doing well with medical therapy for this. Review of systems: All systems reviewed. 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 Home Medications ascorbic acid (vitamin C) 500 mg tablet 500 mg PO DAILY@0800 supplement 11/06/16 [History Last Taken 11/17/20] ferrous sulfate 325 mg (65 mg iron) tablet 325 mg PO DAILY@0800 supplement 11/06/16 [History Last Taken 11/16/20] multivitamin with folic acid 400 mcg tablet 1 tab PO DAILY supplement 11/06/16 [History Last Taken 11/17/20] nitroglycerin 0.4 mg sublingual tablet 0.4 mg sublingual Q5M PRN Chest Pain #25 tabs 10/22/18 [Rx Last Taken 2 Weeks Ago ~11/03/20] liraglutide 0.6 mg/0.1 mL (18 mg/3 mL) subcutaneous pen injector 1.8 mg SQ DAILY diabetes 12/05/18 [History Last Taken 11/17/20] ranitidine HCl 150 mg tablet 150 mg PO DAILY GERD 10/26/20 [History Last Taken 11/17/20] aspirin 81 mg chewable tablet 81 mg PO DAILY ##1 11/21/20 [Rx Last Taken Unknown] atorvastatin 40 mg tablet 40 mg PO QDAY cholesterol #90 tabs 09/21/21 [Rx Last Taken Unknown] cholecalciferol (vitamin D3) 50 mcg (2,000 unit) capsule 2,000 unit PO BID SUPPLEMENT 10/02/21 [History Last Taken Unknown] isosorbide mononitrate 60 mg tablet,extended release 24 hr 60 mg PO DAILY #90 tabs 11/07/21 [Rx Last Taken Unknown] furosemide 40 mg tablet 40 mg PO DAILY #30 tabs 11/20/21 [Rx Last Taken Unknown] amiodarone 200 mg tablet 100 mg PO DAILY #90 tabs 12/28/21 [Rx Last Taken Unknown] apixaban 5 mg tablet 5 mg PO BID #60 tabs 12/29/21 [Rx Last Taken Unknown] ranolazine 1,000 mg tablet,extended release,12 hr 1,000 mg PO BID #180 tabs 01/30/22 [Rx Last Taken Unknown] vitamin B complex-vitamin C-folic acid 0.8 mg tablet (Nephro-Redd) 1 tab PO DAILY supplement 03/28/22 [History Last Taken Unknown] vitamin B complex-vitamin C-folic acid 0.8 mg tablet (Nephro-Redd) 1 tab PO DAILY 03/31/22 [History Last Taken Unknown] Allergy/AdvReac Type Severity Reaction Status Date / Time Iodinated Contrast Media Allergy made me Verified 03/31/22 14:38 [Iodinated Contrast Media - hot and Oral and] they never used it again Family History Father Diabetes Cancer leukemia Sister Diabetes Mother Cancer Uterine cancer that metastasized including to brain. Surgical History H/O coronary artery bypass surgery (~08/31/03) Presence of coronary angioplasty implant and graft (~08/20/12) Status post left heart catheterization (LHC) (~12/08/18) Social History household members: none Smoking Status: Never smoker alcohol intake: never substance use type: does not use caffeine: Yes what type of physical activity do you participate in: none Physical Exam Const alert and oriented x3 Eyes no scleral icterus Neck no JVD Resp clear to auscultation bilaterally Cardio regular rate and regular rhythm GI GI Narrative: Epigastric tenderness Extremity no pedal edema Skin no rashes or lesions noted Psych mental status grossly normal Risk Stratification Risk Stratification Applicable: No Charges/Coding Visit Charges Inpatient E&M: 70332 Init Hosp L2 Objective Data Vital Signs: Vital Signs Temp Pulse Resp BP Pulse Ox O2 Del Method 97.6 F L 56 L 17 123/45 H 95 Room Air 04/01/22 15:48 04/01/22 15:48 04/01/22 15:48 04/01/22 15:48 04/01/22 15:48 04/01/22 15:48 Oxygen Delivery Method Room Air Weight: 158 lb 15.253 oz Body Mass Index (BMI) 26.2 Intake & Output: Intake and Output for Last 24 Hours 03/30/22 03/31/22 04/01/22 23:59 23:59 23:59 Intake Total 740 / 740 2610 / 2610 Balance 740 / 740 2610 / 2610 Lab / Micro Data Result Diagrams: 04/01/22 06:35 04/01/22 06:35 Labs: Laboratory Results - last 24 hr 03/31/22 15:10: Troponin I High Sens 142 H* 03/31/22 17:34: Troponin I High Sens 120 H 03/31/22 17:34: Magnesium 1.8 03/31/22 20:57: POC Glucose 132 H 03/31/22 21:32: Troponin I High Sens 64 04/01/22 02:15: POC Glucose 146 H 04/01/22 06:28: POC Glucose 156 H 04/01/22 06:35: WBC 10.8, RBC 3.07 L, Hgb 9.8 L, Hct 30.8 L, MCV 100.3 H, MCH 31.9, MCHC 31.8 L D, RDW Std Deviation 48.4 H, RDW Coeff of Nicole 13.2, Plt Count 162, MPV 11.0, Immature Gran % (Auto) 0.900, Neut % (Auto) 85.5 H, Lymph % (Auto) 5.0 L, [place] % (Auto) 8.4, Eos % (Auto) 0.1, Baso % (Auto) 0.1, Absolute Neuts (auto) 9.3 H, Absolute Lymphs (auto) 0.54 L, Nucleated RBC % 0, Differential Comment SCANNED 04/01/22 06:35: Sodium 143, Potassium 4.2, Chloride 113 H, Carbon Dioxide 25.0, Anion Gap 5, BUN 27 H, Creatinine 1.71 H, Estim Creat Clear Calc 30.97, Est GFR (MDRD) Af Amer 50 L, Est GFR (MDRD) Non-Af 41 L, BUN/Creatinine Ratio 15.8, Glucose 158 H, Calcium 8.2 L, Total Bilirubin 0.70, AST 25, ALT 29, Alkaline Phosphatase 72, Total Protein 6.0 L, Albumin 2.7 L, Globulin 3.3, Albumin/Globulin Ratio 0.8 L, Triglycerides 77, Cholesterol 150, LDL Cholesterol 73, VLDL Cholesterol 15, HDL Cholesterol 62, Lipase 78 04/01/22 13:54: POC Glucose 165 H Cardiology Labs/Tests 03/31/22 17:34: Magnesium 1.8 04/01/22 06:35: WBC 10.8, RBC 3.07 L, Hgb 9.8 L, Hct 30.8 L, MCV 100.3 H, MCH 31.9, MCHC 31.8 L D, Plt Count 162, MPV 11.0, Immature Gran % (Auto) 0.900, Neut % (Auto) 85.5 H, Lymph % (Auto) 5.0 L, [place] % (Auto) 8.4, Eos % (Auto) 0.1, Baso % (Auto) 0.1, Absolute Neuts (auto) 9.3 H, Nucleated RBC % 0 04/01/22 06:35: Sodium 143, Potassium 4.2, Chloride 113 H, Carbon Dioxide 25.0, Anion Gap 5, BUN 27 H, Creatinine 1.71 H, Est GFR (MDRD) Af Amer 50 L, Est GFR (MDRD) Non-Af 41 L, BUN/Creatinine Ratio 15.8, Glucose 158 H, Calcium 8.2 L, Total Bilirubin 0.70, Triglycerides 77, Cholesterol 150, LDL Cholesterol 73, VLDL Cholesterol 15, HDL Cholesterol 62 Rhythm: EKG: ECHO: Stress Test: Cardiac Cath: PCI: CT Surgery: Holter monitor: EPS: PPM: CXR: Chest CT Scan: Radiography Diagnostic Testing: Radiology Impression Abdomen/Pelvis CT 03/31/22 16:28 IMPRESSION: 1. Nondistended stomach. The possibility of gastritis cannot be ruled out. 2. Right renal cyst. There is no other evidence of renal, ureteral or urinary bladder abnormality. 3. Gallstones without secondary evidence of acute cholecystitis. 4. Scattered colonic diverticulosis. 5. Scoliosis and degenerative changes of the lumbar spine. Electronically Signed: Cory Talbert DO at 17:47 EDT Reading Location ID and State: [address] [place] [address] Tel [phone], Service support ,
[2022-04-01] MEDS: Acetaminophen 325 MG Tablet 650 MG PO (21:24)
[2022-04-01] MEDS: Atorvastatin Calcium 40 MG Tablet PO (21:26)
[2022-04-01 23:21] LABS: Bedside Glucose 147 mg/dL (74-106)
[2022-04-02] VITALS (12 sets, daily range): BP systolic 105–127; BP diastolic 51–65; PULSE 49–67; RESP 16–20; TEMP 36.7–38.4; O2SAT 87–94; BMI 26.5
[2022-04-02] MEDS: 0.9% Normal Saline 1,000 ML 150 ML IV ×2 (00:39→07:31)
[2022-04-02 02:51] LABS: Bedside Glucose 126 mg/dL (74-106)
[2022-04-02] MEDS: Morphine 4 MG/ML Syringe IV (06:18)
[2022-04-02 06:26] LABS: Absolute Lymphocyte Count 0.79 X10^3/uL (0.83-4.51); Absolute Neutrophil Count 9.7 X10^3/uL (2.0-7.7); Basophil# 0.02 X10^3/uL; Basophil% 0.2 % (0-1); Hematocrit 29.9 % (40-54); Hemoglobin 9.4 g/dL (13.0-16.5); Lymphocyte # 0.79 X10^3/ul (0.83-4.51); Lymphocyte % 6.9 % (19-41); Mean Corp Hgb Conc 31.4 g/dL (32-36); Mean Corpuscular Hgb 32.2 pg (27.0-32.0); Mean Corpuscular Volume 102.4 fL (80-94); Mean Platelet Vol. 11.1 fl (6.2-12.0); Monocyte# 0.73 X10^3/uL; Monocyte% 6.3 % (0-10); NRBC Flagged by Analyzer 0 % (0-5); Neutrophil # 9.74 X10^3/uL (2.7-7.7); Neutrophil % 84.5 % (47-70); Platelet Count 135 K/mm3 (150-450); RBC Distribution Width CV 13.6 % (11.6-14.6); RBC Distribution Width SD 51.5 fl (35.1-43.9); Red Blood Count 2.92 M/mm3 (4.6-6.2); White Blood Count 11.5 K/mm3 (4.4-11.0)
[2022-04-02 06:40] LABS: International Normalized Ratio 2.2; Prothrombin Time (Protime)PT. 23.6 SECONDS (11.7-14.9)
[2022-04-02 06:49] LABS: Anion Gap 5 (5-15); BUN 35 mg/dL (7-18); BUN/Creat Ratio 15.6 RATIO (10-20); Calcium,Total 7.8 mg/dL (8.5-10.1); Chloride 113 mmol/L (98-107); Creatinine, Serum 2.25 mg/dL (0.70-1.30); EST Glomerular Filtration Rate 30 mL/min (>60); Est Glom Filt Rate - Afr Amer 37 mL/min (>60); Estimated Creatinine Clearance 23.54 ml/min; Glucose 145 mg/dL (74-106); Lipase 636 U/L (73-393); Potassium 4.7 mmol/L (3.5-5.1); Sodium Level 139 mmol/L (136-145)
--- NOTE | 2022-04-02 08:03 | PN.SURG_ITS ---
Subjective Subjective patient still complaint of pain of the epigastrium States that pain medications just takes the edge off <the pain> Objective Data Objective Data Vital Signs: Vital Signs Temp Pulse Resp BP Pulse Ox O2 Del Method O2 Flow Rate 100.6 F H 61 18 112/58 L 94 Room Air 2 04/02/22 05:30 04/02/22 07:00 04/02/22 05:30 04/02/22 05:30 04/02/22 05:30 04/02/22 05:30 04/01/22 23:30 Oxygen Flow Rate (L/min) 2 Oxygen Delivery Method Room Air Weight: 72.4 kg Body Mass Index (BMI) 26.2 Intake & Output: Intake and Output for Last 24 Hours 03/31/22 04/01/22 04/02/22 23:59 23:59 23:59 Intake Total 740 / 740 5140 / 5140 1000 / 1000 Balance 740 / 740 5140 / 5140 1000 / 1000 Lab / Micro Data Attestation: I reviewed the patient's lab results. Result Diagrams: 04/02/22 05:50 04/02/22 05:50 Labs: Laboratory Results - last 24 hr 04/01/22 06:35: Differential Comment SCANNED 04/01/22 13:54: POC Glucose 165 H 04/01/22 21:22: POC Glucose 147 H 04/02/22 02:11: POC Glucose 126 H 04/02/22 05:50: Sodium 139, Potassium 4.7, Chloride 113 H, Carbon Dioxide 21.0, Anion Gap 5, BUN 35 H, Creatinine 2.25 H, Estim Creat Clear Calc 23.54, Est GFR (MDRD) Af Amer 37 L, Est GFR (MDRD) Non-Af 30 L, BUN/Creatinine Ratio 15.6, Glucose 145 H, Calcium 7.8 L, Lipase 636 H 04/02/22 05:50: WBC 11.5 H, RBC 2.92 L, Hgb 9.4 L, Hct 29.9 L, MCV 102.4 H, MCH 32.2 H, MCHC 31.4 L, RDW Std Deviation 51.5 H, RDW Coeff of Nicole 13.6, Plt Count 135 L, MPV 11.1, Immature Gran % (Auto) 2.100 H, Neut % (Auto) 84.5 H, Lymph % (Auto) 6.9 L, [place] % (Auto) 6.3, Eos % (Auto) 0.0, Baso % (Auto) 0.2, Absolute Neuts (auto) 9.7 H, Absolute Lymphs (auto) 0.79 L, Nucleated RBC % 0 04/02/22 05:50: PT 23.6 H, INR 2.2 Physical Exam Const alert and oriented x3 HEENT normocephalic Neck supple Resp normal respiratory effort Effort and Inspection: able to speak in complete sentences GI GI Narrative: abdomen is soft, but tender in the epigastrium to palpation Assessment & Plan Assessment/Plan (1) Cholelithiasis: PLAN: patient has been cleared by cardiology for surgery He last had an eliquis dose on Saturday I had him tentatively scheduled for tomorrow afternoon, but then upon review - his INR is elevated and he is still on aspirin. Will therefore postpone surgery until or Saturday pm PLAN: Plan see above
[2022-04-02 08:30] LABS: Bedside Glucose 145 mg/dL (74-106)
[2022-04-02] MEDS: Amiodarone 200 MG Tablet 100 MG PO (10:16)
[2022-04-02] MEDS: Isosorbide Mononitrate 60 MG Tablet PO (10:16)
[2022-04-02] MEDS: Ranolazine 500 MG Tablet 1000 MG PO (10:16)
--- NOTE | 2022-04-02 10:50 | CASEMGMT ---
RN CM Face to Face with patient for initial transition planning/care coordination assessment. RN CM introduced self and role at [facility]. Patient lying in bed, alert and oriented. Patient willing to participate in assessment and is able to answer all questions appropriately. Care providers, pharmacy, and demographics verified. Patient wishes to discharge home, denies need for home health at this time. Patient states he has no further needs or concerns at this time. CM to follow for discharge planning needs that may arise. PCP: Camille Specialists: Arlene water ski assembler; Ellis lock tender chief operator Preferred [facility]acy: [facility] Insurance: [facility] Prescription Benefit: yes Living Will/HPOA: yes, nephew Patrice Christine LNOK: nephew Living Arrangements: Patient lives alone in a 2 story home with bed and bath on first floor. Patient has 7 small steps with railing to enter the home. Patient states he is independent at home. Transportation: self, nephew DME/HHC: Patient states he has grab bars installed in bathroom, denies further DME. No previous HHC or SNF. Disposition Plan: Patient to discharge home with family support and follow-up plans in place. Altagracia MENENDEZ, RN, CM
--- NOTE | 2022-04-02 11:28 | PCM.PN.HOSP ---
Documented by User: Jaclyn Carvalho NP, MANUFACTURING ENGINEER PAINT-C 04/02/22 11:35 Subjective Subjective Patient seen and examined. Denies chest pain, shortness of breath. Abdominal pain currently tolerable. Plan for OR tomorrow. Objective Data Objective Data Vital Signs: Vital Signs Temp Pulse Resp BP Pulse Ox O2 Del Method O2 Flow Rate 98.2 F 67 17 127/65 H 93 Room Air 2 04/02/22 10:14 04/02/22 10:14 04/02/22 10:14 04/02/22 10:14 04/02/22 10:14 04/02/22 10:14 04/01/22 23:30 Oxygen Flow Rate (L/min) 2 Oxygen Delivery Method Room Air Weight: 159 lb 9.835 oz Body Mass Index (BMI) 26.5 Intake & Output: Intake and Output for Last 24 Hours 03/31/22 04/01/22 04/02/22 23:59 23:59 23:59 Intake Total 740 / 740 5140 / 5140 1435 / 1435 Balance 740 / 740 5140 / 5140 1435 / 1435 Lab / Micro Data Result Diagrams: 04/02/22 05:50 04/02/22 05:50 Labs: Laboratory Results - last 24 hr 04/01/22 13:54: POC Glucose 165 H 04/01/22 21:22: POC Glucose 147 H 04/02/22 02:11: POC Glucose 126 H 04/02/22 05:50: Sodium 139, Potassium 4.7, Chloride 113 H, Carbon Dioxide 21.0, Anion Gap 5, BUN 35 H, Creatinine 2.25 H, Estim Creat Clear Calc 23.54, Est GFR (MDRD) Af Amer 37 L, Est GFR (MDRD) Non-Af 30 L, BUN/Creatinine Ratio 15.6, Glucose 145 H, Calcium 7.8 L, Lipase 636 H 04/02/22 05:50: WBC 11.5 H, RBC 2.92 L, Hgb 9.4 L, Hct 29.9 L, MCV 102.4 H, MCH 32.2 H, MCHC 31.4 L, RDW Std Deviation 51.5 H, RDW Coeff of Nicole 13.6, Plt Count 135 L, MPV 11.1, Immature Gran % (Auto) 2.100 H, Neut % (Auto) 84.5 H, Lymph % (Auto) 6.9 L, [place] % (Auto) 6.3, Eos % (Auto) 0.0, Baso % (Auto) 0.2, Absolute Neuts (auto) 9.7 H, Absolute Lymphs (auto) 0.79 L, Nucleated RBC % 0 04/02/22 05:50: PT 23.6 H, INR 2.2 04/02/22 08:08: POC Glucose 145 H Radiography Diagnostic Testing: Radiology Impression Gallbladder Ultrasound 03/31/22 20:01 IMPRESSION: Gallbladder is borderline distended with multiple gallstones and echogenic sludge. There is no wall thickening or pericholecystic fluid, or biliary dilatation. Automatic Coil Machine Operator however notes a positive MICHELLE sign. Findings are equivocal for cholecystitis, the recent CT of the abdomen did not show obvious signs of cholecystitis. A HIDA scan may be of benefit for further evaluation if the physical exam is also equivocal. Fatty liver Stable simple right renal cyst, no specific follow-up needed Electronically Signed: Shon Elias MD at 10:28 EDT , Physical Exam Const alert, oriented x3 and no apparent distress HEENT normocephalic and moist oral mucous membranes Eyes PERRL, EOMs intact bilaterally and conjunctivae normal Neck no lymphadenopathy Resp normal respiratory effort and clear to auscultation bilaterally Cardio regular rate, regular rhythm and no murmurs Peripheral Pulses: pulses 2+ throughout GI normal to inspection, nondistended, normoactive bowel sounds and non-distended Palpation: tender Extremity normal to inspection Skin no rashes or lesions noted Lesions: no lesions Rashes: no rashes Trauma: no lacerations or abrasions Neuro CN's II-XII intact bilaterally, no focal motor deficits, no sensory deficits noted and deep tendon reflexes 2+ bilaterally Psych mental status grossly normal and affect normal Assessment & Plan Assessment/Plan (1) Acute pancreatitis: (2) Cholelithiasis: PLAN: Plan 1.? Acute gallstone pancreatitis-General surgery consulted.? Plan for laparoscopic cholecystectomy 04/03/22.? Clear liquid diet.? As needed pain regimen.? Hold Eliquis given plans for surgical intervention. Clear by cardiology for surgery. 2.? Indeterminate cardiac enzymes-cardiology consulted.? Enzymes did not trend.? EKG without evidence of ischemia.? Echocardiogram ordered.? Patient does not have any concerning cardiac symptoms. Cleared by cardiology as noted above. 3. CAD with history of CABG and PCI-continue aspirin, statin. 4. Chronic atrial fibrillation-on anticoagulation with Eliquis.? Continue amiodarone. 5. Type 2 diabetes [id number] with sliding scale insulin. 6. Hypertension-stable, continue home regimen. 7. Hyperlipidemia-continue statin. 8. Chronic anemia, macrocytic-appears stable. 9. Chronic kidney disease stage IIIb- appears at baseline. 10. GERD-continue PPI. DVT prophylaxis-SCDs This patient was seen by AYDE Gage under the supervision of Dr. Rose. Time spent examining patient, reviewing data and subsequent management of care: 14 minutes Documented by User: Dr. Israel Rose MD 04/02/22 16:32 Objective Data Lab / Micro Data Result Diagrams: 04/02/22 05:50 04/02/22 05:50 Physical Exam Narrative Seen and examined. Abdominal pain is improving. No fever or chills. Eliquis on hold. Physical exam General: Alert, Oriented x3, Cooperative HEENT: Atraumatic, PERRLA, EOMI, Normocephalic Oral: No Gingival or Mucosal Lesions/ Ulcerations Neck: Supple, No JVD, Negative Carotid Bruits Lungs:? Air entry diminished in bilateral lung bases.? No crepitation/rhonchi Cardiovascular: Mild tenderness over the xiphisternum/lower sternum.? Status post CABG scar.? Regular rate, Regular Rhythm, Normal S1, Normal S2, systolic murmur over cardiac apex and LLSB Abdomen: Soft, tenderness present over epigastrium and right upper quadrant.? No palpable mass.? Bowel Sounds Present, nondistended. : No renal angle tenderness.? No suprapubic tenderness. Extremities: No edema, Capillary Refill Less than 3 Seconds Skin: No rashes, No breakdown Musculoskeletal: No Tenderness to Palpation of Joints or Extremities.? Range of motion intact Neurological: Cranial nerves II-XII grossly intact, DTR? 2+/4 and Symmetrical, Neuro grossly intact Psych/Mental Status: Normal Affect, Appropriate. Assessment & Plan Assessment/Plan (1) Acute pancreatitis: (2) Cholelithiasis: PLAN: Plan 1.? Acute gallstone pancreatitis-General surgery consulted.? Plan for laparoscopic cholecystectomy 04/03/22.? Clear liquid diet.? As needed pain regimen.? Hold Eliquis given plans for surgical intervention. Clear by cardiology for surgery. 2.? Indeterminate cardiac enzymes-cardiology consulted.? Enzymes did not trend.? EKG without evidence of ischemia.? Echocardiogram ordered.? Patient does not have any concerning cardiac symptoms. Cleared by cardiology as noted above. 3. CAD with history of CABG and PCI-continue aspirin, statin. 4. Chronic atrial fibrillation-on anticoagulation with Eliquis.? Continue amiodarone. 5. Type 2 diabetes [id number]-Mrbs-Hpbje with sliding scale insulin. 6. Hypertension-stable, continue home regimen. 7. Hyperlipidemia-continue statin. 8. Chronic anemia, macrocytic-appears stable. 9. Chronic kidney disease stage IIIb- appears at baseline. 10. GERD-continue PPI. DVT prophylaxis-SCDs This patient was seen by Jaclyn Carvalho NP-C under the supervision of Dr. Rose. Time spent examining patient, reviewing data and subsequent management of care: 14 minutes This patient was seen in conjunction with MANUFACTURING ENGINEER PAINTJaclyn.? I have independently interviewed and examined the patient and reviewed pertinent history, examination findings, laboratory and plan of management.? I have? reviewed the note and agree with the documented findings with the few? additional points. In brief, The patient is a 77 y/o M is being admitted to PCU for persistent abdominal pain, severe 10/10 about 1 PM on 03/31 still with nausea without vomiting with discomfort radiating to chest and midsternal region. 1.?Acute pancreatitis possible gallstone pancreatitis: CT abdomen was done which shows gallstones without evidence of acute cholecystitis.? No evidence of renal ureteral or renal or bladder abnormality.? Lipase 943.? General surgery, Dr.? Nielson consulted and discussed.? Needs his cardiac conditions optimized prior to surgery.? [employer] was consulted and requires clearance.? NPO.? On IV fluid 2.? Atypical lower chest pain probably transmitted pain from acute pancreatitis/epigastrium: hs?troponins shows decreasing trends.? Patient does not have typical angina pain or other associated symptoms like shortness of breath diaphoresis suggestive of ACS.? Chest x-ray no acute cardiopulmonary finding.? Twelve-lead EKG shows A. fib with T wave inversion V1 V2 with no acute evidence of ischemia.? 2D echo is ordered.? School Patrol consulted. 3.? Cardiac distress 5 vessel CABG status post PCI: Continue aspirin and statin 4.? Chronic A. fib on Eliquis: Hold Eliquis for surgery.? Continue amiodarone 5.? Multiple other comorbidities include type 2 diabetes mellitus, hypertension, dyslipidemia, chronic macrocytic anemia, CKD stage IIIb, GERD: Home medication reconciliation done. Total time of the visit including total time spent in counseling or coordination of care, (more than 50% of the total time, spent in obtaining medical information from nurses and other ancillary care providers,explaining to the patient about labs, imaging, diagnosis and management), , review of labs and imaging is? 45 minutes.? I spent 30 minutes and Jaclyn, and I spent 15 minutes I have discussed my assessment with Jaclyn GOLDMAN and orders have been reviewed. This patient was seen in conjunction with MANUFACTURING ENGINEER PAINTJaclyn.? I have independently interviewed and examined the patient and reviewed pertinent history, examination findings, laboratory and plan of management.? I have? reviewed the note and agree with the documented findings with the few? additional points. In brief, The patient is a 77 y/o M is being admitted to PCU for persistent abdominal pain, severe 10/10 about 1 PM on 03/31 still with nausea without vomiting with discomfort radiating to chest and midsternal region. 1.?Acute pancreatitis possible gallstone pancreatitis: CT abdomen was done which shows gallstones without evidence of acute cholecystitis.? No evidence of renal ureteral or renal or bladder abnormality.? Lipase 943.? General surgery, Dr.? Nielson consulted and discussed.? Needs his cardiac conditions optimized prior to surgery.? [employer] was consulted and requires clearance.? NPO.? On IV fluid 04/02: Discussed with the surgeon. Concern for bleeding as patient on Eliquis which is on hold. Aspirin discontinued. I requested for surgery sooner than later. ABUNDIO on CKD stage IIIb. Creatinine jumped up to 2.24 from 1.71, more than 0.5 creatinine increase. IV fluid normal saline started. Discontinue ranolazine. Resume at lower dose when kidney function returns to baseline. Discussed with the risk and insurance manager. 2.? Atypical lower chest pain probably transmitted pain from acute pancreatitis/epigastrium: hs?troponins shows decreasing trends.? Patient does not have typical angina pain or other associated symptoms like shortness of breath diaphoresis suggestive of ACS.? Chest x-ray no acute cardiopulmonary finding.? Twelve-lead EKG shows A. fib with T wave inversion V1 V2 with no acute evidence of ischemia.? 2D echo is ordered.? [employer] consulted. 3.? Cardiac distress 5 vessel CABG status post PCI: Continue aspirin and statin 4.? Chronic A. fib on Eliquis: Hold Eliquis for surgery.? Continue amiodarone 04/02: INR 2.2. Eliquis does not correlate with INR. Vitamin K 5 mg IV ordered. 5.? Multiple other comorbidities include type 2 diabetes mellitus, hypertension, dyslipidemia, chronic macrocytic anemia, CKD stage IIIb, GERD: Home medication reconciliation done. Total time of the visit including total time spent in counseling or coordination of care, (more than 50% of the total time, spent in obtaining medical information from nurses and other ancillary care providers,explaining to the patient about labs, imaging, diagnosis and management), , review of labs and imaging is? 45 minutes.? I spent 30 minutes and Jaclyn, and I spent 15 minutes I have discussed my assessment with MANUFACTURING ENGINEER PAINTJaclyn and orders have been reviewed. Charges/Coding Visit Charges Inpatient E&M: 16091 [facility] Hosp L3
[2022-04-02] MEDS: Ferrous Sulfate 325 MG Tablet PO (12:48)
[2022-04-02 13:10] LABS: Bedside Glucose 120 mg/dL (74-106)
[2022-04-02] MEDS: 0.9% Normal Saline 1,000 ML 75 ML IV (14:45)
[2022-04-02] MEDS: oxyCODONE 5 MG Tablet PO (16:30)
[2022-04-02] MEDS: Senna/Docusate Sodium 1 Tablet 2 TABLET PO (17:41)
[2022-04-02] MEDS: Acetaminophen 325 MG Tablet 650 MG PO (20:25)
[2022-04-02] MEDS: Insulin Lispro 100 UNIT/ML INSULN.PEN SC (20:26)
[2022-04-02] MEDS: Atorvastatin Calcium 40 MG Tablet PO (22:23)
[2022-04-02 22:35] LABS: Bedside Glucose 201 mg/dL (74-106)
[2022-04-03] VITALS (19 sets, daily range): BP systolic 115–149; BP diastolic 49–89; PULSE 64–80; RESP 16–18; TEMP 36.7–37.1; O2SAT 81–100
[2022-04-03] MEDS: 0.9% Normal Saline 1,000 ML 75 ML IV (02:55)
[2022-04-03] MEDS: Morphine 4 MG/ML Syringe IV ×2 (04:24→20:40)
[2022-04-03] MEDS: 0.9% Saline Lock 10 ML Syringe IV ×2 (04:25→20:40)
[2022-04-03 06:29] LABS: Absolute Lymphocyte Count 0.38 X10^3/uL (0.83-4.51); Absolute Neutrophil Count 6.9 X10^3/uL (2.0-7.7); Basophil# 0.01 X10^3/uL; Basophil% 0.1 % (0-1); Eosinophil# 0.02 X10^3/uL; Eosinophils% 0.2 % (0-5); Hematocrit 25.9 % (40-54); Hemoglobin 8.4 g/dL (13.0-16.5); Lymphocyte # 0.38 X10^3/ul (0.83-4.51); Lymphocyte % 4.7 % (19-41); Mean Corp Hgb Conc 32.4 g/dL (32-36); Mean Corpuscular Hgb 32.3 pg (27.0-32.0); Mean Corpuscular Volume 99.6 fL (80-94); Monocyte# 0.54 X10^3/uL; Monocyte% 6.7 % (0-10); NRBC Flagged by Analyzer 0 % (0-5); Neutrophil # 6.92 X10^3/uL (2.7-7.7); Neutrophil % 86.6 % (47-70); POSITIVE DIFFERENTIAL YES; Platelet Count 130 K/mm3 (150-450); RBC Distribution Width CV 13.7 % (11.6-14.6); RBC Distribution Width SD 49.6 fl (35.1-43.9)
[2022-04-03 06:31] LABS: Bedside Glucose 107 mg/dL (74-106)
[2022-04-03 06:38] LABS: International Normalized Ratio 1.9
[2022-04-03 06:39] LABS: Differential Indicated SCAN CRITERIA MET
[2022-04-03 06:57] LABS: Differential Comment SCANNED
[2022-04-03 07:02] LABS: Anion Gap 6 (5-15); BUN 39 mg/dL (7-18); Calcium,Total 7.8 mg/dL (8.5-10.1); Chloride 113 mmol/L (98-107); Creatinine, Serum 1.95 mg/dL (0.70-1.30); EST Glomerular Filtration Rate 36 mL/min (>60); Est Glom Filt Rate - Afr Amer 43 mL/min (>60); Estimated Creatinine Clearance 27.16 ml/min; Glucose 122 mg/dL (74-106); Potassium 3.9 mmol/L (3.5-5.1); Sodium Level 139 mmol/L (136-145)
[2022-04-03 09:05] LABS: Bedside Glucose 116 mg/dL (74-106)
[2022-04-03] MEDS: Isosorbide Mononitrate 60 MG Tablet PO (10:04)
[2022-04-03] MEDS: Amiodarone 200 MG Tablet 100 MG PO (10:04)
--- NOTE | 2022-04-03 12:16 | PCM.PN.HOSP ---
Documented by User: Jaclyn Carvalho NP, BUSINESS INTELLIGENCE ADMINISTRATOR-C 04/03/22 12:27 Subjective Subjective Patient seen and examined. Continues to have significant abdominal pain. Intermittent fever. Reports dry mouth. Denies shortness of breath Objective Data Objective Data Vital Signs: Vital Signs Temp Pulse Resp BP Pulse Ox O2 Del Method O2 Flow Rate 98.8 F 70 16 125/61 H 99 Nasal Cannula 4 04/03/22 09:59 04/03/22 09:59 04/03/22 09:59 04/03/22 09:59 04/03/22 11:53 04/03/22 11:53 04/03/22 11:53 FiO2 99 04/03/22 03:00 Oxygen Flow Rate (L/min) 4 Oxygen Delivery Method Nasal Cannula Weight: 160 lb 0.889 oz Body Mass Index (BMI) 26.5 Intake & Output: Intake and Output for Last 24 Hours 04/01/22 04/02/22 04/03/22 23:59 23:59 23:59 Intake Total 5140 / 5140 2630.5 / 3270.5 2618.75 / 2618.75 Output Total 975 / 975 Balance 5140 / 5140 2630.5 / 2620.5 1643.75 / 1643.75 Lab / Micro Data Result Diagrams: 04/03/22 06:00 04/03/22 06:00 Labs: Laboratory Results - last 24 hr 04/02/22 12:46: POC Glucose 120 H 04/02/22 20:11: POC Glucose 201 H 04/03/22 02:53: POC Glucose 107 H 04/03/22 06:00: WBC 8.0, RBC 2.60 L, Hgb 8.4 L, Hct 25.9 L, MCV 99.6 H, MCH 32.3 H, MCHC 32.4, RDW Std Deviation 49.6 H, RDW Coeff of Nicole 13.7, Plt Count 130 L, MPV 11.0, Immature Gran % (Auto) 1.700 H, Neut % (Auto) 86.6 H, Lymph % (Auto) 4.7 L, [place] % (Auto) 6.7, Eos % (Auto) 0.2, Baso % (Auto) 0.1, Absolute Neuts (auto) 6.9, Absolute Lymphs (auto) 0.38 L, Nucleated RBC % 0, Differential Comment SCANNED 04/03/22 06:00: PT 21.0 H, INR 1.9 04/03/22 06:00: Sodium 139, Potassium 3.9, Chloride 113 H, Carbon Dioxide 20.0 L, Anion Gap 6, BUN 39 H, Creatinine 1.95 H, Estim Creat Clear Calc 27.16, Est GFR (MDRD) Af Amer 43 L, Est GFR (MDRD) Non-Af 36 L, BUN/Creatinine Ratio 20.0, Glucose 122 H, Calcium 7.8 L 04/03/22 08:41: POC Glucose 116 H Radiography Diagnostic Testing: Radiology Impression Echocardiogram 03/31/22 20:01 Interpretation Summary Normal LV size. Left ventricular systolic function is normal. The estimated ejection fraction is 55 %. Mild concentric left ventricular hypertrophy. Mild (1+) mitral valve insufficiency. Moderately severe (3+) tricuspid valve insufficiency. Pulmonary artery systolic pressure is 78 mmHg. Compared to the previous the pulmonary pressures are significantly elevated. Ordering Physician: Destini Nicole Referring Physician: Kandi Obrien M.D. Performed By: Priscilla Mclean RCS Physical Exam Const alert and oriented x3 HEENT normocephalic Mouth: dry mucous membranes Eyes PERRL, EOMs intact bilaterally and conjunctivae normal Neck no lymphadenopathy Resp clear to auscultation bilaterally Auscultation: diminished lung sounds Cardio regular rate, regular rhythm and no murmurs Peripheral Pulses: pulses 2+ throughout GI normal to inspection, nondistended, normoactive bowel sounds and non-distended Palpation: tender Extremity normal to inspection Skin no rashes or lesions noted Lesions: no lesions Rashes: no rashes Trauma: no lacerations or abrasions Neuro CN's II-XII intact bilaterally, no focal motor deficits, no sensory deficits noted and deep tendon reflexes 2+ bilaterally Psych mental status grossly normal and affect normal Assessment & Plan Assessment/Plan (1) Acute pancreatitis: PLAN: Plan 1.? Acute gallstone pancreatitis-General surgery consulted.? Plan for laparoscopic cholecystectomy versus Saturday per surgery.? Continue diet as tolerated.? As needed pain regimen.? IV Zosyn. Hold Eliquis. Clear by cardiology for surgery. 2.? Indeterminate cardiac enzymes-cardiology consulted.? Enzymes did not trend.? EKG without evidence of ischemia.? Echocardiogram demonstrated an EF of 55%, mild mitral valve insufficiency, moderately severe tricuspid valve insufficiency, pulmonary artery systolic pressure 78 mmHg.? Patient does not have any concerning cardiac symptoms. Cleared by cardiology as noted above. 3. Hypoxia-likely atelectasis as patient has pain with taking a deep breath. Obtain chest x-ray. 4. CAD with history of CABG and PCI-continue aspirin, statin. 5. Chronic atrial fibrillation-on anticoagulation with Eliquis.? Continue amiodarone. 6. Type 2 diabetes tvicinty-Dzai-Xaynt with sliding scale insulin. 7. Hypertension-stable, continue home regimen. 8. Hyperlipidemia-continue statin. 9. Chronic anemia, macrocytic-appears stable. 10. Chronic kidney disease stage IIIb- appears at baseline. 11. GERD-continue PPI. DVT prophylaxis-SCDs This patient was seen by AYDE Gage under the supervision of Dr. Rose. Time spent examining patient, reviewing data and subsequent management of care: 14 minutes Documented by User: Dr. Israel Rose MD 04/03/22 14:57 Objective Data Lab / Micro Data Result Diagrams: 04/03/22 06:00 04/03/22 06:00 Physical Exam Narrative Seen and examined. Patient rates abdominal pain at 7/10 intensity, better with the morphine but comes back on veering of effect of medications. No fever or chills. Aspirin and Eliquis on hold. Chest pain is resolved. Physical exam General: Alert, Oriented x3, Cooperative HEENT: Atraumatic, PERRLA, EOMI, Normocephalic Oral: No Gingival or Mucosal Lesions/ Ulcerations Neck: Supple, No JVD, Negative Carotid Bruits Lungs:? Air entry diminished in bilateral lung bases.? No crepitation/rhonchi Cardiovascular: Status post CABG scar.? Regular rate, Regular Rhythm, Normal S1, Normal S2, systolic murmur over cardiac apex and LLSB Abdomen: Soft, tenderness present over epigastrium and right upper quadrant.? No palpable mass.? Bowel Sounds Present, nondistended. : No renal angle tenderness.? No suprapubic tenderness. Extremities: No edema, Capillary Refill Less than 3 Seconds Skin: No rashes, No breakdown Musculoskeletal: No Tenderness to Palpation of Joints or Extremities.? Range of motion intact Neurological: Cranial nerves II-XII grossly intact, DTR? 2+/4 and Symmetrical, Neuro grossly intact Psych/Mental Status: Normal Affect, Appropriate. Assessment & Plan Assessment/Plan (1) Acute pancreatitis: PLAN: Plan 1.? Acute gallstone pancreatitis-General surgery consulted.? Plan for laparoscopic cholecystectomy versus Saturday per surgery.? Continue diet as tolerated.? As needed pain regimen.? IV Zosyn. Hold Eliquis. Clear by cardiology for surgery. 2.? Indeterminate cardiac enzymes-cardiology consulted.? Enzymes did not trend.? EKG without evidence of ischemia.? Echocardiogram demonstrated an EF of 55%, mild mitral valve insufficiency, moderately severe tricuspid valve insufficiency, pulmonary artery systolic pressure 78 mmHg.? Patient does not have any concerning cardiac symptoms. Cleared by cardiology as noted above. 3. Hypoxia-likely atelectasis as patient has pain with taking a deep breath. Obtain chest x-ray. 4. CAD with history of CABG and PCI-continue aspirin, statin. 5. Chronic atrial fibrillation-on anticoagulation with Eliquis.? Continue amiodarone. 6. Type 2 diabetes evsgfvkh-Xgkj-Eiouj with sliding scale insulin. 7. Hypertension-stable, continue home regimen. 8. Hyperlipidemia-continue statin. 9. Chronic anemia, macrocytic-appears stable. 10. Chronic kidney disease stage IIIb- appears at baseline. 11. GERD-continue PPI. DVT prophylaxis-SCDs This patient was seen by AYDE Gage under the supervision of Dr. Rose. Time spent examining patient, reviewing data and subsequent management of care: 15 minutes This patient was seen in conjunction with BUSINESS INTELLIGENCE ADMINISTRATOR, Jaclyn.? I have independently interviewed and examined the patient and reviewed pertinent history, examination findings, laboratory and plan of management.? I have? reviewed the note and agree with the documented findings with the few? additional points. In brief, The patient is a 77 y/o M is being admitted to PCU for persistent abdominal pain, severe 10/10 about 1 PM on 03/31 still with nausea without vomiting with discomfort radiating to chest and midsternal region. 1.?Acute pancreatitis possible gallstone pancreatitis: CT abdomen was done which shows gallstones without evidence of acute cholecystitis.? No evidence of renal ureteral or renal or bladder abnormality.? Lipase 943.? General surgery, Dr.? Nielson consulted and discussed.? Needs his cardiac conditions optimized prior to surgery.? Condenser Tester was consulted and requires clearance.? NPO.? On IV fluid 04/02: Discussed with the surgeon.? Concern for bleeding as patient on Eliquis which is on hold.? Aspirin discontinued.? I requested for surgery sooner than later. 04/03: Since patient also had umbilical hernia repair with mesh as per history. Eliquis and baby aspirin both held. Patient high risk for bleeding because of mesh repair, ABUNDIO on chronic kidney disease. ? ABUNDIO on CKD stage IIIb.? Creatinine jumped up to 2.24 from 1.71, more than 0.5 creatinine increase.? IV fluid normal saline started.? Discontinue ranolazine.? Resume at lower dose when kidney function returns to baseline.? Discussed with the field crop technical officer. 04/03: Creatinine is improving. 2.? Atypical lower chest pain probably transmitted pain from acute pancreatitis/epigastrium: hs?troponins shows decreasing trends.? Patient does not have typical angina pain or other associated symptoms like shortness of breath diaphoresis suggestive of ACS.? Chest x-ray no acute cardiopulmonary finding.? Twelve-lead EKG shows A. fib with T wave inversion V1 V2 with no acute evidence of ischemia.? 2D echo is ordered.? Condenser Tester consulted. 04/03 chest pain resolved 3.? Cardiac distress 5 vessel CABG status post PCI: Continue aspirin and statin 4.? Chronic A. fib on Eliquis: Hold Eliquis for surgery.? Continue amiodarone 8/1: INR 2.2.? Eliquis does not correlate with INR.? Vitamin K 5 mg IV ordered. 04/03: INR better. INR 1.9. High [id number] score 5. But patient did not had a stroke or TIA or mechanical valve replacement therefore does not need bridging anticoagulant. 5.? Multiple other comorbidities include type 2 diabetes mellitus, hypertension, dyslipidemia, chronic macrocytic anemia, CKD stage IIIb, GERD: Home medication reconciliation done. Total time of the visit including total time spent in counseling or coordination of care, (more than 50% of the total time, spent in obtaining medical information from nurses and other ancillary care providers,explaining to the patient about labs, imaging, diagnosis and management), , review of labs and imaging is? 45 minutes.? I spent 30 minutes and Jaclyn, and I spent 15 minutes I have discussed my assessment with BUSINESS INTELLIGENCE ADMINISTRATOR, Jaclyn and orders have been reviewed. Charges/Coding Visit Charges Inpatient E&M: 58917 Subs Hosp L3
--- NOTE | 2022-04-03 12:25 | RAD_ITS ---
INDICATION: hypoxia EXAMINATION/TECHNIQUE: X-RAY - XR Chest 1 View COMPARISON: 03/31/2022. FINDINGS: LINES/DEVICES: Sternal wires are seen in position. EKG leads are seen superimposing the chest.. LUNGS: Linear opacities visualized in bilateral lung white suggestive of subsegmental atelectatic streaks. Peribronchial cuffing and mild perihilar prominence is seen, no evidence of focal lung infiltrate or consolidation. Blunting of bilateral costophrenic angles is seen more prominent on the left where there is a fluid level consistent a small left pleural effusion. No evidence of pneumothorax or parenchymal lung mass. MEDIASTINUM AND CARDIOVASCULAR STRUCTURES: Cardiac silhouette not enlarged. Central airways and mediastinal contour are unremarkable. BONES AND SOFT TISSUES: Degenerative bone changes unremarkable for the patient''s age.. RAD/Chest 1 View (Portable) IMPRESSION: Mild congestive changes. Electronically Signed: Declan Hagen MD at 12:46 EDT ,
[2022-04-03 16:06] LABS: Bedside Glucose 163 mg/dL (74-106)
--- NOTE | 2022-04-03 16:06 | PCM.PN.SRG ---
Subjective Subjective Patient was at first upset yesterday about postponing surgery for today, however, I explained the situation to the patient and he understood He wanted me to notify his son and another person and I did so He states that he feels weak all over he still complains of abdominal pain Objective Data Objective Data Vital Signs: Vital Signs Temp Pulse Resp BP Pulse Ox O2 Del Method O2 Flow Rate 98.8 F 71 16 126/55 H 98 Nasal Cannula 2 04/03/22 15:51 04/03/22 15:51 04/03/22 15:51 04/03/22 15:51 04/03/22 15:51 04/03/22 15:51 04/03/22 15:51 FiO2 99 04/03/22 03:00 Oxygen Flow Rate (L/min) 2 Oxygen Delivery Method Nasal Cannula Weight: 72.6 kg Body Mass Index (BMI) 26.5 Intake & Output: Intake and Output for Last 24 Hours 04/01/22 04/02/22 04/03/22 23:59 23:59 23:59 Intake Total 5140 / 5140 2630.5 / 3270.5 2918.75 / 2918.75 Output Total 975 / 975 Balance 5140 / 5140 2630.5 / 2620.5 1943.75 / 1943.75 Lab / Micro Data Attestation: I reviewed the patient's lab results. Result Diagrams: 04/03/22 06:00 04/03/22 06:00 Labs: Laboratory Results - last 24 hr 04/02/22 20:11: POC Glucose 201 H 04/03/22 02:53: POC Glucose 107 H 04/03/22 06:00: WBC 8.0, RBC 2.60 L, Hgb 8.4 L, Hct 25.9 L, MCV 99.6 H, MCH 32.3 H, MCHC 32.4, RDW Std Deviation 49.6 H, RDW Coeff of Nicole 13.7, Plt Count 130 L, MPV 11.0, Immature Gran % (Auto) 1.700 H, Neut % (Auto) 86.6 H, Lymph % (Auto) 4.7 L, [place] % (Auto) 6.7, Eos % (Auto) 0.2, Baso % (Auto) 0.1, Absolute Neuts (auto) 6.9, Absolute Lymphs (auto) 0.38 L, Nucleated RBC % 0, Differential Comment SCANNED 04/03/22 06:00: PT 21.0 H, INR 1.9 04/03/22 06:00: Sodium 139, Potassium 3.9, Chloride 113 H, Carbon Dioxide 20.0 L, Anion Gap 6, BUN 39 H, Creatinine 1.95 H, Estim Creat Clear Calc 27.16, Est GFR (MDRD) Af Amer 43 L, Est GFR (MDRD) Non-Af 36 L, BUN/Creatinine Ratio 20.0, Glucose 122 H, Calcium 7.8 L 04/03/22 08:41: POC Glucose 116 H Radiography Diagnostic Testing: Radiology Impression Echocardiogram 03/31/22 20:01 Interpretation Summary Normal LV size. Left ventricular systolic function is normal. The estimated ejection fraction is 55 %. Mild concentric left ventricular hypertrophy. Mild (1+) mitral valve insufficiency. Moderately severe (3+) tricuspid valve insufficiency. Pulmonary artery systolic pressure is 78 mmHg. Compared to the previous the pulmonary pressures are significantly elevated. Ordering Physician: Destini Nicole Referring Physician: Kandi Obrien M.D. Performed By: Priscilla Mclean RCS Chest X-Ray 04/03/22 12:25 IMPRESSION: Mild congestive changes. Electronically Signed: Declan Hagen MD at 12:46 EDT , Physical Exam Const alert and oriented x3 Neck supple Resp normal respiratory effort Effort and Inspection: able to speak in complete sentences GI GI Narrative: abdomen is soft and protuberant but tender in the epigastrium Assessment & Plan Assessment/Plan (1) Cholelithiasis: PLAN: episode of gallstone pancreatitis - pancreatitis has resolved patient was on aspirin and eliquis - these have been discontinued in anticipation for surgery Patient has been cleared by cardiology for surgery Awaiting OR time, soonest available was Saturday afternoon, surgery to be done by Dr. Gold, patient notified
[2022-04-03] MEDS: oxyCODONE 5 MG Tablet PO (17:27)
[2022-04-03] MEDS: Acetaminophen 325 MG Tablet 650 MG PO (17:27)
[2022-04-03] MEDS: Atorvastatin Calcium 40 MG Tablet PO (21:29)
[2022-04-03 22:40] LABS: Bedside Glucose 104 mg/dL (74-106)
[2022-04-04] VITALS (14 sets, daily range): BP systolic 104–144; BP diastolic 49–71; PULSE 71–86; RESP 16–18; TEMP 36.7–38.1; O2SAT 94–98
[2022-04-04 04:06] LABS: Bedside Glucose 126 mg/dL (74-106)
[2022-04-04 05:40] LABS: Absolute Lymphocyte Count 0.32 X10^3/uL (0.83-4.51); Absolute Neutrophil Count 6.3 X10^3/uL (2.0-7.7); Basophil# 0.01 X10^3/uL; Basophil% 0.1 % (0-1); Eosinophil# 0.03 X10^3/uL; Eosinophils% 0.4 % (0-5); Hematocrit 26.3 % (40-54); Hemoglobin 8.5 g/dL (13.0-16.5); Lymphocyte # 0.32 X10^3/ul (0.83-4.51); Lymphocyte % 4.3 % (19-41); Mean Corp Hgb Conc 32.3 g/dL (32-36); Mean Corpuscular Volume 98.9 fL (80-94); Mean Platelet Vol. 10.6 fl (6.2-12.0); Monocyte# 0.67 X10^3/uL; Monocyte% 9.1 % (0-10); NRBC Flagged by Analyzer 0 % (0-5); Neutrophil # 6.28 X10^3/uL (2.7-7.7); Neutrophil % 85.2 % (47-70); POSITIVE DIFFERENTIAL YES; Platelet Count 144 K/mm3 (150-450); RBC Distribution Width CV 13.5 % (11.6-14.6); Red Blood Count 2.66 M/mm3 (4.6-6.2); White Blood Count 7.4 K/mm3 (4.4-11.0)
[2022-04-04 05:46] LABS: Differential Indicated SCAN CRITERIA MET
[2022-04-04 06:07] LABS: Anion Gap 6 (5-15); BUN 33 mg/dL (7-18); Calcium,Total 7.7 mg/dL (8.5-10.1); Chloride 113 mmol/L (98-107); Creatinine, Serum 1.65 mg/dL (0.70-1.30); EST Glomerular Filtration Rate 43 mL/min (>60); Est Glom Filt Rate - Afr Amer 52 mL/min (>60); Glucose 134 mg/dL (74-106); Potassium 3.9 mmol/L (3.5-5.1); Sodium Level 140 mmol/L (136-145)
[2022-04-04 06:25] LABS: Differential Comment SCANNED
[2022-04-04 07:51] LABS: Bedside Glucose 121 mg/dL (74-106)
[2022-04-04] MEDS: Isosorbide Mononitrate 60 MG Tablet PO (09:18)
[2022-04-04] MEDS: Amiodarone 200 MG Tablet 100 MG PO (09:18)
[2022-04-04] MEDS: oxyCODONE 5 MG Tablet PO (09:25)
[2022-04-04] MEDS: Acetaminophen 325 MG Tablet 650 MG PO ×3 (09:25→22:21)
[2022-04-04] MEDS: Ferrous Sulfate 325 MG Tablet PO (11:26)
--- NOTE | 2022-04-04 11:51 | PN.HOSP_ITS ---
Documented by User: Jaclyn Carvalho NP, PAPER SEALER-C 04/04/22 12:04 Subjective Subjective Patient seen and examined. States abdominal pain is significantly improved. Fever improved as well. Tolerating diet. Objective Data Objective Data Vital Signs: Vital Signs Temp Pulse Resp BP Pulse Ox O2 Del Method O2 Flow Rate 98.1 F 74 16 128/59 H 98 Room Air 2 04/04/22 09:13 04/04/22 09:13 04/04/22 09:13 04/04/22 09:13 04/04/22 09:13 04/04/22 09:15 04/04/22 07:57 FiO2 96 04/04/22 03:00 Oxygen Flow Rate (L/min) 2 Oxygen Delivery Method Room Air Weight: 160 lb 7.944 oz Body Mass Index (BMI) 26.5 Intake & Output: Intake and Output for Last 24 Hours 04/02/22 04/03/22 04/04/22 23:59 23:59 23:59 Intake Total 2630.5 / 3270.5 3428.75 / 3668.75 410 / 410 Output Total 975 / 1250 575 / 575 Balance 2630.5 / 2620.5 2453.75 / 2418.75 -165 / -165 Lab / Micro Data Result Diagrams: 04/04/22 05:28 04/04/22 05:28 Labs: Laboratory Results - last 24 hr 04/03/22 15:46: POC Glucose 163 H 04/03/22 21:25: POC Glucose 104 04/04/22 02:50: POC Glucose 126 H 04/04/22 05:28: WBC 7.4, RBC 2.66 L, Hgb 8.5 L, Hct 26.3 L, MCV 98.9 H, MCH 32.0, MCHC 32.3, RDW Std Deviation 48.0 H, RDW Coeff of Nicole 13.5, Plt Count 144 L, MPV 10.6, Immature Gran % (Auto) 0.900, Neut % (Auto) 85.2 H, Lymph % (Auto) 4.3 L, [place] % (Auto) 9.1, Eos % (Auto) 0.4, Baso % (Auto) 0.1, Absolute Neuts (auto) 6.3, Absolute Lymphs (auto) 0.32 L, Nucleated RBC % 0, Differential Comment SCANNED 04/04/22 05:28: Sodium 140, Potassium 3.9, Chloride 113 H, Carbon Dioxide 21.0, Anion Gap 6, BUN 33 H, Creatinine 1.65 H, Estim Creat Clear Calc 32.10, Est GFR (MDRD) Af Amer 52 L, Est GFR (MDRD) Non-Af 43 L, BUN/Creatinine Ratio 20.0, Glucose 134 H, Calcium 7.7 L 04/04/22 07:31: POC Glucose 121 H Radiography Diagnostic Testing: Radiology Impression Chest X-Ray 04/03/22 12:25 IMPRESSION: Mild congestive changes. Electronically Signed: Declan Hagen MD at 12:46 EDT , Physical Exam Const alert and oriented x3 Constitutional Narrative: Appears more comfortable today Orientation / Consciousness: awake, oriented to person, oriented to place and oriented to time HEENT normocephalic and moist oral mucous membranes Eyes PERRL, EOMs intact bilaterally and conjunctivae normal Neck no lymphadenopathy Resp normal respiratory effort and clear to auscultation bilaterally Cardio no murmurs Cardio Narrative: A. fib Peripheral Pulses: pulses 2+ throughout GI normal to inspection, nondistended, normoactive bowel sounds and non-distended Palpation: tender Extremity normal to inspection Skin no rashes or lesions noted Lesions: no lesions Rashes: no rashes Trauma: no lacerations or abrasions Neuro CN's II-XII intact bilaterally, no focal motor deficits, no sensory deficits noted and deep tendon reflexes 2+ bilaterally Psych mental status grossly normal and affect normal Assessment & Plan Assessment/Plan (1) Acute pancreatitis: (2) Cholelithiasis: PLAN: Plan 1.? Acute gallstone pancreatitis-General surgery consulted.? Plan for laparoscopic cholecystectomy Saturday at 1pm per surgery.? Continue diet as tolerated.? As needed pain regimen.? IV Zosyn.? Hold Eliquis. Clear by cardiology for surgery. 2.? Indeterminate cardiac enzymes-cardiology consulted.? Enzymes did not trend.? EKG without evidence of ischemia.? Echocardiogram demonstrated an EF of 55%, mild mitral valve insufficiency, moderately severe tricuspid valve insufficiency, pulmonary artery systolic pressure 78 mmHg.? Patient does not have any concerning cardiac symptoms. Cleared by cardiology as noted above. 3. Hypoxia-chest x-ray with mild congestive changes. IV fluids discontinued. Hold off on Lasix due to kidney function. Hypoxia resolved. 4. CAD with history of CABG and PCI-continue aspirin, statin. 5. Chronic atrial fibrillation-on anticoagulation with Eliquis.? Continue amiodarone. 6. Type 2 diabetes [id number] with sliding scale insulin. 7. Hypertension-stable, continue home regimen. 8. Hyperlipidemia-continue statin. 9. Chronic anemia, macrocytic-appears stable. 10. Chronic kidney disease stage IIIb- appears at baseline. 11. GERD-continue PPI. DVT prophylaxis-SCDs This patient was seen by AYDE Gage under the supervision of Dr. Rose. Time spent examining patient, reviewing data and subsequent management of care: 14 minutes Documented by User: Dr. Israel Rose MD 04/04/22 18:39 Subjective Subjective Patient seen and examined. States abdominal pain is significantly improved. Fever improved as well. Tolerating diet. Seen and examined. Patient is states his abdominal pain is same but objectively his pain seems improved. Objective Data Lab / Micro Data Result Diagrams: 04/04/22 05:28 04/04/22 05:28 Labs: Laboratory Results - last 24 hr 04/03/22 15:46: POC Glucose 163 H 04/03/22 21:25: POC Glucose 104 04/04/22 02:50: POC Glucose 126 H 04/04/22 05:28: WBC 7.4, RBC 2.66 L, Hgb 8.5 L, Hct 26.3 L, MCV 98.9 H, MCH 32.0, MCHC 32.3, RDW Std Deviation 48.0 H, RDW Coeff of Nicole 13.5, Plt Count 144 L, MPV 10.6, Immature Gran % (Auto) 0.900, Neut % (Auto) 85.2 H, Lymph % (Auto) 4.3 L, [place] % (Auto) 9.1, Eos % (Auto) 0.4, Baso % (Auto) 0.1, Absolute Neuts (auto) 6.3, Absolute Lymphs (auto) 0.32 L, Nucleated RBC % 0, Differential Comment SCANNED 04/04/22 05:28: Sodium 140, Potassium 3.9, Chloride 113 H, Carbon Dioxide 21.0, Anion Gap 6, BUN 33 H, Creatinine 1.65 H, Estim Creat Clear Calc 32.10, Est GFR (MDRD) Af Amer 52 L, Est GFR (MDRD) Non-Af 43 L, BUN/Creatinine Ratio 20.0, Glucose 134 H, Calcium 7.7 L 04/04/22 07:31: POC Glucose 121 H Physical Exam Narrative Seen and examined. Physical exam General: Alert, Oriented x3, Cooperative HEENT: Atraumatic, PERRLA, EOMI, Normocephalic Oral: No Gingival or Mucosal Lesions/ Ulcerations Neck: Supple, No JVD, Negative Carotid Bruits Lungs:? Air entry diminished in bilateral lung bases.? No crepitation/rhonchi Cardiovascular: Status post CABG scar.? Regular rate, Regular Rhythm, Normal S1, Normal S2, systolic murmur over cardiac apex and LLSB Abdomen: Soft, mild tenderness over right upper quadrant.? No palpable mass.? Bowel Sounds Present, nondistended. : No renal angle tenderness.? No suprapubic tenderness. Extremities: No edema, Capillary Refill Less than 3 Seconds Skin: No rashes, No breakdown Musculoskeletal: No Tenderness to Palpation of Joints or Extremities.? Range of motion intact Neurological: Cranial nerves II-XII grossly intact, DTR? 2+/4 and Symmetrical, Neuro grossly intact Psych/Mental Status: Normal Affect, Appropriate. Assessment & Plan Assessment/Plan (1) Acute pancreatitis: (2) Cholelithiasis: PLAN: Plan 1.? Acute gallstone pancreatitis-General surgery consulted.? Plan for laparoscopic cholecystectomy Saturday at 1pm per surgery.? Continue diet as tolerated.? As needed pain regimen.? IV Zosyn.? Hold Eliquis. Clear by cardiology for surgery. 2.? Indeterminate cardiac enzymes-cardiology consulted.? Enzymes did not trend.? EKG without evidence of ischemia.? Echocardiogram demonstrated an EF of 55%, mild mitral valve insufficiency, moderately severe tricuspid valve insufficiency, pulmonary artery systolic pressure 78 mmHg.? Patient does not have any concerning cardiac symptoms. Cleared by cardiology as noted above. 3. Hypoxia-chest x-ray with mild congestive changes. IV fluids discontinued. Hold off on Lasix due to kidney function. Hypoxia resolved. 4. CAD with history of CABG and PCI-continue aspirin, statin. 5. Chronic atrial fibrillation-on anticoagulation with Eliquis.? Continue amiodarone. 6. Type 2 diabetes [id number] with sliding scale insulin. 7. Hypertension-stable, continue home regimen. 8. Hyperlipidemia-continue statin. 9. Chronic anemia, macrocytic-appears stable. 10. Chronic kidney disease stage IIIb- appears at baseline. 11. GERD-continue PPI. DVT prophylaxis-SCDs This patient was seen by AYDE Gage under the supervision of Dr. Rose. Laboratory Results 04/03/22 21:25: POC Glucose 104 04/04/22 02:50: POC Glucose 126 H 04/04/22 05:28: WBC 7.4, RBC 2.66 L, Hgb 8.5 L, Hct 26.3 L, MCV 98.9 H, MCH 32.0, MCHC 32.3, RDW Std Deviation 48.0 H, RDW Coeff of Nicole 13.5, Plt Count 144 L, MPV 10.6, Immature Gran % (Auto) 0.900, Neut % (Auto) 85.2 H, Lymph % (Auto) 4.3 L, [place] % (Auto) 9.1, Eos % (Auto) 0.4, Baso % (Auto) 0.1, Absolute Neuts (auto) 6.3, Absolute Lymphs (auto) 0.32 L, Nucleated RBC % 0, Differential Comment SCANNED 04/04/22 05:28: Sodium 140, Potassium 3.9, Chloride 113 H, Carbon Dioxide 21.0, Anion Gap 6, BUN 33 H, Creatinine 1.65 H, Estim Creat Clear Calc 32.10, Est GFR (MDRD) Af Amer 52 L, Est GFR (MDRD) Non-Af 43 L, BUN/Creatinine Ratio 20.0, Glucose 134 H, Calcium 7.7 L 04/04/22 07:31: POC Glucose 121 H 04/04/22 16:09: POC Glucose 237 H Time spent examining patient, reviewing data and subsequent management of care: 15 minutes This patient was seen in conjunction with PAPER SEALER, Jaclyn.? I have independently interviewed and examined the patient and reviewed pertinent history, examination findings, laboratory and plan of management.? I have? reviewed the note and agree with the documented findings with the few? additional points. In brief, The patient is a 77 y/o M is being admitted to PCU for persistent abdominal pain, severe 10/10 about 1 PM on 03/31 still with nausea without vomiting with discomfort radiating to chest and midsternal region. 1.?Acute pancreatitis possible gallstone pancreatitis: CT abdomen was done which shows gallstones without evidence of acute cholecystitis.? No evidence of renal ureteral or renal or bladder abnormality.? Lipase 943.? General surgery, Dr.? Nielson consulted and discussed.? Needs his cardiac conditions optimized prior to surgery.? Conditioning Yard Supervisor was consulted and requires clearance.? NPO.? On IV fluid 04/02: Discussed with the surgeon.? Concern for bleeding as patient on Eliquis which is on hold.? Aspirin discontinued.? I requested for surgery sooner than later. 04/03: Since patient also had umbilical hernia repair with mesh as per history.? Eliquis and baby aspirin both held.? Patient high risk for bleeding because of mesh repair, ABUNDIO on chronic kidney disease. 04/04: Patient tolerating diet. ? ABUNDIO on CKD stage IIIb.? Creatinine jumped up to 2.24 from 1.71, more than 0.5 creatinine increase.? IV fluid normal saline started.? Discontinue ranolazine.? Resume at lower dose when kidney function returns to baseline.? Discussed with the security clerk. 04/03: Creatinine is improving. 04/04: Creatinine is improving. Patient has good urine output. 2.? Atypical lower chest pain probably transmitted pain from acute pancreatit is/epigastrium: hs?troponins shows decreasing trends.? Patient does not have typical angina pain or other associated symptoms like shortness of breath diaphoresis suggestive of ACS.? Chest x-ray no acute cardiopulmonary finding.? Twelve-lead EKG shows A. fib with T wave inversion V1 V2 with no acute evidence of ischemia.? 2D echo is ordered.? Conditioning Yard Supervisor consulted. 04/03 chest pain resolved 4.? Chronic A. fib on Eliquis: Hold Eliquis for surgery.? Continue amiodarone 04/02: INR 2.2.? Eliquis does not correlate with INR.? Vitamin K 5 mg IV ordered. 04/03: INR better. INR 1.9. High [id number] score 5.? But patient did not had a stroke or TIA or mechanical valve replacement therefore does not need bridging anticoagulant. 5.? Multiple other comorbidities include type 2 diabetes mellitus, hypertension, dyslipidemia, chronic macrocytic anemia, CKD stage IIIb, GERD: Home medication reconciliation done. Total time of the visit including total time spent in counseling or coordination of care, (more than 50% of the total time, spent in obtaining medical information from nurses and other ancillary care providers,explaining to the patient about labs, imaging, diagnosis and management), , review of labs and imaging is? 35 minutes.? I spent 20 minutes and Jaclyn, spent 15 minutes I have discussed my assessment with PAPER SEALER, Jaclyn and orders have been reviewed. Charges/Coding Visit Charges Inpatient E&M: 35129 Subs Hosp L2
[2022-04-04] MEDS: Insulin Lispro 100 UNIT/ML INSULN.PEN SC ×2 (16:10→21:34)
--- NOTE | 2022-04-04 16:55 | PN.SURG_ITS ---
Subjective Subjective patient states that his pain is a little better today Objective Data Objective Data Vital Signs: Vital Signs Temp Pulse Resp BP Pulse Ox O2 Del Method O2 Flow Rate 98.5 F 78 16 144/70 H 95 Room Air 2 04/04/22 16:06 04/04/22 16:06 04/04/22 16:06 04/04/22 16:06 04/04/22 16:06 04/04/22 16:06 04/04/22 07:57 FiO2 96 04/04/22 14:30 Oxygen Flow Rate (L/min) 2 Oxygen Delivery Method Room Air Weight: 72.8 kg Body Mass Index (BMI) 26.5 Intake & Output: Intake and Output for Last 24 Hours 04/02/22 04/03/22 04/04/22 23:59 23:59 23:59 Intake Total 2630.5 / 3270.5 3428.75 / 3668.75 1220 / 1220 Output Total 975 / 1250 575 / 575 Balance 2630.5 / 2620.5 2453.75 / 2418.75 645 / 645 Lab / Micro Data Result Diagrams: 04/04/22 05:28 04/04/22 05:28 Labs: Laboratory Results - last 24 hr 04/03/22 21:25: POC Glucose 104 04/04/22 02:50: POC Glucose 126 H 04/04/22 05:28: WBC 7.4, RBC 2.66 L, Hgb 8.5 L, Hct 26.3 L, MCV 98.9 H, MCH 32.0, MCHC 32.3, RDW Std Deviation 48.0 H, RDW Coeff of Nicole 13.5, Plt Count 144 L, MPV 10.6, Immature Gran % (Auto) 0.900, Neut % (Auto) 85.2 H, Lymph % (Auto) 4.3 L, [place] % (Auto) 9.1, Eos % (Auto) 0.4, Baso % (Auto) 0.1, Absolute Neuts (auto) 6.3, Absolute Lymphs (auto) 0.32 L, Nucleated RBC % 0, Differential Comment SCANNED 04/04/22 05:28: Sodium 140, Potassium 3.9, Chloride 113 H, Carbon Dioxide 21.0, Anion Gap 6, BUN 33 H, Creatinine 1.65 H, Estim Creat Clear Calc 32.10, Est GFR (MDRD) Af Amer 52 L, Est GFR (MDRD) Non-Af 43 L, BUN/Creatinine Ratio 20.0, Glucose 134 H, Calcium 7.7 L 04/04/22 07:31: POC Glucose 121 H Physical Exam Const alert and oriented x3 General Appearance: cooperative Neck supple Resp normal respiratory effort Effort and Inspection: able to speak in complete sentences Cardio Cardio Narrative: abdomen is benign Assessment & Plan Assessment/Plan (1) Cholelithiasis: PLAN: awaiting surgery - planned Saturday with Dr. Gold
[2022-04-04 17:05] LABS: Bedside Glucose 237 mg/dL (74-106)
[2022-04-04] MEDS: Atorvastatin Calcium 40 MG Tablet PO (21:42)
[2022-04-04 23:01] LABS: Bedside Glucose 233 mg/dL (74-106)
[2022-04-04] MEDS: 0.9% Saline Lock 10 ML Syringe IV (23:48)
[2022-04-04] MEDS: Morphine 4 MG/ML Syringe IV (23:48)
[2022-04-05] VITALS (12 sets, daily range): BP systolic 113–133; BP diastolic 51–99; PULSE 61–87; RESP 16–18; TEMP 36.6–37.7; O2SAT 91–98
[2022-04-05] MEDS: Insulin Lispro 100 UNIT/ML INSULN.PEN SC ×4 (06:13→20:52)
[2022-04-05 06:35] LABS: Bedside Glucose 165 mg/dL (74-106)
[2022-04-05 06:43] LABS: Absolute Lymphocyte Count 0.43 X10^3/uL (0.83-4.51); Absolute Neutrophil Count 7.7 X10^3/uL (2.0-7.7); Basophil# 0.01 X10^3/uL; Basophil% 0.1 % (0-1); Eosinophil# 0.11 X10^3/uL; Eosinophils% 1.2 % (0-5); Hematocrit 27.4 % (40-54); Hemoglobin 9.3 g/dL (13.0-16.5); Lymphocyte # 0.43 X10^3/ul (0.83-4.51); Lymphocyte % 4.8 % (19-41); Mean Corp Hgb Conc 33.9 g/dL (32-36); Mean Corpuscular Volume 97.2 fL (80-94); Mean Platelet Vol. 10.5 fl (6.2-12.0); Monocyte# 0.67 X10^3/uL; Monocyte% 7.5 % (0-10); NRBC Flagged by Analyzer 0 % (0-5); Neutrophil # 7.72 X10^3/uL (2.7-7.7); Neutrophil % 85.8 % (47-70); POSITIVE DIFFERENTIAL YES; Platelet Count 153 K/mm3 (150-450); RBC Distribution Width CV 13.5 % (11.6-14.6); RBC Distribution Width SD 48.9 fl (35.1-43.9); Red Blood Count 2.82 M/mm3 (4.6-6.2)
[2022-04-05 06:48] LABS: Differential Indicated SCAN CRITERIA MET
[2022-04-05 07:00] LABS: Differential Comment SCANNED
[2022-04-05 07:06] LABS: Anion Gap 5 (5-15); BUN 27 mg/dL (7-18); Calcium,Total 7.9 mg/dL (8.5-10.1); Chloride 115 mmol/L (98-107); Creatinine, Serum 1.59 mg/dL (0.70-1.30); EST Glomerular Filtration Rate 45 mL/min (>60); Est Glom Filt Rate - Afr Amer 54 mL/min (>60); Estimated Creatinine Clearance 33.31 ml/min; Glucose 167 mg/dL (74-106); Potassium 3.4 mmol/L (3.5-5.1); Sodium Level 142 mmol/L (136-145)
[2022-04-05] MEDS: Amiodarone 200 MG Tablet 100 MG PO (09:01)
[2022-04-05] MEDS: oxyCODONE 5 MG Tablet PO (09:01)
[2022-04-05] MEDS: Potassium Chloride Oral Tablet 20 MEQ 40 MEQ PO (09:01)
[2022-04-05] MEDS: Acetaminophen 325 MG Tablet 650 MG PO ×2 (09:01→18:37)
[2022-04-05] MEDS: Isosorbide Mononitrate 60 MG Tablet PO (09:14)
[2022-04-05 12:01] LABS: Bedside Glucose 178 mg/dL (74-106)
--- NOTE | 2022-04-05 12:32 | PCM.PN.HOSP ---
Documented by User: STAN BedoyaC 04/05/22 12:40 Subjective Subjective Patient seen and examined. Patient sitting in chair no distress noted. Patient continues to report abdominal pain however he says it is currently manageable. Objective Data Objective Data Vital Signs: Vital Signs Temp Pulse Resp BP Pulse Ox O2 Del Method O2 Flow Rate 99.3 F H 77 18 133/64 H 94 Room Air 2 04/05/22 08:46 04/05/22 08:46 04/05/22 08:46 04/05/22 08:46 04/05/22 08:46 04/05/22 08:50 04/04/22 07:57 FiO2 96 04/04/22 14:30 Oxygen Flow Rate (L/min) 2 Oxygen Delivery Method Room Air Weight: 157 lb 6.561 oz Body Mass Index (BMI) 26.5 Intake & Output: Intake and Output for Last 24 Hours 04/03/22 04/04/22 04/05/22 23:59 23:59 23:59 Intake Total 3428.75 / 3668.75 1860 / 2100 1050 / 1050 Output Total 975 / 1250 575 / 575 1000 / 1000 Balance 2453.75 / 2418.75 1285 / 1525 50 / 50 Lab / Micro Data Result Diagrams: 04/05/22 06:21 04/05/22 06:21 Labs: Laboratory Results - last 24 hr 04/04/22 16:09: POC Glucose 237 H 04/04/22 21:33: POC Glucose 233 H 04/05/22 06:09: POC Glucose 165 H 04/05/22 06:21: WBC 9.0, RBC 2.82 L, Hgb 9.3 L, Hct 27.4 L, MCV 97.2 H, MCH 33.0 H, MCHC 33.9, RDW Std Deviation 48.9 H, RDW Coeff of Nicole 13.5, Plt Count 153, MPV 10.5, Immature Gran % (Auto) 0.600, Neut % (Auto) 85.8 H, Lymph % (Auto) 4.8 L, [place] % (Auto) 7.5, Eos % (Auto) 1.2, Baso % (Auto) 0.1, Absolute Neuts (auto) 7.7, Absolute Lymphs (auto) 0.43 L, Nucleated RBC % 0, Differential Comment SCANNED 04/05/22 06:21: Sodium 142, Potassium 3.4 L, Chloride 115 H, Carbon Dioxide 22.0, Anion Gap 5, BUN 27 H, Creatinine 1.59 H, Estim Creat Clear Calc 33.31, Est GFR (MDRD) Af Amer 54 L, Est GFR (MDRD) Non-Af 45 L, BUN/Creatinine Ratio 17.0, Glucose 167 H, Calcium 7.9 L 04/05/22 11:11: POC Glucose 178 H Physical Exam Const alert, oriented x3 and no apparent distress Constitutional Narrative: Appears more comfortable today Orientation / Consciousness: awake HEENT normocephalic and moist oral mucous membranes Eyes conjunctivae normal Neck no lymphadenopathy Resp normal respiratory effort and clear to auscultation bilaterally Cardio regular rate Cardio Narrative: A. fib Peripheral Pulses: pulses 2+ throughout GI normal to inspection, nondistended, normoactive bowel sounds and non-distended Palpation: tender Extremity normal to inspection Skin no rashes or lesions noted Trauma: no lacerations or abrasions Neuro no focal motor deficits and no sensory deficits noted Psych mental status grossly normal and affect normal Assessment & Plan Assessment/Plan (1) Acute pancreatitis: (2) Cholelithiasis: PLAN: Plan 1.? Acute gallstone pancreatitis -General surgery consulted.? Plan for laparoscopic cholecystectomy Saturday at 1pm per surgery.? -Continue diet as tolerated.? -As needed pain regimen.? -IV Zosyn.? -Hold Eliquis. -Cleared by cardiology for surgery. 2.? Indeterminate cardiac enzymes -cardiology consulted.? Enzymes did not trend.? EKG without evidence of ischemia.? Echocardiogram demonstrated an EF of 55%, mild mitral valve insufficiency, moderately severe tricuspid valve insufficiency, pulmonary artery systolic pressure 78 mmHg.? Patient does not have any concerning cardiac symptoms. Cleared by cardiology as noted above. 3. Hypoxia -chest x-ray with mild congestive changes. -IV fluids discontinued. -Hold off on Lasix due to kidney function. -Hypoxia resolved. 4. CAD with history of CABG and PCI -continue aspirin, statin. 5. Chronic atrial fibrillation -on anticoagulation with Eliquis.? -Continue amiodarone. 6. Type 2 diabetes mellitus -ACH S blood sugars with sliding scale insulin ordered 7. Hypertension -Vital signs per protocol, currently stable -Continue furosemide, isosorbide 8. Hyperlipidemia -continue statin. 9. Chronic anemia, macrocytic -appears stable. 10. Chronic kidney disease stage IIIb - appears at baseline. 11. GERD-continue PPI. DVT prophylaxis-SCDs This patient was seen by Abril Perez NP-C under the supervision of Dr. Rose. 10 minutes spent in clinical coordination of patient's plan of care. Documented by User: Dr. Israel Rose MD 04/05/22 15:26 Subjective Subjective Patient seen and examined. Patient sitting in chair no distress noted. Patient continues to report abdominal pain however he says it is currently manageable. Follow-up for acute gallstone cholecystitis complicated to pancreatitis Objective Data Lab / Micro Data Result Diagrams: 04/05/22 06:21 04/05/22 06:21 Physical Exam Narrative Seen and examined. Physical exam General: Alert, Oriented x3, Cooperative HEENT: Atraumatic, PERRLA, EOMI, Normocephalic Oral: No Gingival or Mucosal Lesions/ Ulcerations Neck: Supple, No JVD, Negative Carotid Bruits Lungs:? Air entry diminished in bilateral lung bases.? No crepitation/rhonchi Cardiovascular: Status post CABG scar. Sinus rhythm with PVC, normal S1, Normal S2, systolic murmur over cardiac apex and LLSB Abdomen: Soft, mild tenderness over right upper quadrant.? No palpable mass.? Bowel Sounds Present, nondistended. : No renal angle tenderness.? No suprapubic tenderness. Extremities: No edema, Capillary Refill Less than 3 Seconds Skin: No rashes, No breakdown Musculoskeletal: No Tenderness to Palpation of Joints or Extremities.? Range of motion intact Neurological: Cranial nerves II-XII grossly intact, DTR? 2+/4 and Symmetrical, Neuro grossly intact Psych/Mental Status: Normal Affect, Appropriate. Assessment & Plan Assessment/Plan (1) Acute pancreatitis: (2) Cholelithiasis: PLAN: Plan 1.? Acute gallstone pancreatitis -General surgery consulted.? Plan for laparoscopic cholecystectomy Saturday at 1pm per surgery.? -Continue diet as tolerated.? -As needed pain regimen.? -IV Zosyn.? -Hold Eliquis. -Cleared by cardiology for surgery. 2.? Indeterminate cardiac enzymes -cardiology consulted.? Enzymes did not trend.? EKG without evidence of ischemia.? Echocardiogram demonstrated an EF of 55%, mild mitral valve insufficiency, moderately severe tricuspid valve insufficiency, pulmonary artery systolic pressure 78 mmHg.? Patient does not have any concerning cardiac symptoms. Cleared by cardiology as noted above. 3. Hypoxia -chest x-ray with mild congestive changes. -IV fluids discontinued. -Hold off on Lasix due to kidney function. -Hypoxia resolved. 4. CAD with history of CABG and PCI -continue aspirin, statin. 5. Chronic atrial fibrillation -on anticoagulation with Eliquis.? -Continue amiodarone. 6. Type 2 diabetes mellitus -ACH S blood sugars with sliding scale insulin ordered 7. Hypertension -Vital signs per protocol, currently stable -Continue furosemide, isosorbide 8. Hyperlipidemia -continue statin. 9. Chronic anemia, macrocytic -appears stable. 10. Chronic kidney disease stage IIIb - appears at baseline. 11. GERD-continue PPI. DVT prophylaxis-SCDs This patient was seen by AYDE Bedoya under the supervision of Dr. Rose. 10 minutes spent in clinical coordination of patient's plan of care. This patient was seen in conjunction with JONES Samuels. I have independently interviewed and examined the patient and reviewed pertinent history, examination findings, laboratory and plan of management. I have reviewed the note and agree with the documented findings with the few additional points. In brief, The patient is a 77 y/o M is being admitted to PCU for persistent abdominal pain, severe 10/10 about 1 PM on 03/31 still with nausea without vomiting with discomfort radiating to chest and midsternal region. 1.?Acute pancreatitis possible gallstone pancreatitis and cholecystitis: CT abdomen was done which shows gallstones without evidence of acute cholecystitis.? No evidence of renal ureteral or renal or bladder abnormality.? Lipase 943.? General surgery, Dr.? Nielson consulted and discussed.? Needs his cardiac conditions optimized prior to surgery.? Sap Bods Developer was consulted and requires clearance.? NPO.? On IV fluid 04/02: Discussed with the surgeon.? Concern for bleeding as patient on Eliquis which is on hold.? Aspirin discontinued.? I requested for surgery sooner than later. 04/03: Since patient also had umbilical hernia repair with mesh as per history.? Eliquis and baby aspirin both held.? Patient high risk for bleeding because of mesh repair, ABUNDIO on chronic kidney disease. 04/04: Patient tolerating diet. 04/05: Pain is controlled. Plan for surgery tomorrow Afternoon with Dr. Gold ? ABUNDIO on CKD stage IIIb.? Creatinine jumped up to 2.24 from 1.71, more than 0.5 creatinine increase.? IV fluid normal saline started.? Discontinue ranolazine.? Resume at lower dose when kidney function returns to baseline.? Discussed with the engineering scientist. 04/03: Creatinine is improving. 04/04: Creatinine is improving.? Patient has good urine output. 04/05: Creatinine improving. 2.? Atypical lower chest pain probably transmitted pain from acute pancreatitis/epigastrium: hs?troponins shows decreasing trends.? Patient does not have typical angina pain or other associated symptoms like shortness of breath diaphoresis suggestive of ACS.? Chest x-ray no acute cardiopulmonary finding.? Twelve-lead EKG shows A. fib with T wave inversion V1 V2 with no acute evidence of ischemia.? 2D echo is ordered.? Sap Bods Developer consulted. 04/03 chest pain resolved 4.? Chronic A. fib on Eliquis: Hold Eliquis for surgery.? Continue amiodarone 04/02: INR 2.2.? Eliquis does not correlate with INR.? Vitamin K 5 mg IV ordered. 04/03: INR better. INR 1.9. High [id number] score 5.? But patient did not had a stroke or TIA or mechanical valve replacement therefore does not need bridging anticoagulant. 04/04: Eliquis and baby aspirin on hold for surgery tomorrow. 5.? Multiple other comorbidities include type 2 diabetes mellitus, hypertension, dyslipidemia, chronic macrocytic anemia, CKD stage IIIb, GERD: Home medication reconciliation done. Total time of the visit including total time spent in counseling or coordination of care, (more than 50% of the total time, spent in obtaining medical information from nurses and other ancillary care providers,explaining to the patient about labs, imaging, diagnosis and management), , review of labs and imaging is? 35 minutes.? I spent 20 minutes and Jaclyn,? spent 15 minutes I have discussed my assessment with OJNES Samuels and orders have been reviewed. Charges/Coding Visit Charges Inpatient E&M: 84914 Subs Hosp L2
[2022-04-05 16:40] LABS: Bedside Glucose 167 mg/dL (74-106)
[2022-04-05] MEDS: Atorvastatin Calcium 40 MG Tablet PO (20:52)
[2022-04-05 21:06] LABS: Bedside Glucose 185 mg/dL (74-106)
[2022-04-06] VITALS (25 sets, daily range): BP systolic 112–141; BP diastolic 49–64; PULSE 63–101; RESP 18–20; TEMP 36.4–37.8; O2SAT 93–100; BMI 28.6
--- NOTE | 2022-04-06 | GALL_PTH ---
PATIENT: PEGGY EASTON LOC: [facility] U#:[id number] AGE/SX: 77/M ROOM: [facility] RE03/31/[address]: Dr. Kailash Hollins MD : [id number] BED: 1 DIS: 04/10/2022 SPEC #: [id number] RECD: 04/06/22 14:56 STATUS: LISE REAllegra #: [id number] SELENA: 04/06/22 00:[address]: Noah Gold DEPT: SURGICAL PATHOLOGY RECD BY: Ulices Chavira ENTERED: 04/09/22 08:35 SP TYPE: GALLBLADDE OTHR DR: MD Dr. Kailash Ma MD Dr. Kathleen Fearon, DO Dr. Linda Wang, MD Dr. Nagapradee Nagajothi, MD Dr. Prakash Chand, MD Tissues: Gallbladder, NOS Procedures: Surgery Specimen Level III Comments: @ Ordering doctor for SUIII edited from to @ vincent MELENDREZ at 04/09/22 09 @ Submitting doctor edited from to @ vincent MELENDREZ at 04/09/22 0936 HEADER OPERATION: Laparoscopic cholecystectomy PRE-OP DIAGNOSIS: Acute pancreatitis, cholelithiasis TISSUE SUBMITTED: Gallbladder MICROSCOPIC DIAGNOSIS Gallbladder, cholecystectomy: Acute necrotizing cholecystitis and cholelithiasis. AM:viviana 04/10/2022 MICROSCOPIC DESCRIPTION Slides are reviewed. GROSS DESCRIPTION Received is one container labeled with the patient's name and designated gallbladder. The specimen consists of a previously opened gallbladder measuring 9 cm in length and up to 4 cm in diameter. The external surface is pink-pradhan, smooth and glistening for the most part. Focally it is granular, hemorrhagic and contains cautery artifact. The gallbladder contains a small amount of hemorrhagic fluid mixed with sludge material and three variable sized, irregular brownish-black stones measuring in aggregate 3.5 x 1.5 x 0.4 cm and 0.5 to 1.8 cm in greatest dimension. The mucosa is extensively ulcerated. Sections of the gallbladder wall reveal congested and hemorrhagic cut surfaces. The gallbladder wall measures up to 0.4 cm in thickness. Clinical Nurse Leader sections from the gallbladder and the cystic duct are submitted in one cassette. / SJ:viviana 04/09/2022 TC:2 CPT: 18232
--- NOTE | 2022-04-06 06:00 | EKG12_ITS ---
Test Reason : AM EKG Blood Pressure : / mmHG Vent. Rate : 071 BPM Atrial Rate : 071 BPM P-R Int : 142 ms QRS Dur : 118 ms QT Int : 502 ms P-R-T Axes : 016 -62 100 degrees QTc Int : 545 ms Normal sinus rhythm Left anterior fascicular block ST & T wave abnormality, consider anterior ischemia Prolonged QT Abnormal ECG Confirmed by VICKIE DOLL, SABRA ([id number]), department editor DENISSE FRANK ([id number]) on 04/09/2022 11:27:39 AM Referred By: ERICKSON Confirmed By:SABRA JOHNSTON MD
[2022-04-06] MEDS: Morphine 4 MG/ML Syringe IV (06:30)
[2022-04-06 06:36] LABS: Absolute Lymphocyte Count 0.52 X10^3/uL (0.83-4.51); Absolute Neutrophil Count 6.6 X10^3/uL (2.0-7.7); Basophil# 0.02 X10^3/uL; Basophil% 0.3 % (0-1); Eosinophil# 0.06 X10^3/uL; Eosinophils% 0.8 % (0-5); Hematocrit 24.1 % (40-54); Hemoglobin 8.1 g/dL (13.0-16.5); Lymphocyte # 0.52 X10^3/ul (0.83-4.51); Lymphocyte % 6.5 % (19-41); Mean Corp Hgb Conc 33.6 g/dL (32-36); Mean Corpuscular Hgb 32.5 pg (27.0-32.0); Mean Corpuscular Volume 96.8 fL (80-94); Mean Platelet Vol. 10.8 fl (6.2-12.0); Monocyte# 0.69 X10^3/uL; Monocyte% 8.7 % (0-10); NRBC Flagged by Analyzer 0 % (0-5); Neutrophil # 6.62 X10^3/uL (2.7-7.7); Neutrophil % 82.9 % (47-70); POSITIVE DIFFERENTIAL YES; Platelet Count 162 K/mm3 (150-450); RBC Distribution Width CV 13.7 % (11.6-14.6); Red Blood Count 2.49 M/mm3 (4.6-6.2)
[2022-04-06 06:43] LABS: Differential Indicated SCAN CRITERIA MET
[2022-04-06] MEDS: Ondansetron 4 MG/2 ML Vial IV (06:43)
[2022-04-06 06:59] LABS: ALB/GLOB Ratio 0.4 RATIO (0.9-2.4); AST(SGOT) 62 U/L (15-37); Alanine Aminotransfer ALT/SGPT 70 U/L (16-61); Albumin, Serum 1.6 g/dL (3.2-5.0); Alkaline Phosphatase 120 U/L (45-117); Anion Gap 6 (5-15); BUN 28 mg/dL (7-18); BUN/Creat Ratio 18.8 RATIO (10-20); Calcium,Total 7.8 mg/dL (8.5-10.1); Chloride 113 mmol/L (98-107); Creatinine, Serum 1.49 mg/dL (0.70-1.30); EST Glomerular Filtration Rate 49 mL/min (>60); Est Glom Filt Rate - Afr Amer 59 mL/min (>60); Estimated Creatinine Clearance 35.54 ml/min; Globulin 3.6 g/dL (2.2-4.2); Glucose 159 mg/dL (74-106); Potassium 3.8 mmol/L (3.5-5.1); Protein, Total 5.2 g/dL (6.4-8.2); Sodium Level 141 mmol/L (136-145)
[2022-04-06 07:00] LABS: Bedside Glucose 158 mg/dL (74-106)
[2022-04-06 07:01] LABS: Differential Comment SCANNED; Hypochromasia RARE
[2022-04-06] MEDS: Potassium Chloride Oral Tablet 20 MEQ 40 MEQ PO (08:47)
[2022-04-06] MEDS: Amiodarone 200 MG Tablet 100 MG PO (08:47)
[2022-04-06] MEDS: Isosorbide Mononitrate 60 MG Tablet PO (08:47)
--- NOTE | 2022-04-06 10:37 | PN.HOSP_ITS ---
Documented by User: AYDE Bedoya 04/06/22 10:40 Subjective Subjective Patient seen and examined. Patient sitting in chair no distress noted. Patient scheduled for cholecystectomy at 1 PM today. Objective Data Objective Data Vital Signs: Vital Signs Temp Pulse Resp BP Pulse Ox O2 Del Method O2 Flow Rate 99.0 F 64 18 120/53 L 97 Room Air 2 04/06/22 08:17 04/06/22 08:17 04/06/22 08:17 04/06/22 08:17 04/06/22 08:17 04/06/22 08:22 04/04/22 07:57 FiO2 96 04/04/22 14:30 Oxygen Flow Rate (L/min) 2 Oxygen Delivery Method Room Air Weight: 172 lb 2.896 oz Body Mass Index (BMI) 28.6 Intake & Output: Intake and Output for Last 24 Hours 04/04/22 04/05/22 04/06/22 23:59 23:59 23:59 Intake Total 1860 / 2100 2210 / 2210 210.5 / 210.5 Output Total 575 / 575 1350 / 1350 Balance 1285 / 1525 860 / 860 210.5 / 210.5 Lab / Micro Data Result Diagrams: 04/06/22 05:55 04/06/22 05:55 Labs: Laboratory Results - last 24 hr 04/05/22 11:11: POC Glucose 178 H 04/05/22 16:04: POC Glucose 167 H 04/05/22 20:47: POC Glucose 185 H 04/06/22 05:55: WBC 8.0, RBC 2.49 L, Hgb 8.1 L, Hct 24.1 L, MCV 96.8 H, MCH 32.5 H, MCHC 33.6, RDW Std Deviation 49.0 H, RDW Coeff of Nicole 13.7, Plt Count 162, MPV 10.8, Immature Gran % (Auto) 0.800, Neut % (Auto) 82.9 H, Lymph % (Auto) 6.5 L, [place] % (Auto) 8.7, Eos % (Auto) 0.8, Baso % (Auto) 0.3, Absolute Neuts (auto) 6.6, Absolute Lymphs (auto) 0.52 L, Nucleated RBC % 0, Differential Comment SCANNED, Hypochromasia RARE 04/06/22 05:55: Sodium 141, Potassium 3.8, Chloride 113 H, Carbon Dioxide 22.0, Anion Gap 6, BUN 28 H, Creatinine 1.49 H, Estim Creat Clear Calc 35.54, Est GFR (MDRD) Af Amer 59 L, Est GFR (MDRD) Non-Af 49 L, BUN/Creatinine Ratio 18.8, Glucose 159 H, Calcium 7.8 L, Total Bilirubin 0.60, AST 62 H, ALT 70 H, Alkaline Phosphatase 120 H, Total Protein 5.2 L, Albumin 1.6 L, Globulin 3.6, Albumin/Globulin Ratio 0.4 L 04/06/22 06:33: POC Glucose 158 H Physical Exam Const alert, oriented x3 and no apparent distress Constitutional Narrative: Appears more comfortable today Orientation / Consciousness: awake HEENT normocephalic and moist oral mucous membranes Eyes conjunctivae normal Neck no lymphadenopathy Resp normal respiratory effort and clear to auscultation bilaterally Auscultation: diminished lung sounds Cardio regular rate Cardio Narrative: A. fib Peripheral Pulses: pulses 2+ throughout GI normal to inspection, nondistended, normoactive bowel sounds and non-distended Palpation: tender Extremity normal to inspection Skin no rashes or lesions noted Trauma: no lacerations or abrasions Neuro no focal motor deficits and no sensory deficits noted Psych mental status grossly normal and affect normal Assessment & Plan Assessment/Plan (1) Acute pancreatitis: (2) Cholelithiasis: PLAN: Plan 1.? Acute gallstone pancreatitis -General surgery consulted.? Plan for laparoscopic cholecystectomy today at 1pm -NPO since midnight -As needed pain regimen.? -IV Zosyn.? -Hold Eliquis. -Cleared by cardiology for surgery. 2.? Indeterminate cardiac enzymes -cardiology consulted.? Enzymes did not trend.? EKG without evidence of ischemia.? Echocardiogram demonstrated an EF of 55%, mild mitral valve insufficiency, moderately severe tricuspid valve insufficiency, pulmonary artery systolic pressure 78 mmHg.? Patient does not have any concerning cardiac symptoms. Cleared by cardiology as noted above. 3. Hypoxia -chest x-ray with mild congestive changes. -IV fluids discontinued. -Hold off on Lasix due to kidney function. -Hypoxia resolved. 4. CAD with history of CABG and PCI -continue aspirin, statin. 5. Chronic atrial fibrillation -on anticoagulation with Eliquis.? -Continue amiodarone. 6. Type 2 diabetes mellitus -ACH S blood sugars with sliding scale insulin ordered 7. Hypertension -Vital signs per protocol, currently stable -Continue furosemide, isosorbide 8. Hyperlipidemia -continue statin. 9. Chronic anemia, macrocytic -appears stable. 10. Chronic kidney disease stage IIIb - appears at baseline. 11. GERD-continue PPI. DVT prophylaxis-SCDs This patient was seen by Abril Perez NP-C under the supervision of Dr. Rose. 11 minutes spent in clinical coordination of patient's plan of care. Documented by User: Dr. Israel Rose MD 04/06/22 12:03 Subjective Subjective Patient seen and examined. Patient sitting in chair no distress noted. Patient scheduled for cholecystectomy at 1 PM today. Seen and examined. Abdominal pain is better. Hemoglobin dropped to 8.1 g%. 250 mg IV iron ordered. Plan for surgery Objective Data Lab / Micro Data Result Diagrams: 04/06/22 05:55 04/06/22 05:55 Labs: Laboratory Results - last 24 hr 04/05/22 11:11: POC Glucose 178 H 04/05/22 16:04: POC Glucose 167 H 04/05/22 20:47: POC Glucose 185 H 04/06/22 05:55: WBC 8.0, RBC 2.49 L, Hgb 8.1 L, Hct 24.1 L, MCV 96.8 H, MCH 32.5 H, MCHC 33.6, RDW Std Deviation 49.0 H, RDW Coeff of Nicole 13.7, Plt Count 162, MPV 10.8, Immature Gran % (Auto) 0.800, Neut % (Auto) 82.9 H, Lymph % (Auto) 6.5 L, [place] % (Auto) 8.7, Eos % (Auto) 0.8, Baso % (Auto) 0.3, Absolute Neuts (auto) 6.6, Absolute Lymphs (auto) 0.52 L, Nucleated RBC % 0, Differential Comment SCANNED, Hypochromasia RARE 04/06/22 05:55: Sodium 141, Potassium 3.8, Chloride 113 H, Carbon Dioxide 22.0, Anion Gap 6, BUN 28 H, Creatinine 1.49 H, Estim Creat Clear Calc 35.54, Est GFR (MDRD) Af Amer 59 L, Est GFR (MDRD) Non-Af 49 L, BUN/Creatinine Ratio 18.8, Glucose 159 H, Calcium 7.8 L, Total Bilirubin 0.60, AST 62 H, ALT 70 H, Alkaline Phosphatase 120 H, Total Protein 5.2 L, Albumin 1.6 L, Globulin 3.6, Albumin/Globulin Ratio 0.4 L 04/06/22 06:33: POC Glucose 158 H Physical Exam Narrative Seen and examined. Physical exam General: Alert, Oriented x3, Cooperative HEENT: Atraumatic, PERRLA, EOMI, Normocephalic Oral: Oral mucosa moist. No Gingival or Mucosal Lesions/ Ulcerations Neck: Supple, No JVD, Negative Carotid Bruits Lungs:? Air entry diminished in bilateral lung bases.? No crepitation/rhonchi Cardiovascular: Status post CABG scar. Sinus rhythm with PVC, normal S1, Normal S2, systolic murmur over cardiac apex and LLSB Abdomen: Soft, very mild tenderness over right upper quadrant.? No palpable mass.? Bowel Sounds Present, nondistended. : No renal angle tenderness.? No suprapubic tenderness. Extremities: No edema, Capillary Refill Less than 3 Seconds Skin: No rashes, No breakdown Musculoskeletal: No Tenderness to Palpation of Joints or Extremities.? Range of motion intact Neurological: Cranial nerves II-XII grossly intact, DTR? 2+/4 and Symmetrical, Neuro grossly intact Psych/Mental Status: Normal Affect, Appropriate. Assessment & Plan Assessment/Plan (1) Acute pancreatitis: (2) Cholelithiasis: PLAN: Plan 1.? Acute gallstone pancreatitis -General surgery consulted.? Plan for laparoscopic cholecystectomy today at 1pm -NPO since midnight -As needed pain regimen.? -IV Zosyn.? -Hold Eliquis. -Cleared by cardiology for surgery. 2.? Indeterminate cardiac enzymes -cardiology consulted.? Enzymes did not trend.? EKG without evidence of ischemia.? Echocardiogram demonstrated an EF of 55%, mild mitral valve insufficiency, moderately severe tricuspid valve insufficiency, pulmonary artery systolic pressure 78 mmHg.? Patient does not have any concerning cardiac symptoms. Cleared by cardiology as noted above. 3. Hypoxia -chest x-ray with mild congestive changes. -IV fluids discontinued. -Hold off on Lasix due to kidney function. -Hypoxia resolved. 4. CAD with history of CABG and PCI -continue aspirin, statin. 5. Chronic atrial fibrillation -on anticoagulation with Eliquis.? -Continue amiodarone. 6. Type 2 diabetes mellitus -ACH S blood sugars with sliding scale insulin ordered 7. Hypertension -Vital signs per protocol, currently stable -Continue furosemide, isosorbide 8. Hyperlipidemia -continue statin. 9. Chronic anemia, macrocytic -appears stable. 10. Chronic kidney disease stage IIIb - appears at baseline. 11. GERD-continue PPI. DVT prophylaxis-SCDs This patient was seen by AYDE Bedoya under the supervision of Dr. Rose. 15 minutes spent in clinical coordination of patient's plan of care. This patient was seen in conjunction with JONES Samuels.? I have independently interviewed and examined the patient and reviewed pertinent history, examination findings, laboratory and plan of management.? I have? reviewed the note and agree with the documented findings with the few additional points. In brief, The patient is a 77 y/o M is being admitted to PCU for persistent abd ominal pain, severe 10/10 about 1 PM on 03/31 still with nausea without vomiting with discomfort radiating to chest and midsternal region. 1.?Acute pancreatitis possible gallstone pancreatitis and cholecystitis: CT abdomen was done which shows gallstones without evidence of acute cholecystitis.? No evidence of renal ureteral or renal or bladder abnormality.? Lipase 943.? General surgery, Dr.? Nielson consulted and discussed.? Needs his cardiac conditions optimized prior to surgery.? Senior Research Engineer was consulted and requires clearance.? NPO.? On IV fluid 04/02: Discussed with the surgeon.? Concern for bleeding as patient on Eliquis which is on hold.? Aspirin discontinued.? I requested for surgery sooner than later. 04/03: Since patient also had umbilical hernia repair with mesh as per history.? Eliquis and baby aspirin both held.? Patient high risk for bleeding because of mesh repair, ABUNDIO on chronic kidney disease. 04/04: Patient tolerating diet. 04/05: Pain is controlled.? 04/06: Plan for surgery at afternoon today. Incentive spirometry encouraged. Acute normocytic normochromic anemia on baseline chronic anemia: Patient does not have obvious GI bleed. Stool for occult blood ordered. IV iron 250 mg ordered. No indication for transfusion. Not symptomatic with chest pain or shortness of breath or other new symptoms. ? ABUNDIO on CKD stage IIIb.? Creatinine jumped up to 2.24 from 1.71, more than 0.5 creatinine increase.? IV fluid normal saline started.? Discontinue ranolazine.? Resume at lower dose when kidney function returns to baseline.? Discussed with the glass novelty maker. 04/03: Creatinine is improving. 04/04: Creatinine is improving.? Patient has good urine output. 04/05: Creatinine improving. 04/06: Creatinine improving. 2.? Atypical lower chest pain probably transmitted pain from acute pancreatitis/epigastrium: hs?troponins shows decreasing trends.? Patient does not have typical angina pain or other associated symptoms like shortness of breath diaphoresis suggestive of ACS.? Chest x-ray no acute cardiopulmonary finding.? Twelve-lead EKG shows A. fib with T wave inversion V1 V2 with no acute evidence of ischemia.? 2D echo is ordered.? Senior Research Engineer consulted. 04/03 chest pain resolved 4.? Chronic A. fib on Eliquis: Hold Eliquis for surgery.? Continue amiodarone 04/02: INR 2.2.? Eliquis does not correlate with INR.? Vitamin K 5 mg IV ordered. 04/03: INR better. INR 1.9. High [id number] score 5.? But patient did not had a stroke or TIA or mechanical valve replacement therefore does not need bridging anticoagulant. 04/04: Eliquis and baby aspirin on hold for surgery 5.? Multiple other comorbidities include type 2 diabetes mellitus, hypertension, dyslipidemia, chronic macrocytic anemia, CKD stage IIIb, GERD: Home medication reconciliation done. Total time of the visit including total time spent in counseling or coordination of care, (more than 50% of the total time, spent in obtaining medical information from nurses and other ancillary care providers,explaining to the patient about labs, imaging, diagnosis and management), , review of labs and imaging is? 35 minutes.? I spent 20 minutes and? spent 15 minutes Charges/Coding Visit Charges Inpatient E&M: 72688 Subs Hosp L2
[2022-04-06 12:40] LABS: Bedside Glucose 135 mg/dL (74-106)
[2022-04-06] MEDS: Bupivacaine 0.25% 30 ML Vial (13:40)
--- NOTE | 2022-04-06 13:56 | PCM.OPRPT ---
Problems Associated Problem List Diagnoses (1) Acute gangrenous cholecystitis: Report of Operation Date of Procedure: 04/06/22 Pre-Operative Diagnosis: Acute gangrenous cholecystitis Post-Operative Diagnosis: Same Surgery/Procedure Performed:: Laparoscopic cholecystectomy Surgeon: Noah Gold Type of Anesthesia: General Anesthesiologist: Vamshi Butterfield Specimen's removed: Gallbladder Drains: 15 round Flaco-Watson Estimated Blood Loss (mL): 900 cc Description of Procedure: Patient was brought into the operating room. Placed in the supine position. Under excellent general endotracheal ovation abdomen was sterilely prepped and draped in usual fashion. Local was injected infraumbilically vertical incision was made dissection was carried down to the fascia the fascia grasped with a [place] varies needle was placed inside the abdomen the abdomen was insufflated to 15 torr a 10/12 trocar was placed without difficulty. Patient was placed in the head up and rotated to the left position subxiphoid #5 trochars placed inferior to this another #5 trochars placed laterally #5 trocar was placed all these were placed under direct visualization without injury to underlying structures. I took adhesions down from the gallbladder and it was black gangrenous in nature. I aspirated out the fluid I sent this for culture and sensitivity. I grabbed the body of the gallbladder and retracted it in a anterior and cephalad direction I was able luckily to dissect the cystic artery and cystic duct and posteriorly to the liver edge with curved dissectors and my suction management developer once I felt confident that I had the anatomy I placed hemoclips proximally and distally on the artery and ligated it placed hemoclips proximally distally on the duct and ligated that. I deliver the gallbladder from the gallbladder bed with electrocautery and blunt dissection. Ice placed in in a specimen bag and delivered through the umbilical port I retrieved 3 stones that came out of the bag without difficulty. I then irrigated the right upper quadrant there was a small vessel on the liver bed which I had to place a titanium clip on to get good pneumostasis once this was achieved I used the argon beam accounting manager on the liver bed to achieve more hemostasis. I irrigated I had good pneumostasis I placed Erick into the liver bed as well as some Surgicel. A 15 round Flaco-Watson drain was then placed into the wound. This was brought out through the lateral trocar. It was sutured to the skin with 3-0 nylon. Once I was Confident that I had good pneumostasis I removed the trochars under direct visualization good pneumostasis was noted close the fascia the umbilical port with a [id number] stitch of 0 Vicryl. Skin incisions were closed with subcuticular stitches of 4-0 Monocryl. Steri-Strips were applied sterile dressings were applied and the patient tolerated the procedure well. Admit VTE Documentation VTE Present on Admission: No VTE Mechan Device Prophylaxis: SCD's VTE Pharm Prophylaxis ordered?: No Reason prophylaxis not ordered:: Treatment Not Indicated
--- NOTE | 2022-04-06 14:27 | EKG12_ITS ---
Test Reason : Blood Pressure : / mmHG Vent. Rate : 071 BPM Atrial Rate : 071 BPM P-R Int : 144 ms QRS Dur : 120 ms QT Int : 524 ms P-R-T Axes : 004 -63 093 degrees QTc Int : 569 ms Normal sinus rhythm Left anterior fascicular block ST & T wave abnormality, consider anterolateral ischemia Abnormal ECG When compared with ECG of 06-APR-2022 05:47, MANUAL COMPARISON REQUIRED, DATA IS UNCONFIRMED Confirmed by VICKIE DOLL, SABRA ([id number]), technical editor CYNTHIA ROBINS ([id number]) on 04/10/2022 9:44:41 AM Referred By: JOEY Confirmed By:SABRA JOHNSTON MD
--- NOTE | 2022-04-06 15:02 | SUR.PHASEI ---
1445 DRESSING CHANGED AROUND SITE, LG AMT SEROSANG DRAINAGE, 3 PK OF SPIT 4X4'S APPLIED. 30CC EMPTIED FROM . [address] NOTIFIED OF DRAINAGE AROUND SITE & DRESSING CHANGE, STATES CONTINUE TO MONITOR, DRAINAGE EXPECTED, CHANGE NEEDED .
[2022-04-06 15:08] LABS: Troponin-I HS 98 pg/mL (3.0-78.0)
--- NOTE | 2022-04-06 15:47 | SUR.PHASEI ---
1520 DR LEE STATES OK FOR PT TO BE D/C FROM PACU AFTER BLOOD INITIATED FOR 30MIN.
[2022-04-06 16:06] LABS: Bedside Glucose 175 mg/dL (74-106)
[2022-04-06] MEDS: Ferrous Sulfate 325 MG Tablet PO (16:44)
[2022-04-06] MEDS: Insulin Lispro 100 UNIT/ML INSULN.PEN SC (21:09)
[2022-04-06] MEDS: Atorvastatin Calcium 40 MG Tablet PO (21:09)
[2022-04-06] MEDS: 0.9% Saline Lock 10 ML Syringe IV (21:25)
[2022-04-06 22:10] LABS: Bedside Glucose 202 mg/dL (74-106)
[2022-04-06 22:21] LABS: Hematocrit 29.4 % (40-54)
[2022-04-06] MEDS: oxyCODONE 5 MG Tablet PO (23:20)
[2022-04-07] VITALS (9 sets, daily range): BP systolic 114–133; BP diastolic 56–63; PULSE 53–64; RESP 16–18; TEMP 36.2–36.4; O2SAT 93–100
[2022-04-07] MEDS: Acetaminophen 325 MG Tablet 650 MG PO (02:46)
[2022-04-07] MEDS: oxyCODONE 5 MG Tablet PO ×2 (05:12→11:14)
[2022-04-07] MEDS: 0.9% Saline Lock 10 ML Syringe IV (05:20)
[2022-04-07 06:10] LABS: Absolute Lymphocyte Count 0.47 X10^3/uL (0.83-4.51); Basophil# 0.01 X10^3/uL; Basophil% 0.1 % (0-1); Hematocrit 29.4 % (40-54); Hemoglobin 9.6 g/dL (13.0-16.5); Lymphocyte # 0.47 X10^3/ul (0.83-4.51); Lymphocyte % 5.8 % (19-41); Mean Corp Hgb Conc 32.7 g/dL (32-36); Mean Corpuscular Hgb 31.1 pg (27.0-32.0); Mean Corpuscular Volume 95.1 fL (80-94); Mean Platelet Vol. 10.9 fl (6.2-12.0); Monocyte# 0.51 X10^3/uL; Monocyte% 6.3 % (0-10); NRBC Flagged by Analyzer 0 % (0-5); Neutrophil # 7.01 X10^3/uL (2.7-7.7); Neutrophil % 86.9 % (47-70); POSITIVE DIFFERENTIAL YES; Platelet Count 171 K/mm3 (150-450); RBC Distribution Width CV 15.8 % (11.6-14.6); RBC Distribution Width SD 55.2 fl (35.1-43.9); Red Blood Count 3.09 M/mm3 (4.6-6.2); White Blood Count 8.1 K/mm3 (4.4-11.0)
[2022-04-07 06:26] LABS: International Normalized Ratio 1.2; Prothrombin Time (Protime)PT. 15.1 SECONDS (11.7-14.9)
[2022-04-07] MEDS: Insulin Lispro 100 UNIT/ML INSULN.PEN SC ×4 (06:42→20:41)
[2022-04-07 06:43] LABS: Differential Indicated SCAN CRITERIA MET
[2022-04-07 06:47] LABS: Differential Comment SCANNED
[2022-04-07 06:53] LABS: ALB/GLOB Ratio 0.4 RATIO (0.9-2.4); AST(SGOT) 102 U/L (15-37); Alanine Aminotransfer ALT/SGPT 99 U/L (16-61); Albumin, Serum 1.6 g/dL (3.2-5.0); Alkaline Phosphatase 105 U/L (45-117); Anion Gap 6 (5-15); BUN 33 mg/dL (7-18); BUN/Creat Ratio 21.9 RATIO (10-20); Chloride 114 mmol/L (98-107); Creatinine, Serum 1.51 mg/dL (0.70-1.30); EST Glomerular Filtration Rate 48 mL/min (>60); Est Glom Filt Rate - Afr Amer 58 mL/min (>60); Estimated Creatinine Clearance 35.07 ml/min; Globulin 3.7 g/dL (2.2-4.2); Glucose 181 mg/dL (74-106); Protein, Total 5.3 g/dL (6.4-8.2); Sodium Level 139 mmol/L (136-145)
[2022-04-07 07:06] LABS: Bedside Glucose 176 mg/dL (74-106)
--- NOTE | 2022-04-07 09:30 | PN.HOSP_ITS ---
Documented by User: AYDE Bedoya 04/07/22 09:43 Subjective Subjective Patient seen and examined. States that he is feeling much better following his cholecystectomy yesterday. Patient has a drain which is continuing to drain blood, last measurement was 50 mL of blood out. Hemoglobin reviewed and stable at 9.6. Objective Data Objective Data Vital Signs: Vital Signs Temp Pulse Resp BP Pulse Ox O2 Del Method O2 Flow Rate 97.2 F L 58 L 18 114/61 98 Room Air 2 04/07/22 05:09 04/07/22 07:27 04/07/22 05:09 04/07/22 05:09 04/07/22 05:09 04/07/22 05:09 04/06/22 18:54 FiO2 96 04/04/22 14:30 Oxygen Flow Rate (L/min) 2 Oxygen Delivery Method Room Air Weight: 172 lb 2.896 oz Body Mass Index (BMI) 28.6 Intake & Output: Intake and Output for Last 24 Hours 04/05/22 04/06/22 04/07/22 23:59 23:59 23:59 Intake Total 2210 / 2210 2204.0 / 2204.0 50 / 50 Output Total 1350 / 1350 525 / 525 340 / 340 Balance 860 / 860 1679.0 / 1679.0 -290 / -290 Lab / Micro Data Result Diagrams: 04/07/22 05:56 04/07/22 05:56 Labs: Laboratory Results - last 24 hr 04/06/22 05:55: Hemoglobin A1c 6.0 H 04/06/22 12:01: POC Glucose 135 H 04/06/22 13:15: Blood Type A POSITIVE, Antibody Screen NEGATIVE, Crossmatch See Detail 04/06/22 14:40: Troponin I High Sens 98 H 04/06/22 15:43: POC Glucose 175 H 04/06/22 21:06: POC Glucose 202 H 04/06/22 22:05: Hgb 10.0 L, Hct 29.4 L 04/07/22 05:56: WBC 8.1, RBC 3.09 L, Hgb 9.6 L, Hct 29.4 L, MCV 95.1 H, MCH 31.1, MCHC 32.7, RDW Std Deviation 55.2 H, RDW Coeff of Nicole 15.8 H, Plt Count 171, MPV 10.9, Immature Gran % (Auto) 0.900, Neut % (Auto) 86.9 H, Lymph % (Auto) 5.8 L, [place] % (Auto) 6.3, Eos % (Auto) 0.0, Baso % (Auto) 0.1, Absolute Neuts (auto) 7.0, Absolute Lymphs (auto) 0.47 L, Nucleated RBC % 0, Differential Comment SCANNED 04/07/22 05:56: Sodium 139, Potassium 5.0, Chloride 114 H, Carbon Dioxide 19.0 L , Anion Gap 6, BUN 33 H, Creatinine 1.51 H, Estim Creat Clear Calc 35.07, Est GFR (MDRD) Af Amer 58 L, Est GFR (MDRD) Non-Af 48 L, BUN/Creatinine Ratio 21.9 H , Glucose 181 H, Calcium 8.0 L, Total Bilirubin 0.70, AST 102 H, ALT 99 H, Alkaline Phosphatase 105, Total Protein 5.3 L, Albumin 1.6 L, Globulin 3.7, Albumin/Globulin Ratio 0.4 L 04/07/22 05:56: PT 15.1 H, INR 1.2 04/07/22 06:40: POC Glucose 176 H Physical Exam Const alert, oriented x3 and no apparent distress Constitutional Narrative: Appears more comfortable today Orientation / Consciousness: awake HEENT normocephalic and moist oral mucous membranes Eyes conjunctivae normal Neck no lymphadenopathy Resp normal respiratory effort and clear to auscultation bilaterally Auscultation: diminished lung sounds Cardio regular rate Cardio Narrative: A. fib Peripheral Pulses: pulses 2+ throughout GI normal to inspection, nondistended, normoactive bowel sounds and non-distended Palpation: tender Extremity normal to inspection Skin no rashes or lesions noted Trauma: no lacerations or abrasions Neuro no focal motor deficits and no sensory deficits noted Psych mental status grossly normal and affect normal Assessment & Plan Assessment/Plan (1) Acute pancreatitis: (2) Cholelithiasis: PLAN: Plan 1.? Acute gallstone pancreatitis -General surgery following, cholecystectomy 04/06/2022. Patient states that he is feeling much improved. Patient received 2 units of PRBC following surgery due to blood loss and chronic anemia. Hgb 9.6 04/07/2022. -Transition to clear liquids this morning, tolerating well -As needed pain regimen.? -IV Zosyn.? -Hold Eliquis. 2.? Indeterminate cardiac enzymes -cardiology consulted.? Enzymes did not trend.? EKG without evidence of isc hemia.? Echocardiogram demonstrated an EF of 55%, mild mitral valve insufficiency, moderately severe tricuspid valve insufficiency, pulmonary artery systolic pressure 78 mmHg.? Patient does not have any concerning cardiac symptoms. Cleared by cardiology prior to surgery. 3. CAD with history of CABG and PCI -continue aspirin, statin. 4. Chronic atrial fibrillation -on anticoagulation with Eliquis.? -Continue amiodarone. 5. Type 2 diabetes mellitus -ACH S blood sugars with sliding scale insulin ordered 6. Hypertension -Vital signs per protocol, currently stable -Continue furosemide, isosorbide 7. Hyperlipidemia -continue statin. 8. Chronic anemia, macrocytic -appears stable. 9. Chronic kidney disease stage IIIb - appears at baseline. 10. GERD-continue PPI. DVT prophylaxis-SCDs This patient was seen by AYDE Bedoya under the supervision of Dr. Rose. 13 minutes spent in clinical coordination of patient's plan of care. Documented by User: Dr. Israel Rose MD 04/07/22 12:01 Subjective Subjective Patient seen and examined. States that he is feeling much better following his cholecystectomy yesterday. Patient has a drain which is continuing to drain blood, last measurement was 50 mL of blood out. Hemoglobin reviewed and stable at 9.6. Seen and examined. Patient looks better after cholecystectomy but still has perioperative region pain. Had about 900 estimated blood loss. Acute gangrenous cholecystitis. Patient has a KANDICE drain. KANDICE drain output about 50 mL serosanguineous fluid. Objective Data Lab / Micro Data Result Diagrams: 04/07/22 05:56 04/07/22 05:56 Labs: Laboratory Results - last 24 hr 04/06/22 05:55: Hemoglobin A1c 6.0 H 04/06/22 12:01: POC Glucose 135 H 04/06/22 13:15: Blood Type A POSITIVE, Antibody Screen NEGATIVE, Crossmatch See Detail 04/06/22 14:40: Troponin I High Sens 98 H 04/06/22 15:43: POC Glucose 175 H 04/06/22 21:06: POC Glucose 202 H 04/06/22 22:05: Hgb 10.0 L, Hct 29.4 L 04/07/22 05:56: WBC 8.1, RBC 3.09 L, Hgb 9.6 L, Hct 29.4 L, MCV 95.1 H, MCH 31.1, MCHC 32.7, RDW Std Deviation 55.2 H, RDW Coeff of Nicole 15.8 H, Plt Count 171, MPV 10.9, Immature Gran % (Auto) 0.900, Neut % (Auto) 86.9 H, Lymph % (Auto) 5.8 L, [place] % (Auto) 6.3, Eos % (Auto) 0.0, Baso % (Auto) 0.1, Absolute Neuts (auto) 7.0, Absolute Lymphs (auto) 0.47 L, Nucleated RBC % 0, Differential Comment SCANNED 04/07/22 05:56: Sodium 139, Potassium 5.0, Chloride 114 H, Carbon Dioxide 19.0 L , Anion Gap 6, BUN 33 H, Creatinine 1.51 H, Estim Creat Clear Calc 35.07, Est GFR (MDRD) Af Amer 58 L, Est GFR (MDRD) Non-Af 48 L, BUN/Creatinine Ratio 21.9 H , Glucose 181 H, Calcium 8.0 L, Total Bilirubin 0.70, AST 102 H, ALT 99 H, Alkaline Phosphatase 105, Total Protein 5.3 L, Albumin 1.6 L, Globulin 3.7, Albumin/Globulin Ratio 0.4 L 04/07/22 05:56: PT 15.1 H, INR 1.2 04/07/22 06:40: POC Glucose 176 H Physical Exam Narrative Seen and examined. Physical exam General: Alert, Oriented x3, Cooperative. No fever HEENT: Atraumatic, PERRLA, EOMI, Normocephalic Oral: Oral mucosa moist. No Gingival or Mucosal Lesions/ Ulcerations Neck: Supple, No JVD, Negative Carotid Bruits Lungs:? Air entry diminished in bilateral lung bases, right more than left no crepitation/rhonchi Cardiovascular: Status post CABG scar. Sinus rhythm with PVC, normal S1, Normal S2, systolic murmur over cardiac apex and LLSB Abdomen: Right KANDICE drain about 50 mL. Tenderness around operative region. Bowel sounds sluggish. nondistended. : No renal angle tenderness.? No suprapubic tenderness. Extremities: No edema, Capillary Refill Less than 3 Seconds Skin: No rashes, No breakdown Musculoskeletal: No Tenderness to Palpation of Joints or Extremities.? Range of motion intact Neurological: Cranial nerves II-XII grossly intact, DTR? 2+/4 and Symmetrical, Neuro grossly intact Psych/Mental Status: Normal Affect, Appropriate. Assessment & Plan Assessment/Plan (1) Acute pancreatitis: (2) Cholelithiasis: PLAN: Plan 1.? Acute gallstone pancreatitis -General surgery following, cholecystectomy 04/06/2022. Patient states that he is feeling much improved. Patient received 2 units of PRBC following surgery due to blood loss and chronic anemia. Hgb 9.6 04/07/2022. -Transition to clear liquids this morning, tolerating well -As needed pain regimen.? -IV Zosyn.? -Hold Eliquis. 2.? Indeterminate cardiac enzymes -cardiology consulted.? Enzymes did not trend.? EKG without evidence of ischemia.? Echocardiogram demonstrated an EF of 55%, mild mitral valve insufficiency, moderately severe tricuspid valve insufficiency, pulmonary artery systolic pressure 78 mmHg.? Patient does not have any concerning cardiac symptoms. Cleared by cardiology prior to surgery. 3. CAD with history of CABG and PCI -continue aspirin, statin. 4. Chronic atrial fibrillation -on anticoagulation with Eliquis.? -Continue amiodarone. 5. Type 2 diabetes mellitus -ACH S blood sugars with sliding scale insulin ordered 6. Hypertension -Vital signs per protocol, currently stable -Continue furosemide, isosorbide 7. Hyperlipidemia -continue statin. 8. Chronic anemia, macrocytic -appears stable. 9. Chronic kidney disease stage IIIb - appears at baseline. 10. GERD-continue PPI. DVT prophylaxis-SCDs This patient was seen by AYDE Bedoya under the supervision of Dr. Rose. 15 minutes spent in clinical coordination of patient's plan of care. This patient was seen in conjunction with JONES Samuels.? I have independently interviewed and examined the patient and reviewed pertinent history, examination findings, laboratory and plan of management.? I have? reviewed the note and agree with the documented findings with the few additional points. In brief, The patient is a 77 y/o M is being admitted to PCU for persistent abdominal pain, severe 10/10 about 1 PM on 03/31 still with nausea without vomiting with discomfort radiating to chest and midsternal region. 1.?Acute pancreatitis possible gallstone pancreatitis and cholecystitis: CT abdomen was done which shows gallstones without evidence of acute cholecystitis.? No evidence of renal ureteral or renal or bladder abnormality.? Lipase 943.? General surgery, Dr.? Nielson consulted and discussed.? Needs his cardiac conditions optimized prior to surgery.? Cafeteria Team Leader was consulted and requires clearance.? NPO.? On IV fluid 04/02: Discussed with the surgeon.? Concern for bleeding as patient on Eliquis which is on hold.? Aspirin discontinued.? I requested for surgery sooner than later. 04/03: Since patient also had umbilical hernia repair with mesh as per history.? Eliquis and baby aspirin both held.? Patient high risk for bleeding because of mesh repair, ABUNDIO on chronic kidney disease. 04/04: Patient tolerating diet. 04/05: Pain is controlled.? 04/06: Plan for surgery at afternoon today.? Incentive spirometry encouraged. 04/07: Patient had lap paige in and about 900 ml operative, blood loss on 04/07/2022. Operative note reviewed and states acute gangrenous cholecystitis. Patient has KANDICE drain. Incentive spirometry encouraged. Discussed with the surgeon in view of severe blood loss, anemia and difficult surgery keep, holding anticoagulant. 2. ?Acute normocytic normochromic anemia on baseline chronic anemia: Patient does not have obvious GI bleed.? Stool for occult blood ordered.? IV iron 250 mg ordered.? No indication for transfusion.? Not symptomatic with chest pain or shortness of breath or other new symptoms. 04/07: Patient had 2 units PRBC transfusion done, repeat hemoglobin increased from 8.9-10, dropped to 9.6. IV iron to 50 mg ordered. Lungs are clear. 3.? ABUNDIO on CKD stage IIIb.? Creatinine jumped up to 2.24 from 1.71, more than 0.5 creatinine increase.? IV fluid normal saline started.? Discontinue ranolazine.? Resume at lower dose when kidney function returns to baseline.? Discussed with the vacuum spindle sander. 04/03: Creatinine is improving. 04/04: Creatinine is improving.? Patient has good urine output. 04/05: Creatinine improving. 04/06: Creatinine improving. Creatinine 1.5 unknown baseline. ABUNDIO resolved. 4..? Atypical lower chest pain probably transmitted pain from acute pancreatitis/epigastrium: hs?troponins shows decreasing trends.? Patient does not have typical angina pain or other associated symptoms like shortness of breath diaphoresis suggestive of ACS.? Chest x-ray no acute cardiopulmonary finding.? Twelve-lead EKG shows A. fib with T wave inversion V1 V2 with no acute evidence of ischemia.? 2D echo is ordered.? Cafeteria Team Leader consulted. 04/03 chest pain resolved. ACS ruled out 5..? Chronic A. fib on Eliquis: Hold Eliquis for surgery.? Continue amiodarone 04/02: INR 2.2.? Eliquis does not correlate with INR.? Vitamin K 5 mg IV ordered. 04/03: INR better. INR 1.9. High [id number] score 5.? But patient did not had a stroke or TIA or mechanical valve replacement therefore does not need bridging anticoagulant. 04/04: Eliquis and baby aspirin on hold for surgery 04/07: Consider resuming anticoagulant prefer IV heparin from tomorrow a.m. as it is easy to reverse in case of bleeding. 6 multiple other comorbidities include type 2 diabetes mellitus, hypertension, dyslipidemia, chronic macrocytic anemia, CKD stage IIIb, GERD: Home medication reconciliation done. Total time of the visit including total time spent in counseling or coordination of care, (more than 50% of the total time, spent in obtaining medical information from nurses and other ancillary care providers,explaining to the patient about labs, imaging, diagnosis and management), discussion with consultants, review of labs and imaging is? 45 minutes.? I spent 30 minutes and? 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 Laboratory Results 04/06/22 12:01: POC Glucose 135 H 04/06/22 13:15: Blood Type A POSITIVE, Antibody Screen NEGATIVE, Crossmatch See Detail 04/06/22 14:40: Troponin I High Sens 98 H 08/05/22 15:43: POC Glucose 175 H 04/06/22 21:06: POC Glucose 202 H 04/06/22 22:05: Hgb 10.0 L, Hct 29.4 L 04/07/22 05:56: WBC 8.1, RBC 3.09 L, Hgb 9.6 L, Hct 29.4 L, MCV 95.1 H, MCH 31.1, MCHC 32.7, RDW Std Deviation 55.2 H, RDW Coeff of Nicole 15.8 H, Plt Count 171, MPV 10.9, Immature Gran % (Auto) 0.900, Neut % (Auto) 86.9 H, Lymph % (Auto) 5.8 L, [place] % (Auto) 6.3, Eos % (Auto) 0.0, Baso % (Auto) 0.1, Absolute Neuts (auto) 7.0, Absolute Lymphs (auto) 0.47 L, Nucleated RBC % 0, Differential Comment SCANNED 04/07/22 05:56: Sodium 139, Potassium 5.0, Chloride 114 H, Carbon Dioxide 19.0 L , Anion Gap 6, BUN 33 H, Creatinine 1.51 H, Estim Creat Clear Calc 35.07, Est GFR (MDRD) Af Amer 58 L, Est GFR (MDRD) Non-Af 48 L, BUN/Creatinine Ratio 21.9 H , Glucose 181 H, Calcium 8.0 L, Total Bilirubin 0.70, AST 102 H, ALT 99 H, Alkaline Phosphatase 105, Total Protein 5.3 L, Albumin 1.6 L, Globulin 3.7, Albumin/Globulin Ratio 0.4 L 04/07/22 05:56: PT 15.1 H, INR 1.2 04/07/22 06:40: POC Glucose 176 H Charges/Coding Visit Charges Inpatient E&M: 74669 Subs Hosp L3
--- NOTE | 2022-04-07 10:22 | PCM.PN.SRG ---
Subjective Subjective Patient states that he feels much improved after surgery, states he could to a cartwheel doesn't really feel hungry at this point Objective Data Objective Data Vital Signs: Vital Signs Temp Pulse Resp BP Pulse Ox O2 Del Method O2 Flow Rate 97.2 F L 58 L 18 114/61 98 Room Air 2 04/07/22 05:09 04/07/22 07:27 04/07/22 05:09 04/07/22 05:09 04/07/22 05:09 04/07/22 05:09 04/06/22 18:54 FiO2 96 04/04/22 14:30 Oxygen Flow Rate (L/min) 2 Oxygen Delivery Method Room Air Weight: 78.1 kg Body Mass Index (BMI) 28.6 Intake & Output: Intake and Output for Last 24 Hours 04/05/22 04/06/22 04/07/22 23:59 23:59 23:59 Intake Total 2210 / 2210 2204.0 / 2204.0 100 / 100 Output Total 1350 / 1350 525 / 525 340 / 340 Balance 860 / 860 1679.0 / 1679.0 -240 / -240 Lab / Micro Data Result Diagrams: 04/07/22 05:56 04/07/22 05:56 Labs: Laboratory Results - last 24 hr 04/06/22 05:55: Hemoglobin A1c 6.0 H 04/06/22 12:01: POC Glucose 135 H 04/06/22 13:15: Blood Type A POSITIVE, Antibody Screen NEGATIVE, Crossmatch See Detail 04/06/22 14:40: Troponin I High Sens 98 H 04/06/22 15:43: POC Glucose 175 H 04/06/22 21:06: POC Glucose 202 H 04/06/22 22:05: Hgb 10.0 L, Hct 29.4 L 04/07/22 05:56: WBC 8.1, RBC 3.09 L, Hgb 9.6 L, Hct 29.4 L, MCV 95.1 H, MCH 31.1, MCHC 32.7, RDW Std Deviation 55.2 H, RDW Coeff of Nicole 15.8 H, Plt Count 171, MPV 10.9, Immature Gran % (Auto) 0.900, Neut % (Auto) 86.9 H, Lymph % (Auto) 5.8 L, [place] % (Auto) 6.3, Eos % (Auto) 0.0, Baso % (Auto) 0.1, Absolute Neuts (auto) 7.0, Absolute Lymphs (auto) 0.47 L, Nucleated RBC % 0, Differential Comment SCANNED 04/07/22 05:56: Sodium 139, Potassium 5.0, Chloride 114 H, Carbon Dioxide 19.0 L, Anion Gap 6, BUN 33 H, Creatinine 1.51 H, Estim Creat Clear Calc 35.07, Est GFR (MDRD) Af Amer 58 L, Est GFR (MDRD) Non-Af 48 L, BUN/Creatinine Ratio 21.9 H, Glucose 181 H, Calcium 8.0 L, Total Bilirubin 0.70, AST 102 H, ALT 99 H, Alkaline Phosphatase 105, Total Protein 5.3 L, Albumin 1.6 L, Globulin 3.7, Albumin/Globulin Ratio 0.4 L 04/07/22 05:56: PT 15.1 H, INR 1.2 04/07/22 06:40: POC Glucose 176 H Physical Exam Const alert and oriented x3 General Appearance: cooperative and comfortable Neck supple Resp normal respiratory effort Effort and Inspection: able to speak in complete sentences GI GI Narrative: abdomen is soft and benign with appropriate incisional tenderness dressing intact without seepage KANDICE output is serosanguinous but mostly serous Assessment & Plan Assessment/Plan (1) Status post laparoscopic cholecystectomy: PLAN: Patient doing well at POD#1 from laparoscopic cholecystectomy with findings of acute gangrenous cholecystitis hospitalist plan to start anticoagulation tomorrow I have encouraged ambulation and incentive spirometry i
[2022-04-07] MEDS: Potassium Chloride Oral Tablet 20 MEQ 40 MEQ PO (10:28)
[2022-04-07] MEDS: Isosorbide Mononitrate 60 MG Tablet PO (10:29)
[2022-04-07] MEDS: Amiodarone 200 MG Tablet 100 MG PO (10:29)
[2022-04-07] MEDS: Aspirin E.C. 81 MG Tablet PO (12:22)
[2022-04-07] MEDS: Atorvastatin Calcium 40 MG Tablet PO (19:32)
[2022-04-08] VITALS (8 sets, daily range): BP systolic 116–154; BP diastolic 45–62; PULSE 44–73; RESP 16; TEMP 36.1–36.9; O2SAT 96–98
[2022-04-08] MEDS: Acetaminophen 325 MG Tablet 650 MG PO ×3 (03:34→14:44)
[2022-04-08 06:15] LABS: Absolute Neutrophil Count 5.2 X10^3/uL (2.0-7.7); Basophil# 0.02 X10^3/uL; Basophil% 0.3 % (0-1); Eosinophil# 0.08 X10^3/uL; Eosinophils% 1.2 % (0-5); Hematocrit 28.3 % (40-54); Hemoglobin 9.4 g/dL (13.0-16.5); Lymphocyte % 13.3 % (19-41); Mean Corp Hgb Conc 33.2 g/dL (32-36); Mean Corpuscular Hgb 31.8 pg (27.0-32.0); Mean Corpuscular Volume 95.6 fL (80-94); Mean Platelet Vol. 11.1 fl (6.2-12.0); Monocyte# 0.43 X10^3/uL; Monocyte% 6.4 % (0-10); NRBC Flagged by Analyzer 0 % (0-5); Neutrophil # 5.21 X10^3/uL (2.7-7.7); Platelet Count 188 K/mm3 (150-450); RBC Distribution Width CV 15.7 % (11.6-14.6); RBC Distribution Width SD 54.9 fl (35.1-43.9); Red Blood Count 2.96 M/mm3 (4.6-6.2); White Blood Count 6.8 K/mm3 (4.4-11.0)
[2022-04-08 06:23] LABS: International Normalized Ratio 1.2; Prothrombin Time (Protime)PT. 14.7 SECONDS (11.7-14.9)
[2022-04-08 06:58] LABS: ALB/GLOB Ratio 0.5 RATIO (0.9-2.4); AST(SGOT) 150 U/L (15-37); Alanine Aminotransfer ALT/SGPT 158 U/L (16-61); Albumin, Serum 1.6 g/dL (3.2-5.0); Alkaline Phosphatase 100 U/L (45-117); Anion Gap 5 (5-15); BUN 31 mg/dL (7-18); BUN/Creat Ratio 21.4 RATIO (10-20); Chloride 116 mmol/L (98-107); Creatinine, Serum 1.45 mg/dL (0.70-1.30); EST Glomerular Filtration Rate 50 mL/min (>60); Est Glom Filt Rate - Afr Amer 61 mL/min (>60); Estimated Creatinine Clearance 36.52 ml/min; Globulin 3.5 g/dL (2.2-4.2); Glucose 139 mg/dL (74-106); Potassium 4.7 mmol/L (3.5-5.1); Protein, Total 5.1 g/dL (6.4-8.2); Sodium Level 142 mmol/L (136-145)
--- NOTE | 2022-04-08 07:35 | PCM.PN.HOSP ---
Subjective Subjective Patient is a 77-year-old gentleman admitted with abdominal pain and assessment of acute gallstone pancreatitis may underwent cholecystectomy on 04/06/2022 04/09/2022 patient seen yet to pass gas or have bowel movement Objective Data Objective Data Vital Signs: Vital Signs Temp Pulse Resp BP Pulse Ox O2 Del Method O2 Flow Rate 97.0 F L 51 L 16 130/57 H 97 Room Air 2 04/08/22 03:00 04/08/22 03:00 04/08/22 03:00 04/08/22 03:00 04/08/22 03:00 04/08/22 03:00 04/06/22 18:54 FiO2 96 04/04/22 14:30 Oxygen Flow Rate (L/min) 2 Oxygen Delivery Method Room Air Weight: 78.4 kg Body Mass Index (BMI) 28.6 Intake & Output: Intake and Output for Last 24 Hours 04/06/22 04/07/22 04/08/22 23:59 23:59 23:59 Intake Total 2204.0 / 2204.0 641.75 / 691.75 162.75 / 162.75 Output Total 525 / 525 370 / 665 675 / 675 Balance 1679.0 / 1679.0 271.75 / 26.75 -512.25 / -512.25 Lab / Micro Data Result Diagrams: 04/08/22 04:49 04/08/22 04:49 Labs: Laboratory Results - last 24 hr 04/08/22 04:49: PT 14.7, INR 1.2 04/08/22 04:49: WBC 6.8, RBC 2.96 L, Hgb 9.4 L, Hct 28.3 L, MCV 95.6 H, MCH 31.8, MCHC 33.2, RDW Std Deviation 54.9 H, RDW Coeff of Nicole 15.7 H, Plt Count 188, MPV 11.1, Immature Gran % (Auto) 1.800 H, Neut % (Auto) 77.0 H, Lymph % (Auto) 13.3 L, Sac % (Auto) 6.4, Eos % (Auto) 1.2, Baso % (Auto) 0.3, Absolute Neuts (auto) 5.2, Absolute Lymphs (auto) 0.90, Nucleated RBC % 0 04/08/22 04:49: Sodium 142, Potassium 4.7, Chloride 116 H, Carbon Dioxide 21.0, Anion Gap 5, BUN 31 H, Creatinine 1.45 H, Estim Creat Clear Calc 36.52, Est GFR (MDRD) Af Amer 61, Est GFR (MDRD) Non-Af 50 L, BUN/Creatinine Ratio 21.4 H, Glucose 139 H, Calcium 8.0 L, Total Bilirubin 0.40, AST 150 H, ALT 158 H, Alkaline Phosphatase 100, Total Protein 5.1 L, Albumin 1.6 L, Globulin 3.5, Albumin/Globulin Ratio 0.5 L Micro: Microbiology 04/06/22 13:30 Aspirate - Abdominal Gram Stain - Final 04/06/22 13:30 Aspirate - Abdominal Wound Culture - 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 SKIN: No Rash PSYCH; Flat affect Const alert, oriented x3 and no apparent distress Constitutional Narrative: Appears more comfortable today Orientation / Consciousness: awake, oriented to person, oriented to place and oriented to time HEENT normocephalic and moist oral mucous membranes Eyes PERRL, EOMs intact bilaterally and conjunctivae normal Neck no lymphadenopathy Resp normal respiratory effort and clear to auscultation bilaterally Auscultation: diminished lung sounds Cardio regular rate, regular rhythm and no murmurs Cardio Narrative: A. fib Peripheral Pulses: pulses 2+ throughout GI normal to inspection, nondistended, normoactive bowel sounds and non-distended Palpation: tender Extremity normal to inspection Skin no rashes or lesions noted Lesions: no lesions Rashes: no rashes Trauma: no lacerations or abrasions Neuro CN's II-XII intact bilaterally, no focal motor deficits, no sensory deficits noted and deep tendon reflexes 2+ bilaterally Psych mental status grossly normal and affect normal Assessment & Plan Assessment/Plan (1) Acute pancreatitis: (2) Cholelithiasis: PLAN: Plan Patient is a 77-year-old gentleman admitted with abdominal pain and assessment of acute gallstone pancreatitis may underwent cholecystectomy on 04/06/2022 1.? Acute gallstone pancreatitis -Status post laparoscopic cholecystectomy on 04/06/2022 with KANDICE drain left in situ. Patient has been transition to clear liquids however yet to pass gas or to have a bowel movement. Patient has been cleared by general surgery for discharge will await return of bowel function prior to discharge 2. Anemia ? Secondary to acute blood loss anemia superimposed on chronic anemia following surgery monitoring H&H with plans to transfuse if patient becomes symptomatic or hemoglobin falls below 7 3. Coronary artery disease ? With history of CABG and PCI currently recommended medications 4. Chronic A. fib ? Rate controlled on amiodarone on systemic anticoagulation with Eliquis 5. Diabetes mellitus type II -patient's oral hypoglycemics held. Placed on long acting insulin, Accu-Cheks a.c. and at bedtime and covered with sliding scale insulin 6. Hypertension - Blood pressure controlled, home medications continued with dose adjustment as needed 7. Dyslipidemia -Patient is on statin therapy, continued at home dose 8. ABUNDIO on CKD stage IIIb. ? Creatinine jumped up to 2.24 from 1.71, more than 0.5 creatinine increase.? Patient managed with IV fluid 9. Chronic kidney disease stage IIIb - appears at baseline. 10. GERD ? On PPI 11. DVT prophylaxis ? SC heparin Charges/Coding Visit Charges Inpatient E&M: 77768 Subs Hosp L2
[2022-04-08] MEDS: Isosorbide Mononitrate 60 MG Tablet PO (09:13)
[2022-04-08] MEDS: Aspirin E.C. 81 MG Tablet PO (09:13)
[2022-04-08] MEDS: Amiodarone 200 MG Tablet 100 MG PO (09:13)
[2022-04-08] MEDS: Pantoprazole Sodium 40 MG Tablet PO ×2 (09:13→21:24)
--- NOTE | 2022-04-08 09:13 | PCM.PN.SRG ---
Subjective Subjective patient feels much improved, feels hungry wants to go home Objective Data Objective Data Vital Signs: Vital Signs Temp Pulse Resp BP Pulse Ox O2 Del Method O2 Flow Rate 98.5 F 73 16 154/62 H 98 Room Air 2 04/08/22 09:08 04/08/22 09:08 04/08/22 09:08 04/08/22 09:08 04/08/22 09:08 04/08/22 09:08 04/06/22 18:54 FiO2 96 04/04/22 14:30 Oxygen Flow Rate (L/min) 2 Oxygen Delivery Method Room Air Weight: 78.4 kg Body Mass Index (BMI) 28.6 Intake & Output: Intake and Output for Last 24 Hours 04/06/22 04/07/22 04/08/22 23:59 23:59 23:59 Intake Total 2204.0 / 2204.0 641.75 / 691.75 162.75 / 162.75 Output Total 525 / 525 370 / 665 675 / 675 Balance 1679.0 / 1679.0 271.75 / 26.75 -512.25 / -512.25 Lab / Micro Data Result Diagrams: 04/08/22 04:49 04/08/22 04:49 Labs: Laboratory Results - last 24 hr 04/08/22 04:49: PT 14.7, INR 1.2 04/08/22 04:49: WBC 6.8, RBC 2.96 L, Hgb 9.4 L, Hct 28.3 L, MCV 95.6 H, MCH 31.8, MCHC 33.2, RDW Std Deviation 54.9 H, RDW Coeff of Nicole 15.7 H, Plt Count 188, MPV 11.1, Immature Gran % (Auto) 1.800 H, Neut % (Auto) 77.0 H, Lymph % (Auto) 13.3 L, [place] % (Auto) 6.4, Eos % (Auto) 1.2, Baso % (Auto) 0.3, Absolute Neuts (auto) 5.2, Absolute Lymphs (auto) 0.90, Nucleated RBC % 0 04/08/22 04:49: Sodium 142, Potassium 4.7, Chloride 116 H, Carbon Dioxide 21.0, Anion Gap 5, BUN 31 H, Creatinine 1.45 H, Estim Creat Clear Calc 36.52, Est GFR (MDRD) Af Amer 61, Est GFR (MDRD) Non-Af 50 L, BUN/Creatinine Ratio 21.4 H, Glucose 139 H, Calcium 8.0 L, Total Bilirubin 0.40, AST 150 H, ALT 158 H, Alkaline Phosphatase 100, Total Protein 5.1 L, Albumin 1.6 L, Globulin 3.5, Albumin/Globulin Ratio 0.5 L Micro: Microbiology 04/06/22 13:30 Aspirate - Abdominal Gram Stain - Final 04/06/22 13:30 Aspirate - Abdominal Wound Culture - Preliminary Klebsiella pneumoniae sp pneum Gram negative jarrett Physical Exam Const alert and oriented x3 General Appearance: cooperative Neck supple Resp normal respiratory effort Effort and Inspection: able to speak in complete sentences GI GI Narrative: abdomen is soft and benign dressings intact KANDICE output is serous Assessment & Plan Assessment/Plan (1) Status post laparoscopic cholecystectomy: PLAN: patient is recovering very well from surgery he can be discharged to home if OK from medical standpoint I will follow up with him as an outpatient this week - to d/c drain
--- NOTE | 2022-04-08 09:23 | PCM.DC ---
Discharge Instructions Follow Up Care Test Results: Test results from this visit will be discussed in further detail at your follow-up appointment, if applicable. Discharge Plan Admission Admit Date/Time: 03/31/22 19:03 Attending Provider: Kailash Hollins Primary Care Provider: Kandi Obrien Consulting Providers: Jaya Soto ; Khushbu Nielson ; Destini Nicole ; Israel Rose Instructions Additional Instructions / Restrictions: Recommended pain control regimen - May take 600 mg ibuprofen (Motrin) and then in 3-4 hours, may take 650 mg acetaminophen (Tylenol), then in 3-4 hours may take 600 mg ibuprofen, then in 3-4 hours may take 650 mg acetaminophen and so on for 2-3 days May take narcotic pain medication for pain that is not controlled by above and at night for comfort through the night Leave dressings in place Sponge bathe only Empty drain and maintain suction as shown by the nurses Ice applied to areas of discomfort may help No lifting/pushing/pulling greater than 20 pounds for a month. Regular diet as tolerated, drink plenty of fluids. Avoid carbonated beverages for a few days as this will cause abdominal bloating and thus discomfort after our surgery. If you feel constipated, freely take over the counter laxatives. Please call my office for an appointment to see me on April 11, please call for a time. Office number is If any questions, please call my office at and ask the ssds mk 2 advanced operator for the general surgery nurses desk Discharge Orders/Prescriptions Prescriptions: New hydrocodone-acetaminophen 5-325 mg tablet 1 tab PO Q8H 3 Days Qty: 9 0RF No Action nitroglycerin 0.4 mg tablet, sublingual 0.4 mg SL Q5M PRN (Reason: Chest Pain) Qty: 25 3RF ranitidine HCl 150 mg tablet 150 mg PO DAILY Nephro-Redd 0.8 mg tablet 1 tab PO DAILY ascorbic acid (vitamin C) 500 MG tablet 500 mg PO DAILY@0800 ferrous sulfate 325 MG tablet 325 mg PO DAILY@0800 multivitamin with folic acid 1 TABLET tablet 1 tab PO DAILY liraglutide 0.6 MG/0.1 ML pen injector 1.8 mg SQ DAILY Label Comments: INJECT 1.8 MG DAILY aspirin 81 MG tablet,chewable 81 mg PO DAILY Qty: 1 0RF cholecalciferol (vitamin D3) 50 mcg (2,000 unit) capsule 2,000 unit PO BID Nephro-Redd 0.8 mg tablet 1 tab PO DAILY Label Comments: TAKE 1 TABLET EVERY DAY BY ORAL ROUTE FOR 100 DAYS. atorvastatin 40 mg tablet 40 mg PO QDAY Qty: 90 3RF isosorbide mononitrate 60 mg tablet extended release 24 hr 60 mg PO DAILY Qty: 90 3RF Label Comments: TAKE 1 TABLET BY MOUTH EVERY DAY furosemide 40 mg tablet 40 mg PO DAILY Qty: 30 11RF amiodarone 200 mg tablet 100 mg PO DAILY Qty: 90 3RF apixaban 5 mg tablet 5 mg PO BID Qty: 60 12RF ranolazine 1,000 mg tablet extended release 12 hr 1,000 mg PO BID Qty: 180 3RF Referrals / Follow Up: Kandi Obrien DO [Primary Care Provider] -
[2022-04-08 11:20] LABS: Bedside Glucose 100 mg/dL (74-106)
[2022-04-08] MEDS: Ceftriaxone 1 GM/50 ML BAG IV (12:19)
[2022-04-08] MEDS: Ferrous Sulfate 325 MG Tablet PO (12:21)
[2022-04-08] MEDS: oxyCODONE 5 MG Tablet PO (14:44)
[2022-04-08 17:45] LABS: Bedside Glucose 138 mg/dL (74-106)
[2022-04-08] MEDS: Atorvastatin Calcium 40 MG Tablet PO (21:23)
[2022-04-08] MEDS: Insulin Lispro 100 UNIT/ML INSULN.PEN SC (21:24)
[2022-04-08 21:51] LABS: Bedside Glucose 197 mg/dL (74-106)
[2022-04-09] VITALS (8 sets, daily range): BP systolic 131–150; BP diastolic 49–56; PULSE 53–62; RESP 14–18; TEMP 36.6–37.2; O2SAT 96–100
[2022-04-09] MEDS: oxyCODONE 5 MG Tablet PO ×2 (01:00→15:57)
[2022-04-09] MEDS: Acetaminophen 325 MG Tablet 650 MG PO (01:01)
[2022-04-09 05:43] LABS: Absolute Neutrophil Count 5.2 X10^3/uL (2.0-7.7); Basophil# 0.03 X10^3/uL; Basophil% 0.4 % (0-1); Eosinophil# 0.11 X10^3/uL; Eosinophils% 1.6 % (0-5); Hematocrit 28.6 % (40-54); Hemoglobin 9.4 g/dL (13.0-16.5); Mean Corp Hgb Conc 32.9 g/dL (32-36); Mean Corpuscular Hgb 31.6 pg (27.0-32.0); Mean Corpuscular Volume 96.3 fL (80-94); Mean Platelet Vol. 10.9 fl (6.2-12.0); Monocyte# 0.46 X10^3/uL; Monocyte% 6.6 % (0-10); NRBC Flagged by Analyzer 0.3 % (0-5); Neutrophil # 5.23 X10^3/uL (2.7-7.7); Neutrophil % 75.5 % (47-70); Platelet Count 197 K/mm3 (150-450); RBC Distribution Width CV 15.6 % (11.6-14.6); RBC Distribution Width SD 54.9 fl (35.1-43.9); Red Blood Count 2.97 M/mm3 (4.6-6.2); White Blood Count 6.9 K/mm3 (4.4-11.0)
[2022-04-09 05:56] LABS: International Normalized Ratio 1.1; Prothrombin Time (Protime)PT. 14.1 SECONDS (11.7-14.9)
[2022-04-09 06:23] LABS: ALB/GLOB Ratio 0.4 RATIO (0.9-2.4); AST(SGOT) 102 U/L (15-37); Alanine Aminotransfer ALT/SGPT 154 U/L (16-61); Albumin, Serum 1.5 g/dL (3.2-5.0); Alkaline Phosphatase 116 U/L (45-117); Anion Gap 4 (5-15); BUN 28 mg/dL (7-18); BUN/Creat Ratio 20.3 RATIO (10-20); Calcium,Total 7.9 mg/dL (8.5-10.1); Chloride 117 mmol/L (98-107); Creatinine, Serum 1.38 mg/dL (0.70-1.30); EST Glomerular Filtration Rate 53 mL/min (>60); Est Glom Filt Rate - Afr Amer 64 mL/min (>60); Estimated Creatinine Clearance 38.38 ml/min; Globulin 3.6 g/dL (2.2-4.2); Glucose 134 mg/dL (74-106); Magnesium 2.1 mg/dL (1.6-2.6); Potassium 4.6 mmol/L (3.5-5.1); Protein, Total 5.1 g/dL (6.4-8.2); Sodium Level 143 mmol/L (136-145)
[2022-04-09 07:20] LABS: Bedside Glucose 125 mg/dL (74-106)
--- NOTE | 2022-04-09 07:43 | PN.HOSP_ITS ---
Subjective Subjective Patient seen admitted to having had a bowel movement and is passing a lot of gas plan is for patient to be discharged home Objective Data Objective Data Vital Signs: Vital Signs Temp Pulse Resp BP Pulse Ox O2 Del Method O2 Flow Rate 97.8 F 57 L 18 131/49 H 96 Room Air 2 04/09/22 03:30 04/09/22 03:30 04/09/22 03:30 04/09/22 03:30 04/09/22 03:30 04/09/22 03:30 04/06/22 18:54 FiO2 96 04/04/22 14:30 Oxygen Flow Rate (L/min) 2 Oxygen Delivery Method Room Air Weight: 78 kg Body Mass Index (BMI) 28.6 Intake & Output: Intake and Output for Last 24 Hours 04/07/22 04/08/22 04/09/22 23:59 23:59 23:59 Intake Total 641.75 / 691.75 1222.75 / 1322.75 100 / 100 Output Total 370 / 665 770 / 1000 680 / 680 Balance 271.75 / 26.75 452.75 / 322.75 -580 / -580 Lab / Micro Data Result Diagrams: 04/09/22 04:55 04/09/22 04:55 Labs: Laboratory Results - last 24 hr 04/08/22 10:59: POC Glucose 100 04/08/22 17:06: POC Glucose 138 H 04/08/22 21:22: POC Glucose 197 H 04/09/22 04:55: PT 14.1, INR 1.1 04/09/22 04:55: WBC 6.9, RBC 2.97 L, Hgb 9.4 L, Hct 28.6 L, MCV 96.3 H, MCH 31.6, MCHC 32.9, RDW Std Deviation 54.9 H, RDW Coeff of Nicole 15.6 H, Plt Count 197, MPV 10.9, Immature Gran % (Auto) 2.900 H, Neut % (Auto) 75.5 H, Lymph % (Auto) 13.0 L, Tyrrell % (Auto) 6.6, Eos % (Auto) 1.6, Baso % (Auto) 0.4, Absolute Neuts (auto) 5.2, Absolute Lymphs (auto) 0.90, Nucleated RBC % 0.3 04/09/22 04:55: Sodium 143, Potassium 4.6, Chloride 117 H, Carbon Dioxide 22.0, Anion Gap 4 L, BUN 28 H, Creatinine 1.38 H, Estim Creat Clear Calc 38.38, Est GFR (MDRD) Af Amer 64, Est GFR (MDRD) Non-Af 53 L, BUN/Creatinine Ratio 20.3 H, Glucose 134 H, Calcium 7.9 L, Magnesium 2.1, Total Bilirubin 0.40, AST 102 H, ALT 154 H, Alkaline Phosphatase 116, Total Protein 5.1 L, Albumin 1.5 L, Globulin 3.6, Albumin/Globulin Ratio 0.4 L 04/09/22 06:36: POC Glucose 125 H Micro: Microbiology 04/06/22 13:30 Aspirate - Abdominal Gram Stain - Final 04/06/22 13:30 Aspirate - Abdominal Wound Culture - Preliminary Klebsiella pneumoniae sp pneum Gram negative jarrett Physical Exam Narrative GENERAL: cooperative HEENT: Atraumatic; EYES; Anicteric, Normal Conjunctiva NECK; supple, normal thyroid, RESPIRATORY: Diminished to auscultation CARDIOVASCULAR: Regular S1 S2, GI: soft, normoactive bowel sounds, slightly distended, KANDICE drain right upper quadrant : No Renal angle tenderness; EXTREMITIES: No edema, no clubbing, MUSCULOSKELETAL: no muscle wasting NEURO: Awake; no lateralizing signs. SKIN: No Rash PSYCH; Flat affect Assessment & Plan Assessment/Plan (1) Acute pancreatitis: (2) Cholelithiasis: PLAN: Plan Patient is a 77-year-old gentleman admitted with abdominal pain and assessment of acute gallstone pancreatitis may underwent cholecystectomy on 04/06/2022 1.? Acute gallstone pancreatitis -Status post laparoscopic cholecystectomy on 04/06/2022 with KANDICE drain left in situ. Patient has been transition to clear liquids however yet to pass gas or to have a bowel movement. Patient has been cleared by general surgery for discharge will await return of bowel function prior to discharge ? 04/09/2022. There is return of bowel function plan is discharge patient home with a KANDICE drain to follow-up with general surgery as outpatient 2. Anemia ? Secondary to acute blood loss anemia superimposed on chronic anemia following surgery monitoring H&H with plans to transfuse if patient becomes symptomatic or hemoglobin falls below 7 3. Coronary artery disease ? With history of CABG and PCI currently recommended medications 4. Chronic A. fib ? Rate controlled on amiodarone on systemic anticoagulation with Eliquis 5. Diabetes mellitus type II -patient's oral hypoglycemics held. Placed on long acting insulin, Accu-Cheks a.c. and at bedtime and covered with sliding scale insulin 6. Hypertension - Blood pressure controlled, home medications continued with dose adjustment as needed 7. Dyslipidemia -Patient is on statin therapy, continued at home dose 8. ABUNDIO on CKD stage IIIb. ? Creatinine jumped up to 2.24 from 1.71, more than 0.5 creatinine increase.? Patient managed with IV fluid 9. Chronic kidney disease stage IIIb - appears at baseline. 10. GERD ? On PPI 11. DVT prophylaxis ? SC heparin Charges/Coding Visit Charges Inpatient E&M: 99861 Subs Hosp L2
[2022-04-09] MEDS: Ceftriaxone 1 GM/50 ML BAG IV (09:44)
[2022-04-09] MEDS: 0.9% Saline Lock 10 ML Syringe IV (09:44)
[2022-04-09] MEDS: Amiodarone 200 MG Tablet 100 MG PO (09:45)
[2022-04-09] MEDS: Aspirin E.C. 81 MG Tablet PO (09:45)
[2022-04-09] MEDS: Pantoprazole Sodium 40 MG Tablet PO ×2 (09:45→21:26)
[2022-04-09] MEDS: Isosorbide Mononitrate 60 MG Tablet PO (09:46)
--- NOTE | 2022-04-09 11:03 | PN.SURG_ITS ---
Subjective Subjective PAIN IS IMPROVED + FLATUS - BM Objective Data Objective Data ABD : SOFT KANDICE REMOVED Vital Signs: Vital Signs Temp Pulse Resp BP Pulse Ox O2 Del Method O2 Flow Rate 97.8 F 56 L 15 149/52 H 100 Room Air 2 04/09/22 09:30 04/09/22 09:30 04/09/22 09:30 04/09/22 09:30 04/09/22 09:30 04/09/22 09:30 04/06/22 18:54 FiO2 96 04/04/22 14:30 Oxygen Flow Rate (L/min) 2 Oxygen Delivery Method Room Air Weight: 171 lb 15.369 oz Body Mass Index (BMI) 28.6 Intake & Output: Intake and Output for Last 24 Hours 04/07/22 04/08/22 04/09/22 23:59 23:59 23:59 Intake Total 641.75 / 691.75 1222.75 / 1322.75 150 / 150 Output Total 370 / 665 770 / 1000 680 / 680 Balance 271.75 / 26.75 452.75 / 322.75 -530 / -530 Lab / Micro Data Result Diagrams: 04/09/22 04:55 04/09/22 04:55 Labs: Laboratory Results - last 24 hr 04/08/22 10:59: POC Glucose 100 04/08/22 17:06: POC Glucose 138 H 04/08/22 21:22: POC Glucose 197 H 04/09/22 04:55: PT 14.1, INR 1.1 04/09/22 04:55: WBC 6.9, RBC 2.97 L, Hgb 9.4 L, Hct 28.6 L, MCV 96.3 H, MCH 31.6, MCHC 32.9, RDW Std Deviation 54.9 H, RDW Coeff of Nicole 15.6 H, Plt Count 197, MPV 10.9, Immature Gran % (Auto) 2.900 H, Neut % (Auto) 75.5 H, Lymph % (Auto) 13.0 L, Jackson % (Auto) 6.6, Eos % (Auto) 1.6, Baso % (Auto) 0.4, Absolute Neuts (auto) 5.2, Absolute Lymphs (auto) 0.90, Nucleated RBC % 0.3 04/09/22 04:55: Sodium 143, Potassium 4.6, Chloride 117 H, Carbon Dioxide 22.0, Anion Gap 4 L, BUN 28 H, Creatinine 1.38 H, Estim Creat Clear Calc 38.38, Est GFR (MDRD) Af Amer 64, Est GFR (MDRD) Non-Af 53 L, BUN/Creatinine Ratio 20.3 H, Glucose 134 H, Calcium 7.9 L, Magnesium 2.1, Total Bilirubin 0.40, AST 102 H, ALT 154 H, Alkaline Phosphatase 116, Total Protein 5.1 L, Albumin 1.5 L, Beth bulin 3.6, Albumin/Globulin Ratio 0.4 L 04/09/22 06:36: POC Glucose 125 H Micro: Microbiology 04/06/22 13:30 Aspirate - Abdominal Gram Stain - Final 04/06/22 13:30 Aspirate - Abdominal Wound Culture - Final Klebsiella pneumoniae sp pneum 04/06/22 13:30 Aspirate - Abdominal Anaerobic Culture - Preliminary No anaerobic bacteria isolated. Assessment & Plan Assessment/Plan (1) Status post laparoscopic cholecystectomy: PLAN: OK TO DC WHEN HE HAS A BM
--- NOTE | 2022-04-09 11:31 | DS.PCM_ITS ---
Providers Date of Admission: 03/31/22 Date of Discharge: 04/09/22 Primary Care Physician: Dr. Kandi Obrien, DO Consultations 03/31/22 20:01 Consult: Cardiology Routine Consulting Provider: Jaya Soto Reason for Consult: Chest pain, elevated trop EMERGENT Consult: No Notified: Yes Date Notified: 03/31/22 Time Notified: 19:05 Method of Notification: ED Physician Initiated Consult: General Surgery Routine Consulting Provider: Khushbu Nielson Reason for Consult: Pancreatitis admission, RUQ pain/gallstones concurrent EMERGENT Consult: No Notified: Yes Date Notified: 03/31/22 Time Notified: 19:22 Method of Notification: called Reason For Visit: ACUTE PANCREATITIS, CHEST PAIN/ELEVATED TROP Diagnosis Discharge Diagnosis (1) Acute pancreatitis: Status: Acute Code(s): K85.90 - Acute pancreatitis without necrosis or infection, unspecified (2) Cholelithiasis: Status: Acute Code(s): K80.20 - Calculus of gallbladder without cholecystitis without obstruction Plan Patient is a 77-year-old gentleman admitted with abdominal pain and assessment of acute gallstone pancreatitis may underwent cholecystectomy on 04/06/2022 1.? Acute gallstone pancreatitis -Status post laparoscopic cholecystectomy on 04/06/2022 with KANDICE drain left in situ. Patient has been transition to clear liquids however yet to pass gas or to have a bowel movement. Patient has been cleared by general surgery for discharge will await return of bowel function prior to discharge ? 04/09/2022. There is return of bowel function plan is discharge patient home with a KANDICE drain to follow-up with general surgery as outpatient 2. Anemia ? Secondary to acute blood loss anemia superimposed on chronic anemia following surgery monitoring H&H with plans to transfuse if patient becomes symptomatic or hemoglobin falls below 7 3. Coronary artery disease ? With history of CABG and PCI currently recommended medications 4. Chronic A. fib ? Rate controlled on amiodarone on systemic anticoagulation with Eliquis 5. Diabetes mellitus type II -patient's oral hypoglycemics held. Placed on long acting insulin, Accu-Cheks a.c. and at bedtime and covered with sliding scale insulin 6. Hypertension - Blood pressure controlled, home medications continued with dose adjustment as needed 7. Dyslipidemia -Patient is on statin therapy, continued at home dose 8. ABUNDIO on CKD stage IIIb. ? Creatinine jumped up to 2.24 from 1.71, more than 0.5 creatinine increase.? Patient managed with IV fluid 9. Chronic kidney disease stage IIIb - appears at baseline. 10. GERD ? On PPI 11. DVT prophylaxis ? SC heparin Medications at Discharge Home Medications ascorbic acid (vitamin C) 500 mg tablet 500 mg PO DAILY@0800 supplement 11/06/16 ferrous sulfate 325 mg (65 mg iron) tablet 325 mg PO DAILY@0800 supplement 11/06/16 multivitamin with folic acid 400 mcg tablet 1 tab PO DAILY supplement 11/06/16 nitroglycerin 0.4 mg sublingual tablet 0.4 mg sublingual Q5M PRN Chest Pain #25 tabs 10/22/18 liraglutide 0.6 mg/0.1 mL (18 mg/3 mL) subcutaneous pen injector 1.8 mg SQ DAILY diabetes 12/05/18 ranitidine HCl 150 mg tablet 150 mg PO DAILY GERD 10/26/20 aspirin 81 mg chewable tablet 81 mg PO DAILY ##1 11/21/20 atorvastatin 40 mg tablet 40 mg PO QDAY cholesterol #90 tabs 09/21/21 cholecalciferol (vitamin D3) 50 mcg (2,000 unit) capsule 2,000 unit PO BID SUPPLEMENT 10/02/21 isosorbide mononitrate 60 mg tablet,extended release 24 hr 60 mg PO DAILY #90 tabs 11/07/21 furosemide 40 mg tablet 40 mg PO DAILY #30 tabs 11/20/21 amiodarone 200 mg tablet 100 mg PO DAILY #90 tabs 12/28/21 apixaban 5 mg tablet 5 mg PO BID #60 tabs 12/29/21 ranolazine 1,000 mg tablet,extended release,12 hr 1,000 mg PO BID #180 tabs 01/30/22 vitamin B complex-vitamin C-folic acid 0.8 mg tablet (Nephro-Redd) 1 tab PO DAILY supplement 03/28/22 vitamin B complex-vitamin C-folic acid 0.8 mg tablet (Nephro-Redd) 1 tab PO DAILY 03/31/22 hydrocodone-acetaminophen 5-325mg 5mg-325mg 1 tab PO Q8H 3 days #9 tabs 04/08/22 cefdinir 300 mg capsule 300 mg PO Q12H #14 caps 04/09/22 sennosides 8.6 mg-docusate sodium 50 mg tablet (Stool Softener-Stimulant Laxative) 2 tab PO DAILY PRN PRN CONSTIPATION #30 tabs 04/09/22 Hospital Course Operations cholecystecomy Summary of Care Provided Minutes Spent on Discharge: 35 Hospital Course: Patient is a 77-year-old gentleman admitted with abdominal pain and assessment of acute gallstone pancreatitis may underwent cholecystectomy on 04/06/2022 1.? Acute gallstone pancreatitis -Status post laparoscopic cholecystectomy on 04/06/2022 with KANDICE drain left in situ. Patient has been transition to clear liquids however yet to pass gas or to have a bowel movement. Patient has been cleared by general surgery for discharge will await return of bowel function prior to discharge ? 04/09/2022. There is return of bowel function plan is discharge patient home with a KANDICE drain to follow-up with general surgery as outpatient 2. Anemia ? Secondary to acute blood loss anemia superimposed on chronic anemia following surgery monitoring H&H with plans to transfuse if patient becomes symptomatic or hemoglobin falls below 7 3. Coronary artery disease ? With history of CABG and PCI currently recommended medications 4. Chronic A. fib ? Rate controlled on amiodarone on systemic anticoagulation with Eliquis ? 04/09/2022 resumed on discharge 5. Diabetes mellitus type II -patient's oral hypoglycemics held. Placed on long acting insulin, Accu-Cheks a.c. and at bedtime and covered with sliding scale insulin 6. Hypertension - Blood pressure controlled, home medications continued with dose adjustment as needed 7. Dyslipidemia -Patient is on statin therapy, continued at home dose 8. ABUNDIO on CKD stage IIIb. ? Creatinine jumped up to 2.24 from 1.71, more than 0.5 creatinine increase.? Patient managed with IV fluid ? 04/09/2022 kidney function had improved to 1.38 at the time of discharge 9. Chronic kidney disease stage IIIb - appears at baseline. 10. GERD ? On PPI 11. DVT prophylaxis ? SC heparin Physical Exam Narrative GENERAL: cooperative HEENT: Atraumatic; EYES; Anicteric, Normal Conjunctiva NECK; supple, normal thyroid, RESPIRATORY: Diminished to auscultation CARDIOVASCULAR: Regular S1 S2, GI: soft, normoactive bowel sounds, KANDICE drain right upper quadrant : No Renal angle tenderness; EXTREMITIES: No edema, no clubbing, MUSCULOSKELETAL: no muscle wasting NEURO: Awake; no lateralizing signs. SKIN: No Rash PSYCH; Flat affect Weight / BMI Weight Weight: 78 kg Body Mass Index (BMI) 28.6 ABG / Lab / Microbiology Data Result Diagrams: 04/09/22 04:55 04/09/22 04:55 Laboratory: Laboratory Results - last 24 hr 04/08/22 17:06: POC Glucose 138 H 04/08/22 21:22: POC Glucose 197 H 04/09/22 04:55: PT 14.1, INR 1.1 04/09/22 04:55: WBC 6.9, RBC 2.97 L, Hgb 9.4 L, Hct 28.6 L, MCV 96.3 H, MCH 31.6, MCHC 32.9, RDW Std Deviation 54.9 H, RDW Coeff of Nicole 15.6 H, Plt Count 1 97, MPV 10.9, Immature Gran % (Auto) 2.900 H, Neut % (Auto) 75.5 H, Lymph % (Auto) 13.0 L, [place] % (Auto) 6.6, Eos % (Auto) 1.6, Baso % (Auto) 0.4, Absolute Neuts (auto) 5.2, Absolute Lymphs (auto) 0.90, Nucleated RBC % 0.3 04/09/22 04:55: Sodium 143, Potassium 4.6, Chloride 117 H, Carbon Dioxide 22.0, Anion Gap 4 L, BUN 28 H, Creatinine 1.38 H, Estim Creat Clear Calc 38.38, Est GFR (MDRD) Af Amer 64, Est GFR (MDRD) Non-Af 53 L, BUN/Creatinine Ratio 20.3 H, Glucose 134 H, Calcium 7.9 L, Magnesium 2.1, Total Bilirubin 0.40, AST 102 H, ALT 154 H, Alkaline Phosphatase 116, Total Protein 5.1 L, Albumin 1.5 L, Globulin 3.6, Albumin/Globulin Ratio 0.4 L 04/09/22 06:36: POC Glucose 125 H Microbiology: Microbiology 04/06/22 13:30 Aspirate - Abdominal Gram Stain - Final 04/06/22 13:30 Aspirate - Abdominal Wound Culture - Final Klebsiella pneumoniae sp pneum 04/06/22 13:30 Aspirate - Abdominal Anaerobic Culture - Preliminary No anaerobic bacteria isolated. D/C Instructions Discharge Diet: No restrictions Discharge Activity: Return to Normal Activity Call your doctor if you observe: Fever of 101 or Higher, Shortness of breath, Fainting spells and Chest pain Meaningful Use Info Meaningful Use Diagnoses (Choose all that apply): None applicable Discharge Plan Admission Admit Date/Time: 03/31/22 19:03 Attending Provider: Kailash Hollins Primary Care Provider: Kandi Obrien Consulting Providers: Jaya Soto ; Khushbu Nielson ; Destini Nicole ; Israel Rose Instructions Additional Instructions / Restrictions: Recommended pain control regimen - May take 600 mg ibuprofen (Motrin) and then in 3-4 hours, may take 650 mg acetaminophen (Tylenol), then in 3-4 hours may take 600 mg ibuprofen, then in 3- 4 hours may take 650 mg acetaminophen and so on for 2-3 days May take narcotic pain medication for pain that is not controlled by above and at night for comfort through the night Leave dressings in place Sponge bathe only Empty drain and maintain suction as shown by the nurses Ice applied to areas of discomfort may help No lifting/pushing/pulling greater than 20 pounds for a month. Regular diet as tolerated, drink plenty of fluids. Avoid carbonated beverages for a few days as this will cause abdominal bloating and thus discomfort after our surgery. If you feel constipated, freely take over the counter laxatives. Please call my office for an appointment to see me on Saturday, April 11, please call for a time. Office number is If any questions, please call my office at and ask the wash mill operator for the general surgery nurses desk Discharge Orders/Prescriptions Prescriptions: New hydrocodone-acetaminophen 5-325 mg tablet 1 tab PO Q8H 3 Days Qty: 9 0RF sennosides-docusate sodium [Stool Softener-Stimulant Laxat] 8.6-50 mg Tablet 2 tab PO DAILY PRN PRN (Reason: CONSTIPATION) Qty: 30 0RF cefdinir 300 mg capsule 300 mg PO Q12H Qty: 14 0RF Continued nitroglycerin 0.4 mg tablet, sublingual 0.4 mg SL Q5M PRN (Reason: Chest Pain) Qty: 25 3RF ranitidine HCl 150 mg tablet 150 mg PO DAILY Nephro-Redd 0.8 mg tablet 1 tab PO DAILY ascorbic acid (vitamin C) 500 MG tablet 500 mg PO DAILY@0800 ferrous sulfate 325 MG tablet 325 mg PO DAILY@0800 multivitamin with folic acid 1 TABLET tablet 1 tab PO DAILY liraglutide 0.6 MG/0.1 ML pen injector 1.8 mg SQ DAILY Label Comments: INJECT 1.8 MG DAILY aspirin 81 MG tablet,chewable 81 mg PO DAILY Qty: 1 0RF cholecalciferol (vitamin D3) 50 mcg (2,000 unit) capsule 2,000 unit PO BID Nephro-Redd 0.8 mg tablet 1 tab PO DAILY Label Comments: TAKE 1 TABLET EVERY DAY BY ORAL ROUTE FOR 100 DAYS. atorvastatin 40 mg tablet 40 mg PO QDAY Qty: 90 3RF isosorbide mononitrate 60 mg tablet extended release 24 hr 60 mg PO DAILY Qty: 90 3RF Label Comments: TAKE 1 TABLET BY MOUTH EVERY DAY furosemide 40 mg tablet 40 mg PO DAILY Qty: 30 11RF amiodarone 200 mg tablet 100 mg PO DAILY Qty: 90 3RF apixaban 5 mg tablet 5 mg PO BID Qty: 60 12RF ranolazine 1,000 mg tablet extended release 12 hr 1,000 mg PO BID Qty: 180 3RF Referrals / Follow Up: Kandi Obrien DO [Primary Care Provider] - In 1 Week Khushbu Nielson MD [Med Staff - Active Staff] - 04/11/22 10:00 am (in 3 days ) Disposition Disposition (needs filled in before D/C Order can be placed): Home, Self Care Charges/Coding Visit Charges Inpatient E&M: 60307 Disch Hosp
--- NOTE | 2022-04-09 11:48 | CASEMGMT ---
This RN CM to room to discuss discharge with pt. Pt has been independent in room and states no concerns with going home at time of discharge. Pt is requesting a stool softener that he has listed prn on his med list and Monik LYNCH aware, voices understanding. Pt voices no further questions/concerns/needs. Dae LYNCH CM
[2022-04-09] MEDS: Senna/Docusate Sodium 1 Tablet 2 TABLET PO ×2 (11:57→21:28)
[2022-04-09 12:25] LABS: Bedside Glucose 150 mg/dL (74-106)
[2022-04-09 18:06] LABS: Bedside Glucose 102 mg/dL (74-106)
[2022-04-09] MEDS: Insulin Lispro 100 UNIT/ML INSULN.PEN SC (21:25)
[2022-04-09] MEDS: Atorvastatin Calcium 40 MG Tablet PO (21:26)
[2022-04-09 23:05] LABS: Bedside Glucose 174 mg/dL (74-106)
[2022-04-10 03:30] VITALS: BP 140/47; PULSE 55; RESP 14; TEMP 37.1; O2SAT 98
[2022-04-10] MEDS: Acetaminophen 325 MG Tablet 650 MG PO (03:51)
[2022-04-10 04:45] VITALS: PULSE 62; RESP 16
[2022-04-10 06:50] LABS: Bedside Glucose 151 mg/dL (74-106)
[2022-04-10 07:20] LABS: Absolute Lymphocyte Count 1.15 X10^3/uL (0.83-4.51); Absolute Neutrophil Count 6.1 X10^3/uL (2.0-7.7); Basophil# 0.02 X10^3/uL; Basophil% 0.3 % (0-1); Eosinophils% 1.3 % (0-5); Hematocrit 29.7 % (40-54); Hemoglobin 9.5 g/dL (13.0-16.5); Lymphocyte # 1.15 X10^3/ul (0.83-4.51); Lymphocyte % 14.4 % (19-41); Mean Corpuscular Volume 97.1 fL (80-94); Monocyte# 0.45 X10^3/uL; Monocyte% 5.6 % (0-10); NRBC Flagged by Analyzer 0 % (0-5); Neutrophil # 6.07 X10^3/uL (2.7-7.7); Neutrophil % 75.8 % (47-70); Platelet Count 219 K/mm3 (150-450); RBC Distribution Width CV 14.8 % (11.6-14.6); RBC Distribution Width SD 53.2 fl (35.1-43.9); Red Blood Count 3.06 M/mm3 (4.6-6.2)
[2022-04-10 07:54] LABS: Anion Gap 4 (5-15); BUN 24 mg/dL (7-18); BUN/Creat Ratio 18.3 RATIO (10-20); Calcium,Total 8.1 mg/dL (8.5-10.1); Chloride 114 mmol/L (98-107); Creatinine, Serum 1.31 mg/dL (0.70-1.30); EST Glomerular Filtration Rate 56 mL/min (>60); Est Glom Filt Rate - Afr Amer 68 mL/min (>60); Estimated Creatinine Clearance 40.43 ml/min; Glucose 149 mg/dL (74-106); Potassium 4.5 mmol/L (3.5-5.1); Sodium Level 142 mmol/L (136-145)
[2022-04-10 08:21] LABS: International Normalized Ratio 1.2; Prothrombin Time (Protime)PT. 14.4 SECONDS (11.7-14.9)
[2022-04-10 09:00] VITALS: BP 156/52; PULSE 56; RESP 14; TEMP 36.5; O2SAT 100
[2022-04-10] MEDS: Amiodarone 200 MG Tablet 100 MG PO (09:08)
[2022-04-10] MEDS: Ceftriaxone 1 GM/50 ML BAG IV (09:09)
[2022-04-10] MEDS: Pantoprazole Sodium 40 MG Tablet PO (09:09)
[2022-04-10] MEDS: Isosorbide Mononitrate 60 MG Tablet PO (09:09)
[2022-04-10] MEDS: Aspirin E.C. 81 MG Tablet PO (09:09)
[2022-04-10] MEDS: 0.9% Saline Lock 10 ML Syringe IV (09:10)
--- NOTE | 2022-04-10 10:49 | PHA.DC.MC ---
Pharmacy Service has performed discharge medication reconciliation and counseling for this patient. 1. CEFDINIR 300MG P0 Q12 X 7 DAYS 2. NORCO 5/325MG 1T PO Q8 3. SENNA/DOCUSATE 2T PO DAILY PRN CONSTIPATION The patient's discharge medication list was reviewed for discrepancies and discrepancies were resolved. Home Medications ascorbic acid (vitamin C) 500 mg tablet 500 mg PO DAILY@0800 supplement 11/06/16 ferrous sulfate 325 mg (65 mg iron) tablet 325 mg PO DAILY@0800 supplement 11/06/16 multivitamin with folic acid 400 mcg tablet 1 tab PO DAILY supplement 11/06/16 nitroglycerin 0.4 mg sublingual tablet 0.4 mg sublingual Q5M PRN Chest Pain #25 tabs 10/22/18 liraglutide 0.6 mg/0.1 mL (18 mg/3 mL) subcutaneous pen injector 1.8 mg SQ DAILY diabetes 12/05/18 ranitidine HCl 150 mg tablet 150 mg PO DAILY GERD 10/26/20 aspirin 81 mg chewable tablet 81 mg PO DAILY ##1 11/21/20 atorvastatin 40 mg tablet 40 mg PO QDAY cholesterol #90 tabs 09/21/21 cholecalciferol (vitamin D3) 50 mcg (2,000 unit) capsule 2,000 unit PO BID SUPPLEMENT 10/02/21 isosorbide mononitrate 60 mg tablet,extended release 24 hr 60 mg PO DAILY #90 tabs 11/07/21 furosemide 40 mg tablet 40 mg PO DAILY #30 tabs 11/20/21 amiodarone 200 mg tablet 100 mg PO DAILY #90 tabs 12/28/21 apixaban 5 mg tablet 5 mg PO BID #60 tabs 12/29/21 ranolazine 1,000 mg tablet,extended release,12 hr 1,000 mg PO BID #180 tabs 01/30/22 vitamin B complex-vitamin C-folic acid 0.8 mg tablet (Nephro-Redd) 1 tab PO DAILY supplement 03/28/22 vitamin B complex-vitamin C-folic acid 0.8 mg tablet (Nephro-Redd) 1 tab PO DAILY 03/31/22 hydrocodone-acetaminophen 5-325mg 5mg-325mg 1 tab PO Q8H 3 days #9 tabs 04/08/22 cefdinir 300 mg capsule 300 mg PO Q12H #14 caps 04/09/22 sennosides 8.6 mg-docusate sodium 50 mg tablet (Stool Softener-Stimulant Laxative) 2 tab PO DAILY PRN PRN CONSTIPATION #30 tabs 04/09/22 The patient was counseled on the following discharge medications and changes in medications for homegoing were reviewed. The Reason for Use, instructions for use, and potential side effects were reviewed for all new medications. The patient's questions regarding all of their medications were answered. The patient was able to verbally demonstrate an understanding of their discharge medications. Patient counseled by pharmacy informaticistSalvatore.
[2022-04-10] MEDS: Ferrous Sulfate 325 MG Tablet PO (11:01)
[2022-04-10 12:05] LABS: Bedside Glucose 199 mg/dL (74-106)
[2022-04-10] MEDS: oxyCODONE 5 MG Tablet PO (12:05)
== END 2022-04-10 12:36 | disposition home or self-care (01) | DRG 417 ==
LOC: ED 19:02 → PCU 19:48
PROVIDERS: Anesthesiology; Internal Medicine; Nurse Practitioner Family; Surgery; Admitting Provider Family Medicine; Emergency Provider Emergency Medicine; PCP Internal Medicine; Visit Provider Internal Medicine
PROC: 0FT44ZZ Resection of Gallbladder, Percutaneous Endoscopic Approach (ICD-10-PCS; CPT 47610; principal; 2022-04-06 12:40)
DX: K80.00 Calculus of gallbladder with acute cholecystitis without obstruction (principal); K85.10 Biliary acute pancreatitis without necrosis or infection; I48.20 Chronic atrial fibrillation, unspecified; D62 Acute posthemorrhagic anemia; N17.9 Acute kidney failure, unspecified; I27.21 Secondary pulmonary arterial hypertension; K82.A1 Gangrene of gallbladder in cholecystitis; E11.22 Type 2 diabetes mellitus with diabetic chronic kidney disease; N18.32 Chronic kidney disease, stage 3b; I12.9 Hypertensive chronic kidney disease with stage 1 through stage 4 chronic kidney disease, or unspecified chronic kidney disease; E78.00 Pure hypercholesterolemia, unspecified; K21.9 Gastro-esophageal reflux disease without esophagitis; I25.2 Old myocardial infarction; I25.10 Atherosclerotic heart disease of native coronary artery without angina pectoris; I08.1 Rheumatic disorders of both mitral and tricuspid valves; T81.89XA Other complications of procedures, not elsewhere classified, initial encounter; Z79.01 Long term (current) use of anticoagulants; Z79.82 Long term (current) use of aspirin; Z66 Do not resuscitate; R09.02 Hypoxemia; Z79.899 Other long term (current) drug therapy
CPT/HCPCS: 36415; 71045; 74176; 76705; 80048; 80053; 80061; 80076; 82274; 82962; 83036; 83690; 83735; 84484; 85014; 85018; 85025; 85610; 86850; 86900; 86901; 86920; 86922; 87070; 87075; 87077; 87186; 87205; 88304; 93005; 93306; 97802; 97803; 99285; J7030; J7040; J7050; P9016; A4216; J2405; J2916; J3490

== ENCOUNTER → 2022-06-04 | Outpatient (CLI) | payer MEDICARE, SELFPAY ==
[2022-06-04 10:13] LABS: Absolute Lymphocyte Count 1.44 X10^3/uL (0.83-4.51); Absolute Neutrophil Count 2.9 X10^3/uL (2.0-7.7); Basophil# 0.02 X10^3/uL; Basophil% 0.4 % (0-1); Eosinophil# 0.12 X10^3/uL; Eosinophils% 2.4 % (0-5); Hemoglobin 11.7 g/dL (13.0-16.5); Lymphocyte # 1.44 X10^3/ul (0.83-4.51); Lymphocyte % 28.9 % (19-41); Mean Corp Hgb Conc 31.6 g/dL (32-36); Mean Corpuscular Hgb 31.2 pg (27.0-32.0); Mean Corpuscular Volume 98.7 fL (80-94); Mean Platelet Vol. 10.7 fl (6.2-12.0); Monocyte# 0.51 X10^3/uL; Monocyte% 10.2 % (0-10); NRBC Flagged by Analyzer 0 % (0-5); Neutrophil # 2.87 X10^3/uL (2.7-7.7); Neutrophil % 57.5 % (47-70); Platelet Count 196 K/mm3 (150-450); RBC Distribution Width SD 50.8 fl (35.1-43.9); Red Blood Count 3.75 M/mm3 (4.6-6.2)
[2022-06-04 11:00] LABS: Microalbumin,Random Urine 43.4 mg/L (NO RANGE EST.); Microalbumin:Creatinine Ratio 79.8 mg/g CRE (<30 mg/g CRE)
[2022-06-04 11:07] LABS: Vitamin B12 709 pg/mL (211-911); Vitamin D,25 Hydroxy 42.3 ng/mL
[2022-06-04 11:31] LABS: ALB/GLOB Ratio 0.8 RATIO (0.9-2.4); AST(SGOT) 17 U/L (15-37); Alanine Aminotransfer ALT/SGPT 31 U/L (16-61); Albumin, Serum 3.1 g/dL (3.2-5.0); Alkaline Phosphatase 89 U/L (45-117); Anion Gap 6 (5-15); BUN 27 mg/dL (7-18); BUN/Creat Ratio 16.7 RATIO (10-20); Chloride 112 mmol/L (98-107); Cholesterol 160 mg/dL (200); Creatinine, Serum 1.62 mg/dL (0.70-1.30); EST Glomerular Filtration Rate 44 mL/min (>60); Est Glom Filt Rate - Afr Amer 53 mL/min (>60); Globulin 3.7 g/dL (2.2-4.2); Glucose 219 mg/dL (74-106); High Density Lipoprotein 67 mg/dL; Potassium 4.6 mmol/L (3.5-5.1); Protein, Total 6.8 g/dL (6.4-8.2); Sodium Level 143 mmol/L (136-145); Thyroid Stim Hormone (TSH) 1.92 uIU/mL (0.358-3.74); Triglycerides 93 mg/dL; Very Low Density Lipoprotein 19 mg/dL (5-40)
== END | disposition home or self-care (01) ==
LOC: LAB 09:13
PROVIDERS: PCP Internal Medicine; Visit Provider Internal Medicine
DX: E11.9 Type 2 diabetes mellitus without complications (principal); E78.5 Hyperlipidemia, unspecified; E55.9 Vitamin D deficiency, unspecified; D51.9 Vitamin B12 deficiency anemia, unspecified
CPT/HCPCS: 36415; 80053; 80061; 82043; 82306; 82570; 82607; 84443; 85025

== ENCOUNTER → 2022-12-17 | Outpatient (CLI) | payer MEDICARE, SELFPAY ==
[2022-12-17 12:27] LABS: Potassium 5.2 mmol/L (3.5-5.1)
== END | disposition home or self-care (01) ==
LOC: LABSPEC 11:57
PROVIDERS: PCP Internal Medicine; Referring Provider Internal Medicine; Visit Provider Internal Medicine
DX: E87.5 Hyperkalemia (principal)
CPT/HCPCS: 84132

== ENCOUNTER → 2023-02-21 | Outpatient (CLI) | payer MEDICARE, SELFPAY ==
[2023-02-21 11:16] LABS: Hematocrit 36.5 % (40-54); Hemoglobin 11.7 g/dL (13.0-16.5); Mean Corp Hgb Conc 32.1 g/dL (32-36); Mean Corpuscular Hgb 31.5 pg (27.0-32.0); Mean Corpuscular Volume 98.4 fL (80-94); Platelet Count 209 K/mm3 (150-450); RBC Distribution Width CV 12.2 % (11.6-14.6); RBC Distribution Width SD 43.9 fl (35.1-43.9); Red Blood Count 3.71 M/mm3 (4.6-6.2); White Blood Count 5.1 K/mm3 (4.4-11.0)
[2023-02-21 11:35] LABS: Albumin, Serum 3.2 g/dL (3.2-5.0); BUN 26 mg/dL (7-18); BUN/Creat Ratio 15.4 RATIO (10-20); Calcium,Total 9.1 mg/dL (8.5-10.1); Chloride 109 mmol/L (98-107); Creatinine, Serum 1.69 mg/dL (0.70-1.30); EST Glomerular Filtration Rate 42 mL/min (>60); Est Glom Filt Rate - Afr Amer 51 mL/min (>60); Glucose 156 mg/dL (74-106); Phosphorus 3.6 mg/dL (2.5-4.9); Potassium 4.8 mmol/L (3.5-5.1); Sodium Level 141 mmol/L (136-145)
[2023-02-21 11:43] LABS: Protein, Urine (Random) 9.2 mg/dL (<11.9); Protein:Creat Ratio 241 mg/g CRE (0-200)
== END | disposition home or self-care (01) ==
PROVIDERS: PCP Internal Medicine; Referring Provider Internal Medicine Nephrology; Visit Provider Internal Medicine Nephrology
DX: E11.22 Type 2 diabetes mellitus with diabetic chronic kidney disease (principal); N18.4 Chronic kidney disease, stage 4 (severe)
CPT/HCPCS: 36415; 80069; 82570; 84156; 85027

== ENCOUNTER → 2023-06-13 | Outpatient (CLI) | payer MEDICARE, SELFPAY ==
[2023-06-13 10:04] LABS: Absolute Lymphocyte Count 1.47 X10^3/uL (0.83-4.51); Absolute Neutrophil Count 3.7 X10^3/uL (2.0-7.7); Basophil# 0.05 X10^3/uL; Basophil% 0.9 % (0-1); Eosinophil# 0.16 X10^3/uL; Eosinophils% 2.7 % (0-5); Hematocrit 38.6 % (40-54); Hemoglobin 12.6 g/dL (13.0-16.5); Lymphocyte # 1.47 X10^3/ul (0.83-4.51); Mean Corp Hgb Conc 32.6 g/dL (32-36); Mean Corpuscular Hgb 32.6 pg (27.0-32.0); Mean Corpuscular Volume 99.7 fL (80-94); Mean Platelet Vol. 10.5 fl (6.2-12.0); Monocyte# 0.52 X10^3/uL; Monocyte% 8.9 % (0-10); NRBC Flagged by Analyzer 0 % (0-5); Neutrophil # 3.65 X10^3/uL (2.7-7.7); Neutrophil % 62.2 % (47-70); Platelet Count 219 K/mm3 (150-450); RBC Distribution Width CV 12.7 % (11.6-14.6); RBC Distribution Width SD 46.9 fl (35.1-43.9); Red Blood Count 3.87 M/mm3 (4.6-6.2); White Blood Count 5.9 K/mm3 (4.4-11.0)
[2023-06-13 10:19] LABS: Hemoglobin A1c 7.1 % (3.8-5.6)
[2023-06-13 10:41] LABS: ALB/GLOB Ratio 0.8 RATIO (0.9-2.4); AST(SGOT) 18 U/L (15-37); Alanine Aminotransfer ALT/SGPT 33 U/L (16-61); Albumin, Serum 3.2 g/dL (3.2-5.0); Alkaline Phosphatase 102 U/L (45-117); Anion Gap 4 (5-15); BUN 23 mg/dL (7-18); BUN/Creat Ratio 12.5 RATIO (10-20); Calcium,Total 9.1 mg/dL (8.5-10.1); Chloride 109 mmol/L (98-107); Cholesterol 171 mg/dL (200); Creatinine, Serum 1.84 mg/dL (0.70-1.30); EST Glomerular Filtration Rate 38 mL/min (>60); Est Glom Filt Rate - Afr Amer 46 mL/min (>60); Globulin 3.8 g/dL (2.2-4.2); Glucose 175 mg/dL (74-106); High Density Lipoprotein 59 mg/dL; Microalbumin,Random Urine 96.4 mg/L (NO RANGE EST.); Microalbumin:Creatinine Ratio 73.6 mg/g CRE (<30 mg/g CRE); Potassium 4.8 mmol/L (3.5-5.1); Sodium Level 141 mmol/L (136-145); Thyroid Stim Hormone (TSH) 2.49 uIU/mL (0.358-3.74); Triglycerides 180 mg/dL; Very Low Density Lipoprotein 36 mg/dL (5-40)
== END | disposition home or self-care (01) ==
LOC: LAB 08:42
PROVIDERS: PCP Internal Medicine; Referring Provider Internal Medicine; Visit Provider Internal Medicine
DX: E78.5 Hyperlipidemia, unspecified (principal); E11.9 Type 2 diabetes mellitus without complications; E55.9 Vitamin D deficiency, unspecified
CPT/HCPCS: 36415; 80053; 80061; 82043; 82306; 82570; 83036; 84443; 85025

== ENCOUNTER → 2023-06-27 | Outpatient (CLI) | payer MEDICARE, SELFPAY ==
--- NOTE | 2023-06-27 09:00 | RAD_ITS ---
STUDY: X-RAY CHEST REASON FOR EXAM: Male, 78 years old. Amiodarone TECHNIQUE: PA and lateral views of the chest. COMPARISON: 04/03/2022 FINDINGS: Status post median sternotomy. The lungs are clear and expanded. There is no demonstrated pleural abnormality. Normal size heart. Normal mediastinum and jose. Normal visualized pulmonary arteries. Normal visualized aortic arch and descending thoracic aorta. There is a dextroscoliosis of the thoracic spine. Normal visualized ribs, clavicles, and shoulders. There is no demonstrated abnormality of the visualized soft tissue structures of the upper abdomen. RAD/Chest PA and Lateral IMPRESSION: No active disease. No radiographic evidence of amiodarone lung disease. Electronically Signed: Jayant Candelario MD at 23:03 EDT ,
== END | disposition home or self-care (01) ==
LOC: RAD 08:56
PROVIDERS: PCP Internal Medicine; Referring Provider Nurse Practitioner Gerontology; Visit Provider Nurse Practitioner Gerontology
DX: Z79.899 Other long term (current) drug therapy (principal)
CPT/HCPCS: 71046

== ENCOUNTER → 2023-07-09 | Outpatient (CLI) | payer MEDICARE, SELFPAY ==
--- NOTE | 2023-07-09 12:41 | ECHOD_ITS ---
Reason For Study: SECONDARY PHTN Procedure This was a 2D Doppler, Color Flow transthoracic echocardiogram. Exam performed in department. Left Ventricle Mild concentric left ventricular hypertrophy. Normal LV size. The left ventricular ejection fraction is 60 %. Diastolic function is indeterminate. Right Ventricle Normal right ventricle. Atria The left atrium is severely enlarged. Normal right atrium. Mitral Valve Mild-Moderate (1-2+) mitral valve insufficiency. Tricuspid Valve Trivial tricuspid valve insufficiency. Right ventricular systolic pressure estimated to be 41 mmHg. Aortic Valve Moderate diffuse aortic valve calcification. Moderate (2+) aortic valve insufficiency. Pulmonic Valve The pulmonic valve is not well visualized. Pericardium/Pleural No pericardial effusion. MMode/2D Measurements & Calculations LVIDd: 5.3 cm IVSd: 1.4 cm LVOT diam: 2.0 cm LVIDs: 4.5 cm LVPWd: 1.3 cm LVOT area: 3.2 cm2 FS: 15.0 % Ao root diam: 3.5 cm LAV(MOD-bp): 50.7 ml LVAd ap4: 27.3 cm2 LAV(MOD-bp) Indexed: 27.2 ml/m2 LVLd ap4: 7.6 cm LAV(MOD-sp2): 47.4 ml EDV(MOD-sp4): 82.0 ml LAV(MOD-sp4): 47.8 ml EDV(sp4-el): 83.8 ml LVAs ap4: 17.5 cm2 LVLs ap4: 6.1 cm ESV(MOD-sp4): 41.0 ml ESV(sp4-el): 42.2 ml EF(MOD-sp4): 50.1 % EF(sp4-el): 49.6 % SV(MOD-sp4): 41.1 ml SV(sp4-el): 41.6 ml LA A4 area: 17.4 cm2 LA dimension(2D): 4.7 cm RA A4 area: 15.3 cm2 TAPSE: 2.0 cm Time Measurements MV dec time: 0.18 sec Doppler Measurements & Calculations MV E max jeff: 92.1 cm/sec Lat Peak E' Jeff: 9.5 cm/sec Med Peak E' Jeff: 6.3 cm/sec MV A max jeff: 99.3 cm/sec E/E' lat: 9.7 E/E' med: 14.5 MV E/A: 0.93 MV V2 max: 100.3 cm/sec Ao V2 max: 182.1 cm/sec MV max P.0 mmHg MV dec slope: 514.1 cm/sec2 Ao max P.4 mmHg MV V2 mean: 63.4 cm/sec Ao V2 mean: 133.0 cm/sec MV mean P.8 mmHg Ao mean P.0 mmHg MV V2 VTI: 41.0 cm Ao V2 VTI: 43.6 cm AV (velocity ratio): 0.69 MVA(VTI): 2.4 cm2 TRISTAN(I,D): 2.3 cm2 TRISTAN(V,D): 2.2 cm2 AI max jeff: 388.3 cm/sec LV V1 max: 123.4 cm/sec SV(LVOT): 98.3 ml AI max P.3 mmHg LV V1 max P.1 mmHg AI dec slope: 228.4 cm/sec2 LV V1 mean P.7 mmHg AI P1/2t: 498.0 msec LV V1 mean: 90.4 cm/sec LV V1 VTI: 30.3 cm PA V2 max: 130.9 cm/sec PA V2 mean: 81.2 cm/sec ECHO/Echo Complete Interpretation Summary Mild concentric left ventricular hypertrophy. The left ventricular ejection fraction is 60 %. Diastolic function is indeterminate. The left atrium is severely enlarged. Mild-Moderate (1-2+) mitral valve insufficiency. Moderate diffuse aortic valve calcification. Moderate (2+) aortic valve insufficiency. Right ventricular systolic pressure estimated to be 41 mmHg. Ordering Physician: Becky Rasmussen Referring Physician: Becky Rasmussen Performed By: Priscilla Mclean RCS
== END | disposition home or self-care (01) ==
LOC: CVS 12:39
PROVIDERS: PCP Internal Medicine; Referring Provider Nurse Practitioner Gerontology; Visit Provider Nurse Practitioner Gerontology
DX: I27.21 Secondary pulmonary arterial hypertension (principal); R06.02 Shortness of breath
CPT/HCPCS: 93306

== ENCOUNTER → 2023-07-11 | Outpatient (CLI) | payer MEDICARE, SELFPAY ==
--- NOTE | 2023-07-12 08:03 | PFTCOMP_ITS ---
COMPLETE PULMONARY FUNCTION TEST INTERPRETATION Brief HPI: Patient is a 78-year-old male, currently under the care of Becky Rasmussen, who presents to [facility] for complete pulmonary function tests secondary to diagnosis of high risk med use. Respiratory therapist reports good effort and reproducible results. Interpretation: Forced expiration spirometry shows no large airways obstructive ventilatory defect with an FEV1 of 83% predicted. There is no significant bronchodilator response by strict ATS criteria. Spirograms are of good quality and plateau slowly, indicating slowly emptying areas of the lungs. The respiratory flow volume loop shows decreased expiratory flow rates at high lung volumes consistent with small airways obstruction. Lung volumes by body plethysmography show a slightly decreased total lung capacity at 4.36 L, 71% predicted. All other lung volumes are within normal limits. Diffusion capacity by carbon monoxide is decreased at 69% predicted. The airway resistance is slightly elevated. Compared to previous pulmonary function tests from 06/08/2021, there has been a significant reduction in lung volumes and DLCO. Impression: Isolated reduction in diffusion capacity with some decrease in lung volumes. Consider chest imaging to evaluate for complications of therapy. However, these findings could be secondary to fluid overload also.
== END | disposition home or self-care (01) ==
LOC: PSN 10:09
PROVIDERS: PCP Internal Medicine; Referring Provider Nurse Practitioner Gerontology; Visit Provider Nurse Practitioner Gerontology
DX: Z79.899 Other long term (current) drug therapy (principal)
CPT/HCPCS: 94060; 94726; 94729

== ENCOUNTER → 2023-09-23 | Outpatient (CLI) | payer MEDICARE, SELFPAY ==
[2023-09-23 10:56] LABS: Absolute Neutrophil Count 3.2 X10^3/uL (2.0-7.7); Basophil# 0.04 X10^3/uL; Basophil% 0.7 % (0-1); Eosinophil# 0.12 X10^3/uL; Eosinophils% 2.2 % (0-5); Hematocrit 40.3 % (40-54); Hemoglobin 13.2 g/dL (13.0-16.5); Lymphocyte % 26.2 % (19-41); Mean Corp Hgb Conc 32.8 g/dL (32-36); Mean Corpuscular Hgb 31.4 pg (27.0-32.0); Mean Platelet Vol. 10.7 fl (6.2-12.0); Monocyte# 0.56 X10^3/uL; Monocyte% 10.5 % (0-10); NRBC Flagged by Analyzer 0 % (0-5); Neutrophil # 3.22 X10^3/uL (2.7-7.7); Neutrophil % 60.2 % (47-70); Platelet Count 224 K/mm3 (150-450); RBC Distribution Width CV 12.7 % (11.6-14.6); RBC Distribution Width SD 44.9 fl (35.1-43.9); White Blood Count 5.4 K/mm3 (4.4-11.0)
[2023-09-23 11:16] LABS: Hemoglobin A1c 7.1 % (3.8-5.6)
[2023-09-23 11:25] LABS: Microalbumin:Creatinine Ratio 96.5 mg/g CRE (<30 mg/g CRE); Protein, Urine (Random) 47.8 mg/dL (<11.9); Protein:Creat Ratio 276 mg/g CRE (0-200)
[2023-09-23 11:34] LABS: Vitamin D,25 Hydroxy 56.5 ng/mL
[2023-09-23 11:42] LABS: ALB/GLOB Ratio 0.9 RATIO (0.9-2.4); AST(SGOT) 19 U/L (15-37); Alanine Aminotransfer ALT/SGPT 29 U/L (16-61); Albumin, Serum 3.3 g/dL (3.2-5.0); Alkaline Phosphatase 107 U/L (45-117); Anion Gap 7 (5-15); BUN 34 mg/dL (7-18); BUN/Creat Ratio 16.7 RATIO (10-20); Calcium,Total 9.3 mg/dL (8.5-10.1); Chloride 106 mmol/L (98-107); Cholesterol 177 mg/dL (200); Creatinine, Serum 2.04 mg/dL (0.70-1.30); EST Glomerular Filtration Rate 34 mL/min (>60); Est Glom Filt Rate - Afr Amer 41 mL/min (>60); Globulin 3.7 g/dL (2.2-4.2); Glucose 162 mg/dL (74-106); High Density Lipoprotein 53 mg/dL; Phosphorus 3.7 mg/dL (2.5-4.9); Potassium 4.6 mmol/L (3.5-5.1); Sodium Level 140 mmol/L (136-145); Thyroid Stim Hormone (TSH) 2.02 uIU/mL (0.358-3.74); Triglycerides 259 mg/dL; Very Low Density Lipoprotein 52 mg/dL (5-40)
== END | disposition home or self-care (01) ==
LOC: LAB 10:21
PROVIDERS: PCP Internal Medicine; Referring Provider Internal Medicine; Visit Provider Internal Medicine
DX: E11.22 Type 2 diabetes mellitus with diabetic chronic kidney disease (principal); N18.31 Chronic kidney disease, stage 3a; E78.5 Hyperlipidemia, unspecified; E55.9 Vitamin D deficiency, unspecified; D50.9 Iron deficiency anemia, unspecified
CPT/HCPCS: 36415; 80053; 80061; 82043; 82306; 82570; 83036; 84100; 84156; 84443; 85025

== ENCOUNTER → 2023-10-16 | Outpatient (CLI) | payer MEDICARE, SELFPAY ==
[2023-10-16 12:37] LABS: Hematocrit 39.1 % (40-54); Hemoglobin 12.8 g/dL (13.0-16.5); Mean Corp Hgb Conc 32.7 g/dL (32-36); Mean Corpuscular Hgb 31.7 pg (27.0-32.0); Mean Corpuscular Volume 96.8 fL (80-94); Mean Platelet Vol. 10.9 fl (6.2-12.0); Platelet Count 219 K/mm3 (150-450); RBC Distribution Width CV 12.8 % (11.6-14.6); RBC Distribution Width SD 45.5 fl (35.1-43.9); Red Blood Count 4.04 M/mm3 (4.6-6.2); White Blood Count 5.5 K/mm3 (4.4-11.0)
[2023-10-16 12:58] LABS: Albumin, Serum 3.4 g/dL (3.2-5.0); BUN 30 mg/dL (7-18); BUN/Creat Ratio 15.8 RATIO (10-20); Calcium,Total 9.9 mg/dL (8.5-10.1); Chloride 108 mmol/L (98-107); EST Glomerular Filtration Rate 37 mL/min (>60); Est Glom Filt Rate - Afr Amer 44 mL/min (>60); Glucose 135 mg/dL (74-106); Phosphorus 3.4 mg/dL (2.5-4.9); Potassium 4.7 mmol/L (3.5-5.1); Sodium Level 142 mmol/L (136-145)
[2023-10-16 13:06] LABS: Protein, Urine (Random) 16.1 mg/dL (<11.9); Protein:Creat Ratio 244 mg/g CRE (0-200)
== END | disposition home or self-care (01) ==
LOC: LAB 11:09
PROVIDERS: PCP Internal Medicine; Referring Provider Internal Medicine Nephrology; Visit Provider Internal Medicine Nephrology
DX: E11.22 Type 2 diabetes mellitus with diabetic chronic kidney disease (principal); N18.31 Chronic kidney disease, stage 3a; D50.9 Iron deficiency anemia, unspecified
CPT/HCPCS: 36415; 80069; 82570; 84156; 85027

== ENCOUNTER → 2024-01-10 | Outpatient (CLI) | payer MEDICARE, SELFPAY ==
[2024-01-10 12:15] LABS: Hematocrit 37.2 % (40-54); Hemoglobin 12.4 g/dL (13.0-16.5); Mean Corp Hgb Conc 33.3 g/dL (32-36); Mean Corpuscular Volume 95.9 fL (80-94); Platelet Count 202 K/mm3 (150-450); RBC Distribution Width CV 12.9 % (11.6-14.6); RBC Distribution Width SD 44.9 fl (35.1-43.9); Red Blood Count 3.88 M/mm3 (4.6-6.2); White Blood Count 5.8 K/mm3 (4.4-11.0)
[2024-01-10 12:19] LABS: Protein, Urine (Random) 7.6 mg/dL (<11.9); Protein:Creat Ratio 219 mg/g CRE (0-200)
[2024-01-10 12:33] LABS: Albumin, Serum 3.2 g/dL (3.2-5.0); BUN 26 mg/dL (7-18); Calcium,Total 9.3 mg/dL (8.5-10.1); Chloride 104 mmol/L (98-107); EST Glomerular Filtration Rate 34 mL/min (>60); Est Glom Filt Rate - Afr Amer 42 mL/min (>60); Glucose 174 mg/dL (74-106); Potassium 4.4 mmol/L (3.5-5.1); Sodium Level 138 mmol/L (136-145)
== END | disposition home or self-care (01) ==
LOC: LAB 10:50
PROVIDERS: PCP Internal Medicine; Referring Provider Internal Medicine Nephrology; Visit Provider Internal Medicine Nephrology
DX: E11.22 Type 2 diabetes mellitus with diabetic chronic kidney disease (principal); N18.31 Chronic kidney disease, stage 3a; D50.9 Iron deficiency anemia, unspecified; N17.9 Acute kidney failure, unspecified
CPT/HCPCS: 36415; 80069; 82570; 84156; 85027

== ENCOUNTER → 2024-01-15 | Outpatient (CLI) | payer MEDICARE, SELFPAY | END | disposition home or self-care (01) | LOC: PSN 08:47 | PROVIDERS: PCP Internal Medicine; Referring Provider Nurse Practitioner Gerontology; Visit Provider Nurse Practitioner Gerontology | DX: Z79.899 Other long term (current) drug therapy (principal) | CPT/HCPCS: 94060; 94726; 94729 ==

== ENCOUNTER → 2024-04-03 | Outpatient (CLI) | payer MEDICARE, SELFPAY ==
--- NOTE | 2024-04-03 16:17 | STRESSREP ---
Stress Test Report Pharmacologic myocardial perfusion stress test. 79-year-old male with a history of chest pain Resting EKG demonstrates atrial fibrillation with a rate of 66 bpm. Resting blood pressure is 122/82 mmHg. 0.4 mg of regadenoson was infused per usual protocol followed by rapid intravenous saline flush injection. Continuous EKG monitoring was performed. The maximum heart rate was 83 bpm which was 59 of max impacted heart rate the maximum workload was 1 metabolic equivalent. At rest there were no ST or T wave changes noted to suggest ischemia and at peak infusion nonspecific ST changes were noted which did not meet the criteria for ischemia. No clinical angina is noted. The final blood pressure was 140/80 mmHg. Myocardial perfusion protocol. 9.9 mCi of technetium 99m sestamibi was injected at rest. 0.4 mg of regadenoson was infused per usual protocol. At peak infusion 34 mCi of technetium 99m sestamibi was injected stress images were obtained stress and rest images were reconstructed and compared in the short axis vertical long and horizontal long axis. Gated images were also obtained. Perfusion SPECT analysis: Review of the stress images demonstrate normal uptake of tracer noted in all areas of the myocardium. The resting images similar demonstrated normal uptake of tracer noted in all areas of the myocardium. No areas of reversibility are noted to suggest ischemia and no previous infarct is noted. Gated SPECT analysis: The gated ejection fraction is less than 40%. Conclusion: Normal pharmacologic myocardial perfusion stress test. Reduced ejection fraction.
== END | disposition home or self-care (01) ==
LOC: CVS 06:59
PROVIDERS: PCP Internal Medicine; Referring Provider Internal Medicine Cardiovascular Disease; Visit Provider Internal Medicine Cardiovascular Disease
DX: I25.10 Atherosclerotic heart disease of native coronary artery without angina pectoris (principal); I48.0 Paroxysmal atrial fibrillation
CPT/HCPCS: 78452; 93017; A9500; A4216; J2785

== ENCOUNTER → 2024-04-24 | Outpatient (CLI) | payer MEDICARE, SELFPAY ==
--- NOTE | 2024-04-24 08:35 | ECHOD_ITS ---
Reason For Study: Chest Pain Procedure This was a 2D Doppler, Color Flow transthoracic echocardiogram. Exam performed in department. Left Ventricle Normal size and thickness. Mild posterior hypokinesis. Overall left ventricular systolic ejection fraction estimated at 60%. Stage 2 diastolic dysfunction. Right Ventricle Normal right ventricle. Atria The left atrium is severely enlarged. The right atrium is mildly enlarged. Mitral Valve Mild-Moderate (1-2+) mitral valve insufficiency. Tricuspid Valve Mild tricuspid valve insufficiency. Right ventricular systolic pressure estimated to be 51 mmHg. Aortic Valve Mild diffuse aortic valve thickening. Mild aortic valve stenosis with moderate aortic valve regurgitation. Pulmonic Valve The pulmonic valve is not well visualized. Great Vessels Mildly dilated aortic root. Pericardium/Pleural No pericardial effusion. MMode/2D Measurements & Calculations LVIDd: 5.6 cm IVSd: 0.98 cm LVOT diam: 2.0 cm LVIDs: 4.4 cm LVPWd: 1.1 cm LVOT area: 3.2 cm2 RVDd: 4.2 cm FS: 22.8 % Ao root diam: 3.6 cm LAV(MOD-bp): 79.4 ml LVAd ap4: 32.9 cm2 ACS: 1.4 cm LAV(MOD-bp) Indexed: 42.6 ml/m2 LVLd ap4: 8.5 cm LA dimension: 5.0 cm LAV(MOD-sp2): 74.7 ml EDV(MOD-sp4): 105.8 ml LAV(MOD-sp4): 77.7 ml EDV(sp4-el): 108.3 ml LVAs ap4: 19.7 cm2 LVLs ap4: 7.3 cm ESV(MOD-sp4): 49.0 ml ESV(sp4-el): 45.2 ml EF(MOD-sp4): 53.7 % EF(sp4-el): 58.2 % SV(MOD-sp4): 56.8 ml SV(sp4-el): 63.1 ml Aortic Valve Planimetry: 1.3 cm2 LA A4 area: 24.8 cm2 RA A4 area: 16.5 cm2 TAPSE: 1.7 cm Time Measurements MV dec time: 0.21 sec Doppler Measurements & Calculations MV E max jeff: 114.0 cm/sec Lat Peak E' Jeff: 4.1 cm/sec Med Peak E' Jeff: 6.0 cm/sec MV A max jeff: 58.9 cm/sec E/E' lat: 27.7 E/E' med: 19.2 MV E/A: 1.9 MV V2 max: 129.7 cm/sec MV P1/2t max jeff: 134.3 cm/sec Ao V2 max: 208.5 cm/sec MV max P.7 mmHg MV P1/2t: 77.1 msec Ao max P.4 mmHg MV V2 mean: 62.6 cm/sec Ao V2 mean: 145.2 cm/sec MV mean P.0 mmHg MV dec slope: 509.9 cm/sec2 Ao mean P.6 mmHg MV V2 VTI: 45.8 cm MVA(P1/2t): 2.9 cm2 Ao V2 VTI: 52.2 cm AV (velocity ratio): 0.44 MVA(VTI): 1.6 cm2 TRISTAN(I,D): 1.4 cm2 TRISTAN(V,D): 1.3 cm2 AI max jeff: 429.1 cm/sec LV V1 max: 87.0 cm/sec MR max jeff: 465.2 cm/sec AI max P.7 mmHg LV V1 max P.0 mmHg MR max P.6 mmHg LV V1 mean P.8 mmHg AI dec slope: 322.5 cm/sec2 LV V1 mean: 64.2 cm/sec AI P1/2t: 389.7 msec LV V1 VTI: 23.1 cm SV(LVOT): 73.8 ml PA V2 max: 99.0 cm/sec TR max jeff: 339.6 cm/sec PA max PG (full): 1.9 mmHg TR max P.1 mmHg PA V2 mean: 63.2 cm/sec PA mean PG (full): 0.81 mmHg ECHO/Echo Complete Interpretation Summary Mild posterior hypokinesis. Overall left ventricular systolic ejection fraction estimated at 60%. Stage 2 diastolic dysfunction. The left atrium is severely enlarged. The right atrium is mildly enlarged. Mild-Moderate (1-2+) mitral valve insufficiency. Mild tricuspid valve insufficiency. Right ventricular systolic pressure estimated to be 51 mmHg. Mild aortic valve stenosis with moderate aortic valve regurgitation. Mildly dilated aortic root. Ordering Physician: Ken Zapata Referring Physician: Ken Zapata Performed By: Jeremiah Clark RCS
== END | disposition home or self-care (01) ==
PROVIDERS: PCP Internal Medicine; Referring Provider Internal Medicine Cardiovascular Disease; Visit Provider Internal Medicine Cardiovascular Disease
DX: R07.9 Chest pain, unspecified (principal); I51.9 Heart disease, unspecified
CPT/HCPCS: 93306

== ENCOUNTER → 2024-07-17 | Outpatient (CLI) | payer MEDICARE, SELFPAY ==
[2024-07-17 11:38] LABS: Albumin, Serum 3.2 g/dL (3.2-5.0); BUN 30 mg/dL (7-18); BUN/Creat Ratio 16.6 RATIO (10-20); Calcium,Total 9.1 mg/dL (8.5-10.1); Chloride 110 mmol/L (98-107); Creatinine, Serum 1.81 mg/dL (0.70-1.30); EST Glomerular Filtration Rate 39 mL/min (>60); Est Glom Filt Rate - Afr Amer 47 mL/min (>60); Glucose 230 mg/dL (74-106); Phosphorus 3.8 mg/dL (2.5-4.9); Potassium 4.8 mmol/L (3.5-5.1); Sodium Level 141 mmol/L (136-145)
== END | disposition home or self-care (01) ==
LOC: LAB 10:53
PROVIDERS: PCP Internal Medicine; Referring Provider Internal Medicine Nephrology; Visit Provider Internal Medicine Nephrology
DX: N18.32 Chronic kidney disease, stage 3b (principal)
CPT/HCPCS: 36415; 80069

== ENCOUNTER → 2024-07-28 | Outpatient (CLI) | payer MEDICARE, SELFPAY ==
[2024-07-28 11:37] LABS: Bacteria 0 SEEN /hpf (None Seen); Mucous, Urine 0 SEEN /hpf (<or=2+); Red Blood Cells-Urine 0 SEEN /hpf (0-5); Squamous Epithelial Cells - UA 0 SEEN /hpf (0-5); White Blood Cells 0 SEEN /hpf (0-5)
[2024-07-28 12:24] LABS: Color, Urine Yellow (Yellow); Glucose, Dipstick Normal (Normal); Ketone-Dipstick Negative (Negative); Leukocyte Esterase-Dipstick Negative /ul (Negative); Nitrite-Dipstick Negative (Negative); Occult Blood-Urine Negative /ul (Negative); Protein-Dipstick 30 mg/dl (Negative); Specific Gravity, Urine 1.015 (1.002-1.030); Urine Bilirubin Dipstick Negative (Negative); Urine Clarity Clear (Clear); Urine Urobilinogen Normal (Normal)
[2024-07-28 12:27] LABS: Absolute Lymphocyte Count 1.51 X10^3/uL (0.83-4.51); Absolute Neutrophil Count 3.5 X10^3/uL (2.0-7.7); Basophil# 0.05 X10^3/uL; Basophil% 0.9 % (0-1); Eosinophil# 0.13 X10^3/uL; Eosinophils% 2.3 % (0-5); Hematocrit 38.3 % (40-54); Hemoglobin 12.2 g/dL (13.0-16.5); Lymphocyte # 1.51 X10^3/ul (0.83-4.51); Lymphocyte % 26.5 % (19-41); Mean Corp Hgb Conc 31.9 g/dL (32-36); Mean Corpuscular Hgb 30.2 pg (27.0-32.0); Mean Corpuscular Volume 94.8 fL (80-94); Mean Platelet Vol. 10.8 fl (6.2-12.0); Monocyte# 0.53 X10^3/uL; Monocyte% 9.3 % (0-10); NRBC Flagged by Analyzer 0 % (0-5); Neutrophil # 3.46 X10^3/uL (2.7-7.7); Neutrophil % 60.6 % (47-70); Platelet Count 196 K/mm3 (150-450); RBC Distribution Width CV 13.7 % (11.6-14.6); Red Blood Count 4.04 M/mm3 (4.6-6.2); White Blood Count 5.7 K/mm3 (4.4-11.0)
[2024-07-28 12:50] LABS: ALB/GLOB Ratio 0.9 RATIO (0.9-2.4); AST(SGOT) 18 U/L (15-37); Alanine Aminotransfer ALT/SGPT 25 U/L (16-61); Albumin, Serum 3.3 g/dL (3.2-5.0); Alkaline Phosphatase 107 U/L (45-117); Anion Gap 4 (5-15); BUN 32 mg/dL (7-18); BUN/Creat Ratio 15.2 RATIO (10-20); Calcium,Total 8.9 mg/dL (8.5-10.1); Chloride 108 mmol/L (98-107); Cholesterol 144 mg/dL (200); EST Glomerular Filtration Rate 32 mL/min (>60); Est Glom Filt Rate - Afr Amer 39 mL/min (>60); Globulin 3.5 g/dL (2.2-4.2); Glucose 169 mg/dL (74-106); High Density Lipoprotein 57 mg/dL; Potassium 4.5 mmol/L (3.5-5.1); Protein, Total 6.8 g/dL (6.4-8.2); Sodium Level 140 mmol/L (136-145); Triglycerides 146 mg/dL; Very Low Density Lipoprotein 29 mg/dL (5-40)
[2024-07-28 12:54] LABS: Vitamin B12 628 pg/mL (211-911); Vitamin D,25 Hydroxy 44.2 ng/mL
[2024-07-28 13:07] LABS: Microalbumin,Random Urine 97.5 mg/L (NO RANGE EST.); Microalbumin:Creatinine Ratio 187.9 mg/g CRE (<30 mg/g CRE)
== END | disposition home or self-care (01) ==
PROVIDERS: PCP Internal Medicine; Referring Provider Internal Medicine; Visit Provider Internal Medicine
DX: E78.2 Mixed hyperlipidemia (principal); E11.22 Type 2 diabetes mellitus with diabetic chronic kidney disease; Z79.4 Long term (current) use of insulin; N18.32 Chronic kidney disease, stage 3b; D51.9 Vitamin B12 deficiency anemia, unspecified; E55.9 Vitamin D deficiency, unspecified
CPT/HCPCS: 36415; 80053; 80061; 81001; 82043; 82306; 82570; 82607; 84443; 85025

== ENCOUNTER 2025-01-11 10:48 | Inpatient (IN) | payer MEDICARE, SELFPAY ==
[2025-01-11] VITALS (17 sets, daily range): BP systolic 105–137; BP diastolic 66–89; PULSE 102–126; RESP 12–24; TEMP 36.5–37.8; O2SAT 72–98; BMI 28.8; BMI 30.7; BMI 29.4
--- NOTE | 2025-01-11 11:02 | EKG12_ITS ---
Test Reason : SOB Blood Pressure : */* mmHG Vent. Rate : 109 BPM Atrial Rate : 110 BPM P-R Int : 192 ms QRS Dur : 150 ms QT Int : 386 ms P-R-T Axes : * -62 89 degrees QTcB Int : 519 ms Sinus tachycardia Left axis deviation Left ventricular hypertrophy with QRS widening and repolarization abnormality ( R in aVL , Faraz product ) Abnormal ECG Confirmed by Ken Zapata ([id number]), senior editor DENISSE FRANK ([id number]) on 01/12/2025 9:10:17 AM Referred By: KATHY Confirmed By: Ken Zapata
--- NOTE | 2025-01-11 11:14 | RAD_ITS ---
PROCEDURE: CHEST 1 VIEW 01/11/2025 REASON FOR EXAM: SOB TECHNIQUE: Frontal view of the chest. COMPARISON: Comparison is made with prior study dated June 27, 2023. FINDINGS: Hardware: EKG electrodes are seen. A central right internal jugular venous catheter is seen with the tip in the midportion of the superior vena cava. Heart: Heart size is moderately enlarged. Prior midline sternotomy. Lungs: Vascular congestion and CHF. Blunting of both costophrenic angles. Bones: Degenerative changes are identified within the thoracic spine. Other: RAD/Chest 1 View IMPRESSION: Cardiomegaly and CHF. Reading Location: [facility]
[2025-01-11 11:18] LABS: Absolute Lymphocyte Count 1.67 X10^3/uL (0.83-4.51); Absolute Neutrophil Count 8.7 X10^3/uL (2.0-7.7); Basophil# 0.06 X10^3/uL; Basophil% 0.5 % (0-1); Eosinophil# 0.09 X10^3/uL; Eosinophils% 0.8 % (0-5); Hematocrit 37.9 % (40-54); Hemoglobin 12.4 g/dL (13.0-16.5); Lymphocyte # 1.67 X10^3/ul (0.83-4.51); Lymphocyte % 14.7 % (19-41); Mean Corp Hgb Conc 32.7 g/dL (32-36); Mean Corpuscular Hgb 31.5 pg (27.0-32.0); Mean Corpuscular Volume 96.2 fL (80-94); Mean Platelet Vol. 10.4 fl (6.2-12.0); Monocyte% 7.1 % (0-10); NRBC Flagged by Analyzer 0 % (0-5); Neutrophil # 8.66 X10^3/uL (2.7-7.7); Neutrophil % 76.5 % (47-70); Platelet Count 286 K/mm3 (150-450); RBC Distribution Width CV 13.1 % (11.6-14.6); RBC Distribution Width SD 46.3 fl (35.1-43.9); Red Blood Count 3.94 M/mm3 (4.6-6.2); White Blood Count 11.3 K/mm3 (4.4-11.0)
--- NOTE | 2025-01-11 11:18 | ED.RN ---
sanam updated on patients status
[2025-01-11 11:50] LABS: Pro- Brain NATRIURETIC PEPTIDE 8550 pg/mL (<=1800)
[2025-01-11 11:51] LABS: Anion Gap 12 (5-15); BUN 33 mg/dL (4-19); BUN/Creat Ratio 15.3 RATIO (10-20); Calcium,Total 8.5 mg/dL (7.6-11.0); Carbon Dioxide 21.2 mmol/L (21.0-32.0); Chloride 105 mmol/L (98-108); Creatinine, Serum 2.17 mg/dL (0.70-1.20); EST Glomerular Filtration Rate 30 (>60); Estimated Creatinine Clearance 27.06 ml/min (50-250); Glucose 179 mg/dL (70-99); Potassium 4.7 mmol/L (3.3-5.1); Sodium Level 139 mmol/L (133-145)
[2025-01-11 11:55] LABS: Troponin T High Sensitivity 120 ng/L (<=22)
[2025-01-11] MEDS: Furosemide 100 MG/10 ML Vial 60 MG IV (12:22)
--- NOTE | 2025-01-11 12:37 | CPS ---
decreased to 40% fi02
--- NOTE | 2025-01-11 12:57 | EDS_ITS ---
HPI History of Present Illness Chief Complaint: Shortness of Breath Informant: patient Narrative Narrative: 79-year-old male history of pulmonary hypertension paroxysmal atrial fibrillation chronically anticoagulated coronary artery disease/CABG presenting to the emergency room with a chief complaint of shortness of breath. Patient states that for the past 4 to 5 days he has had vomiting and diarrhea. States for about a day and a half that he is unable to keep his medications down. Today he notes shortness of breath. He notes a history of coronary artery disease having had bypass surgery. He denies any significant cough or leg swelling. Patient is on Eliquis. He denies chest pain. Nursing notes that the patient is in the 70s while on 6 L. He does not wear oxygen at home. 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, severely decreased glomerular filtration rate (GFR) between 15-29 mL/min/1.73 square meter and albuminuria creatinine ratio greater than 300 mg/g Cyst of right kidney Essential (primary) hypertension NSTEMI (non-ST elevated myocardial infarction) (~12/06/18) On amiodarone therapy Paroxysmal atrial fibrillation Presence of stent in coronary artery (~08/20/12) Pure hypercholesterolemia Secondary pulmonary arterial hypertension Sinus bradycardia Type 2 diabetes mellitus 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 Home Medications ?Medication ?Instructions ?Recorded ?Last Taken ?Type vitamin B complex-vitamin C-folic 1 tab PO DAILY suppl ement 03/28/22 Unknown History acid 0.8 mg tablet (Nephro-Redd) isosorbide mononitrate 60 mg 60 mg PO DAILY #90 tabs 0 12/16/23 Unknown Rx tablet,extended release 24 hr sennosides 8.6 mg-docusate sodium 1 tab PO BID CONSTIP ATION 01/02/24 Unknown History 50 mg tablet (Stool Softener-Stimulant Laxative) apixaban 2.5 mg tablet (Eliquis) 2.5 mg PO BID #60 tab s 04/01/24 Unknown Rx metoprolol tartrate 50 mg tablet 50 mg PO BID #60 tabs 04/01/24 Unknown Rx nitroglycerin 0.4 mg sublingual 0.4 mg sublingual Q5M PRN Chest 04/01/24 Unknown Rx tablet Pain #25 tabs cholecalciferol (vitamin D3) 50 2,000 unit PO BID SUPP LEMENT 07/09/24 Unknown History mcg (2,000 unit) capsule insulin degludec 100 unit/mL (3 10 unit subcut QAM 03/25 Unknown History mL) subcutaneous pen (Tresiba FlexTouch U-100 insulin) liraglutide 0.6 mg/0.1 mL (18 mg/3 18 mg subcut DAILY diabetes 07/09/24 Unknown History mL) subcutaneous pen injector pantoprazole 20 mg tablet,delayed 20 mg PO QHS #90 tab s 12/01/24 Unknown Rx release amlodipine 5 mg tablet 5 mg PO DAILY 01/11/25 Unkno wn History ascorbic acid (vitamin C) 500 mg 500 mg PO DAILY suppl ement 01/11/25 Unknown History tablet aspirin 81 mg chewable tablet 81 mg PO QHS 01/11/25 Un known History atorvastatin 40 mg tablet 40 mg PO DAILY cholesterol 0 01/11/25 Unknown History ferrous sulfate 325 mg (65 mg 325 mg PO DAILY suppleme nt 01/11/25 Unknown His tory iron) tablet furosemide 40 mg tablet 40 mg PO DAILY 01/11/25 Unkn own History multivit with minerals-folic 1 tab PO DAILY 01/11/25 U nknown History acid-lycopene 0.4 mg-600 mcg tablet (One Daily For Men) ranolazine 1,000 mg 1,000 mg PO BID 01/11/25 Unk nown History tablet,extended release,12 hr Allergy/AdvReac Type Severity Reaction Status Date / Time Iodinated Contrast Media Allergy made me Verified 01/11/25 11:17 (Iodinated Contrast Media - hot and Oral and) they never used it again amiodarone AdvReac Other Verified 01/11/25 11:17 Family History Father Diabetes Cancer leukemia Sister Diabetes Mother Cancer Uterine cancer that metastasized including to brain. Surgical History H/O coronary artery bypass surgery (~08/31/03) Presence of coronary angioplasty implant and graft (~08/20/12) Status post laparoscopic cholecystectomy Status post left heart catheterization (LHC) (~12/08/18) Social History household members: none Smoking Status: Never smoker alcohol intake: never substance use type: does not use caffeine: Yes what type of physical activity do you participate in: none ROS ROS ED
--- NOTE | 2025-01-11 12:57 | ED.VIS.DYS ---
HPI History of Present Illness Chief Complaint: Shortness of Breath Informant: patient Narrative Narrative: 79-year-old male history of pulmonary hypertension paroxysmal atrial fibrillation chronically anticoagulated coronary artery disease/CABG presenting to the emergency room with a chief complaint of shortness of breath. Patient states that for the past 4 to 5 days he has had vomiting and diarrhea. States for about a day and a half that he is unable to keep his medications down. Today he notes shortness of breath. He notes a history of coronary artery disease having had bypass surgery. He denies any significant cough or leg swelling. Patient is on Eliquis. He denies chest pain. Nursing notes that the patient is in the 70s while on 6 L. He does not wear oxygen at home. [facility] Medical History Abnormal electrocardiogram Abnormal nuclear stress test Angina pectoris Aortic valve regurgitation Atherosclerotic heart disease of [place] coronary artery without angina pectoris Atrial fibrillation with RVR Carotid bruit Chronic a-fib Chronic anticoagulation Chronic kidney disease (CKD) stage G4/A3, severely decreased glomerular filtration rate (GFR) between 15-29 mL/min/1.73 square meter and albuminuria creatinine ratio greater than 300 mg/g Cyst of right kidney Essential (primary) hypertension NSTEMI (non-ST elevated myocardial infarction) (~12/06/18) On amiodarone therapy Paroxysmal atrial fibrillation Presence of stent in coronary artery (~08/20/12) Pure hypercholesterolemia Secondary pulmonary arterial hypertension Sinus bradycardia Type 2 diabetes mellitus 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 Home Medications ?Medication ?Instructions ?Recorded ?Last Taken ?Type vitamin B complex-vitamin C-folic 1 tab PO DAILY supplement 03/28/22 Unknown History acid 0.8 mg tablet (Nephro-Redd) isosorbide mononitrate 60 mg 60 mg PO DAILY #90 tabs 12/16/23 Unknown Rx tablet,extended release 24 hr sennosides 8.6 mg-docusate sodium 1 tab PO BID CONSTIPATION 01/02/24 Unknown History 50 mg tablet (Stool Softener-Stimulant Laxative) apixaban 2.5 mg tablet (Eliquis) 2.5 mg PO BID #60 tabs 04/01/24 Unknown Rx metoprolol tartrate 50 mg tablet 50 mg PO BID #60 tabs 04/01/24 Unknown Rx nitroglycerin 0.4 mg sublingual 0.4 mg sublingual Q5M PRN Chest 04/01/24 Unknown Rx tablet Pain #25 tabs cholecalciferol (vitamin D3) 50 2,000 unit PO BID SUPPLEMENT 07/09/24 Unknown History mcg (2,000 unit) capsule insulin degludec 100 unit/mL (3 10 unit subcut QAM 07/09/24 Unknown History mL) subcutaneous pen (Tresiba FlexTouch U-100 insulin) liraglutide 0.6 mg/0.1 mL (18 mg/3 18 mg subcut DAILY diabetes 07/09/24 Unknown History mL) subcutaneous pen injector pantoprazole 20 mg tablet,delayed 20 mg PO QHS #90 tabs 12/01/24 Unknown Rx release amlodipine 5 mg tablet 5 mg PO DAILY 01/11/25 Unknown History ascorbic acid (vitamin C) 500 mg 500 mg PO DAILY supplement 01/11/25 Unknown History tablet aspirin 81 mg chewable tablet 81 mg PO QHS 01/11/25 Unknown History atorvastatin 40 mg tablet 40 mg PO DAILY cholesterol 01/11/25 Unknown History ferrous sulfate 325 mg (65 mg 325 mg PO DAILY supplement 01/11/25 Unknown History iron) tablet furosemide 40 mg tablet 40 mg PO DAILY 01/11/25 Unknown History multivit with minerals-folic 1 tab PO DAILY 01/11/25 Unknown History acid-lycopene 0.4 mg-600 mcg tablet (One Daily For Men) ranolazine 1,000 mg 1,000 mg PO BID 01/11/25 Unknown History tablet,extended release,12 hr Allergy/AdvReac Type Severity Reaction Status Date / Time Iodinated Contrast Media Allergy made me Verified 01/11/25 11:17 (Iodinated Contrast Media - hot and Oral and) they never used it again amiodarone AdvReac Other Verified 01/11/25 11:17 Family History Father Diabetes Cancer leukemia Sister Diabetes Mother Cancer Uterine cancer that metastasized including to brain. Surgical History H/O coronary artery bypass surgery (~08/31/03) Presence of coronary angioplasty implant and graft (~08/20/12) Status post laparoscopic cholecystectomy Status post left heart catheterization (LHC) (~12/08/18) Social History household members: none Smoking Status: Never smoker alcohol intake: never substance use type: does not use caffeine: Yes what type of physical activity do you participate in: none ROS ROS ED Constitutional Constitutional ED: Denies chills, fever(s) or weight loss Eyes Eyes: Denies change in vision or diplopia ENT ENT ED: Denies ear pain, rhinorrhea or sore throat Cardiovascular Cardiovascular: Denies chest pain, orthopnea, palpitations or racing heartbeat Respiratory/Chest Respiratory/Chest: Reports dyspnea; Denies cough or orthopnea Gastrointestinal Gastrointestinal: Reports diarrhea, nausea and vomiting; Denies abdominal pain Genitourinary Genitourinary ED: Denies dysuria, hematuria or urinary frequency Musculoskeletal Musculoskeletal: Denies arthralgias or myalgias Integumentary Denies abscess or rash Neurologic Neurologic: Denies headache(s) or weakness Psychiatric Psychiatric: Denies anxiety, depression, suicidal ideation or suicidal thoughts Endocrine Endocrinology: Denies polydipsia, polyphagia or polyuria Allergic/Immunologic Allergic/Immunologic ED: Denies mouth swelling, tongue swelling or urticaria EXAM Physical Exam Const Vital Signs: 01/11/25 10:49 01/11/25 11:07 01/11/25 11:09 Temperature 98 F Temperature Source Temporal Pulse Rate 110 H Respiratory Rate 24 H 21 H Respiratory Effort Respiratory Pattern Blood Pressure 123/66 H Blood Pressure Mean 85 Pulse Ox 72 98 Oxygen Delivery Method Room Air Bi-pap Fraction of Inspired Oxygen (FIO2) 100 01/11/25 11:11 01/11/25 11:12 01/11/25 11:53 Temperature 98 F Temperature Source Oral Pulse Rate 117 H Respiratory Rate 19 H Respiratory Effort Short of Breath Labored Respiratory Pattern Tachypnea Blood Pressure 130/89 H Blood Pressure Mean 102 Pulse Ox 97 98 Oxygen Delivery Method Bi-pap Bi-pap Fraction of Inspired Oxygen (FIO2) 01/11/25 12:00 01/11/25 13:00 Temperature 98 F Temperature Source Oral Pulse Rate 118 H Respiratory Rate 19 H Respiratory Effort Respiratory Pattern Blood Pressure 137/82 H Blood Pressure Mean 100 Pulse Ox 98 Oxygen Delivery Method Bi-pap Fraction of Inspired Oxygen (FIO2) 40 Positive well nourished and well developed General Appearance ED: well developed HEENT Reports normocephalic, head/scalp atraumatic and moist mucous membranes Eyes PERRL and EOMs intact bilaterally Neck no lymphadenopathy, supple and no JVD Resp Resp Narrative: Patient is significantly tachypneic. There are Rales noted at the bases. Auscultation: rales Cardio regular rate, regular rhythm and no murmurs Rate: tachycardic GI normal to inspection, nondistended, normoactive bowel sounds and non-tender Palpation: soft Back/Spine no CVA tenderness and normal ROM Extremity normal to inspection General Extremety ED: Negative for edema General Extremity: Negative for edema Neuro oriented x3 and CN's II-XII intact bilaterally Sensorium / Orientation: alert Motor Exam: strength 5/5 throughout Psych mental status grossly normal Mood & Affect: Negative for depressed or tearful Skin no rashes or lesions noted and no wounds MDM MDM MDM Narrative Medical decision making narrative: Differential diagnosis includes but not limited to CHF pulmonary embolism pneumonia pleural effusion acute coronary syndrome pneumothorax Patient was placed on BiPAP and is doing exceedingly better. He is at times able to take off the mask and talk to me. My independent interpretation of the chest x-ray of CHF/pulmonary edema. EKG is nonischemic with tachycardia. White count is 11.3 hemoglobin 12.4 platelet count 286. Initial troponin 120-second troponin 148 BNP 8550 creatinine 2.17 with a BUN of 23. Patient received a dose of IV Lasix. Plan of care will be admission. History & Record Review Discussion w/independent historian: Patient Lab Data Attestation: I reviewed the patient's lab results. Labs: Laboratory Results - last 24 hr 01/11/25 01/11/25 11:08 13:05 WBC 11.3 H RBC 3.94 L Hgb 12.4 L Hct 37.9 L MCV 96.2 H MCH 31.5 MCHC 32.7 RDW Std Deviation 46.3 H RDW Coeff of Nicole 13.1 Plt Count 286 MPV 10.4 Immature Gran % (Auto) 0.400 Neut % (Auto) 76.5 H Lymph % (Auto) 14.7 L [place] % (Auto) 7.1 Eos % (Auto) 0.8 Baso % (Auto) 0.5 Absolute Neuts (auto) 8.7 H Absolute Lymphs (auto) 1.67 Nucleated RBC % 0 Sodium 139 Potassium 4.7 Chloride 105 Carbon Dioxide 21.2 Anion Gap 12 BUN 33 H Creatinine 2.17 H Estim Creat Clear Calc 27.06 L Est GFR (MDRD) Non-Af 30 L BUN/Creatinine Ratio 15.3 Glucose 179 H Calcium 8.5 Magnesium 1.9 Troponin T High Sens 120 H* Troponin T Hi Sens 2 Hr 148 H* NT pro BNP II 8550 H Radiography Diagnostic Testing: Clinical Impression(s) from Imaging Studies Chest X-Ray 01/11/25 11:14 IMPRESSION: Cardiomegaly and CHF. Reading Location: [facility] EKG Initial EKG: Attestation: I personally reviewed and interpreted this EKG as follows: Comments: Sinus tachycardia ventricular rate of 109 bpm Management Discussion w/another healthcare provider: Hospitalist (Dr. Ramirez) Critical Care Time Critical Care Time: Yes Critical care time (excluding procedures): 30-74 minutes (32 min), Including time spent:, Discussing w/Patient &/or Family/Home Visitor, Discussing w/Consultants, Arranging Admission or Transfer and Performing Direct Patient Care at Bedside Discharge Plan Dx/Rx/DC Orders Clinical Impression: Congestive heart failure, Acute hypoxemic respiratory failure, Anticoagulated, Demand ischemia Disposition Disposition: Acute Care Hospital [facility] Discharge Date/Time: 01/11/25 13:48
[2025-01-11 13:05] LABS: Magnesium 1.9 mg/dL (1.5-2.2)
--- NOTE | 2025-01-11 13:39 | ED.RN ---
Patrice updated on patients status and room number
--- NOTE | 2025-01-11 13:41 | CPS ---
This RT took pt off of bipap at this time, placed pt on 3L NC. Told pt if he becomes SOB again to push the call light
[2025-01-11 13:52] LABS: Troponin T High Sens 2 HR 148 ng/L (<=22)
--- NOTE | 2025-01-11 14:45 | CASEMGMT ---
CRIS ROSALES Face to Face with patient for initial transition planning/care coordination assessment. RN CM introduced self and role at [facility]. Patient lying in bed, alert and oriented. Patient willing to participate in assessment and is able to answer all questions appropriately. Care providers, pharmacy, and demographics verified. Strata: 2 PCP: Camille Specialists: CHRISTY, cardiology; [facility] Preferred Pharmacy: [facility] Insurance: [facility] Medicare Prescription Benefit: yes Living Will/HPOA: yes, nephew Patrice Christine LNOK: nephew Living Arrangements: Patient lives alone in a 2 story home with bed and bath on first floor, 7 steps and railing to enter the home. Patient states she is independent Transportation: self, neighbor, nephew DME/HHC: Patient has cane and grab bars at home. No previous HHC or SNF. Will monitor for home oxygen at discharge, prefers [employer]. Patient wishes to discharge home, denies need for home health at this time. Patient states he has no further needs or concerns at this time. CM to follow for discharge planning needs that may arise. Disposition Plan: Patient to discharge home with family support and follow-up plans in place. Will monitor for home oxygen. Altagracia MENENDEZ, RN, CM
--- NOTE | 2025-01-11 15:43 | HP.PCM.HOS_ITS ---
HPI - General General Date of Admission: 01/11/25 Date of Service: 01/11/25 Chief Complaint: Shortness of breath HPI Narrative PEGGY EASTON, is a 79 M who presents to the emergency room at [facility] with complaints of shortness of breath which started this morning. Patient states that he has had some abdominal cramping over the past couple of days and has not been able to take all of his medications patient denies any chest pains. Patient does not use any oxygen at home. Patient's medical problems include atherosclerotic heart disease, essential hypertension, hyperlipidemia, chronic kidney disease, type 2 diabetes and atrial fibrillation. Workup in the emergency room included labs which revealed elevated creatinine at 2.17, blood sugar was 179, BUN was 33, beta natruretic peptide was elevated at 8550, troponin was elevated at 120, white blood cell count was 11.3 and hemoglobin was 12.4. Chest x-ray showed cardiomegaly and congestive heart failure. EKG showed a sinus tachycardia at 109 bpm without evidence of ischemic changes. Patient required BiPAP to maintain his pulse ox above 90%. Patient will be admitted to PCU for acute hypoxic respiratory failure secondary to acute congestive heart failure. [facility] Medical History Abnormal electrocardiogram Abnormal nuclear stress test Angina pectoris Aortic valve regurgitation Atherosclerotic heart disease of [place] coronary artery without angina pectoris Atrial fibrillation with RVR Carotid bruit Chronic a-fib Chronic anticoagulation Chronic kidney disease (CKD) stage G4/A3, severely decreased glomerular filtration rate (GFR) between 15-29 mL/min/1.73 square meter and albuminuria creatinine ratio greater than 300 mg/g Cyst of right kidney Essential (primary) hypertension NSTEMI (non-ST elevated myocardial infarction) (~12/06/18) On amiodarone therapy Paroxysmal atrial fibrillation Presence of stent in coronary artery (~08/20/12) Pure hypercholesterolemia Secondary pulmonary arterial hypertension Sinus bradycardia Type 2 diabetes mellitus 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 Home Medications ?Medication ?Instructions ?Recorded ?Last Taken ?Type vitamin B complex-vitamin C-folic 1 tab PO DAILY suppl ement 03/28/22 Unknown History acid 0.8 mg tablet (Nephro-Redd) isosorbide mononitrate 60 mg 60 mg PO DAILY #90 tabs 0 12/16/23 Unknown Rx tablet,extended release 24 hr sennosides 8.6 mg-docusate sodium 1 tab PO BID CONSTIP ATION 01/02/24 Unknown History 50 mg tablet (Stool Softener-Stimulant Laxative) apixaban 2.5 mg tablet (Eliquis) 2.5 mg PO BID #60 tab s 04/01/24 Unknown Rx metoprolol tartrate 50 mg tablet 50 mg PO BID #60 tabs 04/01/24 Unknown Rx nitroglycerin 0.4 mg sublingual 0.4 mg sublingual Q5M PRN Chest 04/01/24 Unknown Rx tablet Pain #25 tabs cholecalciferol (vitamin D3) 50 2,000 unit PO BID SUPP LEMENT 07/09/24 Unknown History mcg (2,000 unit) capsule insulin degludec 100 unit/mL (3 10 unit subcut QAM 03/25 Unknown History mL) subcutaneous pen (Tresiba FlexTouch U-100 insulin) liraglutide 0.6 mg/0.1 mL (18 mg/3 18 mg subcut DAILY diabetes 07/09/24 Unknown History mL) subcutaneous pen injector pantoprazole 20 mg tablet,delayed 20 mg PO QHS #90 tab s 12/01/24 Unknown Rx release amlodipine 5 mg tablet 5 mg PO DAILY 01/11/25 Unkno wn History ascorbic acid (vitamin C) 500 mg 500 mg PO DAILY suppl ement 01/11/25 Unknown History tablet aspirin 81 mg chewable tablet 81 mg PO QHS 01/11/25 Un known History atorvastatin 40 mg tablet 40 mg PO DAILY cholesterol 0 01/11/25 Unknown History ferrous sulfate 325 mg (65 mg 325 mg PO DAILY suppleme nt 01/11/25 Unknown History iron) tablet furosemide 40 mg tablet 40 mg PO DAILY 01/11/25 Unkn own History multivit with minerals-folic 1 tab PO DAILY 01/11/25 U nknown History acid-lycopene 0.4 mg-600 mcg tablet (One Daily For Men) ranolazine 1,000 mg 1,000 mg PO BID 01/11/25 Unk nown History tablet,extended release,12 hr Allergy/AdvReac Type Severity Reaction Status Date / Time Iodinated Contrast Media Allergy made me Verified 01/11/25 11:17 (Iodinated Contrast Media - hot and Oral and) they never used it again amiodarone AdvReac Other Verified 01/11/25 11:17 Family History Father Diabetes Cancer leukemia Sister Diabetes Mother Cancer Uterine cancer that metastasized including to brain. Surgical History H/O coronary artery bypass surgery (~08/31/03) Presence of coronary angioplasty implant and graft (~08/20/12) Status post laparoscopic cholecystectomy Status post left heart catheterization (LHC) (~12/08/18) Social History household members: none Smoking Status: Never smoker alcohol intake: never substance use type: does not use caffeine: Yes what type of physical activity do you participate in: none ROS Constitutional Constitutional: Reports fatigue; Denies anorexia, change in weight, chills, fever(s), night sweats or weakness Eyes Eyes: Denies blurry vision, change in vision, discharge from eye(s) or eye pain Cardiovascular Cardiovascular: Denies chest pain, claudication, edema, lightheadedness or palpitations Respiratory/Chest Respiratory/Chest: Reports dyspnea, shortness of breath at rest and shortness of breath with exertion; Denies cough or hemoptysis Gastrointestinal Gastrointestinal: Denies abdominal pain, constipation, diarrhea, hematemesis, hematochezia, melena, nausea or vomiting Genitourinary Genitourinary: Denies dysuria, hematuria, urinary frequency, urinary hesitancy, urinary incontinence or urinary urgency Musculoskeletal Musculoskeletal: Denies back pain, joint pain, joint stiffness, joint swelling, myalgias or neck pain Neurologic Neurologic: Denies abnormal gait, abnormal speech, confusion, disequilibrium, dizziness, focal weakness, headache(s), loss of vision, numbness, other visual disturbances, paresthesias, syncope or tingling Psychiatric Psychiatric: Denies anxiety, cognitive impairment, depression, irritability, mood swings or suicidal ideation Endocrine Endocrinology: Denies change in body appearance, cold intolerance, excessive sweating, heat intolerance, polydipsia or polyuria Hematologic/Lymphatic Hematologic/Lymphatic: Denies none, anemia, easy bleeding, easy bruising or lymphadenopathy Allergic/Immunologic Allergic/Immunologic: Denies rhinitis, urticaria, eczemia or asthma Vital Signs Vital Signs Vital Signs: 01/11/25 10:49 01/11/25 11:07 01/11/25 11:09 Temperature 98 F Temperature Source Temporal Pulse Rate 110 H Respiratory Rate 24 H 21 H Respiratory Effort Respiratory Depth Respiratory Pattern Blood Pressure 123/66 H Blood Pressure Mean 85 Pulse Ox 72 98 Oxygen Delivery Method Room Air Bi-pap Oxygen Flow Rate (L/min) Fraction of Inspired Oxygen (FIO2) 100 01/11/25 11:11 01/11/25 11:12 01/11/25 11:53 Temperature 98 F Temperature Source Oral Pulse Rate 117 H Respiratory Rate 19 H Respiratory Effort Short of Breath Labored Respiratory Depth Respiratory Pattern Tachypnea Blood Pressure 130/89 H Blood Pressure Mean 102 Pulse Ox 97 98 Oxygen Delivery Method Bi-pap Bi-pap Oxygen Flow Rate (L/min) Fraction of Inspired Oxygen (FIO2) 01/11/25 12:00 01/11/25 13:00 01/11/25 13:30 Temperature 98 F 98.1 F Temperature Source Oral Pulse Rate 118 H 102 H Respiratory Rate 19 H 20 H Respiratory Effort Respiratory Depth Respiratory Pattern Blood Pressure 137/82 H 120/77 Blood Pressure Mean 100 91 Pulse Ox 98 96 Oxygen Delivery Method Bi-pap Oxygen Flow Rate (L/min) Fraction of Inspired Oxygen (FIO2) 40 01/11/25 13:41 01/11/25 13:47 01/11/25 14:00 Temperature 97.7 F L Temperature Source Oral Pulse Rate 118 H Respiratory Rate 20 H Respiratory Effort Respiratory Depth Respiratory Pattern Blood Pressure 133/84 H Blood Pressure Mean 100 Pulse Ox 93 97 93 Oxygen Delivery Method Nasal Cannula Nasal Cannula Nasal Cannula Oxygen Flow Rate (L/min) 3 3 3 Fraction of Inspired Oxygen (FIO2) 01/11/25 14:50 01/11/25 15:00 Temperature Temperature Source Pulse Rate 118 H Respiratory Rate Respiratory Effort Normal Respiratory Depth Normal Respiratory Pattern Normal Blood Pressure Blood Pressure Mean Pulse Ox Oxygen Delivery Method Nasal Cannula Oxygen Flow Rate (L/min) 3 Fraction of Inspired Oxygen (FIO2) Weight Weight: 80.2 kg Body Mass Index (BMI) 29.4 Physical Exam Const alert, oriented x3, no apparent distress and healthy appearing General Appearance: cooperative, well kempt and well developed Orientation / Consciousness: awake, oriented to person, oriented to place and oriented to time HEENT normocephalic, head/scalp atraumatic, hearing grossly normal bilaterally and moist oral mucous membranes Eyes PERRL, EOMs intact bilaterally and conjunctivae normal Neck supple, no JVD, thyroid normal and no carotid bruits General: trachea midline Resp Resp Narrative: Breath sounds are diminished bilaterally, patient had retractions and use of accessory muscles, inspiratory rales were noted bilaterally Auscultation: rales; Negative for rhonchi or wheezes Cardio regular rate, regular rhythm, no murmurs, no rub and no gallops Cardio Narrative: Patient is tachycardic GI normal to inspection, nondistended, normoactive bowel sounds, soft to palpation, non-tender and non-distended Extremity no clubbing, cyanosis or edema Skin Skin Narrative: Patient has an excoriated area approximately 12 cm in length by 4 cm in diameter over the outer aspect of the patient's right leg Neuro oriented x3, CN's II-XII intact bilaterally, moves all extremities, no focal motor deficits and no sensory deficits noted Sensorium / Orientation: awake and alert Speech: speech normal Psych affect normal Results Lab / Micro Data 01/11/25 11:08 01/11/25 11:08 Labs: Laboratory Results - last 24 hr 01/11/25 11:08: WBC 11.3 H, RBC 3.94 L, Hgb 12.4 L, Hct 37.9 L, MCV 96.2 H, MCH 31.5, MCHC 32.7, RDW Std Deviation 46.3 H, RDW Coeff of Nicole 13.1, Plt Count 286, MPV 10.4, Immature Gran % (Auto) 0.400, Neut % (Auto) 76.5 H, Lymph % (Auto) 14.7 L, [place] % (Auto) 7.1, Eos % (Auto) 0.8, Baso % (Auto) 0.5, Absolute Neuts (auto) 8.7 H, Absolute Lymphs (auto) 1.67, Nucleated RBC % 0, Sodium 139, Potassium 4.7, Chloride 105, Carbon Dioxide 21.2, Anion Gap 12, BUN 33 H, C reatinine 2.17 H, Estim Creat Clear Calc 27.06 L, Est GFR (MDRD) Non-Af 30 L, BUN/Creatinine Ratio 15.3, Glucose 179 H, Calcium 8.5, Magnesium 1.9, Troponin T High Sens 120 H*, NT pro BNP II 8550 H 01/11/25 13:05: Troponin T Hi Sens 2 Hr 148 H* Imaging Radiology Impression Chest X-Ray 01/11/25 11:14 IMPRESSION: Cardiomegaly and CHF. Reading Location: [id number] Assessment & Plan Assessment/Plan (1) Acute hypoxemic respiratory failure: PLAN: Plan 1. Acute hypoxic respiratory failure secondary to acute congestive heart failure-patient will be admitted to PCU, pulse ox will be monitored, patient is currently on BiPAP, this will be weaned if possible, patient will be monitored on telemetry #2 acute congestive heart failure with preserved ejection fraction-patient's last echocardiogram was in April 2024, he had moderate pulmonary hypertension and a normal EF, echocardiogram will be repeated #3 coronary artery disease-this appears stable at this time #4 elevated troponin-secondary to demand ischemia, I do not feel the patient has had an acute HI #5 type 2 diabetes-patient's blood sugars will be monitored, sliding scale insulin will be administered as needed, patient will be kept off his Victoza at this time-I do not feel the patient needs this presently #6 hyperlipidemia-patient is on atorvastatin #7 chronic kidney disease stage IIIb-patient's BMP will be monitored #8 paroxysmal [id number] is on rate control medication as well as Eliquis. Total clinical time spent by myself addressing patient's medical issues, reviewing all of his data, and collaborating with patient's care team: 75 minutes Charges/Coding Visit Charges Inpatient E&M: 51784 Init Hosp L3
[2025-01-11] MEDS: Furosemide 40 MG/4 ML Vial IV ×2 (15:44→21:44)
[2025-01-11] MEDS: Metoprolol Tartrate 50 MG Tablet PO ×2 (15:45→21:45)
[2025-01-11] MEDS: Potassium Chloride Oral Tablet 20 MEQ PO (15:45)
[2025-01-11 17:18] LABS: Troponin T High Sens 4 HR 153 ng/L (<=22)
[2025-01-11 17:43] LABS: Bedside Glucose 172 mg/dL (74-106)
[2025-01-11] MEDS: Triamcinolone 0.1% Ointment 15 gm tube 1 APPLIC TOPICAL ×2 (18:10→21:42)
[2025-01-11] MEDS: Aspirin 81 MG TAB.CHEW PO (21:41)
[2025-01-11] MEDS: APIXABAN 2.5 MG TABLET (WCH) PO (21:42)
[2025-01-11] MEDS: Pantoprazole Sodium 20 MG Tablet PO (21:44)
[2025-01-11] MEDS: Atorvastatin Calcium 40 MG Tablet PO (21:44)
[2025-01-11] MEDS: Cholecalciferol (VIT D3) 25 MCG TABLET (1,000 UNITS) 50 MCG PO (21:45)
[2025-01-11] MEDS: Senna/Docusate Sodium 1 Tablet PO (21:45)
[2025-01-11] MEDS: Ranolazine 500 MG Tablet 1000 MG PO (21:46)
[2025-01-11] MEDS: Acetaminophen 325 MG Tablet 650 MG PO (21:55)
[2025-01-11] MEDS: 0.9% Saline Lock 10 ML Syringe IV (21:55)
[2025-01-11 22:08] LABS: Bedside Glucose 135 mg/dL (74-106)
[2025-01-12] VITALS (12 sets, daily range): BP systolic 79–133; BP diastolic 60–78; PULSE 110–124; RESP 15–18; TEMP 35.8–36.9; O2SAT 94–100
[2025-01-12 01:42] LABS: D-Dimer Quantitative (DVT/PE) 0.27 FEU/ug/m (0.27-0.49)
[2025-01-12 01:59] LABS: Troponin T High Sensitivity 214 ng/L (<=22)
[2025-01-12] MEDS: Furosemide 40 MG/4 ML Vial IV ×2 (06:24→14:34)
[2025-01-12] MEDS: 0.9% Saline Lock 10 ML Syringe IV ×2 (06:24→14:34)
[2025-01-12 06:28] LABS: Anion Gap 13 (5-15); BUN 37 mg/dL (4-19); BUN/Creat Ratio 16.9 RATIO (10-20); Calcium,Total 8.7 mg/dL (7.6-11.0); Carbon Dioxide 22.7 mmol/L (21.0-32.0); Chloride 104 mmol/L (98-108); Creatinine, Serum 2.16 mg/dL (0.70-1.20); EST Glomerular Filtration Rate 30 (>60); Estimated Creatinine Clearance 26.61 ml/min (50-250); Glucose 122 mg/dL (70-99); Potassium 4.2 mmol/L (3.3-5.1); Sodium Level 140 mmol/L (133-145)
[2025-01-12 06:43] LABS: Bedside Glucose 123 mg/dL (74-106)
[2025-01-12] MEDS: Potassium Chloride Oral Tablet 20 MEQ PO ×2 (09:18→16:28)
[2025-01-12] MEDS: Isosorbide Mononitrate 60 MG Tablet PO (09:18)
[2025-01-12] MEDS: APIXABAN 2.5 MG TABLET (WCH) PO ×2 (09:18→22:02)
[2025-01-12] MEDS: Triamcinolone 0.1% Ointment 15 gm tube 1 APPLIC TOPICAL ×2 (09:19→22:15)
[2025-01-12] MEDS: Metoprolol Tartrate 50 MG Tablet PO ×2 (09:19→22:07)
[2025-01-12] MEDS: Folic Acid/Vitamin B Comp W-C 1 Capsule 1 CAP PO (09:20)
[2025-01-12] MEDS: Senna/Docusate Sodium 1 Tablet PO ×2 (09:20→22:04)
[2025-01-12] MEDS: amLODIPine 5 MG Tablet PO (09:20)
[2025-01-12] MEDS: Cholecalciferol (VIT D3) 25 MCG TABLET (1,000 UNITS) 50 MCG PO ×2 (09:20→22:18)
[2025-01-12] MEDS: Ranolazine 500 MG Tablet 1000 MG PO ×2 (09:20→22:02)
[2025-01-12] MEDS: Insulin Lispro 100 UNIT/ML INSULN.PEN SC ×3 (11:28→23:03)
[2025-01-12] MEDS: Ferrous Sulfate 325 MG Tablet PO (11:34)
--- NOTE | 2025-01-12 11:41 | ECHOD_ITS ---
Reason For Study Reason For Study: CHF Procedure This was a 2D Doppler, Color Flow transthoracic echocardiogram. The study was technically difficult. Contrast injection was performed. Exam performed portable in patient room. Left Ventricle Mildly dilated left ventricle. Mild concentric left ventricular hypertrophy. Severe global LV systolic dysfunction. Estimated LVEF 25 to 30%. Right Ventricle Normal right ventricle. Atria The left atrium is severely enlarged. Normal right atrium. Mitral Valve Moderate (2+) mitral valve insufficiency. Tricuspid Valve Mild tricuspid valve insufficiency. Right ventricular systolic pressure estimated to be 51 mmHg. Aortic Valve Mild diffuse aortic valve calcification. Mild calcific aortic valve stenosis with moderate aortic valve regurgitation. Pulmonic Valve The pulmonic valve is not well visualized. Great Vessels Normal sized aortic root. Pericardium/Pleural No pericardial effusion. Medication Diluted definity 2ml given slow IV push to enhance endocardial definition. MMode/2D Measurements & Calculations LVIDd: 5.7 cm IVSd: 1.3 cm LVOT diam: 2.0 cm LVIDs: 5.3 cm LVPWd: 1.0 cm RVDd: 4.0 cm FS: 7.0 % LVOT area: 3.1 cm2 Ao root diam: 3.4 cm LAV(MOD-bp): 82.0 ml LVAd ap4: 37.3 cm2 LA dimension: 5.4 cm LAV(MOD-bp) Indexed: 43.8 ml/m2 LVLd ap4: 8.8 cm LAV(MOD-sp2): 87.8 ml EDV(MOD-sp4): 133.2 ml LAV(MOD-sp4): 70.5 ml EDV(sp4-el): 133.7 ml LVAs ap4: 29.1 cm2 LVLs ap4: 8.0 cm ESV(MOD-sp4): 87.3 ml ESV(sp4-el): 90.5 ml EF(MOD-sp4): 34.4 % EF(sp4-el): 32.3 % SV(MOD-sp4): 45.9 ml SV(sp4-el): 43.2 ml Aortic Valve Planimetry: 1.1 cm2 SI(MOD-sp4): 24.5 ml/m2 LA A4 area: 24.0 cm2 LA dimension(2D): 4.7 cm RA A4 area: 16.3 cm2 TAPSE: 1.1 cm Doppler Measurements & Calculations MV E max liza: 134.6 cm/sec MV V2 max: 137.9 cm/sec Ao V2 max: 203.1 cm/sec MV max P.7 mmHg Ao max P.5 mmHg MV V2 mean: 76.7 cm/sec Ao V2 mean: 146.2 cm/sec MV mean P.0 mmHg Ao mean P.8 mmHg MV V2 VTI: 23.4 cm Ao V2 VTI: 35.0 cm AV (velocity ratio): 0.39 MVA(VTI): 1.8 cm2 TRISTAN(I,D): 1.2 cm2 TRISTAN(V,D): 1.2 cm2 AI max liza: 409.3 cm/sec LV V1 max: 79.9 cm/sec MR max liza: 437.7 cm/sec AI max P.0 mmHg LV V1 max P.6 mmHg MR max P.6 mmHg LV V1 mean P.6 mmHg MR mean liza: 341.2 cm/sec AI dec slope: 375.5 cm/sec2 LV V1 mean: 59.0 cm/sec MR mean P.6 mmHg AI P1/2t: 319.2 msec LV V1 VTI: 13.5 cm MR VTI: 131.5 cm SV(LVOT): 41.6 ml TR max liza: 339.4 cm/sec TR max P.1 mmHg ECHO/Echo Complete W/ Contrast Interpretation Summary Mildly dilated left ventricle. Mild concentric left ventricular hypertrophy. Severe global LV systolic dysfunction. Estimated LVEF 25 to 30%. The left atrium is severely enlarged. Moderate (2+) mitral valve insufficiency. Mild tricuspid valve insufficiency. Right ventricular systolic pressure estimated to be 51 mmHg. Mild calcific aortic valve stenosis with moderate aortic valve regurgitation. Ordering Physician: William Ramirez Performed By: Jeremiah Clark RCS
[2025-01-12 11:42] LABS: Bedside Glucose 257 mg/dL (74-106)
--- NOTE | 2025-01-12 14:45 | CASEMGMT ---
CRIS ROSALES Face to Face with patient for initial transition planning/care coordination assessment. RN CM introduced self and role at [facility]. Patient lying in bed, alert and oriented. Patient willing to participate in assessment and is able to answer all questions appropriately. Care providers, pharmacy, and demographics verified. Strata: 2 PCP: Camille Specialists: CHRISTY, cardiology; [facility] Preferred Pharmacy: [facility] Insurance: [facility] Medicare Prescription Benefit: yes Living Will/HPOA: yes, nephew Patrice Christine LNOK: nephew Living Arrangements: Patient lives alone in a 2 story home with bed and bath on first floor, 7 steps and railing to enter the home. Patient states she is independent Transportation: self, neighbor, nephew DME/HHC: Patient has cane and grab bars at home. No previous HHC or SNF. Will monitor for home oxygen at discharge, prefers [employer]. Patient wishes to discharge home, denies need for home health at this time. Patient states he has no further needs or concerns at this time. CM to follow for discharge planning needs that may arise. Disposition Plan: Patient to discharge home with family support and follow-up plans in place. Will monitor for home oxygen. Altagracia MENENDEZ, RN, CM
[2025-01-12 16:51] LABS: Bedside Glucose 210 mg/dL (74-106)
[2025-01-12] MEDS: Losartan Potassium 50 MG Tablet PO (17:50)
--- NOTE | 2025-01-12 17:54 | PCM.PN.HOSP ---
Reason for Visit Reason for Visit: Diagnoses Acute respiratory failure with hypoxia (01/11/25) Subjective Subjective Patient was seen and examined today, he states he feels more comfortable today and is breathing better. Echocardiogram showed a severely reduced ejection fraction of 25 to 30%, his last echocardiogram however showed a normal EF of 60%-this was last year. I discussed his care with cardiology by phone today, they advised placing the patient on an ARB and stopping his Norvasc and advised close follow-up in the cardiology office, they recommended that his stress test be performed when the patient's medical status was stabilized. They did not advise the patient undergoing a stress test during this admission. Objective Data Objective Data Vital Signs: Vital Signs Temp Pulse Resp BP Pulse Ox O2 Del Method O2 Flow Rate 98.5 F 113 H 18 109/76 97 Nasal Cannula 3 01/12/25 15:41 01/12/25 15:41 01/12/25 15:41 01/12/25 15:41 01/12/25 15:41 01/12/25 15:41 01/12/25 15:41 FiO2 40 01/11/25 12:00 Oxygen Flow Rate (L/min) 3 Oxygen Delivery Method Nasal Cannula Weight: 80.2 kg Body Mass Index (BMI) 29.4 Intake & Output: Intake and Output for Last 24 Hours 01/10/25 01/11/25 01/12/25 23:59 23:59 23:59 Intake Total 240 / 240 Output Total 750 / 750 Balance 240 / -260 -750 / -750 Lab / Micro Data 01/11/25 11:08 01/12/25 05:00 Labs: Laboratory Results - last 24 hr 01/11/25 21:39: POC Glucose 135 H 01/12/25 01:05: D-Dimer Quant (PE/DVT) 0.27, Troponin T High Sens 214 H* D, TSH 1.510 01/12/25 05:00: Sodium 140, Potassium 4.2, Chloride 104, Carbon Dioxide 22.7, Anion Gap 13, BUN 37 H, Creatinine 2.16 H, Estim Creat Clear Calc 26.61 L, Est GFR (MDRD) Non-Af 30 L, BUN/Creatinine Ratio 16.9, Glucose 122 H, Calcium 8.7 01/12/25 06:22: POC Glucose 123 H 01/12/25 11:24: POC Glucose 257 H 01/12/25 16:22: POC Glucose 210 H Radiography Diagnostic Testing: Radiology Impression Echocardiogram 01/12/25 11:41 Interpretation Summary Mildly dilated left ventricle. Mild concentric left ventricular hypertrophy. Severe global LV systolic dysfunction. Estimated LVEF 25 to 30%. The left atrium is severely enlarged. Moderate (2+) mitral valve insufficiency. Mild tricuspid valve insufficiency. Right ventricular systolic pressure estimated to be 51 mmHg. Mild calcific aortic valve stenosis with moderate aortic valve regurgitation. Ordering Physician: William Ramirez Performed By: Jeremiah Clark RCS Physical Exam Const alert, oriented x3 and no apparent distress General Appearance: cooperative, well kempt and well developed Orientation / Consciousness: awake, oriented to person, oriented to place and oriented to time HEENT normocephalic, head/scalp atraumatic and moist oral mucous membranes Eyes PERRL, EOMs intact bilaterally and conjunctivae normal Neck supple, no JVD, thyroid normal and no carotid bruits General: trachea midline Resp normal respiratory effort Resp Narrative: Inspiratory rales at the bases bilaterally Auscultation: Negative for rales, rhonchi or wheezes Cardio regular rate, regular rhythm, S1 normal heart sound, S2 normal heart sound, no murmurs, no rub and no gallops GI normal to inspection, nondistended, normoactive bowel sounds, soft to palpation, non-tender and non-distended Extremity no clubbing, cyanosis or edema Skin no rashes or lesions noted General Skin Exam: no breakdown Neuro oriented x3, CN's II-XII intact bilaterally, moves all extremities, no focal motor deficits and no sensory deficits noted Sensorium / Orientation: awake and alert Speech: speech normal Psych affect normal Assessment & Plan Assessment/Plan (1) Demand ischemia: (2) Acute hypoxemic respiratory failure: PLAN: Plan 1. Acute hypoxic respiratory failure secondary to acute congestive heart failure with reduced ejection fraction-patient was placed on losartan and his Norvasc was discontinued, I elected to lower his dose of Lasix so as not to cause hypotension. #2 acute congestive heart failure with reduced ejection fraction-patient will need close follow-up with cardiology as an outpatient, medication changes were made as above #3 coronary artery disease-this appears stable at this time #4 elevated troponin-secondary to demand ischemia, I do not feel the patient has had an acute SD #5 type 2 diabetes-patient's blood sugars will be monitored, sliding scale insulin will be administered as needed, patient will be kept off his Victoza at this time-I do not feel the patient needs this presently #6 hyperlipidemia-patient is on atorvastatin #7 chronic kidney disease stage IIIb-patient's BMP will be monitored #8 paroxysmal [id number]-[id number] is on rate control medication as well as Eliquis. Total clinical time spent by myself addressing patient's medical issues, reviewing all of his data, and collaborating with patient's care team: 35 minutes Charges/Coding Visit Charges Inpatient E&M: 72359 Subs Hosp L2
[2025-01-12] MEDS: Pantoprazole Sodium 20 MG Tablet PO (22:02)
[2025-01-12] MEDS: Atorvastatin Calcium 40 MG Tablet PO (22:02)
[2025-01-12] MEDS: Aspirin 81 MG TAB.CHEW PO (22:20)
[2025-01-12 22:43] LABS: Bedside Glucose 202 mg/dL (74-106)
[2025-01-12] MEDS: Furosemide 20 MG/2 ML VIAL IV (23:02)
[2025-01-13] VITALS (13 sets, daily range): BP systolic 78–107; BP diastolic 55–65; PULSE 104–114; RESP 16–18; TEMP 36.1–36.9; O2SAT 91–100
[2025-01-13] MEDS: Insulin Lispro 100 UNIT/ML INSULN.PEN SC ×4 (06:43→20:34)
--- NOTE | 2025-01-13 06:46 | NURSING ---
matt held d/t bp 89/61
[2025-01-13 07:03] LABS: Bedside Glucose 167 mg/dL (74-106)
[2025-01-13] MEDS: Potassium Chloride Oral Tablet 20 MEQ PO ×2 (08:56→15:45)
[2025-01-13] MEDS: Isosorbide Mononitrate 60 MG Tablet PO (08:59)
[2025-01-13] MEDS: APIXABAN 2.5 MG TABLET (WCH) PO ×2 (08:59→20:29)
[2025-01-13] MEDS: Losartan Potassium 50 MG Tablet PO (08:59)
[2025-01-13] MEDS: Triamcinolone 0.1% Ointment 15 gm tube 1 APPLIC TOPICAL ×2 (09:00→20:37)
[2025-01-13] MEDS: Metoprolol Tartrate 50 MG Tablet PO ×2 (09:00→20:30)
[2025-01-13] MEDS: Folic Acid/Vitamin B Comp W-C 1 Capsule 1 CAP PO (09:01)
[2025-01-13] MEDS: Ranolazine 500 MG Tablet 1000 MG PO ×2 (09:01→20:34)
[2025-01-13] MEDS: Senna/Docusate Sodium 1 Tablet PO ×2 (09:02→20:35)
[2025-01-13] MEDS: Cholecalciferol (VIT D3) 25 MCG TABLET (1,000 UNITS) 50 MCG PO ×2 (09:02→20:36)
[2025-01-13] MEDS: Ferrous Sulfate 325 MG Tablet PO (12:30)
[2025-01-13] MEDS: Furosemide 40 MG/4 ML Vial IV (12:30)
[2025-01-13] MEDS: 0.9% Saline Lock 10 ML Syringe IV ×2 (12:31→15:10)
[2025-01-13 13:10] LABS: Bedside Glucose 219 mg/dL (74-106)
[2025-01-13] MEDS: Ondansetron 4 MG/2 ML Vial IV (15:10)
[2025-01-13] MEDS: 0.9% Normal Saline (500mL Bag) 500 ML 999 ML IV (15:43)
[2025-01-13 16:06] LABS: Bedside Glucose 160 mg/dL (74-106)
--- NOTE | 2025-01-13 19:04 | PCM.PN.HOSP ---
Reason for Visit Reason for Visit: Diagnoses Other forms of acute ischemic heart disease (01/11/25) Acute respiratory failure with hypoxia (01/11/25) Subjective Subjective Patient was seen and examined today, he became nauseated and diaphoretic this afternoon, it was noted that his systolic blood pressure was in the 80s. I administered some fluids which relieved the patient's symptoms. I made the decision to stop his IV Lasix and I instructed him to be liberal with his fluid intake. He will be reevaluated tomorrow morning for possible discharge, he did not require oxygen at rest or when ambulating today. Objective Data Objective Data Vital Signs: Vital Signs Temp Pulse Resp BP Pulse Ox O2 Del Method O2 Flow Rate 97.4 F L 113 H 16 89/65 L 99 Room Air 2 01/13/25 16:39 01/13/25 16:39 01/13/25 16:39 01/13/25 16:39 01/13/25 16:39 01/13/25 16:39 01/13/25 08:00 FiO2 40 01/11/25 12:00 Oxygen Flow Rate (L/min) 2 Oxygen Delivery Method Room Air Weight: 80.2 kg Body Mass Index (BMI) 29.4 Intake & Output: Intake and Output for Last 24 Hours 01/11/25 01/12/25 01/13/25 23:59 23:59 23:59 Intake Total 240 / 240 1250 / 1250 Output Total 750 / 750 Balance 240 / -260 -750 / -750 1250 / 1250 Lab / Micro Data 01/11/25 11:08 01/12/25 05:00 Labs: Laboratory Results - last 24 hr 01/12/25 21:37: POC Glucose 202 H 01/13/25 06:42: POC Glucose 167 H 01/13/25 12:21: POC Glucose 219 H 01/13/25 15:09: POC Glucose 160 H Physical Exam Narrative alert, oriented x3 and no apparent distress General Appearance: cooperative, well kempt and well developed Orientation / Consciousness: awake, oriented to person, oriented to place and oriented to time HEENT normocephalic, head/scalp atraumatic and moist oral mucous membranes Eyes PERRL, EOMs intact bilaterally and conjunctivae normal Neck supple, no JVD, thyroid normal and no carotid bruits General: trachea midline Resp normal respiratory effort Resp Narrative: Inspiratory rales at the bases bilaterally Auscultation: Negative for rales, rhonchi or wheezes Cardio regular rate, regular rhythm, S1 normal heart sound, S2 normal heart sound, no murmurs, no rub and no gallops GI normal to inspection, nondistended, normoactive bowel sounds, soft to palpation, non-tender and non-distended Extremity no clubbing, cyanosis or edema Skin no rashes or lesions noted General Skin Exam: no breakdown Neuro oriented x3, CN's II-XII intact bilaterally, moves all extremities, no focal motor deficits and no sensory deficits noted Sensorium / Orientation: awake and alert Speech: speech normal Psych affect normal Assessment & Plan Assessment/Plan (1) Acute hypoxemic respiratory failure: (2) Demand ischemia: PLAN: Plan 1. Acute hypoxic respiratory failure secondary to acute congestive heart failure with reduced ejection fraction-patient is off Lasix for now, he was given fluids today due to hypotension. #2 acute congestive heart failure with reduced ejection fraction-patient will need close follow-up with cardiology as an outpatient, medication changes were made as above #3 coronary artery disease-this appears stable at this time #4 elevated troponin-secondary to demand ischemia, I do not feel the patient has had an acute UT #5 type 2 diabetes-patient's blood sugars will be monitored, sliding scale insulin will be administered as needed, patient will be kept off his Victoza at this time-I do not feel the patient needs this presently #6 hyperlipidemia-patient is on atorvastatin #7 chronic kidney disease stage IIIb-patient's BMP will be monitored #8 paroxysmal [id number]-aui-jituuyq is on rate control medication as well as Eliquis. Total clinical time spent by myself addressing patient's medical issues, reviewing all of his data, and collaborating with patient's care team: 35 minutes Charges/Coding Visit Charges Inpatient E&M: 50242 Subs Hosp L2
[2025-01-13] MEDS: Aspirin 81 MG TAB.CHEW PO (20:30)
[2025-01-13] MEDS: Atorvastatin Calcium 40 MG Tablet PO (20:30)
[2025-01-13] MEDS: Pantoprazole Sodium 20 MG Tablet PO (20:34)
[2025-01-13 22:08] LABS: Bedside Glucose 163 mg/dL (74-106)
[2025-01-14 03:45] VITALS: BP 111/61; PULSE 105; RESP 18; TEMP 36.1; O2SAT 98
[2025-01-14 06:43] LABS: Bedside Glucose 130 mg/dL (74-106)
[2025-01-14 07:00] VITALS: O2SAT 98
[2025-01-14 08:32] VITALS: BP 100/64; PULSE 105; RESP 18; TEMP 36.3; O2SAT 98
[2025-01-14] MEDS: Senna/Docusate Sodium 1 Tablet PO (08:35)
[2025-01-14] MEDS: Triamcinolone 0.1% Ointment 15 gm tube 1 APPLIC TOPICAL (08:35)
[2025-01-14 08:36] VITALS: PULSE 105
[2025-01-14] MEDS: APIXABAN 2.5 MG TABLET (WCH) PO (08:36)
[2025-01-14] MEDS: Cholecalciferol (VIT D3) 25 MCG TABLET (1,000 UNITS) 50 MCG PO (08:36)
[2025-01-14] MEDS: Ranolazine 500 MG Tablet 1000 MG PO (08:36)
[2025-01-14] MEDS: Folic Acid/Vitamin B Comp W-C 1 Capsule 1 CAP PO (08:36)
[2025-01-14] MEDS: Potassium Chloride Oral Tablet 20 MEQ PO (08:36)
[2025-01-14] MEDS: Metoprolol Tartrate 50 MG Tablet PO (08:36)
[2025-01-14] MEDS: Losartan Potassium 50 MG Tablet PO (09:29)
[2025-01-14] MEDS: Isosorbide Mononitrate 60 MG Tablet PO (09:29)
--- NOTE | 2025-01-14 10:10 | DCINST_ITS ---
Discharge Instructions Diet Discharge Diet: 1800 Calorie Control Diet DC O2, CPAP, BIPAP needs Home O2 Discharge instructions: No Dressing / Incision Discharge Activity: Return to Normal Activity Weight Bearing Status: Full weight bearing Follow Up Care Test Results: Test results from this visit will be discussed in further detail at your follow- up appointment, if applicable. Discharge Plan Admission Admit Date/Time: 01/11/25 13:08 Primary Reason for Your Visit: congestive heart failure Attending Provider: William Ramirez Primary Care Provider: Kandi Obrien Discharge Orders/Prescriptions Prescriptions: New losartan 50 mg Tablet 50 mg PO DAILY Qty: 30 0RF triamcinolone acetonide 0.1 % Ointment 1 applic topical BID Qty: 30 0RF Protocol: *Topical Application Instructions APPLICATION INSTRUCTIONS: Apply to excoriated area on the lateral aspect of the right lower leg Rx Instructions: apply to rash on leg area bid furosemide [Lasix] 20 mg tablet 20 mg PO UD Qty: 90 0RF Rx Instructions: two every morning, one each afternoon Continued Nephro-Redd 0.8 mg tablet 1 tab PO DAILY sennosides-docusate sodium [Stool Softener-Stimulant Laxat] 8.6-50 mg tablet 1 tab PO BID pantoprazole 20 mg tablet,delayed release (DR/EC) 20 mg PO QHS Qty: 90 3RF liraglutide 0.6 mg/0.1 mL (18 mg/3 mL) pen injector 18 mg subcut DAILY Patient Comments: INJECT 1.8 MG DAILY cholecalciferol (vitamin D3) 50 mcg (2,000 unit) capsule 2,000 unit PO BID atorvastatin 40 mg tablet 40 mg PO DAILY Patient Comments: PT TAKES AT BEDTIME ascorbic acid (vitamin C) 500 mg tablet 500 mg PO DAILY ferrous sulfate 325 mg (65 mg iron) tablet 325 mg PO DAILY aspirin 81 mg tablet,chewable 81 mg PO QHS ranolazine 1,000 mg tablet extended release 12 hr 1,000 mg PO BID One Daily For Men 0.4-600 mg-mcg tablet 1 tab PO DAILY Patient Comments: PT TAKES AT BEDTIME isosorbide mononitrate 60 mg tablet extended release 24 hr 60 mg PO DAILY Qty: 90 3RF Eliquis 2.5 mg tablet 2.5 mg PO BID Qty: 60 11RF nitroglycerin 0.4 mg tablet, sublingual 0.4 mg SL Q5M PRN (Reason: Chest Pain) Qty: 25 3RF metoprolol tartrate 50 mg tablet 50 mg PO BID Qty: 60 11RF Discontinued insulin degludec [Tresiba FlexTouch U-100] 100 unit/mL (3 mL) insulin pen 10 unit subcut QAM Patient Comments: UNSURE IF PT IS TAKING THIS MEDICATION furosemide 40 mg tablet 40 mg PO DAILY amlodipine 5 mg tablet 5 mg PO DAILY Referrals / Follow Up: Kandi Obrien DO [Primary Care Provider] - In 1 Week Ray Perez NP, [employer] [Med Staff - Adv Practice Prof] - 01/27/25 10:00 am Disposition Disposition (needs filled in before D/C Order can be placed): Home, Self Care
--- NOTE | 2025-01-14 10:41 | PCM.DC.SUM ---
Providers Date of Admission: 01/11/25 Date of Discharge: 01/14/25 Primary Care Physician: Dr. Kandi Obrien DO Reason For Visit: CHF RESP FAILURE Diagnosis Discharge Diagnosis (1) Demand ischemia: Status: Acute Code(s): I24.89 - Other forms of acute ischemic heart disease (2) Acute hypoxemic respiratory failure: Status: Acute Code(s): J96.01 - Acute respiratory failure with hypoxia Plan 1. Acute hypoxic respiratory failure secondary to acute congestive heart failure with reduced ejection fraction-patient was placed on losartan and his Norvasc was discontinued, I elected to lower his dose of Lasix so as not to cause hypotension. #2 acute congestive heart failure with reduced ejection fraction-patient will need close follow-up with cardiology as an outpatient, medication changes were made as above #3 coronary artery disease-this appears stable at this time #4 elevated troponin-secondary to demand ischemia, I do not feel the patient has had an acute [place] #5 type 2 diabetes-patient's blood sugars will be monitored, sliding scale insulin will be administered as needed, patient will be kept off his Victoza at this time-I do not feel the patient needs this presently #6 hyperlipidemia-patient is on atorvastatin #7 chronic kidney disease stage IIIb-patient's BMP will be monitored #8 paroxysmal [id number] is on rate control medication as well as Eliquis. #9 cardiomyopathy-type unknown #10 moderate pulmonary hypertension Total clinical time spent by myself addressing patient's medical issues, reviewing all of his data, and collaborating with patient's care team: 35 minutes Medications at Discharge Home Medications vitamin B complex-vitamin C-folic acid 0.8 mg tablet (Nephro-Redd) 1 tab PO DAILY supplement 03/28/22 isosorbide mononitrate 60 mg tablet,extended release 24 hr 60 mg PO DAILY #90 tabs 12/16/23 sennosides 8.6 mg-docusate sodium 50 mg tablet (Stool Softener-Stimulant Laxative) 1 tab PO BID CONSTIPATION 01/02/24 apixaban 2.5 mg tablet (Eliquis) 2.5 mg PO BID #60 tabs 04/01/24 metoprolol tartrate 50 mg tablet 50 mg PO BID #60 tabs 04/01/24 nitroglycerin 0.4 mg sublingual tablet 0.4 mg sublingual Q5M PRN Chest Pain #25 tabs 04/01/24 cholecalciferol (vitamin D3) 50 mcg (2,000 unit) capsule 2,000 unit PO BID SUPPLEMENT 07/09/24 liraglutide 0.6 mg/0.1 mL (18 mg/3 mL) subcutaneous pen injector 18 mg subcut DAILY diabetes 07/09/24 pantoprazole 20 mg tablet,delayed release 20 mg PO QHS #90 tabs 12/01/24 ascorbic acid (vitamin C) 500 mg tablet 500 mg PO DAILY supplement 01/11/25 aspirin 81 mg chewable tablet 81 mg PO QHS 01/11/25 atorvastatin 40 mg tablet 40 mg PO DAILY cholesterol 01/11/25 ferrous sulfate 325 mg (65 mg iron) tablet 325 mg PO DAILY supplement 01/11/25 multivit with minerals-folic acid-lycopene 0.4 mg-600 mcg tablet (One Daily For Men) 1 tab PO DAILY 01/11/25 ranolazine 1,000 mg tablet,extended release,12 hr 1,000 mg PO BID 01/11/25 furosemide 20 mg tablet (Lasix) 20 mg PO UD #90 tabs 01/14/25 losartan 50 mg tablet 50 mg PO DAILY #30 tabs 01/14/25 triamcinolone acetonide 0.1 % topical ointment 1 applic topical BID #30 GMS 01/14/25 Hospital Course Operations None Procedures 2-D Echocardiogram Summary of Care Provided Minutes Spent on Discharge: 31 Hospital Course: This 79-year-old white male presented to the emergency room [facility] with complaints of shortness of breath which started the morning he was seen in the emergency room. Patient denied any chest pain workup in the emergency room included labs which revealed elevated creatinine to 2.17, blood sugar of 179 and BUN was 33, patient's beta natruretic peptide was elevated at 8550, troponin was elevated at 120, chest x-ray showed cardiomegaly congestive heart failure and EKG showed sinus tachycardia at 109 bpm without evidence of ischemic changes. Patient required BiPAP in the emergency room to maintain his pulse ox above 90%. Patient was given IV Lasix and transferred to PCU as a full admission for acute congestive heart failure. His troponin elevation was felt to be secondary to demand ischemia, patient's oxygen demand improved during his hospital stay, echocardiogram was obtained which showed a decreased ejection fraction at 25 to 30% with moderate pulmonary hypertension. Patient had hypotension during his hospital stay from diuresis and medications used for his congestive heart failure, at the time of discharge, patient's losartan was decreased to 25 mg daily. On 01/14/2025, patient was seen and examined:alert, oriented x3 and no apparent distress General Appearance: cooperative, well kempt and well developed Orientation / Consciousness: awake, oriented to person, oriented to place and oriented to time HEENT normocephalic, head/scalp atraumatic and moist oral mucous membranes Eyes PERRL, EOMs intact bilaterally and conjunctivae normal Neck supple, no JVD, thyroid normal and no carotid bruits General: trachea midline Resp normal respiratory effort Resp Narrative: Inspiratory rales at the bases bilaterally Auscultation: Negative for rales, rhonchi or wheezes Cardio regular rate, regular rhythm, S1 normal heart sound, S2 normal heart sound, no murmurs, no rub and no gallops GI normal to inspection, nondistended, normoactive bowel sounds, soft to palpation, non-tender and non-distended Extremity no clubbing, cyanosis or edema Skin no rashes or lesions noted General Skin Exam: no breakdown Neuro oriented x3, CN's II-XII intact bilaterally, moves all extremities, no focal motor deficits and no sensory deficits noted Sensorium / Orientation: awake and alert Speech: speech normal Psych affect normal Patient was discharged home in stable condition on 01/14/2025. Weight / BMI Weight Weight: 80.2 kg Body Mass Index (BMI) 29.4 ABG / Lab / Microbiology Data 01/11/25 11:08 01/12/25 05:00 Laboratory: Laboratory Results - last 24 hr 01/13/25 12:21: POC Glucose 219 H 01/13/25 15:09: POC Glucose 160 H 01/13/25 20:27: POC Glucose 163 H 01/14/25 06:22: POC Glucose 130 H D/C Instructions Discharge Diet: 1800 Calorie Control Diet Weight Bearing Status: Full weight bearing DC O2, CPAP, BIPAP Needs Home O2 Discharge instructions: No Meaningful Use Info Meaningful Use Meaningful Use Diagnoses (Choose all that apply): CHF CHF EMIGDIO/ARB ordered at discharge?: Yes Documented LVEF (%): 25 Ischemic Stroke Statin Dosing Therapy Reference: STATIN DOSE THERAPY REFERENCE: * Patients > 75 years receive moderate or high dose statin therapy. * Patients 75 years or YOUNGER should receive HIGH intensity statin dose unless contraindicated. You will be required to document reason for non-treatment if statin daily dose does not meet guidelines. HIGH DOSE STATIN THERAPY DAILY Atorvastatin > than or = to 40 mg Rosuvastatin > than or = to 20 mg Amlodipine + Atorvastatin > than or = to 2.5/40 mg Ezetimibe + Simvastatin 10/80 mg Simvastatin 80mg Discharge Plan Admission Admit Date/Time: 01/11/25 13:08 Primary Reason for Your Visit: congestive heart failure Attending Provider: William Ramirez Primary Care Provider: Kandi Obrien Discharge Orders/Prescriptions Prescriptions: New losartan 50 mg Tablet 50 mg PO DAILY Qty: 30 0RF triamcinolone acetonide 0.1 % Ointment 1 applic topical BID Qty: 30 0RF Protocol: *Topical Application Instructions APPLICATION INSTRUCTIONS: Apply to excoriated area on the lateral aspect of the right lower leg Rx Instructions: apply to rash on leg area bid furosemide [Lasix] 20 mg tablet 20 mg PO UD Qty: 90 0RF Rx Instructions: two every morning, one each afternoon Continued Nephro-Redd 0.8 mg tablet 1 tab PO DAILY sennosides-docusate sodium [Stool Softener-Stimulant Laxat] 8.6-50 mg tablet 1 tab PO BID pantoprazole 20 mg tablet,delayed release (DR/EC) 20 mg PO QHS Qty: 90 3RF liraglutide 0.6 mg/0.1 mL (18 mg/3 mL) pen injector 18 mg subcut DAILY Patient Comments: INJECT 1.8 MG DAILY cholecalciferol (vitamin D3) 50 mcg (2,000 unit) capsule 2,000 unit PO BID atorvastatin 40 mg tablet 40 mg PO DAILY Patient Comments: PT TAKES AT BEDTIME ascorbic acid (vitamin C) 500 mg tablet 500 mg PO DAILY ferrous sulfate 325 mg (65 mg iron) tablet 325 mg PO DAILY aspirin 81 mg tablet,chewable 81 mg PO QHS ranolazine 1,000 mg tablet extended release 12 hr 1,000 mg PO BID One Daily For Men 0.4-600 mg-mcg tablet 1 tab PO DAILY Patient Comments: PT TAKES AT BEDTIME isosorbide mononitrate 60 mg tablet extended release 24 hr 60 mg PO DAILY Qty: 90 3RF Eliquis 2.5 mg tablet 2.5 mg PO BID Qty: 60 11RF nitroglycerin 0.4 mg tablet, sublingual 0.4 mg SL Q5M PRN (Reason: Chest Pain) Qty: 25 3RF metoprolol tartrate 50 mg tablet 50 mg PO BID Qty: 60 11RF Discontinued insulin degludec [Tresiba FlexTouch U-100] 100 unit/mL (3 mL) insulin pen 10 unit subcut QAM Patient Comments: UNSURE IF PT IS TAKING THIS MEDICATION furosemide 40 mg tablet 40 mg PO DAILY amlodipine 5 mg tablet 5 mg PO DAILY Referrals / Follow Up: Kandi Obrien DO [Primary Care Provider] - In 1 Week Ray Perez NP, [employer] [Med Staff - [facility]] - 01/27/25 10:00 am Disposition Disposition (needs filled in before D/C Order can be placed): Home, Self Care Charges/Coding Visit Charges Inpatient E&M: 90925 Disch Hosp >30min
--- NOTE | 2025-01-14 11:11 | CASEMGMT ---
Patient has order for discharge. RN CM in to discuss needs at discharge. Patient denies needs or help at discharge. Patient had no further questions or concerns.
[2025-01-14 11:55] VITALS: BP 90/58; PULSE 84; RESP 18; TEMP 36.7; O2SAT 97
--- NOTE | 2025-01-14 12:33 | NURSING ---
BP on discharge 90/58, Dr Stevens made aware and made changes to medications, patient had already left. Called patient to go over changes, he verbalized understanding but requested I call his nephew Patrice to go over instructions. Patrice called by this RN and went over medication changes, Patrice stated he would go over to patients house to ensure correct set up of medications. No further questions at this time.
== END 2025-01-14 12:00 | disposition home or self-care (01) | DRG 291 ==
LOC: ED 12:57 → PCU 13:19
PROVIDERS: Internal Medicine; Admitting Provider Internal Medicine; Emergency Provider Emergency Medicine; PCP Internal Medicine; Visit Provider Internal Medicine
DX: I13.0 Hypertensive heart and chronic kidney disease with heart failure and stage 1 through stage 4 chronic kidney disease, or unspecified chronic kidney disease (principal); J96.01 Acute respiratory failure with hypoxia; I50.21 Acute systolic (congestive) heart failure; I24.89 Other forms of acute ischemic heart disease; I27.20 Pulmonary hypertension, unspecified; E11.22 Type 2 diabetes mellitus with diabetic chronic kidney disease; N18.32 Chronic kidney disease, stage 3b; I48.0 Paroxysmal atrial fibrillation; E78.00 Pure hypercholesterolemia, unspecified; I25.10 Atherosclerotic heart disease of native coronary artery without angina pectoris; Z79.82 Long term (current) use of aspirin; Z95.5 Presence of coronary angioplasty implant and graft; Z83.3 Family history of diabetes mellitus; Z79.01 Long term (current) use of anticoagulants; Z79.85 Long-term (current) use of injectable non-insulin antidiabetic drugs; Z79.899 Other long term (current) drug therapy; Z91.041 Radiographic dye allergy status; Z79.02 Long term (current) use of antithrombotics/antiplatelets
CPT/HCPCS: 36415; 71045; 80048; 82962; 83735; 83880; 84443; 84484; 85025; 85379; 93005; 93306; 94002; 94760; 97802; 97803; 99283; Q9957; A4216; C8929; J1940; J2405

== ENCOUNTER → 2025-02-01 | Outpatient (CLI) | payer MEDICARE, SELFPAY ==
[2025-02-01 10:08] LABS: Hematocrit 33.8 % (40-54); Hemoglobin 10.9 g/dL (13.0-16.5); Mean Corp Hgb Conc 32.2 g/dL (32-36); Mean Corpuscular Hgb 31.2 pg (27.0-32.0); Mean Corpuscular Volume 96.8 fL (80-94); Mean Platelet Vol. 10.5 fl (6.2-12.0); Platelet Count 233 K/mm3 (150-450); RBC Distribution Width CV 13.5 % (11.6-14.6); RBC Distribution Width SD 47.8 fl (35.1-43.9); Red Blood Count 3.49 M/mm3 (4.6-6.2); White Blood Count 7.3 K/mm3 (4.4-11.0)
[2025-02-01 11:00] LABS: PTHIN 111 pg/mL (11-61)
[2025-02-01 11:06] LABS: Protein, Urine (Random) 8.3 mg/dL (0.0-12.0); Protein:Creat Ratio 108 mg/g CRE (0-200)
[2025-02-01 12:21] LABS: Albumin, Serum 3.7 g/dL (3.4-4.8); Anion Gap 12 (5-15); BUN 60 mg/dL (4-19); BUN/Creat Ratio 20.7 RATIO (10-20); Carbon Dioxide 22.9 mmol/L (21.0-32.0); Chloride 103 mmol/L (98-108); EST Glomerular Filtration Rate 21 (>60); Glucose 154 mg/dL (70-99); Phosphorus 3.8 mg/dL (2.7-4.5); Potassium 4.9 mmol/L (3.3-5.1); Sodium Level 137 mmol/L (133-145)
== END | disposition home or self-care (01) ==
LOC: LAB 09:35
PROVIDERS: PCP Internal Medicine; Referring Provider Internal Medicine Nephrology; Visit Provider Internal Medicine Nephrology
DX: E11.22 Type 2 diabetes mellitus with diabetic chronic kidney disease (principal); N18.32 Chronic kidney disease, stage 3b
CPT/HCPCS: 36415; 80069; 82570; 83970; 84156; 85027

== ENCOUNTER → 2025-02-19 | Outpatient (CLI) | payer MEDICARE, SELFPAY ==
[2025-02-19 12:00] LABS: Anion Gap 13 (5-15); BUN 36 mg/dL (4-19); BUN/Creat Ratio 15.7 RATIO (10-20); Calcium,Total 9.2 mg/dL (7.6-11.0); Carbon Dioxide 20.4 mmol/L (21.0-32.0); Chloride 106 mmol/L (98-108); Creatinine, Serum 2.28 mg/dL (0.70-1.20); EST Glomerular Filtration Rate 28 (>60); Glucose 146 mg/dL (70-99); Potassium 4.9 mmol/L (3.3-5.1); Sodium Level 139 mmol/L (133-145)
== END | disposition home or self-care (01) ==
PROVIDERS: PCP Internal Medicine; Referring Provider Internal Medicine Nephrology; Visit Provider Internal Medicine Nephrology
DX: N18.9 Chronic kidney disease, unspecified (principal)
CPT/HCPCS: 36415; 80048

== ENCOUNTER → 2025-03-17 | Outpatient (CLI) | payer MEDICARE, SELFPAY | END | disposition home or self-care (01) | LOC: PSN 07:42 | PROVIDERS: PCP Internal Medicine; Referring Provider Nurse Practitioner Family; Visit Provider Nurse Practitioner Family | DX: I48.0 Paroxysmal atrial fibrillation (principal); N18.32 Chronic kidney disease, stage 3b | CPT/HCPCS: 93225; 93226 ==

== ENCOUNTER → 2025-05-06 | Outpatient (CLI) | payer MEDICARE, SELFPAY ==
[2025-05-06 17:49] LABS: AST(SGOT) 26 U/L (<=37); Alanine Aminotransfer ALT/SGPT 33 U/L (<=46); Albumin, Serum 3.6 g/dL (3.4-4.8); Alkaline Phosphatase 107 U/L (40-129); Anion Gap 17 (5-15); BUN 41 mg/dL (4-19); BUN/Creat Ratio 17.3 RATIO (10-20); Calcium,Total 9.6 mg/dL (7.6-11.0); Carbon Dioxide 20.1 mmol/L (21.0-32.0); Chloride 101 mmol/L (98-108); Globulin 3.2 g/dL (2.2-4.2); Glucose 257 mg/dL (70-99); Potassium 4.9 mmol/L (3.3-5.1)
== END | disposition home or self-care (01) ==
LOC: POLAB3 14:14
PROVIDERS: PCP Internal Medicine; Visit Provider Internal Medicine Nephrology
DX: N28.9 Disorder of kidney and ureter, unspecified (principal)
CPT/HCPCS: 36415; 80053

== ENCOUNTER → 2025-05-28 | Outpatient (CLI) | payer MEDICARE, SELFPAY ==
[2025-05-28 11:41] LABS: Anion Gap 11 (5-15); BUN 25 mg/dL (4-19); BUN/Creat Ratio 12.7 RATIO (10-20); Calcium,Total 8.9 mg/dL (7.6-11.0); Carbon Dioxide 23.7 mmol/L (21.0-32.0); Chloride 105 mmol/L (98-108); Glucose 199 mg/dL (70-99); Potassium 5.0 mmol/L (3.3-5.1); Uric Acid 8.4 mg/dL (3.5-7.2)
== END | disposition home or self-care (01) ==
LOC: LAB 10:19
PROVIDERS: PCP Internal Medicine; Referring Provider Internal Medicine; Visit Provider Internal Medicine
DX: E79.0 Hyperuricemia without signs of inflammatory arthritis and tophaceous disease (principal)
CPT/HCPCS: 36415; 80048; 84550